=== PATIENT | female | born 1935 | race Caucasian/White ===

== ENCOUNTER 2016-11-27 18:43 | Inpatient (IN) | payer MEDICARE, BC ==
[2016-11-27] MEDS ORDERED: DILTIAZEM 125 MG in SODIUM CHLORIDE 0.9% 100 ML IV ONE (19:39)
[2016-11-27 19:52] LABS: Basophils % (A) 0 %; CH 30.3; CHCM 31.8; Eosinophils # (A) 0.1 k/uL (0-0.7); Eosinophils % (A) 1 %; HCT 46.2 % (34.0-46.0); HDW 2.65; HGB 14.5 gm/dL (11.4-16.0); Hypochromasia Slight; Luc # (Auto) 0.19; Luc % (Auto) 3; Lymphocytes % (A) 17 %; MCH 30.1 pg (25.0-35.0); MCHC 31.4 g/dL (31.0-37.0); MCV 95.8 fL (80.0-100.0); Mean Platelet Volume 7.6; Monocytes # (A) 0.6 k/uL (0-1.0); Monocytes % (A) 9 %; Neutrophils # (A) 4.4 k/uL (1.3-7.7); Neutrophils % (A) 70 %; RBC 4.82 m/uL (3.80-5.40); RDW 14.4 % (11.5-15.5); WBC 6.2 k/uL (3.8-10.6); WBC (Perox) 5.98
[2016-11-27 20:06] LABS: ALT 46 U/L (9-52); AST 29 U/L (14-36); Alkaline Phosphatase 56 U/L (38-126); Anion Gap 12 mmol/L; Blood Urea Nitrogen 19 mg/dL (7-17); Calcium 9.6 mg/dL (8.4-10.2); Carbon Dioxide 29 mmol/L (22-30); Chloride 103 mmol/L (98-107); Glucose 141 mg/dL (74-99); Magnesium 1.9 mg/dL (1.6-2.3); Non-African American GFR(MDRD) >60 (>60 ml/min/1.73 sqM); Potassium 3.5 mmol/L (3.5-5.1); Sodium 144 mmol/L (137-145); Total Bilirubin 1.4 mg/dL (0.2-1.3); Total Protein 6.9 g/dL (6.3-8.2)
[2016-11-27 20:09] LABS: INR 1.3 (<1.1); Partial Thromboplastin Time 24.3 sec (22.0-30.0); Prothrombin Time 12.5 sec (9.0-12.0)
--- NOTE | 2016-11-27 20:13 | ED ---
Arrhythmia/Palpitations HPI - General Chief Complaint: Arrhythmia/Palpitations Stated Complaint: HIGH HEART RATE, SENT BY MANAGER BOOKS Time Seen by Provider: 11/27/16 19:09 Source: patient, family Mode of arrival: wheelchair Limitations: no limitations - History of Present Illness Initial Comments: This patient is an 80-year-old woman who was referred here by an urgent care clinic doctor. The patient and her family relate a history that they had gone to the clinic because she had not been feeling well for about a week. She states that specifically she was feeling very fatigued, having a lack of energy , and having a lot of which she is describing as indigestion, with belching and some nausea. The patient was found to have rapid, irregular pulse and was referred directly here. The patient denies any history of previous arrhythmia. She does have a previous stent. The patient denies other anginal type symptoms, including no chest pain, dyspnea, diaphoresis, vomiting, syncope. MD Complaint: rapid heart beat -: week(s) Context: occurred during rest - Related Data Home Medications Medication Instructions Recorded Confirmed Aspirin [Adult Low Dose Aspirin EC] 81 mg PO DAILY 11/27/16 12/04/16 Cholecalciferol [Vitamin D3] 1,000 unit PO DAILY 11/27/16 12/04/16 amLODIPine [Norvasc] 5 mg PO BID 11/27/16 12/04/16 Previous Rx's Medication Instructions Recorded Apixaban [Eliquis] 5 mg PO BID #0 tab 12/01/16 Diltiazem HCl [Cardizem LA] 120 mg PO DAILY #30 tab.er.24h 12/01/16 Metoprolol Tartrate [Lopressor] 100 mg PO BID #60 tab 12/01/16 ALPRAZolam [Xanax] 0.125 mg PO TID PRN #20 tab 12/07/16 Furosemide [Lasix] 40 mg PO DAILY #30 tab 12/07/16 Allergies Allergy/AdvReac Type Severity Reaction Status Date / Time No Known Allergies Allergy Verified 12/04/16 22:10 Review of Systems ROS Statement: Those systems with pertinent positive or pertinent negative responses have been documented in the HPI. ROS Other: All systems not noted in ROS Statement are negative. Constitutional: Reports: weakness (Generalized). Denies: fever, chills Respiratory: Denies: cough, dyspnea Cardiovascular: Reports: edema (Bilateral ankle). Denies: chest pain, palpitations, orthopnea, syncope Gastrointestinal: Reports: nausea. Denies: abdominal pain, vomiting, melena, hematochezia Genitourinary: Denies: dysuria, hematuria Musculoskeletal: Denies: back pain Skin: Denies: rash Neurological: Denies: headache, numbness Past Medical History Past Medical History: Hyperlipidemia, Hypertension History of Any Multi-Drug Resistant Organisms: None Reported Past Surgical History: Heart Catheterization With Stent Past Psychological History: No Psychological Hx Reported Smoking Status: Former smoker Past Alcohol Use History: None Reported Past Drug Use History: None Reported - Past Family History Father Family Medical History: Coronary Artery Disease (CAD) Mother Family Medical History: Coronary Artery Disease (CAD) General Exam Limitations: no limitations General appearance: alert, in no apparent distress Head exam: Present: atraumatic, normocephalic Eye exam: Present: normal appearance. Absent: scleral icterus, conjunctival injection ENT exam: Present: normal oropharynx Neck exam: Present: normal inspection, full ROM Respiratory exam: Present: normal lung sounds bilaterally. Absent: respiratory distress, wheezes, rales, rhonchi, stridor Cardiovascular Exam: Present: tachycardia, irregular rhythm, normal heart sounds. Absent: systolic murmur, diastolic murmur, rubs, gallop GI/Abdominal exam: Present: soft. Absent: distended, tenderness, guarding, rebound, rigid, mass Extremities exam: Present: normal inspection, normal capillary refill. Absent: pedal edema, calf tenderness Back exam: Present: normal inspection. Absent: CVA tenderness (R), CVA tenderness (L) Neurological exam: Present: alert Skin exam: Present: warm, dry, intact, normal color. Absent: rash Course Vital Signs 11/27/16 11/27/16 11/27/16 18:49 20:02 20:24 Temperature 97.2 F L 98.3 F Pulse Rate 162 H 152 H 148 H Respiratory 20 20 18 Rate Blood Pressure 172/87 125/90 128/58 O2 Sat by Pulse 91 L 96 94 L Oximetry 11/27/16 11/27/16 11/27/16 20:54 21:24 22:24 Temperature Pulse Rate 112 H 104 H 99 Respiratory 18 18 18 Rate Blood Pressure 122/75 125/76 135/65 O2 Sat by Pulse 94 L 93 L 95 Oximetry 11/27/16 23:21 Temperature 97.8 F Pulse Rate 88 Respiratory 18 Rate Blood Pressure 131/70 O2 Sat by Pulse 94 L Oximetry EKG Findings - EKG Results: EKG: interpreted by ERMD, normal axis EKG shows: atrial fibrillation (Rate approximately 143 bpm) - Blocks, Owen, Hypertrophy, ST Abn: AV and intraventricular conduction: right bundle branch block (fixed/ intermittent, complete/incomplete) Repolarization changes or abnormalities: nonspecific abnormality, ST segment, and/or T wave, ST suggestive of injury (There is some minimal asked T depression in the anterior leads) Medical Decision Making - Lab Data Result diagrams: 12/01/16 05:49 12/01/16 05:49 Lab Results 11/27/16 11/27/16 11/27/16 Range/Units 18:55 18:55 18:55 WBC 6.2 (3.8-10.6) k/uL RBC 4.82 (3.80-5.40) m/uL Hgb 14.5 (11.4-16.0) gm/dL Hct 46.2 H (34.0-46.0) % MCV 95.8 (80.0-100.0) fL MCH 30.1 (25.0-35.0) pg MCHC 31.4 (31.0-37.0) g/dL RDW 14.4 (11.5-15.5) % Plt Count 191 (150-450) k/uL Neutrophils % 70 % Lymphocytes % 17 % Monocytes % 9 % Eosinophils % 1 % Basophils % 0 % Neutrophils # 4.4 (1.3-7.7) k/uL Lymphocytes # 1.0 (1.0-4.8) k/uL Monocytes # 0.6 (0-1.0) k/uL Eosinophils # 0.1 (0-0.7) k/uL Basophils # 0.0 (0-0.2) k/uL Hypochromasia Slight PT (9.0-12.0) sec INR (<1.1) APTT (22.0-30.0) sec D-Dimer (<0.60) mg/L FEU Sodium 144 (137-145) mmol/L Potassium 3.5 (3.5-5.1) mmol/L Chloride 103 (98-107) mmol/L Carbon Dioxide 29 (22-30) mmol/L Anion Gap 12 mmol/L BUN 19 H (7-17) mg/dL Creatinine 0.80 (0.52-1.04) mg/dL Est GFR (MDRD) Af Amer >60 (>60 ml/min/1.73 sqM) Est GFR (MDRD) Non-Af >60 (>60 ml/min/1.73 sqM) Glucose 141 H (74-99) mg/dL Calcium 9.6 (8.4-10.2) mg/dL Magnesium 1.9 (1.6-2.3) mg/dL Total Bilirubin 1.4 H (0.2-1.3) mg/dL AST 29 (14-36) U/L ALT 46 (9-52) U/L Alkaline Phosphatase 56 (38-126) U/L Total Creatine Kinase 25 L (30-135) U/L CK-MB (CK-2) 0.9 (0.0-2.4) ng/mL CK-MB (CK-2) Rel Index 3.6 Troponin I 0.092 H* (0.000-0.034) ng/mL Total Protein 6.9 (6.3-8.2) g/dL Albumin 4.2 (3.5-5.0) g/dL TSH 1.050 (0.465-4.680) mIU/L 11/27/16 Range/Units 18:55 WBC (3.8-10.6) k/uL RBC (3.80-5.40) m/uL Hgb (11.4-16.0) gm/dL Hct (34.0-46.0) % MCV (80.0-100.0) fL MCH (25.0-35.0) pg MCHC (31.0-37.0) g/dL RDW (11.5-15.5) % Plt Count (150-450) k/uL Neutrophils % % Lymphocytes % % Monocytes % % Eosinophils % % Basophils % % Neutrophils # (1.3-7.7) k/uL Lymphocytes # (1.0-4.8) k/uL Monocytes # (0-1.0) k/uL Eosinophils # (0-0.7) k/uL Basophils # (0-0.2) k/uL Hypochromasia PT 12.5 H (9.0-12.0) sec INR 1.3 (<1.1) APTT 24.3 (22.0-30.0) sec D-Dimer 0.67 H (<0.60) mg/L FEU Sodium (137-145) mmol/L Potassium (3.5-5.1) mmol/L Chloride (98-107) mmol/L Carbon Dioxide (22-30) mmol/L Anion Gap mmol/L BUN (7-17) mg/dL Creatinine (0.52-1.04) mg/dL Est GFR (MDRD) Af Amer (>60 ml/min/1.73 sqM) Est GFR (MDRD) Non-Af (>60 ml/min/1.73 sqM) Glucose (74-99) mg/dL Calcium (8.4-10.2) mg/dL Magnesium (1.6-2.3) mg/dL Total Bilirubin (0.2-1.3) mg/dL AST (14-36) U/L ALT (9-52) U/L Alkaline Phosphatase (38-126) U/L Total Creatine Kinase (30-135) U/L CK-MB (CK-2) (0.0-2.4) ng/mL CK-MB (CK-2) Rel Index Troponin I (0.000-0.034) ng/mL Total Protein (6.3-8.2) g/dL Albumin (3.5-5.0) g/dL TSH (0.465-4.680) mIU/L Critical Care Time Critical Care Time: Yes (35 minutes) Disposition Clinical Impression: New onset a-fib Disposition: ADMITTED IP TO THIS [facility] Condition: Fair
--- NOTE | 2016-11-27 20:19 | XR ---
EXAMINATION TYPE: XR chest 1V portable DATE OF EXAM: 11/27/2016 7:55 PM COMPARISON: NONE HISTORY: Dysrhythmia TECHNIQUE: Single frontal view of the chest is obtained. AP upright portable technique. FINDINGS: EKG leads noted. There is no focal air space opacity, pleural effusion, or pneumothorax se en. The cardiac silhouette size is within normal limits. The osseous structures are intact. IMPRESSION: No acute process.
[2016-11-27 20:26] LABS: Creatine Kinase MB 0.9 ng/mL (0.0-2.4)
[2016-11-27 20:37] LABS: Troponin I 0.092 ng/mL (0.000-0.034)
[2016-11-27] MEDS ORDERED: HEPARIN SODIUM,PORCINE 5,000 UNIT/ML 1 ML VIAL IV ONE (23:03)
[2016-11-27] MEDS ORDERED: NITROGLYCERIN SL TABS 0.4 MG TAB SUBLINGUAL PRN (23:03)
[2016-11-27] MEDS ORDERED: HEPARIN SODIUM,PORCINE/D5W PMX 25,000 UNIT in DEXTROSE/WATER 1 500ML.BAG IV SCH (23:15)
[2016-11-27] MEDS: SODIUM CHLORIDE 0.9% 1,000 ML IV SCH (23:29)
[2016-11-28 01:59] LABS: Creatine Kinase MB 1.2 ng/mL (0.0-2.4)
[2016-11-28 02:06] LABS: Troponin I 0.118 ng/mL (0.000-0.034)
[2016-11-28 06:39] LABS: Cholesterol 166 mg/dL (<200); HDL Cholesterol 52 mg/dL (40-60); Triglycerides 92 mg/dL (<150)
[2016-11-28 07:11] LABS: Creatine Kinase MB 1.3 ng/mL (0.0-2.4)
[2016-11-28 07:28] LABS: Troponin I 0.115 ng/mL (0.000-0.034)
[2016-11-28] MEDS: CHOLECALCIFEROL 1,000 UNIT TAB PO SCH (08:37)
[2016-11-28] MEDS: amLODIPine 5 MG TAB PO SCH ×2 (08:37→19:56)
[2016-11-28] MEDS ORDERED: ASPIRIN 325 MG TAB PO SCH (09:00)
[2016-11-28] MEDS ORDERED: NON-FORMULARY DRUG (Aspirin [Adult Low Dose Aspirin Ec] 81 MG) PO SCH (09:00)
[2016-11-28] MEDS ORDERED: METOPROLOL TARTRATE 25 MG TAB PO SCH (09:00)
--- NOTE | 2016-11-28 11:29 | ECHOF ---
Referral Reason:new onset af MEASUREMENTS -------- HEIGHT: 165.1 cm WEIGHT: 67.6 kg BP: 129/74 RVIDd: 2.9 cm (< 3.3) IVSd: 1.2 cm (0.6 - 1.1) LVIDd: 4.1 cm (3.9 - 5.3) LVPWd: 1.2 cm (0.6 - 1.1) IVSs: 1.6 cm LVIDs: 3.3 cm LVPWs: 1.6 cm LA Diam: 3.8 cm (2.7 - 3.8) LAESV Index (A-L): 32.19 ml/m Ao Diam: 3.2 cm (2.0 - 3.7) AV Cusp: 1.7 cm (1.5 - 2.6) MV EXCURSION: 16.269 mm (> 18.000) MV EF SLOPE: 107 mm/s (70 - 150) EPSS: 0.7 cm AV maxP.09 mmHg AV meanP.07 mmHg RAP: 15.00 mmHg RVSP: 45.66 mmHg FINDINGS -------- Atrial fibrillation. This was a technically good study. The left ventricular size is normal. There is borderline concentric left ventricular hypertrophy. Overall left ventricular systolic function is low-normal with, an EF between 50 - 55 %. The right ventricle is normal in size and function. LA is midly dilated 29-33ml/m2. The right atrium is normal in size. Aortic valve is trileaflet and is mildly thickened. Peak/mean gradient across the Aortic Valve is 13.09mmHg / 6.07mmHg. Mild mitral annular calcification present. Mild mitral regurgitation is present. Moderate tricuspid regurgitation present. There is mild to moderate pulmonary hypertension. The right ventricular systolic pressure, as measured by Doppler, is 45.66mmHg. Trace/mild (physiologic) pulmonic regurgitation. The aortic root size is normal. The inferior vena cava is dilated with no significant inspiratory collapse which is consistent estimated right atrial pressure of >15 mmHg. The pericardium is normal. CONCLUSIONS -------- 1. Atrial fibrillation. 2. Peak/mean gradient across the Aortic Valve is 13.09mmHg / 6.07mmHg. 3. Mild mitral annular calcification present. 4. Mild mitral regurgitation is present. 5. Moderate tricuspid regurgitation present. 6. There is mild to moderate pulmonary hypertension. 7. The right ventricular systolic pressure, as measured by Doppler, is 45.66mmHg. 8. Trace/mild (physiologic) pulmonic regurgitation. 9. The aortic root size is normal. 10. The inferior vena cava is dilated with no significant inspiratory collapse which is consistent estimated right atrial pressure of >15 mmHg. 11. The pericardium is normal. 12. This was a technically good study. 13. The left ventricular size is normal. 14. There is borderline concentric left ventricular hypertrophy. 15. Overall left ventricular systolic function is low-normal with, an EF between 50 - 55 %. 16. The right ventricle is normal in size and function. 17. LA is midly dilated 29-33ml/m2. 18. The right atrium is normal in size. 19. Aortic valve is trileaflet and is mildly thickened. SERVICE DESK SPECIALIST: Bertha Ulrich RDCS
[2016-11-28] MEDS ORDERED: methylPREDNISolone SOD SUCCI 125 MG/2 ML VIAL IV STA (12:11)
[2016-11-28] MEDS ORDERED: RX INFO: IV CONTRAST WAS GIVEN 1 EACH MISC MISCELLANE PRN (12:12)
[2016-11-28] MEDS ORDERED: METOPROLOL TARTRATE 50 MG TAB PO STA (12:50)
--- NOTE | 2016-11-28 13:04 | P.CRDCN ---
History of Present Illness Consult date: 11/28/16 Reason for Consult (text): New onset atrial fibrillation w/RVR Chief complaint: fatigue, shortness of breath History of present illness: This is a pleasant 80-year-old female who follows with Dr. RAMSEY per week in the office. Has a known history of coronary artery disease with prior stenting in 2001, hypertension, dyslipidemia, current smoker. She presented to the hospital with complaints of fatigue, weakness for the last couple of weeks and had developed soreness of breath and lower extremity edema over the last few days. EKG on admission showed patient to be in atrial fibrillation with rapid ventricular response, new onset. Chest x-ray showed no acute process. Laboratory values showed BUN of 19, creatinine 0.8, TSH is normal at 1.050 and mild troponin elevation of 0.092, 0.118, and 0.115. She was started on Cardizem drip as well as heparin drip. Heart rates are currently controlled however she remains in atrial fibrillation. On examination, patient says she is feeling quite a bit better, breathing easier. Continues to complain of fatigue as well as lower extremity edema which has improved. He denies complaints of dizziness, lightheadedness, palpitations or chest discomfort. Past Medical History Past Medical History: Hyperlipidemia, Hypertension History of Any Multi-Drug Resistant Organisms: None Reported Past Surgical History: Heart Catheterization With Stent Past Anesthesia/Blood Transfusion Reactions: No Reported Reaction Date of Last Stent Placement:: 2001 Past Psychological History: No Psychological Hx Reported Smoking Status: Former smoker Past Alcohol Use History: None Reported Past Drug Use History: None Reported - Past Family History Father Family Medical History: Coronary Artery Disease (CAD) Mother Family Medical History: Coronary Artery Disease (CAD) Medications and Allergies Home Medications Medication Instructions Recorded Confirmed Type Aspirin [Adult Low Dose Aspirin EC] 81 mg PO DAILY 11/27/16 11/27/16 History Cholecalciferol [Vitamin D3] 1,000 unit PO DAILY 11/27/16 11/27/16 History Metoprolol Tartrate [Lopressor] 25 mg PO BID 11/27/16 11/27/16 History amLODIPine [Norvasc] 5 mg PO BID 11/27/16 11/27/16 History Allergies Allergy/AdvReac Type Severity Reaction Status Date / Time No Known Allergies Allergy Verified 11/27/16 19:28 Physical Exam Vitals: Vital Signs Temp Pulse Pulse Resp BP BP Pulse Ox 11/28/16 08:37 97 F L 89 18 129/74 92 L 11/28/16 04:00 96.3 F L 84 18 116/60 93 L 11/28/16 01:35 96.9 F L 65 18 132/76 94 L 11/27/16 23:21 97.8 F 88 18 131/70 94 L 11/27/16 22:24 99 18 135/65 95 11/27/16 21:24 104 H 18 125/76 93 L 11/27/16 20:54 112 H 18 122/75 94 L 11/27/16 20:24 148 H 18 128/58 94 L 11/27/16 20:02 98.3 F 152 H 20 125/90 96 11/27/16 18:49 97.2 F L 162 H 20 172/87 91 L Intake and Output 11/27/16 11/28/16 11/28/16 22:59 06:59 14:59 Intake Total 408.32 Output Total 600 Balance -191.68 Intake: IV 290 Heparin Sodium,Porcine/ 130 D5w Pmx 25,000 unit In Dextrose/Water 1 500ml. bag @ 12 UNITS/KG/HR 16. 32 mls/hr IV .Q24H CANDE Rx #:[id number] Sodium Chloride 0.9% 1, 160 000 ml @ 20 mls/hr IV . Q24H CANDE Rx#:[id number] Intake, IV Titration 118.32 Amount Heparin Sodium,Porcine/ 118.32 D5w Pmx 25,000 unit In Dextrose/Water 1 500ml. bag @ 12 UNITS/KG/HR 16. 32 mls/hr IV .Q24H CANDE Rx #:[id number] Output: Urine 600 Other: Voiding Method Toilet Toilet Weight 68.039 kg 68 kg PHYSICAL EXAMINATION: HEENT: Head is atraumatic, normocephalic. Pupils equal, round. Neck is supple. There is no elevated jugular venous pressure. HEART EXAMINATION: Heart sounds irregular irregular, S1 and S2 normal. No murmur or gallop heard. CHEST EXAMINATION: Lungs reveal diminished air entry bilaterally with expiratory wheezing throughout. No chest wall tenderness is noted on palpation or with deep breathing. ABDOMEN: Soft, nontender. Bowel sounds are heard. No organomegaly noted. EXTREMITIES: 2+ peripheral pulses with evidence of trace peripheral edema and no calf tenderness noted. NEUROLOGIC patient is awake, alert and oriented x3. . Results 11/27/16 18:55 11/27/16 18:55 Cardiac Enzymes 11/27/16 11/27/16 11/28/16 Range/Units 18:55 18:55 01:02 AST 29 (14-36) U/L CK-MB (CK-2) 0.9 1.2 (0.0-2.4) ng/mL Troponin I 0.092 H* 0.118 H* (0.000-0.034) ng/mL 11/28/16 Range/Units 06:01 AST (14-36) U/L CK-MB (CK-2) 1.3 (0.0-2.4) ng/mL Troponin I 0.115 H* (0.000-0.034) ng/mL Coagulation 11/27/16 11/28/16 Range/Units 18:55 05:57 PT 12.5 H (9.0-12.0) sec APTT 24.3 63.3 H (22.0-30.0) sec Lipids 11/28/16 Range/Units 06:01 Triglycerides 92 (<150) mg/dL Cholesterol 166 (<200) mg/dL HDL Cholesterol 52 (40-60) mg/dL CBC 11/27/16 Range/Units 18:55 WBC 6.2 (3.8-10.6) k/uL RBC 4.82 (3.80-5.40) m/uL Hgb 14.5 (11.4-16.0) gm/dL Hct 46.2 H (34.0-46.0) % Plt Count 191 (150-450) k/uL Comprehensive Metabolic Panel 11/27/16 Range/Units 18:55 Sodium 144 (137-145) mmol/L Potassium 3.5 (3.5-5.1) mmol/L Chloride 103 (98-107) mmol/L Carbon Dioxide 29 (22-30) mmol/L BUN 19 H (7-17) mg/dL Creatinine 0.80 (0.52-1.04) mg/dL Glucose 141 H (74-99) mg/dL Calcium 9.6 (8.4-10.2) mg/dL AST 29 (14-36) U/L ALT 46 (9-52) U/L Alkaline Phosphatase 56 (38-126) U/L Total Protein 6.9 (6.3-8.2) g/dL Albumin 4.2 (3.5-5.0) g/dL Current Medications Generic Name Dose Route Start Last Admin Trade Name Freq PRN Reason Stop Dose Admin Amlodipine Besylate 5 mg 11/28/16 09:00 11/28/16 08:37 Norvasc PO 5 mg BID CANDE Administration Aspirin 325 mg 11/28/16 09:00 11/28/16 08:37 Aspirin PO 325 mg DAILY CANDE Administration Cholecalciferol 1,000 unit 11/28/16 09:00 11/28/16 08:37 Vitamin D3 PO 1,000 unit DAILY CANDE Administration Diltiazem HCl 125 mg/ Sodium 125 mls @ 5 mls/hr 11/27/16 19:39 11/27/16 20:08 Chloride IV 11/28/16 19:38 5 mg/hr .Q24H ONE 5 mls/hr Protocol Administration 5 MG/HR Heparin Sodium/Dextrose 25,000 500 mls @ 16.32 mls/hr 11/27/16 23:15 06:42 unit/ IV Solution IV 12 units/kg/hr .Q24H CANDE 16.32 mls/hr Protocol Titration 12 UNITS/KG/HR Sodium Chloride 1,000 mls @ 20 mls/hr 11/27/16 23:15 11/27/16 23:29 Saline 0.9% IV 20 mls/hr .Q24H CANDE Administration Metoprolol Tartrate 25 mg 11/28/16 09:00 Lopressor PO BID [facility] Nitroglycerin 0.4 mg 11/27/16 23:03 Nitrostat SUBLINGUAL Q5M PRN Chest Pain Intake and Output 11/27/16 11/28/16 11/28/16 22:59 06:59 14:59 Intake Total 408.32 Output Total 600 Balance -191.68 Intake: IV 290 Heparin Sodium,Porcine/ 130 D5w Pmx 25,000 unit In Dextrose/Water 1 500ml. bag @ 12 UNITS/KG/HR 16. 32 mls/hr IV .Q24H CANDE Rx #:[id number] Sodium Chloride 0.9% 1, 160 000 ml @ 20 mls/hr IV . Q24H CANDE Rx#:[id number] Intake, IV Titration 118.32 Amount Heparin Sodium,Porcine/ 118.32 D5w Pmx 25,000 unit In Dextrose/Water 1 500ml. bag @ 12 UNITS/KG/HR 16. 32 mls/hr IV .Q24H CANDE Rx #:[id number] Output: Urine 600 Other: Voiding Method Toilet Toilet Weight 68.039 kg 68 kg 11/27/16 18:55 11/27/16 18:55 EKG Interpretations (text) Atrial fibrillation with rapid ventricular response Assessment and Plan Plan: Assessment and plan #1 new onset atrial fibrillation with rapid ventricular response, likely persistent #2 history of coronary artery disease with prior stenting in 2001 #3 hypertension #4 hyperlipidemia #5 current every day smoker From cardiac standpoint, we will increase metoprolol to 50 mg by mouth twice a day in hopes to discontinue Cardizem drip. We'll start the patient on Eliquis and stop IV heparin drip. 2-D echo with Doppler was completed and shows ejection fraction of 50-55%. Further recommendations to follow. GROUP BILLING COORDINATOR note has been reviewed, I agree with a documented findings and plan of care. Patient was seen and examined.
[2016-11-28] MEDS: APIXABAN 5 MG TAB PO SCH ×2 (13:20→19:55)
--- NOTE | 2016-11-28 14:34 | P.HPIM ---
History of Present Illness H&P Date: 11/28/16 80-year-old female comes in the hospital with complaints of generalized fatigue and shortness of breath 2 days. Patient does have a significant history of CAD status post a stent placement [address] Patient sees Dr[address] August. Patient came in to the hospital for further evaluation patient was noted to be in atrial fibrillation with rapid ventricular rate which appears to be new onset. Patient also was noted to be in some degree of failure. Initial chest x-ray however did not reveal any pulmonary vessel congestion Cardiac enzymes were elevated and peaked at 0.115 At this time patient states to be feeling better denies having any headaches blurry vision nausea vomiting chest pain difficulty breathing states that she is improved at rest however does continue have some dyspnea exertion Review of Systems All systems: negative (Noted in HPI) Past Medical History Past Medical History: Hyperlipidemia, Hypertension History of Any Multi-Drug Resistant Organisms: None Reported Past Surgical History: Heart Catheterization With Stent Past Anesthesia/Blood Transfusion Reactions: No Reported Reaction Date of Last Stent Placement:: 2001 Past Psychological History: No Psychological Hx Reported Smoking Status: Former smoker Past Alcohol Use History: None Reported Past Drug Use History: None Reported - Past Family History Father Family Medical History: Coronary Artery Disease (CAD) Mother Family Medical History: Coronary Artery Disease (CAD) Medications and Allergies Home Medications Medication Instructions Recorded Confirmed Type Aspirin [Adult Low Dose Aspirin EC] 81 mg PO DAILY 11/27/16 11/27/16 History Cholecalciferol [Vitamin D3] 1,000 unit PO DAILY 11/27/16 11/27/16 History Metoprolol Tartrate [Lopressor] 25 mg PO BID 11/27/16 11/27/16 History amLODIPine [Norvasc] 5 mg PO BID 11/27/16 11/27/16 History Allergies Allergy/AdvReac Type Severity Reaction Status Date / Time No Known Allergies Allergy Verified 11/27/16 19:28 Physical Exam Vitals: Vital Signs Temp Pulse Pulse Resp BP BP Pulse Ox 11/28/16 08:37 97 F L 89 18 129/74 92 L 11/28/16 04:00 96.3 F L 84 18 116/60 93 L 11/28/16 01:35 96.9 F L 65 18 132/76 94 L 11/27/16 23:21 97.8 F 88 18 131/70 94 L 11/27/16 22:24 99 18 135/65 95 11/27/16 21:24 104 H 18 125/76 93 L 11/27/16 20:54 112 H 18 122/75 94 L 11/27/16 20:24 148 H 18 128/58 94 L 11/27/16 20:02 98.3 F 152 H 20 125/90 96 11/27/16 18:49 97.2 F L 162 H 20 172/87 91 L Intake and Output 11/27/16 11/28/16 11/28/16 22:59 06:59 14:59 Intake Total 408.32 Output Total 600 Balance -191.68 Intake: IV 290 Heparin Sodium,Porcine/ 130 D5w Pmx 25,000 unit In Dextrose/Water 1 500ml. bag @ 12 UNITS/KG/HR 16. 32 mls/hr IV .Q24H CANDE Rx #:[id number] Sodium Chloride 0.9% 1, 160 000 ml @ 20 mls/hr IV . Q24H CANDE Rx#:[id number] Intake, IV Titration 118.32 Amount Heparin Sodium,Porcine/ 118.32 D5w Pmx 25,000 unit In Dextrose/Water 1 500ml. bag @ 12 UNITS/KG/HR 16. 32 mls/hr IV .Q24H CANDE Rx #:[id number] Output: Urine 600 Other: Voiding Method Toilet Toilet Weight 68.039 kg 68 kg Physical exam Gen. appearance oriented 3 in no distress Neck is supple no JVD Lungs diminished breath sounds with crackles at the bases Heart S1-S2 heard regular rate and rhythm no murmurs appreciated Abdomen is soft nontender no organomegaly bowel sounds are intact Neurologically cranial nerves II-12 grossly intact no focal motor or sensory deficits noted Skin no abnormalities appreciated Results CBC & Chem 7: 11/27/16 18:55 11/27/16 18:55 Labs: Abnormal Lab Results - Last 24 Hours (Table) 11/27/16 11/27/16 11/27/16 Range/Units 18:55 18:55 18:55 Hct 46.2 H (34.0-46.0) % PT (9.0-12.0) sec APTT (22.0-30.0) sec D-Dimer (<0.60) mg/L FEU BUN 19 H (7-17) mg/dL Glucose 141 H (74-99) mg/dL Total Bilirubin 1.4 H (0.2-1.3) mg/dL Total Creatine Kinase 25 L (30-135) U/L Troponin I 0.092 H* (0.000-0.034) ng/mL 11/27/16 11/28/16 11/28/16 Range/Units 18:55 01:02 05:57 Hct (34.0-46.0) % PT 12.5 H (9.0-12.0) sec APTT 63.3 H (22.0-30.0) sec D-Dimer 0.67 H (<0.60) mg/L FEU BUN (7-17) mg/dL Glucose (74-99) mg/dL Total Bilirubin (0.2-1.3) mg/dL Total Creatine Kinase 26 L (30-135) U/L Troponin I 0.118 H* (0.000-0.034) ng/mL 11/28/16 Range/Units 06:01 Hct (34.0-46.0) % PT (9.0-12.0) sec APTT (22.0-30.0) sec D-Dimer (<0.60) mg/L FEU BUN (7-17) mg/dL Glucose (74-99) mg/dL Total Bilirubin (0.2-1.3) mg/dL Total Creatine Kinase (30-135) U/L Troponin I 0.115 H* (0.000-0.034) ng/mL Thrombosis Risk Factor Assmnt - Choose All That Apply Any of the Below Risk Factors Present?: Yes Each Risk Factor Represents 3 Points: Age 75 years or older Thrombosis Risk Factor Assessment Total Risk Factor Score: 3 Thrombosis Risk Factor Assessment Level: Moderate Risk Assessment and Plan Plan: #1 new onset atrial fibrillation with rapid ventricular rate #2 history of CAD #3 acute exacerbation of heart failure likely diastolic in nature with tachyarrhythmia exacerbating it #4 hypertension #5 dyslipidemia #6 ongoing tobacco use Plan Patient's beta blockers increased. ELIQUIS is initiated Discussed risks benefits prevention of strokes in this condition Continue ongoing care continue telemetry we'll monitor or night likely discharge the patient the next 24 hours if stable. Appreciate cardiology recommendations of ma
[2016-11-28] MEDS: IPRATROPIUM-ALBUTEROL 3 ML NEB INHALATION SCH ×2 (15:57→20:27)
[2016-11-28] MEDS: SODIUM CHLORIDE 0.9% 1,000 ML IV SCH (19:52)
[2016-11-28] MEDS: METOPROLOL TARTRATE 50 MG TAB PO SCH (19:56)
[2016-11-29] MEDS: IPRATROPIUM-ALBUTEROL 3 ML NEB INHALATION SCH ×4 (08:43→21:06)
[2016-11-29] MEDS: ASPIRIN 81 MG CHEW PO SCH (10:00)
[2016-11-29] MEDS: CHOLECALCIFEROL 1,000 UNIT TAB PO SCH (10:00)
[2016-11-29] MEDS: METOPROLOL TARTRATE 50 MG TAB PO SCH ×2 (10:00→20:28)
[2016-11-29] MEDS: APIXABAN 5 MG TAB PO SCH ×2 (10:00→20:25)
[2016-11-29] MEDS: amLODIPine 5 MG TAB PO SCH ×2 (10:00→20:25)
[2016-11-29] MEDS ORDERED: METOPROLOL TARTRATE 50 MG TAB PO STA (12:14)
[2016-11-29] MEDS ORDERED: FUROSEMIDE 10 MG/ML 2 ML VIAL IV ONE (12:15)
--- NOTE | 2016-11-29 13:08 | PN ---
Millicent Dalal is an 80-year-old female. She remains in atrial fibrillation with RVR. Despite 50 mg twice daily of metoprolol her rates are not controlled. Her heart rate jumps from 112 to 134 beats a minute, irregular. Blood pressure is 134/82 mmHg. Head and neck examination is normal. Other than being irregular, heart sounds are normal. S1, S2 are normal. No murmurs. Breath sounds are normal. No rhonchi. No crackles. Abdomen is soft. She is sitting up comfortably in bed. She feels tired. IMPRESSION: Persistent atrial fibrillation. SUGGEST: Rate control strategy and anticoagulation. I will increase the dose of metoprolol to 100 mg twice daily. Hopefully this improves her rate control by tomorrow. I spoke to Dr. Obregon regarding this.
--- NOTE | 2016-11-29 18:12 | P.PN ---
Subjective 80-year-old female comes in the hospital with complaints of generalized fatigue and shortness of breath 2 days. Patient does have a significant history of CAD status post a stent placement [address] August. Patient came in to the hospital for further evaluation patient was noted to be in atrial fibrillation with rapid ventricular rate which appears to be new onset. Patient also was noted to be in some degree of failure. Initial chest x-ray however did not reveal any pulmonary vessel congestion Cardiac enzymes were elevated and peaked at 0.115 At this time patient states to be feeling better denies having any headaches blurry vision nausea vomiting chest pain difficulty breathing states that she is improved at rest however does continue have some dyspnea exertion 11/29/16 Continues to have tachycardia in afib No cp , dizziness, n/v, abdominal pain or headaches or bleeding episodes reported. Objective - Vital Signs Vital signs: Vital Signs Temp 97.4 F L 11/29/16 16:53 Pulse 98 11/29/16 16:53 Resp 18 11/29/16 16:53 BP 110/76 11/29/16 16:53 Pulse Ox 92 L 11/29/16 16:53 Intake & Output 11/28/16 11/29/16 11/29/16 18:59 06:59 18:59 Intake Total 898 431 3265 Balance 185 371 9138 Weight 70.4 kg Intake: IV 288 160 160 Heparin Sodium,Porcine/ 128 D5w Pmx 25,000 unit In Dextrose/Water 1 500ml. bag @ 12 UNITS/KG/HR 16. 32 mls/hr IV .Q24H [facility] Rx #:[id number] Sodium Chloride 0.9% 1, 160 160 160 000 ml @ 20 mls/hr IV . Q24H [facility] Rx#:[id number] Intake, IV Titration 35 Amount Diltiazem 125 mg In 35 Sodium Chloride 0.9% 100 ml @ 5 MG/HR 5 mls/hr IV .Q24H [facility] Rx#:[id number] Oral 1280 Other: Voiding Method Toilet Toilet Toilet # Voids 2 - Constitutional General appearance: Present: no acute distress - EENT Eyes: Present: PERRLA - Neck Neck: Present: normal ROM - Respiratory Respiratory: bilateral: diminished, negative: wheezing - Cardiovascular Rhythm: irregularly irregular - Peripheral edema leg Peripheral Edema: bilateral: 2+, Pitting - Gastrointestinal General gastrointestinal: Present: normal bowel sounds, soft. Absent: organomegaly - Integumentary Integumentary: Present: normal - Neurologic Neurologic: Present: CNII-XII intact. Absent: focal deficits - Musculoskeletal Musculoskeletal: Present: gait normal - Psychiatric Psychiatric: Present: A&O x's 3, appropriate affect - Labs CBC & Chem 7: 11/27/16 18:55 11/27/16 18:55 Assessment and Plan Plan: #1 new onset atrial fibrillation with rapid ventricular rate #2 history of CAD #3 acute exacerbation of heart failure likely diastolic in nature with tachyarrhythmia exacerbating it. #4 hypertension #5 dyslipidemia #6 ongoing tobacco use #7 Mild exacerbation of COPD, improved Plan Patient's beta blockers increased. ELIQUIS is initiated Discussed risks benefits prevention of strokes in this condition one does of iv lasix lower extremity edema 2 + increase metoprolol 100mg bid encourage activity
[2016-11-29] MEDS: SODIUM CHLORIDE 0.9% 1,000 ML IV SCH (23:06)
[2016-11-30 06:49] LABS: Basophils % (A) 0 %; CH 29.8; CHCM 31.5; Eosinophils % (A) 1 %; HCT 41.9 % (34.0-46.0); HDW 2.64; HGB 13.2 gm/dL (11.4-16.0); Hypochromasia Slight; Luc # (Auto) 0.16; Luc % (Auto) 2; Lymphocytes # (A) 1.1 k/uL (1.0-4.8); Lymphocytes % (A) 14 %; MCH 30.1 pg (25.0-35.0); MCHC 31.6 g/dL (31.0-37.0); MCV 95.3 fL (80.0-100.0); Mean Platelet Volume 7.8; Monocytes # (A) 0.6 k/uL (0-1.0); Monocytes % (A) 7 %; Neutrophils # (A) 5.9 k/uL (1.3-7.7); Neutrophils % (A) 76 %; RBC 4.39 m/uL (3.80-5.40); RDW 14.3 % (11.5-15.5); WBC 7.8 k/uL (3.8-10.6); WBC (Perox) 7.94
--- NOTE | 2016-11-30 06:57 | P.PN ---
Subjective Patient is resting comfortably in bed. Breath sounds are equal bilaterally. Heart rates are well controlled Afebrile 97.4F, blood pressure 113/83 mmHg, pulse rate in the 70s Impression Atrial fibrillation with RVR Plan TSH level Continue anticoagulation Rate controlled with metoprolol heart rate 100 mg twice daily Stop IV fluids May be discharged from a cardiac standpoint and follow for memory burlapper Objective - Vital Signs Vital signs: Vital Signs Temp 97.4 F L 11/30/16 03:28 Pulse 63 11/30/16 03:28 Resp 16 11/30/16 03:28 BP 113/83 11/30/16 03:28 Pulse Ox 90 L 11/30/16 03:28 Intake & Output 11/29/16 11/29/16 11/30/16 06:59 18:59 06:59 Intake Total 160 1440 20 Balance 160 1440 20 Weight 70.4 kg 71.2 kg Intake: IV 160 160 20 0.9% NS FLUSH 10 mL 20 Sodium Chloride 0.9% 1, 160 160 000 ml @ 20 mls/hr IV . Q24H [facility] Rx#:[id number] Oral 1280 Other: Voiding Method Toilet Toilet # Voids 2 - Labs CBC & Chem 7: 11/30/16 06:00 11/27/16 18:55
[2016-11-30 06:59] LABS: ALT 39 U/L (9-52); AST 24 U/L (14-36); Alkaline Phosphatase 39 U/L (38-126); Anion Gap 9 mmol/L; Blood Urea Nitrogen 23 mg/dL (7-17); Carbon Dioxide 29 mmol/L (22-30); Chloride 99 mmol/L (98-107); Glucose 102 mg/dL (74-99); Non-African American GFR(MDRD) >60 (>60 ml/min/1.73 sqM); Sodium 137 mmol/L (137-145); Total Bilirubin 1.1 mg/dL (0.2-1.3); Total Protein 5.9 g/dL (6.3-8.2)
[2016-11-30] MEDS: IPRATROPIUM-ALBUTEROL 3 ML NEB INHALATION SCH ×4 (08:07→20:23)
[2016-11-30] MEDS: ASPIRIN 81 MG CHEW PO SCH (09:01)
[2016-11-30] MEDS: CHOLECALCIFEROL 1,000 UNIT TAB PO SCH (09:01)
[2016-11-30] MEDS: amLODIPine 5 MG TAB PO SCH ×2 (09:02→20:57)
[2016-11-30] MEDS: METOPROLOL TARTRATE 50 MG TAB PO SCH ×2 (09:02→20:57)
[2016-11-30] MEDS: APIXABAN 5 MG TAB PO SCH ×2 (09:02→20:57)
[2016-11-30] MEDS ORDERED: ONDANSETRON 4 MG/2 ML VIAL IVP PRN (11:23)
[2016-11-30] MEDS: DILTIAZEM ORAL 30 MG TAB PO SCH ×3 (13:59→22:42)
[2016-11-30] MEDS ORDERED: FUROSEMIDE 10 MG/ML 4 ML VIAL IV STA (17:53)
--- NOTE | 2016-11-30 17:55 | P.PN ---
Subjective 80-year-old female comes in the hospital with complaints of generalized fatigue and shortness of breath 2 days. Patient does have a significant history of CAD status post a stent placement [address] Patient [address] August. Patient came in to the hospital for further evaluation patient was noted to be in atrial fibrillation with rapid ventricular rate which appears to be new onset. Patient also was noted to be in some degree of failure. Initial chest x-ray however did not reveal any pulmonary vessel congestion Cardiac enzymes were elevated and peaked at 0.115 At this time patient states to be feeling better denies having any headaches blurry vision nausea vomiting chest pain difficulty breathing states that she is improved at rest however does continue have some dyspnea exertion 11/29/16 Continues to have tachycardia in afib No cp , dizziness, n/v, abdominal pain or headaches or bleeding episodes reported. 11/30 Continues to have tachycardia RAJ on exertion complaints of lower extremity swelling No chest pain, abdominal pain, headaches, nausea, vomiting, urinary burning. Objective - Vital Signs Vital signs: Vital Signs Temp 96.8 F L 11/30/16 16:00 Pulse 92 11/30/16 16:17 Resp 18 11/30/16 16:00 BP 132/75 11/30/16 16:00 Pulse Ox 89 L 11/30/16 16:00 Intake & Output 11/29/16 11/30/16 11/30/16 18:59 06:59 18:59 Intake Total 1440 20 272 Balance 1440 20 272 Weight 71.2 kg Intake: IV 160 20 32 0.9% NS FLUSH 10 mL 20 12 Invasive Line 1 20 Sodium Chloride 0.9% 1, 160 000 ml @ 20 mls/hr IV . Q24H [facility] Rx#:[id number] Oral 1280 240 Other: Voiding Method Toilet # Voids 2 2 - Constitutional General appearance: Present: no acute distress - Neck Neck: Present: normal ROM - Respiratory Respiratory: bilateral: rales, negative: diminished, dullness, rhonchi, wheezing - Cardiovascular Rhythm: irregularly irregular Heart sounds: normal: S1, S2 - Peripheral edema ankle Peripheral Edema: bilateral: 2+ - Gastrointestinal General gastrointestinal: Present: normal bowel sounds, soft. Absent: distended , organomegaly - Integumentary Integumentary: Present: normal - Neurologic Neurologic: Present: CNII-XII intact. Absent: focal deficits - Musculoskeletal Musculoskeletal: Present: gait normal - Psychiatric Psychiatric: Present: A&O x's 3 - Labs CBC & Chem 7: 11/30/16 06:00 11/30/16 06:00 Labs: Abnormal Lab Results - Last 24 Hours (Table) 11/30/16 Range/Units 06:00 BUN 23 H (7-17) mg/dL Glucose 102 H (74-99) mg/dL Total Protein 5.9 L (6.3-8.2) g/dL Albumin 3.4 L (3.5-5.0) g/dL Assessment and Plan Plan: #1 new onset atrial fibrillation with rapid ventricular rate #2 history of CAD #3 acute exacerbation of heart failure likely diastolic in nature with tachyarrhythmia exacerbating it. #4 hypertension #5 dyslipidemia #6 ongoing tobacco use #7 Mild exacerbation of COPD, improved Plan Patient's beta blockers increased. ELIQUIS is initiated Discussed risks benefits prevention of strokes in this condition lasix 40mg iv repeat labs will add cardizem 30mg qid, if rate is better controlled then change to cardizem 120mg cd encourage activity
[2016-12-01 06:52] LABS: Basophils % (A) 0 %; CH 30.2; CHCM 31.3; Eosinophils % (A) 1 %; HCT 44.2 % (34.0-46.0); HDW 2.63; HGB 13.6 gm/dL (11.4-16.0); Hypochromasia Slight; Luc # (Auto) 0.17; Luc % (Auto) 3; Lymphocytes # (A) 1.2 k/uL (1.0-4.8); Lymphocytes % (A) 18 %; MCH 29.8 pg (25.0-35.0); MCHC 30.8 g/dL (31.0-37.0); MCV 96.9 fL (80.0-100.0); Mean Platelet Volume 7.6; Monocytes # (A) 0.5 k/uL (0-1.0); Monocytes % (A) 8 %; Neutrophils # (A) 4.8 k/uL (1.3-7.7); Neutrophils % (A) 71 %; RBC 4.56 m/uL (3.80-5.40); RDW 14.3 % (11.5-15.5); WBC 6.8 k/uL (3.8-10.6); WBC (Perox) 7.12
[2016-12-01 07:13] LABS: ALT 43 U/L (9-52); AST 35 U/L (14-36); Alkaline Phosphatase 35 U/L (38-126); Anion Gap 10 mmol/L; Blood Urea Nitrogen 26 mg/dL (7-17); Carbon Dioxide 24 mmol/L (22-30); Chloride 101 mmol/L (98-107); Glucose 99 mg/dL (74-99); Non-African American GFR(MDRD) >60 (>60 ml/min/1.73 sqM); Potassium 4.5 mmol/L (3.5-5.1); Sodium 135 mmol/L (137-145); Total Bilirubin 1.5 mg/dL (0.2-1.3); Total Protein 6.1 g/dL (6.3-8.2)
[2016-12-01 07:42] VITALS: BP 102/63; PULSE 75; RESP 20; TEMP 97.2
[2016-12-01] MEDS: IPRATROPIUM-ALBUTEROL 3 ML NEB INHALATION SCH ×3 (10:02→15:28)
[2016-12-01] MEDS: amLODIPine 5 MG TAB PO SCH (10:43)
[2016-12-01] MEDS: METOPROLOL TARTRATE 50 MG TAB PO SCH (10:44)
[2016-12-01] MEDS: APIXABAN 5 MG TAB PO SCH (10:44)
[2016-12-01] MEDS: CHOLECALCIFEROL 1,000 UNIT TAB PO SCH (10:44)
[2016-12-01] MEDS: DILTIAZEM ORAL 30 MG TAB PO SCH ×2 (10:44→12:32)
[2016-12-01] MEDS: ASPIRIN 81 MG CHEW PO SCH (10:44)
--- NOTE | 2016-12-01 15:18 | CDI ---
In responding to this query, please exercise your independent professional judgment. The [facility] Coding Staff and Clinical Documentation Specialists appreciate your assistance in clarifying documentation, maintaining compliance with coding guidelines, accurately documenting patients condition and capturing severity of illness. The fact that a question is asked does not imply that any particular answer is desired or expected. Communication forms are a method of clarifying documentation and are not made part of the Legal Health Record. Thank you in advance for your clarification. Last Revision, May 2015 Pricila Valero [address] [facility] [facility] [place] [address] Documentation Clarification Form Date: 12/01/2016 3:09:00 PM From: Karen Mayers RN, CCDS Admit Date: 11/27/2016 11:03:00 PM Patient Name: Millicent Dalal Visit Number: [id number] Dr. Jaxon Alcaraz New onset atrial fibrillation is documented in the cardiology consult and progress notes History/Risk Factors: Acute on chronic diastolic CHF this admission, c/o generalized fatigue and weakness x2 days, CAD, HTN, dyslipidemia Clinical Indicators: EKG/telemetry: Atrial Fib RVR Treatment: Consults: Cardiology TX: IV Cardizem drip changed to 30 PO QID, Lopressor 100mg PO BID, IV heparin drip In your professional opinion, can you please clarify the type of atrial fibrillation, if known? Chronic/Permanent Paroxysmal Persistent Other, please specify Unable to determine Please document in your progress notes and discharge summary in order to capture severity of illness and risk of mortality. Include clinical findings that support your diagnosis. FYI: Press F11 to launch patient chart Place X here if this finding has no clinical significance, is not applicable or if you are not able to provide any additional documentation. MTDD
--- NOTE | 2016-12-01 18:14 | P.DS ---
Providers Date of admission: 11/27/16 23:03 Attending physician: Natasha Mcnulty Consults: 11/27/16 23:03 Consult Physician Routine Consulting Provider: Rebecca August Consult Reason/Comments: new atrial fibrillation Do you want consulting provider notified?: Yes Primary care physician: Stated None Hospital Course: 80-year-old female comes in the hospital with complaints of generalized fatigue and shortness of breath 2 days. Patient does have a significant history of CAD status post a stent placement [address] Patient [address] August. Patient came in to the hospital for further evaluation patient was noted to be in atrial fibrillation with rapid ventricular rate which appears to be new onset. Patient also was noted to be in some degree of failure. Initial chest x-ray however did not reveal any pulmonary vessel congestion Cardiac enzymes were elevated and peaked at 0.115 At this time patient states to be feeling better denies having any headaches blurry vision nausea vomiting chest pain difficulty breathing states that she is improved at rest however does continue have some dyspnea exertion 11/29/16 Continues to have tachycardia in afib No cp , dizziness, n/v, abdominal pain or headaches or bleeding episodes reported. 11/30 Continues to have tachycardia RAJ on exertion complaints of lower extremity swelling No chest pain, abdominal pain, headaches, nausea, vomiting, urinary burning. - Constitutional General appearance: Present: no acute distress - Neck Neck: Present: normal ROM - Respiratory Respiratory: bilateral: rales, negative: diminished, dullness, rhonchi, wheezing - Cardiovascular Rhythm: irregularly irregular Heart sounds: normal: S1, S2 - Peripheral edema ankle Peripheral Edema: bilateral: 2+ - Gastrointestinal General gastrointestinal: Present: normal bowel sounds, soft. Absent: distended , organomegaly - Integumentary Integumentary: Present: normal - Neurologic Neurologic: Present: CNII-XII intact. Absent: focal deficits - Musculoskeletal Musculoskeletal: Present: gait normal - Psychiatric Psychiatric: Present: A&O x's 3 Assessment and Plan Plan: #1 new onset atrial fibrillation with rapid ventricular rate on admission continue to have a fib, appears to be persistent a fib rate controlled #2 history of CAD #3 acute exacerbation of heart failure likely diastolic in nature with tachyarrhythmia exacerbating it. #4 hypertension #5 dyslipidemia #6 ongoing tobacco use #7 Mild exacerbation of COPD, improved Plan metoprolol 100mg bid ELIQUIS for anticoagulation chadsvasc of atleast 4 cardizem 120mg cd Patient Condition at Discharge: Fair Plan - Discharge Summary New Discharge Prescriptions: Diltiazem HCl [Cardizem LA] 120 mg PO DAILY #30 tab.er.24h Metoprolol Tartrate [Lopressor] 100 mg PO BID #60 tab Discharge Medication List Aspirin [Adult Low Dose Aspirin EC] 81 mg PO DAILY 11/27/16 [History] Cholecalciferol [Vitamin D3] 1,000 unit PO DAILY 11/27/16 [History] amLODIPine [Norvasc] 5 mg PO BID 11/27/16 [History] Apixaban [Eliquis] 5 mg PO BID #0 tab 12/01/16 [Rx] Diltiazem HCl [Cardizem LA] 120 mg PO DAILY #30 tab.er.24h 12/01/16 [Rx] Metoprolol Tartrate [Lopressor] 100 mg PO BID #60 tab 12/01/16 [Rx] Follow up Appointment(s)/Referral(s): None,Stated [Primary Care Provider] - 1-2 days Rebecca August MD [STAFF PHYSICIAN] - 12/09/16 2:30 pm ([facility]. ) Patient Instructions/Handouts: Atrial Fibrillation (DC) Activity/Diet/Wound Care/Special Instructions: Please product picker free month supply of Eliquis from [facility] on discharge. Cardiac diet Discharge Disposition: HOME SELF-CARE
== END 2016-12-01 15:56 | disposition home or self-care (01) | DRG 308 ==
LOC: EC 18:43 → 6SEL 23:03 → 4MS4W 12-01 06:52
PROVIDERS: ADMIT Hospitalist; ATTEND Hospitalist
DX: I48.1 Persistent atrial fibrillation (principal); I50.33 Acute on chronic diastolic (congestive) heart failure; J44.1 Chronic obstructive pulmonary disease with (acute) exacerbation; I11.0 Hypertensive heart disease with heart failure; E78.5 Hyperlipidemia, unspecified; F17.200 Nicotine dependence, unspecified, uncomplicated; I25.10 Atherosclerotic heart disease of native coronary artery without angina pectoris; Z79.82 Long term (current) use of aspirin; Z79.899 Other long term (current) drug therapy; Z95.5 Presence of coronary angioplasty implant and graft; Z82.49 Family history of ischemic heart disease and other diseases of the circulatory system
CPT/HCPCS: 36415; 71010; 80053; 80061; 82550; 82553; 83735; 84443; 84484; 85025; 85379; 85610; 85730; 93005; 93306; 94640; 94760

== ENCOUNTER 2016-12-04 21:41 | Inpatient (IN) | payer MEDICARE, BC ==
[2016-12-04] MEDS ORDERED: ASPIRIN 81 MG CHEW PO STA (21:59)
[2016-12-04] MEDS ORDERED: IPRATROPIUM-ALBUTEROL 3 ML NEB INHALATION STA (22:00)
[2016-12-04] MEDS ORDERED: FUROSEMIDE 10 MG/ML 4 ML VIAL IV STA (22:00)
--- NOTE | 2016-12-04 22:04 | ED ---
Weakness HPI - General Chief complaint: Weakness Stated complaint: Weakness/SOB Time Seen by Provider: 12/04/16 21:53 Source: patient, RN notes reviewed Mode of arrival: wheelchair Limitations: no limitations - History of Present Illness Initial comments: 80 yo female presents to the ER with cc of weakness. Patient states she was discharged from the hospital on Thursday. Patient has since been worsening. Patient has had orthopedic. Patient is just getting worse. Her weakness has prevented her from getting up and moving around. She states her legs are swollen and tender. She states that she has nausea with this. They state that they were concerned due to her continued symptoms so they thought they should be reevaluated. Patient denies any recent fever, chills, chest pain, back pain, abdominal pain, vomiting, numbness or tingling, dysuria or hematuria, constipation or diarrhea, headaches or visual changes, or any other current symptoms. - Related Data Home Medications Medication Instructions Recorded Confirmed Aspirin [Adult Low Dose Aspirin EC] 81 mg PO DAILY 11/27/16 12/04/16 Cholecalciferol [Vitamin D3] 1,000 unit PO DAILY 11/27/16 12/04/16 amLODIPine [Norvasc] 5 mg PO BID 11/27/16 12/04/16 Previous Rx's Medication Instructions Recorded Apixaban [Eliquis] 5 mg PO BID #0 tab 12/01/16 Diltiazem HCl [Cardizem LA] 120 mg PO DAILY #30 tab.er.24h 12/01/16 Metoprolol Tartrate [Lopressor] 100 mg PO BID #60 tab 12/01/16 Allergies Allergy/AdvReac Type Severity Reaction Status Date / Time No Known Allergies Allergy Verified 12/04/16 22:10 Review of Systems ROS Statement: Those systems with pertinent positive or pertinent negative responses have been documented in the HPI. ROS Other: All systems not noted in ROS Statement are negative. Past Medical History Past Medical History: Atrial Fibrillation, Hyperlipidemia, Hypertension History of Any Multi-Drug Resistant Organisms: None Reported Past Surgical History: Heart Catheterization With Stent Past Anesthesia/Blood Transfusion Reactions: No Reported Reaction Date of Last Stent Placement:: 2001 Past Psychological History: No Psychological Hx Reported Smoking Status: Former smoker Past Alcohol Use History: None Reported Past Drug Use History: None Reported - Past Family History Father Family Medical History: Coronary Artery Disease (CAD) Mother Family Medical History: Coronary Artery Disease (CAD) General Exam Limitations: no limitations General appearance: alert, in no apparent distress Head exam: Present: atraumatic, normocephalic, normal inspection ENT exam: Present: normal exam, mucous membranes moist Neck exam: Present: normal inspection. Absent: tenderness, meningismus, lymphadenopathy Respiratory exam: Present: wheezes (Diffuse). Absent: respiratory distress, rales, rhonchi, stridor Cardiovascular Exam: Present: normal rhythm, tachycardia, normal heart sounds. Absent: systolic murmur, diastolic murmur, rubs, gallop, clicks GI/Abdominal exam: Present: soft, normal bowel sounds. Absent: distended, tenderness, guarding, rebound, rigid Extremities exam: Present: normal inspection, full ROM, normal capillary refill , pedal edema (Bilaterally), calf tenderness (Bilaterally). Absent: tenderness , joint swelling Neurological exam: Present: alert, oriented X3 Psychiatric exam: Present: normal affect, normal mood Skin exam: Present: warm, dry, intact, normal color. Absent: rash Course Vital Signs 12/04/16 12/04/16 12/04/16 21:47 22:56 23:08 Temperature 98.0 F Pulse Rate 113 H 82 88 Respiratory 20 Rate Blood Pressure 125/80 O2 Sat by Pulse 91 L Oximetry EKG Findings - EKG Comments: EKG Findings:: Atrial fibrillation, incomplete right bundle gladsy block, ventricular rate 92, no S-T depressions or elevations, prolonged QT Medical Decision Making - Medical Decision Making 80-year-old female presents emergency Department chief complaint of shortness of breath and bilateral lower extremity swelling. At this time the patient does appear to be a CHF exacerbation. Patient was given Lasix here. We will admit the patient. Troponin does seem to be trending down. Patient is in agreement with this plan. - Lab Data Result diagrams: 12/04/16 22:00 12/04/16 22:00 Lab Results 12/04/16 12/04/16 12/04/16 Range/Units 22:00 22:00 22:00 WBC 11.4 H (3.8-10.6) k/uL RBC 4.64 (3.80-5.40) m/uL Hgb 14.3 (11.4-16.0) gm/dL Hct 41.4 (34.0-46.0) % MCV 89.2 D (80.0-100.0) fL MCH 30.8 (25.0-35.0) pg MCHC 34.5 (31.0-37.0) g/dL RDW 14.4 (11.5-15.5) % Plt Count 317 (150-450) k/uL Neutrophils % 78 % Lymphocytes % 10 % Monocytes % 7 % Eosinophils % 2 % Basophils % 0 % Neutrophils # 8.9 H (1.3-7.7) k/uL Lymphocytes # 1.2 (1.0-4.8) k/uL Monocytes # 0.9 (0-1.0) k/uL Eosinophils # 0.2 (0-0.7) k/uL Basophils # 0.0 (0-0.2) k/uL PT (9.0-12.0) sec INR (<1.1) APTT (22.0-30.0) sec Sodium 131 L (137-145) mmol/L Potassium 4.1 (3.5-5.1) mmol/L Chloride 96 L (98-107) mmol/L Carbon Dioxide 27 (22-30) mmol/L Anion Gap 8 mmol/L BUN 25 H (7-17) mg/dL Creatinine 0.70 (0.52-1.04) mg/dL Est GFR (MDRD) Af Amer >60 (>60 ml/min/1.73 sqM) Est GFR (MDRD) Non-Af >60 (>60 ml/min/1.73 sqM) Glucose 131 H (74-99) mg/dL Calcium 9.2 (8.4-10.2) mg/dL Magnesium 2.0 (1.6-2.3) mg/dL Total Bilirubin 1.6 H (0.2-1.3) mg/dL AST 28 (14-36) U/L ALT 46 (9-52) U/L Alkaline Phosphatase 75 (38-126) U/L Total Creatine Kinase 25 L (30-135) U/L CK-MB (CK-2) 1.2 (0.0-2.4) ng/mL CK-MB (CK-2) Rel Index 4.8 Troponin I 0.056 H* (0.000-0.034) ng/mL NT-Pro-B Natriuret Pep pg/mL Total Protein 6.7 (6.3-8.2) g/dL Albumin 3.9 (3.5-5.0) g/dL Urine Color Urine Appearance (Clear) Urine pH (5.0-8.0) Ur Specific [place] (1.001-1.035) Urine Protein (Negative) Urine Glucose (UA) (Negative) Urine Ketones (Negative) Urine Blood (Negative) Urine Nitrite (Negative) Urine Bilirubin (Negative) Urine Urobilinogen (<2.0) mg/dL Ur Leukocyte Esterase (Negative) Urine RBC (0-5) /hpf Urine WBC (0-5) /hpf Ur Squamous Epith Cells (0-4) /hpf Granular Casts (0) /lpf Urine Mucus (None) /hpf 12/04/16 12/04/16 12/04/16 Range/Units 22:00 22:00 22:00 WBC (3.8-10.6) k/uL RBC (3.80-5.40) m/uL Hgb (11.4-16.0) gm/dL Hct (34.0-46.0) % MCV (80.0-100.0) fL MCH (25.0-35.0) pg MCHC (31.0-37.0) g/dL RDW (11.5-15.5) % Plt Count (150-450) k/uL Neutrophils % % Lymphocytes % % Monocytes % % Eosinophils % % Basophils % % Neutrophils # (1.3-7.7) k/uL Lymphocytes # (1.0-4.8) k/uL Monocytes # (0-1.0) k/uL Eosinophils # (0-0.7) k/uL Basophils # (0-0.2) k/uL PT 14.4 H (9.0-12.0) sec INR 1.5 (<1.1) APTT 27.0 (22.0-30.0) sec Sodium (137-145) mmol/L Potassium (3.5-5.1) mmol/L Chloride (98-107) mmol/L Carbon Dioxide (22-30) mmol/L Anion Gap mmol/L BUN (7-17) mg/dL Creatinine (0.52-1.04) mg/dL Est GFR (MDRD) Af Amer (>60 ml/min/1.73 sqM) Est GFR (MDRD) Non-Af (>60 ml/min/1.73 sqM) Glucose (74-99) mg/dL Calcium (8.4-10.2) mg/dL Magnesium (1.6-2.3) mg/dL Total Bilirubin (0.2-1.3) mg/dL AST (14-36) U/L ALT (9-52) U/L Alkaline Phosphatase (38-126) U/L Total Creatine Kinase (30-135) U/L CK-MB (CK-2) (0.0-2.4) ng/mL CK-MB (CK-2) Rel Index Troponin I (0.000-0.034) ng/mL NT-Pro-B Natriuret Pep 2580 pg/mL Total Protein (6.3-8.2) g/dL Albumin (3.5-5.0) g/dL Urine Color Yellow Urine Appearance Cloudy H (Clear) Urine pH 6.0 (5.0-8.0) Ur Specific [place] 1.016 (1.001-1.035) Urine Protein 1+ H (Negative) Urine Glucose (UA) Negative (Negative) Urine Ketones Negative (Negative) Urine Blood Negative (Negative) Urine Nitrite Negative (Negative) Urine Bilirubin Negative (Negative) Urine Urobilinogen 4.0 (<2.0) mg/dL Ur Leukocyte Esterase Moderate H (Negative) Urine RBC 2 (0-5) /hpf Urine WBC 4 (0-5) /hpf Ur Squamous Epith Cells 3 (0-4) /hpf Granular Casts 1 (0) /lpf Urine Mucus Rare H (None) /hpf - Radiology Data Radiology results: report reviewed, image reviewed Disposition Clinical Impression: CHF exacerbation Disposition: ADMITTED IP TO THIS [facility] Condition: Stable Referrals: None,Stated [Primary Care Provider] - 1-2 days Time of Disposition: 23:37 Decision Date: 12/04/16 Decision Time: 23:37
[2016-12-04 22:36] LABS: Basophils % (A) 0 %; CH 30.5; CHCM 34.4; Eosinophils # (A) 0.2 k/uL (0-0.7); Eosinophils % (A) 2 %; HCT 41.4 % (34.0-46.0); HDW 2.93; HGB 14.3 gm/dL (11.4-16.0); Luc # (Auto) 0.25; Luc % (Auto) 2; Lymphocytes # (A) 1.2 k/uL (1.0-4.8); Lymphocytes % (A) 10 %; MCH 30.8 pg (25.0-35.0); MCHC 34.5 g/dL (31.0-37.0); Mean Platelet Volume 7.2; Monocytes # (A) 0.9 k/uL (0-1.0); Monocytes % (A) 7 %; Neutrophils # (A) 8.9 k/uL (1.3-7.7); Neutrophils % (A) 78 %; RBC 4.64 m/uL (3.80-5.40); RDW 14.4 % (11.5-15.5); WBC 11.4 k/uL (3.8-10.6); WBC (Perox) 11.22
[2016-12-04 22:37] LABS: Appearance,Urine Cloudy (Clear); Bilirubin,Urine Negative (Negative); Glucose,Urine (UA) Negative (Negative); Granular Casts,Urine 1 /lpf (0); Ketones,Urine Negative (Negative); Leukocyte Esterase,Urine Moderate (Negative); Mucus,Urine Rare /hpf; Nitrite,Urine Negative (Negative); Particle Count 6237; Protein,Urine 1+ (Negative); RBC,Urine 2 /hpf (0-5); Specific Gravity,Urine 1.016 (1.001-1.035); Squamous Epithelial Cell,Urine 3 /hpf (0-4); UA Billing (MACRO vs. MICRO) MICRO; WBC,Urine 4 /hpf (0-5)
[2016-12-04 22:40] LABS: MCV 89.2 fL (80.0-100.0)
[2016-12-04 22:44] LABS: ALT 46 U/L (9-52); AST 28 U/L (14-36); Alkaline Phosphatase 75 U/L (38-126); Anion Gap 8 mmol/L; Blood Urea Nitrogen 25 mg/dL (7-17); Calcium 9.2 mg/dL (8.4-10.2); Carbon Dioxide 27 mmol/L (22-30); Chloride 96 mmol/L (98-107); Glucose 131 mg/dL (74-99); INR 1.5 (<1.1); Non-African American GFR(MDRD) >60 (>60 ml/min/1.73 sqM); Potassium 4.1 mmol/L (3.5-5.1); Prothrombin Time 14.4 sec (9.0-12.0); Sodium 131 mmol/L (137-145); Total Bilirubin 1.6 mg/dL (0.2-1.3); Total Protein 6.7 g/dL (6.3-8.2)
[2016-12-04 23:18] LABS: Creatine Kinase MB 1.2 ng/mL (0.0-2.4)
[2016-12-04 23:21] LABS: Troponin I 0.056 ng/mL (0.000-0.034)
--- NOTE | 2016-12-04 23:47 | XR ---
EXAM: XR Chest, 2 Views CLINICAL HISTORY: Reason: Chest Pain TECHNIQUE: Frontal and lateral views of the chest. COMPARISON: Chest x-ray dated 11/27/2016 FINDINGS: Lungs: Interstitial opacities which may represent interstitial edema. Bibasilar atelectasis. Pleural space: Bilateral pleural effusions. Heart: Mild enlargement of the cardiomediastinal silhouette. Mediastinum: See above. Bones/joints: Degenerative changes of the osseous structures. IMPRESSION: 1. Bilateral pleural effusions with presumed adjacent atelectasis. 2. Interstitial opacities which may represent interstitial edema.
[2016-12-05] MEDS: FUROSEMIDE 10 MG/ML 4 ML VIAL IV SCH ×4 (00:43→21:48)
[2016-12-05] MEDS ORDERED: TEMAZEPAM 15 MG CAP PO PRN (00:54)
[2016-12-05 07:00] LABS: Creatine Kinase MB 0.9 ng/mL (0.0-2.4); Troponin I 0.057 ng/mL (0.000-0.034)
[2016-12-05] MEDS: APIXABAN 5 MG TAB PO SCH ×2 (08:27→21:48)
[2016-12-05] MEDS: METOPROLOL TARTRATE 50 MG TAB PO SCH ×2 (08:27→21:48)
[2016-12-05] MEDS: DILTIAZEM CD 120 MG CAP.ER.24H PO SCH (08:27)
[2016-12-05] MEDS: CHOLECALCIFEROL 1,000 UNIT TAB PO SCH (08:27)
[2016-12-05] MEDS ORDERED: amLODIPine 5 MG TAB PO SCH (09:00)
[2016-12-05 10:48] VITALS: BMI 25.7
[2016-12-05 11:40] LABS: Troponin I 0.056 ng/mL (0.000-0.034)
--- NOTE | 2016-12-05 12:11 | P.CRDCN ---
History of Present Illness Consult date: 12/05/16 Requesting physician: Yazmin Bundy Reason for Consult (text): Bilateral leg swelling Chief complaint: Bilateral leg swelling History of present illness: This is a pleasant 80-year-old female who follows regularly with Dr. VC August in the office. She has a known history of coronary artery disease with prior stent placement, hypertension, hyperlipidemia, nicotine dependence. She was recently in the hospital approximately one week ago with new diagnosis of atrial fibrillation. Patient was initiated on beta gus along with Cardizem and new anticoagulant. She had been on Norvasc prior to that admission , it was discontinued in the hospital but on discharge she went home with both Norvasc and Cardizem. She now presents to the hospital on this occasion with significant bilateral lower leg swelling. She denies any significant change in shortness of breath, no palpitations. Blood pressure on arrival here 125/80, heart rate 110 on arrival, in the 80s now. 91% on room air. EKG shows atrial fibrillation with a heart rate in the 90s, nonspecific ST-T wave changes. White blood cell count 11.4, hemoglobin 14.3, potassium 4.1, BUN 25, creatinine 0.7. Magnesium 2.1. troponins 0.056, 0.057, 0.056. Opponents values are down from when the patient was recently here. BNP 2580. Chest x-ray shows bilateral pleural effusions with atelectasis. Interstitial bases which may represent interstitial edema. Echocardiogram with Doppler study which was performed one week ago showed an ejection fraction of 50-55% with moderate tricuspid regurg and mild to moderate pulmonary hypertension. Past Medical History Past Medical History: Atrial Fibrillation, Hyperlipidemia, Hypertension History of Any Multi-Drug Resistant Organisms: None Reported Past Surgical History: Heart Catheterization With Stent Past Anesthesia/Blood Transfusion Reactions: No Reported Reaction Date of Last Stent Placement:: 2001 Past Psychological History: No Psychological Hx Reported Smoking Status: Former smoker Past Alcohol Use History: None Reported Past Drug Use History: None Reported - Past Family History Father Family Medical History: Coronary Artery Disease (CAD) Mother Family Medical History: Coronary Artery Disease (CAD) Medications and Allergies Home Medications Medication Instructions Recorded Confirmed Type Aspirin [Adult Low Dose Aspirin EC] 81 mg PO DAILY 11/27/16 12/04/16 History Cholecalciferol [Vitamin D3] 1,000 unit PO DAILY 11/27/16 12/04/16 History amLODIPine [Norvasc] 5 mg PO BID 11/27/16 12/04/16 History Allergies Allergy/AdvReac Type Severity Reaction Status Date / Time No Known Allergies Allergy Verified 12/04/16 22:10 Physical Exam Vitals: Vital Signs Temp Pulse Pulse Resp BP BP Pulse Ox 12/05/16 08:30 97.1 F L 67 18 111/69 94 L 12/05/16 04:00 97.2 F L 66 18 121/76 94 L 12/05/16 00:00 97.5 F L 75 18 123/72 94 L 12/04/16 23:55 92 18 114/74 94 L 12/04/16 23:08 88 12/04/16 23:00 98 22 119/57 92 L 12/04/16 22:56 82 12/04/16 21:47 98.0 F 113 H 20 125/80 91 L Intake and Output 12/04/16 12/05/16 12/05/16 22:59 06:59 14:59 Intake Total 240 Output Total 1100 Balance -1100 240 Intake: Oral 240 Output: Urine 1100 Other: Voiding Method Toilet Urinal # Voids 1 Weight 68.039 kg 70 kg 70 kg Patient Weight 12/06/16 06:59 Weight 70 kg PHYSICAL EXAMINATION: HEENT: Head is atraumatic, normocephalic. Pupils equal, round. Neck is supple. There is elevated jugular venous pressure. HEART EXAMINATION: Heart S1 and S2 irregularly irregular a systolic murmur is heard. CHEST EXAMINATION: Lungs are clear to auscultation and precussion. No chest wall tenderness is noted on palpation or with deep breathing. ABDOMEN: Soft, nontender. Bowel sounds are heard. No organomegaly noted. EXTREMITIES: 2+ peripheral pulses with 2+ evidence of peripheral edema and no calf tenderness noted. NEUROLOGIC patient is awake, alert and oriented -3. . Results 12/04/16 22:00 12/04/16 22:00 Cardiac Enzymes 12/04/16 12/04/16 12/05/16 Range/Units 22:00 22:00 05:19 AST 28 (14-36) U/L CK-MB (CK-2) 1.2 0.9 (0.0-2.4) ng/mL Troponin I 0.056 H* 0.057 H* (0.000-0.034) ng/mL 12/05/16 Range/Units 10:34 AST (14-36) U/L CK-MB (CK-2) 1.0 (0.0-2.4) ng/mL Troponin I 0.056 H* (0.000-0.034) ng/mL Coagulation 12/04/16 Range/Units 22:00 PT 14.4 H (9.0-12.0) sec APTT 27.0 (22.0-30.0) sec CBC 12/04/16 Range/Units 22:00 WBC 11.4 H (3.8-10.6) k/uL RBC 4.64 (3.80-5.40) m/uL Hgb 14.3 (11.4-16.0) gm/dL Hct 41.4 (34.0-46.0) % Plt Count 317 (150-450) k/uL Comprehensive Metabolic Panel 12/04/16 Range/Units 22:00 Sodium 131 L (137-145) mmol/L Potassium 4.1 (3.5-5.1) mmol/L Chloride 96 L (98-107) mmol/L Carbon Dioxide 27 (22-30) mmol/L BUN 25 H (7-17) mg/dL Creatinine 0.70 (0.52-1.04) mg/dL Glucose 131 H (74-99) mg/dL Calcium 9.2 (8.4-10.2) mg/dL AST 28 (14-36) U/L ALT 46 (9-52) U/L Alkaline Phosphatase 75 (38-126) U/L Total Protein 6.7 (6.3-8.2) g/dL Albumin 3.9 (3.5-5.0) g/dL Current Medications Generic Name Dose Route Start Last Admin Trade Name Freq PRN Reason Stop Dose Admin Amlodipine Besylate 5 mg 12/05/16 09:00 12/05/16 08:27 Norvasc PO 5 mg BID CANDE Administration Apixaban 5 mg 12/05/16 09:00 12/05/16 08:27 Eliquis PO 5 mg BID CANDE Administration Aspirin 325 mg 12/05/16 23:38 Aspirin PO DAILY [facility] Cholecalciferol 1,000 unit 12/05/16 09:00 12/05/16 08:27 Vitamin D3 PO 1,000 unit DAILY CANDE Administration Diltiazem HCl 120 mg 12/05/16 09:00 12/05/16 08:27 Cardizem Cd PO 120 mg DAILY CANDE Administration Furosemide 40 mg 12/04/16 23:45 12/05/16 07:08 Lasix IV 40 mg Q8H CANDE Administration Metoprolol Tartrate 100 mg 12/05/16 09:00 12/05/16 08:27 Lopressor PO 100 mg BID CANDE Administration Sodium Chloride 10 ml 12/05/16 09:00 12/05/16 08:32 Saline Flush IV 10 ml BID CANDE Administration Temazepam 15 mg 12/05/16 00:54 Restoril PO HS PRN Insomnia Intake and Output 12/04/16 12/05/16 12/05/16 22:59 06:59 14:59 Intake Total 240 Output Total 1100 Balance -1100 240 Intake: Oral 240 Output: Urine 1100 Other: Voiding Method Toilet Urinal # Voids 1 Weight 68.039 kg 70 kg 70 kg Patient Weight 12/06/16 06:59 Weight 70 kg 12/04/16 22:00 12/04/16 22:00 EKG Interpretations (text) EKG shows atrial fibrillation with a heart rate in the 90s. Assessment and Plan Plan: Assessment and plan #1 bilateral leg swelling, could be secondary to calcium channel gus. Patient was discharged home on Cardizem along with Norvasc. #2 mild congestive cardiac failure, LV function of 50-55%, echo was performed one week ago. Diastolic acute on chronic. #3 chronic persistent atrial fibrillation, on Eliquis #4 hypertension #5 history of coronary artery disease with prior stent #6 hyperlipidemia #7 nicotine dependence Plan We will discontinue the patient's Norvasc. Patient was initiated on IV Lasix in the emergency room which we will continue until tomorrow morning, then post exchange manager to oral diuretics. Decrease aspirin to 81 mg daily. Further recommendations to follow. DNP note has been reviewed, I agree with a documented findings and plan of care. Patient was seen and examined.
[2016-12-05] MEDS ORDERED: ALPRAZolam 0.25 MG TAB PO PRN (16:13)
--- NOTE | 2016-12-05 19:18 | HP ---
DATE OF ADMISSION: CHIEF COMPLAINT: Shortness of breath and as well as leg swelling. HISTORY OF PRESENT ILLNESS: This 80-year-old woman with a past history of atrial fibrillation, hypertension, hyperlipidemia, history of CAD, stent being followed Dr. Bernadine August in the outpatient setting was recently admitted with atrial fibrillation with fast ventricular rate and as well as congestive heart failure. The patient is currently complaining of shortness of breath and weakness. The patient had difficulty moving around. Both legs are swollen and tender according to her and the patient came to [facility] and admitted for further evaluation. There is no history of fever, rigors. No history of headache, loss of consciousness or seizures. PAST MEDICAL HISTORY: History of atrial fibrillation, history of hypertension, hyperlipidemia, history of coronary artery disease and stent. Medications prior to admission include home medications: 1. Norvasc 5 mg p.o. b.i.d. 2. Lopressor 100 mg p.o. b.i.d. 3. Cardizem LA 200 mg p.o. daily. 4. Vitamin D 3000 daily. 5. Aspirin 81 mg. 6. Eliquis 5 mg p.o. t.i.d. ALLERGIES: None. FAMILY HISTORY: History of coronary artery disease in the family. SOCIAL HISTORY: Previous history of smoking. No history of alcohol intake. REVIEW OF SYSTEMS: ENT: Diminishing hearing. Diminished vision. CARDIOVASCULAR: As mentioned earlier. RESPIRATORY: As mentioned earlier. GI: No nausea. : No dysuria. NERVOUS SYSTEM: No numbness or weakness. ALLERGY/IMMUNOLOGY: No asthma or hayfever. MUSCULOSKELETAL: As mentioned earlier. HEMATOLOGY/ONCOLOGY: No history of anemia. ENDOCRINE: No history of hypothyroidism and diabetes mellitus. CONSTITUTIONAL: As mentioned earlier. DERMATOLOGY: Negative. RHEUMATOLOGY: Negative. PSYCHIATRY: As mentioned earlier. PHYSICAL EXAMINATION: Patient is alert and oriented x3. Pulse is 67, blood pressure 111/69, respiration 18, temperature 97.1, pulse ox 95% on 2-L. HEENT: Conjunctivae normal. Oral mucosa moist. NECK: Jugular venous distention at the root of the neck. CARDIOVASCULAR: S1 and S2. Ejection systolic murmur. RESPIRATORY: Breath sounds diminished at the bases. Bilateral scattered rhonchi and crackles. ABDOMEN: Soft, nontender. No mass palpable. LEGS: Bilateral leg edema. NERVOUS SYSTEM: Higher function as mentioned. Moves all four limbs. No focal motor sensory deficits. LYMPHATIC: No lymphadenopathy in the neck, axillae or groin. SKIN: No ulcer, rash or bleeding. LABS: Chest x-ray showed possible CHF with bilateral pleural effusion. Labs at this time shows WBC 7.2, hemoglobin of 14.3, sodium 131, troponin 0.056. UA shows mild to moderate urinary tract infection. ASSESSMENT: 1. Shortness of breath possible congestive heart failure acute exacerbation with acute on chronic diastolic dysfunction, ejection 50 to 55%. 2. Moderate tricuspid regurgitation. 3. Mild to moderate pulmonary hypertension. 4. Bilateral leg swelling and pain for evaluation. 5. History of atrial fibrillation, chronic, persistent. 6. Incomplete right bundle branch block in electrocardiogram. 7. History of hyperlipidemia. 9. Hypertension. 10. History of coronary artery disease and stent. 11. Remote history of nicotine dependence. 12. History of chronic obstructive pulmonary disease possibly. 13. History of nicotine dependence. 14. Troponin 0.057 indeterminate, of undetermined etiology. RECOMMENDATIONS AND DISCUSSION: This 80-year-old woman who presented with multiple complex medical issues. Will monitor the patient closely, continue the current medications and symptomatic treatment. Otherwise at this time I recommend continuing the current medications. Continue with diuretics. Closely monitor. Otherwise, closely follow with Cardiology and bronchodilators. Guarded prognosis because of multiple complex medical issues. See orders for further details. Home medication may be continued. Further recommendations to follow. MTDD
[2016-12-05] MEDS: MELATONIN 3 MG TABLET PO SCH (21:48)
[2016-12-05] MEDS ORDERED: ASPIRIN 325 MG TAB PO SCH (23:38)
[2016-12-06 05:24] LABS: Appearance,Urine Clear (Clear); Bilirubin,Urine Negative (Negative); Glucose,Urine (UA) Negative (Negative); Ketones,Urine Negative (Negative); Leukocyte Esterase,Urine Negative (Negative); Nitrite,Urine Negative (Negative); Protein,Urine Negative (Negative); Specific Gravity,Urine 1.005 (1.001-1.035); UA Billing (MACRO vs. MICRO) CHEM; Urobilinogen,Urine <2.0 mg/dL (<2.0)
[2016-12-06 06:31] LABS: Basophils % (A) 0 %; CH 29.9; CHCM 32.6; Eosinophils # (A) 0.1 k/uL (0-0.7); Eosinophils % (A) 2 %; HCT 38.4 % (34.0-46.0); HDW 2.58; HGB 12.5 gm/dL (11.4-16.0); Luc # (Auto) 0.15; Luc % (Auto) 2; Lymphocytes % (A) 16 %; MCH 30.1 pg (25.0-35.0); MCHC 32.6 g/dL (31.0-37.0); MCV 92.3 fL (80.0-100.0); Mean Platelet Volume 7.1; Monocytes # (A) 0.6 k/uL (0-1.0); Monocytes % (A) 9 %; Neutrophils # (A) 4.4 k/uL (1.3-7.7); Neutrophils % (A) 70 %; RBC 4.16 m/uL (3.80-5.40); RDW 14.3 % (11.5-15.5); WBC 6.3 k/uL (3.8-10.6); WBC (Perox) 6.86
[2016-12-06 06:41] LABS: Anion Gap 8 mmol/L; Calcium 8.2 mg/dL (8.4-10.2); Carbon Dioxide 37 mmol/L (22-30); Chloride 89 mmol/L (98-107); Glucose 91 mg/dL (74-99); Non-African American GFR(MDRD) >60 (>60 ml/min/1.73 sqM); Sodium 134 mmol/L (137-145)
[2016-12-06 06:48] LABS: Blood Urea Nitrogen 14 mg/dL (7-17); Potassium 3.4 mmol/L (3.5-5.1)
[2016-12-06] MEDS: PANTOPRAZOLE 40 MG TABLET PO SCH (06:49)
[2016-12-06] MEDS: FUROSEMIDE 10 MG/ML 4 ML VIAL IV SCH (06:49)
[2016-12-06] MEDS: DILTIAZEM CD 120 MG CAP.ER.24H PO SCH (07:46)
[2016-12-06] MEDS: METOPROLOL TARTRATE 50 MG TAB PO SCH ×2 (07:46→20:36)
[2016-12-06] MEDS: ASPIRIN 81 MG CHEW PO SCH (07:46)
[2016-12-06] MEDS: APIXABAN 5 MG TAB PO SCH ×2 (07:46→20:36)
[2016-12-06] MEDS: CHOLECALCIFEROL 1,000 UNIT TAB PO SCH (07:46)
[2016-12-06] MEDS ORDERED: Potassium Replacement Protocol 1 EACH MISC MISCELLANE PRN ×2 (09:40→23:18)
[2016-12-06] MEDS: POTASSIUM CHLORIDE 10 MEQ, LIDOCAINE 2% INJ 10 MG in SODIUM CHLORIDE 0.9% 100 ML IV SCH ×2 (10:59→12:17)
--- NOTE | 2016-12-06 11:51 | P.PN ---
Subjective Principal diagnosis: Leg swelling This is a pleasant 80-year-old female who follows regularly with Dr. VC August in the office. She has a known history of coronary artery disease with prior stent placement, hypertension, hyperlipidemia, nicotine dependence. She was recently in the hospital approximately one week ago with new diagnosis of atrial fibrillation. Patient was initiated on beta gus along with Cardizem and new anticoagulant. She had been on Norvasc prior to that admission , it was discontinued in the hospital but on discharge she went home with both Norvasc and Cardizem. She now presents to the hospital on this occasion with significant bilateral lower leg swelling. She denies any significant change in shortness of breath, no palpitations. Blood pressure on arrival here 125/80, heart rate 110 on arrival, in the 80s now. 91% on room air. EKG shows atrial fibrillation with a heart rate in the 90s, nonspecific ST-T wave changes. White blood cell count 11.4, hemoglobin 14.3, potassium 4.1, BUN 25, creatinine 0.7. Magnesium 2.1. troponins 0.056, 0.057, 0.056. Opponents values are down from when the patient was recently here. BNP 2580. Chest x-ray shows bilateral pleural effusions with atelectasis. Interstitial bases which may represent interstitial edema. Echocardiogram with Doppler study which was performed one week ago showed an ejection fraction of 50-55% with moderate tricuspid regurg and mild to moderate pulmonary hypertension. 09/08/2016 Patient seen and examined this morning, weight is down 2 kg today. Edema significantly improved. Currently on by mouth Lasix. Objective - Vital Signs Vital signs: Vital Signs Temp 97.6 F 12/06/16 07:50 Pulse 77 12/06/16 07:50 Resp 16 12/06/16 07:50 BP 110/55 12/06/16 07:50 Pulse Ox 92 L 12/06/16 07:50 Intake & Output 12/05/16 12/06/16 12/06/16 18:59 06:59 18:59 Intake Total 960 980 120 Output Total 500 200 Balance 460 780 120 Weight 70 kg 68 kg Intake: IV 20 0.9 20 Oral 960 960 120 Output: Urine 500 200 Other: Voiding Method Toilet Toilet Urinal Urinal # Voids 5 1 # Bowel Movements 0 - Exam PHYSICAL EXAMINATION: HEENT: Head is atraumatic, normocephalic. Pupils equal, round. Neck is supple. There is elevated jugular venous pressure. HEART EXAMINATION: Heart S1 and S2 irregularly irregular a systolic murmur is heard. CHEST EXAMINATION: Lungs are clear to auscultation and precussion. No chest wall tenderness is noted on palpation or with deep breathing. ABDOMEN: Soft, nontender. Bowel sounds are heard. No organomegaly noted. EXTREMITIES: 2+ peripheral pulses with trace evidence of peripheral edema and no calf tenderness noted. NEUROLOGIC patient is awake, alert and oriented -3. - Labs CBC & Chem 7: 12/06/16 06:02 12/06/16 05:59 Labs: Abnormal Lab Results - Last 24 Hours (Table) 12/06/16 Range/Units 05:59 Sodium 134 L (137-145) mmol/L Potassium 3.4 L (3.5-5.1) mmol/L Chloride 89 L (98-107) mmol/L Carbon Dioxide 37 H (22-30) mmol/L Calcium 8.2 L (8.4-10.2) mg/dL Assessment and Plan Plan: Assessment and plan #1 bilateral leg swelling, could be secondary to calcium channel gus. Patient was discharged home on Cardizem along with Norvasc. #2 mild congestive cardiac failure, LV function of 50-55%, echo was performed one week ago. Diastolic acute on chronic. #3 chronic persistent atrial fibrillation, on Eliquis #4 hypertension #5 history of coronary artery disease with prior stent #6 hyperlipidemia #7 nicotine dependence Plan We'll discontinue the patient's IV Lasix. Start the patient on oral diuretics. Continue to hold Norvasc. She may be able to be discharged from cardiology's perspective, a follow-up appointment will be made with Dr. VC August in the office post discharge. DNP note has been reviewed, I agree with a documented findings and plan of care. Patient was seen and examined.
[2016-12-06] MEDS: FUROSEMIDE 40 MG TAB PO SCH (12:11)
[2016-12-06] MEDS: MULTIVITAMINS, THERA 1 EACH TAB PO SCH (12:17)
[2016-12-06] MEDS ORDERED: ACETAMINOPHEN TAB 325 MG TAB PO PRN (18:26)
[2016-12-06] MEDS: MELATONIN 3 MG TABLET PO SCH (20:36)
[2016-12-06] MEDS: POTASSIUM CHLORIDE 10 MEQ in WATER FOR INJECTION 1 100ML.BAG IVPB SCH (23:36)
[2016-12-07] MEDS ORDERED: Potassium Replacement Protocol 1 EACH MISC MISCELLANE PRN ×2 (01:12→06:52)
[2016-12-07] MEDS: POTASSIUM CHLORIDE 10 MEQ in WATER FOR INJECTION 1 100ML.BAG IVPB SCH (01:15)
[2016-12-07] MEDS ORDERED: POTASSIUM CHLORIDE ER 20 MEQ TAB.ER PO SCH (02:00)
[2016-12-07 06:35] LABS: Basophils % (A) 1 %; CHCM 32.5; Eosinophils # (A) 0.1 k/uL (0-0.7); Eosinophils % (A) 2 %; HCT 38.9 % (34.0-46.0); HDW 2.59; HGB 12.9 gm/dL (11.4-16.0); Luc # (Auto) 0.15; Luc % (Auto) 2; Lymphocytes # (A) 1.3 k/uL (1.0-4.8); Lymphocytes % (A) 21 %; MCH 30.8 pg (25.0-35.0); MCHC 33.2 g/dL (31.0-37.0); MCV 92.6 fL (80.0-100.0); Mean Platelet Volume 7.2; Monocytes # (A) 0.5 k/uL (0-1.0); Monocytes % (A) 8 %; Neutrophils # (A) 4.3 k/uL (1.3-7.7); Neutrophils % (A) 66 %; RDW 14.3 % (11.5-15.5); WBC 6.4 k/uL (3.8-10.6); WBC (Perox) 6.79
[2016-12-07 06:45] LABS: Anion Gap 5 mmol/L; Blood Urea Nitrogen 10 mg/dL (7-17); Calcium 8.4 mg/dL (8.4-10.2); Carbon Dioxide 36 mmol/L (22-30); Chloride 90 mmol/L (98-107); Glucose 123 mg/dL (74-99); Non-African American GFR(MDRD) >60 (>60 ml/min/1.73 sqM); Potassium 3.3 mmol/L (3.5-5.1); Sodium 131 mmol/L (137-145); Uric Acid 5.6 mg/dL (3.7-7.4)
[2016-12-07] MEDS: PANTOPRAZOLE 40 MG TABLET PO SCH (06:51)
[2016-12-07] MEDS: APIXABAN 5 MG TAB PO SCH (08:38)
[2016-12-07] MEDS: FUROSEMIDE 40 MG TAB PO SCH (08:38)
[2016-12-07] MEDS: DILTIAZEM CD 120 MG CAP.ER.24H PO SCH (08:38)
[2016-12-07] MEDS: CHOLECALCIFEROL 1,000 UNIT TAB PO SCH (08:38)
[2016-12-07] MEDS: ASPIRIN 81 MG CHEW PO SCH (08:39)
[2016-12-07] MEDS: POTASSIUM CHLORIDE ER 20 MEQ TAB.ER PO SCH (08:39)
[2016-12-07] MEDS: METOPROLOL TARTRATE 50 MG TAB PO SCH (08:39)
--- NOTE | 2016-12-07 10:27 | PN ---
DATE OF SERVICE: 12/06/2016 This 80-year-old woman was admitted with shortness of breath and leg edema, had a possible congestive heart failure acute exacerbation with acute on chronic diastolic dysfunction. The patient has been on diuretics. The patient has lost at least 2 kilos. Cardiology is following the patient closely at this time. Recommended to avoid Norvasc. Oral diuresis has been recommended. Troponins has been found to be slightly elevated at 0.056. PAST MEDICAL HISTORY: Reviewed. REVIEW OF SYSTEMS: CARDIOVASCULAR: No angina or palpitations. RESPIRATORY: As mentioned. GI: As mentioned. : No dysuria or hematuria. CURRENT MEDICATIONS: 1. Tylenol 650 every 6 p.r.n. 2. Xanax 0.2 t.i.d. 4. Aspirin. 5. Vitamin D. 6. Cardizem CD 120 mg. 7. Melatonin. 8. Lopressor. 9. Multivitamin. 10. Protonix. 11. Restoril. PHYSICAL EXAM: GENERAL: Alert, oriented x3. VITAL SIGNS: Blood pressure 123/60, respirations 16, temperature 98.1, pulse ox 90% on room air. HEENT: Conjunctivae normal. NECK: No JVD. CARDIOVASCULAR: S1 and S2 muffled. RESPIRATORY: Breath sounds diminished at the bases. Few scattered rhonchi and crackles. ABDOMEN: Soft, nontender. EXTREMITIES: No edema. No swelling. CABANA ATTENDANT: NO focal deficits. LABS: Sodium 130, potassium 3.4. ASSESSMENT: 1. Shortness of breath with possible congestive heart failure acute exacerbation, with acute on chronic diastolic dysfunction, ejection 50% to 55%. 2. Bilateral leg edema. 3. Moderate tricuspid regurgitation. 4. Mild to moderate pulmonary hypertension. 5. Hyperlipidemia. 6. Bilateral leg swelling and pain. 7. History of atrial fibrillation, chronic persistent. Incomplete right bundle branch block on EKG. 8. History of hyperlipidemia. 9. History of hypertension, essential. 10. History of coronary artery disease and stent. 11. Remote history of nicotine dependence. 12. History of COPD possible. 13. History of nicotine dependence. 14. Troponin 0.05, indeterminate, undetermined etiology. 15. Full code. RECOMMENDATION: In this 80-year-old woman who presented with multiple complex medical issues, we will monitor the patient closely. Continue current medications and symptomatic treatment. Otherwise, at this time I would recommend to continue current medications, continue oral diuretics. Avoid Norvasc. Otherwise continue to monitor. Further recommendations to follow. Repeat labs will be ordered in the morning. ESTUARDOD
[2016-12-07] MEDS: MULTIVITAMINS, THERA 1 EACH TAB PO SCH (12:11)
[2016-12-07 12:20] VITALS: BP 153/82; PULSE 82; RESP 16; TEMP 97.3
--- NOTE | 2016-12-08 14:36 | DS ---
DATE OF ADMISSION: 12/04/2016 DATE OF DISCHARGE: 12/07/2016 FINAL DIAGNOSES: 1. Congestive heart failure acute exacerbation with acute on chronic diastolic dysfunction, ejection fraction 50% to 55%. 2. Bilateral leg edema. 3. Moderate tricuspid regurgitation. 4. Mild to moderate pulmonary hypertension. 5. Hyperlipidemia. 6. Bilateral leg swelling and pain. 7. Atrial fibrillation chronic persistent. 8. Incomplete right bundle branch block on the EKG. 9. History of hyperlipidemia. 10. History of hypertension, essential. 11. History of coronary artery disease and stent. 12. Remote history of nicotine dependence. 13. Chronic obstructive pulmonary disease possibly. 14. History of nicotine dependence. 15. Troponin 0.05 indeterminate etiology. 16. FULL CODE. DISCHARGE DISPOSITION: The patient is being discharged in stable condition with guarded prognosis. Cardiology cleared the patient for discharge. HISTORY OF PRESENT ILLNESS: This 80-year-old woman with past medical history of multiple medical problems, was admitted with CHF acute exacerbation. The patient treated with diuretics. The patient improved significantly. Cardiology saw the patient and recommended the patient to be followed in the outpatient setting. On exam, vital signs stable. CARDIOVASCULAR: S1, S2 muffled. Abdomen soft. Central nervous system: No focal deficits. Legs: Minimal edema. DISCHARGE ADVICE AND MEDICATIONS: 1. Discharge diet is cardiac. 2. Activity limited until follow-up. 3. Fluid restriction for 24 hours. 4. Follow-up with Dr. Erasto August in 2 to 3 days. 5. CBC, BMP. 6. Medications are Xanax 0.125 mg p.o. t.i.d. p.r.n. 7. Norvasc 5 mg p.o. b.i.d. 8. Eliquis 5 mg p.o. b.i.d. 9. Aspirin 81 mg p.o. daily. 10. Vitamin D3 1000 daily. 11. Cardizem LA 120 mg p.o. daily. 12. Lasix 40 mg p.o. daily. 13. Lopressor 100 mg p.o. b.i.d. Once again, the patient will be discharged in a stable condition with guarded prognosis. MTDD
== END 2016-12-07 15:53 | disposition home or self-care (01) | DRG 292 ==
LOC: EC 21:41 → 6SEL 23:37
PROVIDERS: ADMIT Internal Medicine; ATTEND Internal Medicine
DX: I11.0 Hypertensive heart disease with heart failure (principal); I48.1 Persistent atrial fibrillation; J98.11 Atelectasis; I27.2 Other secondary pulmonary hypertension; I45.10 Unspecified right bundle-branch block; I07.1 Rheumatic tricuspid insufficiency; E78.5 Hyperlipidemia, unspecified; T46.1X5A Adverse effect of calcium-channel blockers, initial encounter; M79.89 Other specified soft tissue disorders; I50.33 Acute on chronic diastolic (congestive) heart failure; I25.10 Atherosclerotic heart disease of native coronary artery without angina pectoris; I48.2 Chronic atrial fibrillation; J44.9 Chronic obstructive pulmonary disease, unspecified; Z79.01 Long term (current) use of anticoagulants; Z79.82 Long term (current) use of aspirin; Z79.899 Other long term (current) drug therapy; Z95.5 Presence of coronary angioplasty implant and graft; Z87.891 Personal history of nicotine dependence; Z82.49 Family history of ischemic heart disease and other diseases of the circulatory system; Y92.009 Unspecified place in unspecified non-institutional (private) residence as the place of occurrence of the external cause
CPT/HCPCS: 36415; 71020; 80048; 80053; 81001; 81003; 82550; 82553; 83735; 83880; 84132; 84484; 84550; 85025; 85610; 85730; 87040; 87086; 93005; 94640; 96374; 99285

== ENCOUNTER 2019-09-04 13:22 | Inpatient (IN) | payer MEDICARE, BC ==
[2019-09-04] MEDS ORDERED: DILTIAZEM DRIP BOLUS FROM BAG 1 MG SOLN IV ONE (13:41)
[2019-09-04] MEDS ORDERED: DILTIAZEM 125 MG in SODIUM CHLORIDE 0.9% 100 ML IV SCH (13:45)
--- NOTE | 2019-09-04 13:46 | ED ---
General Adult HPI - General Chief complaint: Arrhythmia/Palpitations Stated complaint: Right shoulder pain Time Seen by Provider: 09/04/19 13:29 Source: patient, RN notes reviewed Mode of arrival: ambulatory Limitations: no limitations - History of Present Illness Initial comments: Patient is a pleasant 83-year-old female presenting to the emergency Department with rapid heart rate and right posterior shoulder discomfort. Patient checked her heart rate at home on her monitor and was high. Patient has been having some right posterior shoulder discomfort over the past couple of days, worse last night and worse this morning. Discomfort is not worse with movement. No difficulty breathing. No chest pain. Discomfort is in the right upper back be tween the shoulder and the neck and not actually the shoulder itself. No weakness. No dyspnea. Discomfort feels like an ache. - Related Data Home Medications Medication Instructions Recorded Confirmed Cholecalciferol [Vitamin D3 (25 1,000 unit PO DAILY 11/27/16 06/04/17 Mcg = 1000 Iu)] Furosemide [Lasix] 20 mg PO DAILY 06/04/17 06/04/17 Metoprolol Tartrate [Lopressor] 50 mg PO BID 06/04/17 06/04/17 Verapamil [Isoptin] 40 mg PO BID 06/04/17 06/04/17 Previous Rx's Medication Instructions Recorded Apixaban [Eliquis] 5 mg PO BID #0 tab 12/01/16 Ipratropium-Albuterol Nebulize 3 ml INHALATION RT-QID #120 06/11/17 [Duoneb 0.5 mg-3 mg/3 ml Soln] ampul.neb Ipratropium-Albuterol Nebulize 3 ml INHALATION RT-QID PRN #120 06/11/17 [Duoneb 0.5 mg-3 mg/3 ml Soln] ampul.neb Spironolactone [Aldactone] 50 mg PO DAILY #30 tab 06/11/17 Allergies Allergy/AdvReac Type Severity Reaction Status Date / Time No Known Allergies Allergy Verified 09/04/19 14:56 Review of Systems ROS Statement: Those systems with pertinent positive or pertinent negative responses have been documented in the HPI. ROS Other: All systems not noted in ROS Statement are negative. Constitutional: Denies: fever Eyes: Denies: eye pain ENT: Denies: ear pain Respiratory: Denies: cough, dyspnea Cardiovascular: Denies: chest pain, palpitations, dyspnea on exertion, orthopnea, edema Endocrine: Reports: fatigue Gastrointestinal: Denies: abdominal pain Genitourinary: Denies: dysuria Musculoskeletal: Reports: as per HPI Skin: Denies: rash Neurological: Denies: weakness Past Medical History Past Medical History: Atrial Fibrillation, Coronary Artery Disease (CAD), Hypertension Additional Past Medical History / Comment(s): CHF with diastolic dysfunction, coronary artery disease with previous insertion of coronary stent, chronic atrial fibrillation, COPD, hypertension, severe tricuspid regurgitation along with severe dilatation of the right ventricle and a PA pressure mildly elevated probably consistent with chronic lung disease/COPD. History of Any Multi-Drug Resistant Organisms: None Reported Past Surgical History: Heart Catheterization With Stent Past Anesthesia/Blood Transfusion Reactions: No Reported Reaction Date of Last Stent Placement:: 2001 Past Psychological History: No Psychological Hx Reported Smoking Status: Current every day smoker Past Alcohol Use History: None Reported Past Drug Use History: None Reported - Past Family History Father Family Medical History: Coronary Artery Disease (CAD) Mother Family Medical History: Coronary Artery Disease (CAD) General Exam Limitations: no limitations General appearance: alert, in no apparent distress Head exam: Present: normocephalic Eye exam: Present: normal appearance Neck exam: Present: normal inspection Respiratory exam: Present: normal lung sounds bilaterally. Absent: chest wall tenderness Cardiovascular Exam: Present: tachycardia, irregular rhythm Expanded Peripheral pulses: 2+: Radial (R), Radial (L), Posterior Tibialis (R), Posterior Tibialis (L), Dorsalis Pedis (R), Dorsalis Pedis (L) GI/Abdominal exam: Present: soft. Absent: tenderness Extremities exam: Present: normal inspection, full ROM, other (Right shoulder full range of motion without tenderness). Absent: pedal edema, calf tenderness Back exam: Present: other (Patient describes discomfort right trapezius between the neck and the shoulder however no tenderness on exam.) Neurological exam: Present: alert. Absent: motor sensory deficit Psychiatric exam: Present: normal affect, normal mood Skin exam: Present: normal color Course Vital Signs 09/04/19 09/04/19 09/04/19 13:23 13:53 13:56 Temperature 97.8 F Pulse Rate 143 H 135 H Respiratory 18 18 Rate Blood Pressure 162/128 Blood Pressure 114/93 [Left Arm] Blood Pressure 115/82 [Right Arm] O2 Sat by Pulse 99 98 Oximetry 09/04/19 09/04/19 09/04/19 14:06 14:07 14:33 Temperature Pulse Rate 121 H 100 95 Respiratory 18 Rate Blood Pressure 121/86 Blood Pressure [Left Arm] Blood Pressure [Right Arm] O2 Sat by Pulse 98 Oximetry EKG Findings - EKG Comments: EKG Findings:: A. fib with RVR, rate 152. QRS 128. QT 318. QTC 505. Normal axis. Right bundle branch block. Lateral ST depression. Inferior T wave inversion. Medical Decision Making - Medical Decision Making Patient is reevaluated and does feel better. Discomfort is mild now of her right posterior trapezius region. Heart rate is variable between 85 and 135. Patient is on Cardizem drip. Patient is already on oral anticoagulation. Case discussed with Dr. ortiz abel, who will admit covering for hospital call. - Lab Data Result diagrams: 09/04/19 13:47 09/04/19 13:47 Lab Results 09/04/19 09/04/19 09/04/19 Range/Units 13:47 13:47 13:47 WBC 9.8 (3.8-10.6) k/uL RBC 4.30 (3.80-5.40) m/uL Hgb 10.6 L (11.4-16.0) gm/dL Hct 35.1 (34.0-46.0) % MCV 81.6 (80.0-100.0) fL MCH 24.7 L (25.0-35.0) pg MCHC 30.3 L (31.0-37.0) g/dL RDW 16.9 H (11.5-15.5) % Plt Count 255 (150-450) k/uL Neutrophils % 85 % Lymphocytes % 9 % Monocytes % 4 % Eosinophils % 1 % Basophils % 0 % Neutrophils # 8.3 H (1.3-7.7) k/uL Lymphocytes # 0.9 L (1.0-4.8) k/uL Monocytes # 0.4 (0-1.0) k/uL Eosinophils # 0.1 (0-0.7) k/uL Basophils # 0.0 (0-0.2) k/uL Hypochromasia Marked Poikilocytosis Slight Anisocytosis Slight PT 11.6 (9.0-12.0) sec INR 1.1 (<1.2) APTT 23.8 (22.0-30.0) sec Sodium 138 (137-145) mmol/L Potassium 4.6 (3.5-5.1) mmol/L Chloride 107 (98-107) mmol/L Carbon Dioxide 21 L (22-30) mmol/L Anion Gap 10 mmol/L BUN 17 (7-17) mg/dL Creatinine 1.14 H (0.52-1.04) mg/dL Est GFR (CKD-EPI)AfAm 51 (>60 ml/min/1.73 sqM) Est GFR (CKD-EPI)NonAf 44 (>60 ml/min/1.73 sqM) Glucose 131 H (74-99) mg/dL Calcium 9.1 (8.4-10.2) mg/dL Magnesium 2.1 (1.6-2.3) mg/dL Total Bilirubin 1.5 H (0.2-1.3) mg/dL AST 46 H (14-36) U/L ALT 20 (4-34) U/L Alkaline Phosphatase 51 (38-126) U/L Troponin I (0.000-0.034) ng/mL Total Protein 6.9 (6.3-8.2) g/dL Albumin 4.0 (3.5-5.0) g/dL TSH 1.380 (0.465-4.680) mIU/L Free T4 1.60 (0.78-2.19) ng/dL Free T3 pg/mL 4.2 (2.8-5.3) pg/ml 09/04/19 Range/Units 13:47 WBC (3.8-10.6) k/uL RBC (3.80-5.40) m/uL Hgb (11.4-16.0) gm/dL Hct (34.0-46.0) % MCV (80.0-100.0) fL MCH (25.0-35.0) pg MCHC (31.0-37.0) g/dL RDW (11.5-15.5) % Plt Count (150-450) k/uL Neutrophils % % Lymphocytes % % Monocytes % % Eosinophils % % Basophils % % Neutrophils # (1.3-7.7) k/uL Lymphocytes # (1.0-4.8) k/uL Monocytes # (0-1.0) k/uL Eosinophils # (0-0.7) k/uL Basophils # (0-0.2) k/uL Hypochromasia Poikilocytosis Anisocytosis PT (9.0-12.0) sec INR (<1.2) APTT (22.0-30.0) sec Sodium (137-145) mmol/L Potassium (3.5-5.1) mmol/L Chloride (98-107) mmol/L Carbon Dioxide (22-30) mmol/L Anion Gap mmol/L BUN (7-17) mg/dL Creatinine (0.52-1.04) mg/dL Est GFR (CKD-EPI)AfAm (>60 ml/min/1.73 sqM) Est GFR (CKD-EPI)NonAf (>60 ml/min/1.73 sqM) Glucose (74-99) mg/dL Calcium (8.4-10.2) mg/dL Magnesium (1.6-2.3) mg/dL Total Bilirubin (0.2-1.3) mg/dL AST (14-36) U/L ALT (4-34) U/L Alkaline Phosphatase (38-126) U/L Troponin I 0.017 (0.000-0.034) ng/mL Total Protein (6.3-8.2) g/dL Albumin (3.5-5.0) g/dL TSH (0.465-4.680) mIU/L Free T4 (0.78-2.19) ng/dL Free T3 pg/mL (2.8-5.3) pg/ml - Radiology Data Radiology results: image reviewed (Chest x-ray shows mild cardiac megaly) Critical Care Time Critical Care Time: Yes Total Critical Care Time: 33 Disposition Clinical Impression: Atrial fibrillation with RVR Disposition: ADMITTED IP TO THIS HOSP Is patient prescribed a controlled substance at d/c from ED?: No Referrals: None,Stated [Primary Care Provider] - 1-2 days Decision Time: 14:58
--- NOTE | 2019-09-04 14:04 | XR ---
EXAMINATION TYPE: XR chest 2V DATE OF EXAM: 09/04/2019 HISTORY: dysrhythmia. REFERENCE: Previous study dated 06/10/2017. FINDINGS: The heart is enlarged. There are senescent changes in the lungs. Lungs otherwise clear. Ple ural space are clear. Right glenohumeral relationships appear normal. IMPRESSION: MILD CARDIOMEGALY.
[2019-09-04 14:13] LABS: Anisocytosis Slight; Basophils % (A) 0 %; Eosinophils # (A) 0.1 k/uL (0-0.7); Eosinophils % (A) 1 %; HCT 35.1 % (34.0-46.0); HGB 10.6 gm/dL (11.4-16.0); Hypochromasia Marked; Lymphocytes # (A) 0.9 k/uL (1.0-4.8); Lymphocytes % (A) 9 %; MCH 24.7 pg (25.0-35.0); MCHC 30.3 g/dL (31.0-37.0); MCV 81.6 fL (80.0-100.0); Mean Platelet Volume 7.7; Monocytes # (A) 0.4 k/uL (0-1.0); Monocytes % (A) 4 %; Neutrophils # (A) 8.3 k/uL (1.3-7.7); Neutrophils % (A) 85 %; Platelet Count 255 k/uL (150-450); Poikilocytosis Slight; RDW 16.9 % (11.5-15.5); WBC 9.8 k/uL (3.8-10.6)
[2019-09-04 14:15] LABS: Calcium 9.1 mg/dL (8.4-10.2); Magnesium 2.1 mg/dL (1.6-2.3); Total Bilirubin 1.5 mg/dL (0.2-1.3); Total Protein 6.9 g/dL (6.3-8.2)
[2019-09-04 14:17] LABS: Potassium 4.6 mmol/L (3.5-5.1)
[2019-09-04 14:20] LABS: INR 1.1 (<1.2); Partial Thromboplastin Time 23.8 sec (22.0-30.0); Prothrombin Time 11.6 sec (9.0-12.0)
[2019-09-04 14:32] LABS: T4, Free (Free Thyroxine) 1.6 ng/dL (0.78-2.19)
[2019-09-04] MEDS ORDERED: NALOXONE 0.4 MG/ML 1 ML VIAL IV PRN (14:59)
[2019-09-04] MEDS ORDERED: SODIUM CHLORIDE 0.9% 1,000 ML IV SCH (15:00)
[2019-09-04] MEDS ORDERED: IPRATROPIUM-ALBUTEROL 3 ML NEB INHALATION PRN (16:53)
--- NOTE | 2019-09-04 16:57 | P.HPIM ---
History of Present Illness H&P Date: 09/04/19 Chief Complaint: Right shoulder pain 83-year-old female with PMH of atrial fibrillation on Eliquis, CAD post stent 18 years ago, hypertension, diastolic CHF, COPD, hypertension presents the ED for right shoulder pain. Patient reports right shoulder pain that started yesterday sporadically. Patient reports the pain to be constant. She describes the pain as "pulled a muscle". Pain was 10 out of 10 in severity when she arrived but is currently 5 out of 10 in severity. She denies any heavy lifting or trauma to the right shoulder. Patient has also noted increased fatigue that she associates with her atrial fibrillation. She denies any headache, lower [place] edema, nausea or vomiting, fever or chills, cough, chest pain, shortness of breath, palpitations, changes in urination or bowel habits. No changes in appetite or weight. She denies any dizziness, numbness/weakness/tingling of the extremities. In the ED, her vital signs were stable except for pulse of 143. CBC showed hemoglobin of 10.6. Coagulation panel was negative. CMP showed bicarbonate of 21, creatinine 1.14, glucose 131, total bilirubin 1.5 and AST 46. Troponin was 0.017, EKG showing atrial fibrillation with RVR and right bundle branch block. TSH and free T4 was within normal limits. Chest x-ray show cardiomegaly. Patient is admitted for atrial fibrillation with rapid ventricular rate, started on Cardizem drip and admitted for cardiology evaluation. Review of Systems Pertinent positives and negatives as discussed in HPI, a complete review of systems was performed and all other systems are negative. Past Medical History Past Medical History: Atrial Fibrillation, Coronary Artery Disease (CAD), Hypertension Additional Past Medical History / Comment(s): CHF with diastolic dysfunction, coronary artery disease with previous insertion of coronary stent, chronic atrial fibrillation, COPD, hypertension, severe tricuspid regurgitation along with severe dilatation of the right ventricle and a PA pressure mildly elevated probably consistent with chronic lung disease/COPD. History of Any Multi-Drug Resistant Organisms: None Reported Past Surgical History: Heart Catheterization With Stent Past Anesthesia/Blood Transfusion Reactions: No Reported Reaction Date of Last Stent Placement:: 2001 Past Psychological History: No Psychological Hx Reported Smoking Status: Former smoker Past Alcohol Use History: None Reported Past Drug Use History: None Reported - Past Family History Father Family Medical History: Coronary Artery Disease (CAD) Mother Family Medical History: Coronary Artery Disease (CAD) Medications and Allergies Home Medications Medication Instructions Recorded Confirmed Type Cholecalciferol [Vitamin D3 (25 1,000 unit PO DAILY 11/27/16 09/04/19 History Mcg = 1000 Iu)] Apixaban [Eliquis] 5 mg PO BID #0 tab 12/01/16 09/04/19 Rx Metoprolol Tartrate [Lopressor] 25 mg PO BID 06/04/17 09/04/19 History Acetaminophen Tab [Tylenol] 325 mg PO Q6H 09/04/19 09/04/19 History Allergies Allergy/AdvReac Type Severity Reaction Status Date / Time No Known Allergies Allergy Verified 09/04/19 14:56 Physical Exam Vitals: Vital Signs Temp Pulse Pulse Resp BP BP BP 09/04/19 15:40 97.5 F L 128 H 20 114/92 09/04/19 15:22 98.3 F 90 18 118/73 09/04/19 14:33 95 09/04/19 14:07 100 09/04/19 14:06 121 H 18 121/86 09/04/19 13:56 135 H 18 09/04/19 13:53 114/93 115/82 09/04/19 13:23 97.8 F 143 H 18 162/128 Pulse Ox 09/04/19 15:40 100 09/04/19 15:22 100 09/04/19 14:33 09/04/19 14:07 09/04/19 14:06 98 09/04/19 13:56 98 09/04/19 13:53 09/04/19 13:23 99 Intake and Output 09/04/19 09/04/19 09/04/19 06:59 14:59 22:59 Other: Weight 74.843 kg 74.843 kg General: [non toxic], [no distress], [appears at stated age] Derm: [warm], [dry] Head: [atraumatic], [normocephalic], [symmetric] Eyes: [EOMI], [no lid lag], [anicteric sclera] Mouth: [no lip lesion], [mucus membranes moist] Cardiovascular: [S1S2 irreg], [irregularly irregular], [positive DP pulse bilateral], Lungs: [CTA bilateral], [no rhonchi, no rales] , [no accessory muscle use] Abdominal: [soft], [ nontender to palpation], [no guarding], [no appreciable organomegaly] Ext: [no gross muscle atrophy], [no edema], [no contractures] Neuro: [ CN II-XI grossly intact], [no focal neuro deficits] Psych: [Alert], [oriented], [appropriate affect] Results CBC & Chem 7: 09/04/19 13:47 09/04/19 13:47 Labs: Abnormal Lab Results - Last 24 Hours (Table) 09/04/19 09/04/19 Range/Units 13:47 13:47 Hgb 10.6 L (11.4-16.0) gm/dL MCH 24.7 L (25.0-35.0) pg MCHC 30.3 L (31.0-37.0) g/dL RDW 16.9 H (11.5-15.5) % Neutrophils # 8.3 H (1.3-7.7) k/uL Lymphocytes # 0.9 L (1.0-4.8) k/uL Carbon Dioxide 21 L (22-30) mmol/L Creatinine 1.14 H (0.52-1.04) mg/dL Glucose 131 H (74-99) mg/dL Total Bilirubin 1.5 H (0.2-1.3) mg/dL AST 46 H (14-36) U/L Thrombosis Risk Factor Assmnt - Choose All That Apply Each Factor Represents 1 point: Abnormal pulmonary function (COPD), Obesity (BMI >25) Other Risk Factors: Yes (atrial fibrillation) Each Risk Factor Represents 3 Points: Age 75 years or older Thrombosis Risk Factor Assessment Total Risk Factor Score: 5 Thrombosis Risk Factor Assessment Level: High Risk Assessment and Plan Assessment: Atrial fibrillation with RVR Right shoulder pain Elevated total bilirubin and AST Acute kidney injury CAD post stenting Hypertension Diastolic CHF COPD Patient's fatigue can be related to atrial fibrillation with RVR. Thyroid function is within normal limits. She has been started on a Cardizem drip from the ED which will be continued. We will resume home dose of metoprolol. She has been restarted on Eliquis for anticoagulation. Patient has been placed on telemetry monitoring. Echocardiogram has been ordered. Cardiology has been consulted for further recommendations. Her right shoulder pain is of unknown etiology. Patient denies any trauma or arthritis and her range of motion is fully intact. This could very well be musculoskeletal in nature. Given her elevated total bilirubin and AST I will order ultrasound of her gallbladder to rule out choledocholithiasis. Her pain will be treated with Tylenol or [place]. Patient is noted to have elevated creatinine of 1.14 on admission. Her creatinine was also elevated one other time in 2017. This is possibly related to dehydration. We will continue normal saline at 50 mL per hour. Plan to avoid nephrotoxins. Plans to repeat BMP tomorrow morning. It is unclear why patient is not on aspirin regarding her CAD. Will defer to ca rdiology for this decision. Metoprolol will be continued in the meantime. Her blood pressure is 114/92. This is acceptable. We'll continue Cardizem drip and metoprolol. Vitals will be monitored and medications adjusted as necessary. Patient is echocardiogram which shows EF 50-55% and borderline concentric LVH in 2017. Chest x-ray shows cardiomegaly. Patient is euvolemic. We will repeat ec hocardiogram. Patient COPD is chronic and not in acute exacerbation. DuoNeb 4 times a day as needed for shortness of breath or wheezing will be started. DVT prophylaxis: [Eliquis] Discussed with: [Patient and daughter] Anticipated discharge: [1-2 days] Anticipated discharge place: [Home] A total of [45] minutes was spent on the care of this complex patient more than 50% of the time was spent in counseling and care coordination. Patient names her daughter Nirmala decision maker if she can't make decisions for herself. Patient will like to be full code. Patient states that she lives by herself in [place].
--- NOTE | 2019-09-04 18:16 | US ---
EXAMINATION TYPE: US abdomen limited DATE OF EXAM: 09/04/2019 COMPARISON: NONE CLINICAL HISTORY: gall bladder. Right shoulder pain and AFIB per patient EXAM MEASUREMENTS: Liver Length: 10.1 cm Gallbladder Wall: 0.2 cm CBD: 0.8 cm Right Kidney: 10.5 x 5.3 x 5.0 cm Pancreas: hyperechoic with pancreatic duct noted = 2.8mm Liver: left lobe liver cyst seen = 1.1 x 0.9 x 0.8cm; right lobe liver complex cyst noted superiorl y = 2.4 x 2.2 x 1.4cm Gallbladder: wnl, fold noted mid lumen Evidence for sonographic Fernandez's sign: no CBD: wnl for 8th decade Right Kidney: couple of renal cysts noted with larger cyst seen superior cortex = 2.8 x 3.1 x 3.4cm. IMPRESSION: Renal and hepatic cysts. No gallstones or dilated ducts. Common bile duct top normal in size. No dila tion of the intrahepatic bile ducts.
[2019-09-04] MEDS: APIXABAN 5 MG TAB PO SCH (20:26)
[2019-09-04] MEDS: METOPROLOL TARTRATE 25 MG TAB PO SCH (20:26)
[2019-09-05 07:02] LABS: Calcium 8.4 mg/dL (8.4-10.2); Potassium 3.9 mmol/L (3.5-5.1)
[2019-09-05] MEDS: METOPROLOL TARTRATE 25 MG TAB PO SCH ×3 (07:47→20:47)
[2019-09-05] MEDS: APIXABAN 5 MG TAB PO SCH ×2 (07:47→20:47)
--- NOTE | 2019-09-05 09:55 | P.CRDCN ---
History of Present Illness Consult date: 09/05/19 Requesting physician: Carolina Beasley Consult reason: atrial fibrillation Chief complaint: Right shoulder discomfort History of present illness: This is a pleasant 83-year-old female who follows regularly with Dr. VC August in the office. She has known history of coronary artery disease with prior stenting, hypertension, hyperlipidemia, prior nicotine dependence. Patient also has a history of paroxysmal atrial fibrillation, she is on Eliquis for anticoagulation. The patient presents to the hospital on this occasion with a right shoulder discomfort, and a feeling that she may be back in atrial fibrillation. She denies any chest discomfort, no palpitations, no shortness of breath. Her chest x-ray on presentation here showed mild cardiomegaly. EKG on presentation here shows atrial fibrillation with a rapid ventricular response, right bundle branch block pattern, ST depression noted in the lateral leads. Blood pressure this morning 115/70 with a heart rate of 116, 94% on room air. White blood cell count 9.8, hemoglobin 10.6, platelet count 255. Sodium 138, potassium 3.9, BUN 16, creatinine 1.0. Magnesium 2.1, total bilirubin 1.5, AST 46, ALT 20. TSH 1.3. Free T4 1.6. Patient was initiated on IV Cardizem on arrival here. Heart rate this morning in the 80s. Her home medications included Lopressor 25 mg twice a day, Eliquis 5 mg twice a day. Past Medical History Past Medical History: Atrial Fibrillation, Coronary Artery Disease (CAD), Hypertension Additional Past Medical History / Comment(s): CHF with diastolic dysfunction, coronary artery disease with previous insertion of coronary stent, chronic atrial fibrillation, COPD, hypertension, severe tricuspid regurgitation along with severe dilatation of the right ventricle and a PA pressure mildly elevated probably consistent with chronic lung disease/COPD. History of Any Multi-Drug Resistant Organisms: None Reported Past Surgical History: Heart Catheterization With Stent Past Anesthesia/Blood Transfusion Reactions: No Reported Reaction Date of Last Stent Placement:: 2001 Past Psychological History: No Psychological Hx Reported Smoking Status: Former smoker Past Alcohol Use History: None Reported Past Drug Use History: None Reported - Past Family History Father Family Medical History: Coronary Artery Disease (CAD) Mother Family Medical History: Coronary Artery Disease (CAD) Medications and Allergies Home Medications Medication Instructions Recorded Confirmed Type Cholecalciferol [Vitamin D3 (25 1,000 unit PO DAILY 11/27/16 09/04/19 History Mcg = 1000 Iu)] Apixaban [Eliquis] 5 mg PO BID #0 tab 12/01/16 09/04/19 Rx Metoprolol Tartrate [Lopressor] 25 mg PO BID 06/04/17 09/04/19 History Acetaminophen Tab [Tylenol] 325 mg PO Q6H 09/04/19 09/04/19 History Allergies Allergy/AdvReac Type Severity Reaction Status Date / Time No Known Allergies Allergy Verified 09/04/19 14:56 Physical Exam Vitals: Vital Signs Temp Pulse Pulse Resp BP BP BP 09/05/19 07:49 97.5 F L 116 H 20 115/76 09/05/19 04:00 98.0 F 87 16 117/76 09/05/19 00:00 97.6 F 76 16 110/69 09/04/19 20:00 98.0 F 112 H 16 115/86 09/04/19 15:40 97.5 F L 128 H 20 114/92 09/04/19 15:22 98.3 F 90 18 118/73 09/04/19 14:33 95 09/04/19 14:07 100 09/04/19 14:06 121 H 18 121/86 09/04/19 13:56 135 H 18 09/04/19 13:53 114/93 115/82 09/04/19 13:23 97.8 F 143 H 18 162/128 Pulse Ox 09/05/19 07:49 94 L 09/05/19 04:00 96 09/05/19 00:00 94 L 09/04/19 20:00 97 09/04/19 15:40 100 09/04/19 15:22 100 09/04/19 14:33 09/04/19 14:07 09/04/19 14:06 98 09/04/19 13:56 98 09/04/19 13:53 09/04/19 13:23 99 Intake and Output 09/04/19 09/05/19 09/05/19 22:59 06:59 14:59 Intake Total 845 100 Balance 845 100 Intake: Intake, IV Titration 605 Amount Diltiazem 125 mg In 55 Sodium Chloride 0.9% 100 ml @ 5 MG/HR 5 mls/hr IV .Q24H [facility] Rx#:[id number] Sodium Chloride 0.9% 1, 550 000 ml @ 50 mls/hr IV . Q20H [facility] Rx#:[id number] Oral 240 100 Other: Voiding Method Toilet # Voids 1 2 Weight 74.843 kg 76.9 kg PHYSICAL EXAMINATION: HEENT: Head is atraumatic, normocephalic. Pupils equal, round. Neck is supple. There is no elevated jugular venous pressure. HEART EXAMINATION: Heart S1 S2 irregularly irregular systolic murmur is heard. CHEST EXAMINATION: Lungs are clear with diminished air entry to bilateral bases. ABDOMEN: Soft, nontender. Bowel sounds are heard. No organomegaly noted. EXTREMITIES: 2+ peripheral pulses with no evidence of peripheral edema and no calf tenderness noted. NEUROLOGIC patient is awake, alert and oriented -3. Results 09/04/19 13:47 09/05/19 06:26 Cardiac Enzymes 09/04/19 09/04/19 Range/Units 13:47 13:47 AST 46 H (14-36) U/L Troponin I 0.017 (0.000-0.034) ng/mL Coagulation 09/04/19 Range/Units 13:47 PT 11.6 (9.0-12.0) sec APTT 23.8 (22.0-30.0) sec CBC 09/04/19 Range/Units 13:47 WBC 9.8 (3.8-10.6) k/uL RBC 4.30 (3.80-5.40) m/uL Hgb 10.6 L (11.4-16.0) gm/dL Hct 35.1 (34.0-46.0) % Plt Count 255 (150-450) k/uL Comprehensive Metabolic Panel 09/04/19 09/05/19 Range/Units 13:47 06:26 Sodium 138 138 (137-145) mmol/L Potassium 4.6 3.9 (3.5-5.1) mmol/L Chloride 107 107 (98-107) mmol/L Carbon Dioxide 21 L 26 (22-30) mmol/L BUN 17 16 (7-17) mg/dL Creatinine 1.14 H 1.06 H (0.52-1.04) mg/dL Glucose 131 H 100 H (74-99) mg/dL Calcium 9.1 8.4 (8.4-10.2) mg/dL AST 46 H (14-36) U/L ALT 20 (4-34) U/L Alkaline Phosphatase 51 (38-126) U/L Total Protein 6.9 (6.3-8.2) g/dL Albumin 4.0 (3.5-5.0) g/dL Current Medications Generic Name Dose Route Start Last Admin Trade Name Freq PRN Reason Stop Dose Admin Albuterol/Ipratropium 3 ml 09/04/19 16:53 Duoneb 0.5 Mg-3 Mg/3 Ml Soln INHALATION RT-QID PRN Shortness Of Breath Or Wheezing Apixaban 5 mg 09/04/19 21:00 09/05/19 07:47 Eliquis PO 5 mg BID [facility] Administration Diltiazem HCl 125 mg/ Sodium 125 mls @ 5 mls/hr 09/04/19 13:45 09/04/19 13:56 Chloride IV 5 mg/hr .Q24H [facility] 5 mls/hr Administration 5 MG/HR Sodium Chloride 1,000 mls @ 50 mls/hr 09/04/19 15:00 09/04/19 17:34 Saline 0.9% IV 50 mls/hr .Q20H [facility] Administration Metoprolol Tartrate 25 mg 09/04/19 21:00 09/05/19 07:47 Lopressor PO 25 mg BID [facility] Administration Naloxone HCl 0.2 mg 09/04/19 14:59 Narcan IV Q2M PRN Opioid Reversal Intake and Output 09/04/19 09/05/19 09/05/19 22:59 06:59 14:59 Intake Total 845 100 Balance 845 100 Intake: Intake, IV Titration 605 Amount Diltiazem 125 mg In 55 Sodium Chloride 0.9% 100 ml @ 5 MG/HR 5 mls/hr IV .Q24H [facility] Rx#:[id number] Sodium Chloride 0.9% 1, 550 000 ml @ 50 mls/hr IV . Q20H [facility] Rx#:[id number] Oral 240 100 Other: Voiding Method Toilet # Voids 1 2 Weight 74.843 kg 76.9 kg 09/04/19 13:47 09/05/19 06:26 EKG Interpretations (text) EKG shows atrial fibrillation with a rapid ventricular response, right bundle branch block pattern and ST depression noted in the lateral leads. Assessment and plan #1 atrial fibrillation with rapid ventricular response #2 history of paroxysmal atrial fibrillation #3 coronary artery disease with prior stent placement #4 hypertension #5 hyperlipidemia #6 Nicotine dependence Plan We will obtain an echocardiogram with Doppler study. The patient's TSH level is normal. Discontinue IV Cardizem and increase the dose of beta gus. If the patient's heart rate remains stable, she may be able to be discharged home. She has a follow-up appointment in the office scheduled with Dr. VC August tomorrow. Further recommendations to follow. DNP note has been reviewed, I agree with a documented findings and plan of care. Patient was seen and examined.
--- NOTE | 2019-09-05 16:44 | P.PN ---
Subjective Patient continues to have fluctuations in her heart rate between 90 and 120s. She remains asymptomatic Objective - Vital Signs Vital signs: Vital Signs Temp 97.9 F 09/05/19 15:44 Pulse 111 H 09/05/19 15:44 Resp 20 09/05/19 15:44 BP 132/74 09/05/19 15:44 Pulse Ox 97 09/05/19 15:44 Intake & Output 09/04/19 09/05/19 09/05/19 18:59 06:59 18:59 Intake Total 845 100 Balance 845 100 Weight 74.843 kg 76.9 kg Intake: Intake, IV Titration 605 Amount Diltiazem 125 mg In 55 Sodium Chloride 0.9% 100 ml @ 5 MG/HR 5 mls/hr IV .Q24H [facility] Rx#:[id number] Sodium Chloride 0.9% 1, 550 000 ml @ 50 mls/hr IV . Q20H [facility] Rx#:[id number] Oral 240 100 Other: Voiding Method Toilet # Voids 2 2 - Exam Vital Signs: I have reviewed the vital signs. GENERAL: no apparent distress, cooperative Eyes: PERRL, extraoculry movements intact, clear conjunctiva Head: : Atraumatic external nose and ears, oropharyngeal mucosa is moist without lesions or exudates Neck: Symmetric, trachea midline, No thyromegaly, no masses or neck vain pulsation, no neck rigidity CVS: +S1/S2, No murmurs or gallops. Peripheral pulses 2+ and equal in all extremities. RESP: Unlabored respiratory effort. Clear to auscultation bilaterally. Abdomen: Bowel sounds present in all 4 quadrants, Soft to palpation, Nontender/Nondistended, No hepatosplenomegaly, no hernias or masses, no CVA tnderness Musculoskeletal: Extremities w/o deformity, No cyanosis or clubbing, no joint swelling Skin: Warm, Dry. 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 fib with RVR Cardiology will the patient increase Lopressor However patient's heart is still fluctuating in 90s to 120s We will continue to monitor the patient in hospital awaiting full effects of Lopressor and further adjustment of medications is overnight.
[2019-09-06] MEDS: APIXABAN 5 MG TAB PO SCH ×2 (07:47→20:55)
[2019-09-06] MEDS: METOPROLOL TARTRATE 25 MG TAB PO SCH (07:47)
--- NOTE | 2019-09-06 09:14 | ECHOF ---
Referral Reason:afib MEASUREMENTS -------- HEIGHT: 165.1 cm WEIGHT: 76.7 kg BP: 115/76 RVIDd: 3.4 cm (< 3.3) IVSd: 1.6 cm (0.6 - 1.1) LVIDd: 4.5 cm (3.9 - 5.3) LVPWd: 1.1 cm (0.6 - 1.1) IVSs: 1.8 cm LVIDs: 4.0 cm LVPWs: 1.5 cm LA Diam: 4.7 cm (2.7 - 3.8) LAESV Index (A-L): 46.00 ml/m Ao Diam: 2.9 cm (2.0 - 3.7) AV Cusp: 1.2 cm (1.5 - 2.6) LA Diam: 4.8 cm (2.7 - 3.8) MV EXCURSION: 19.176 mm (> 18.000) MV EF SLOPE: 82 mm/s (70 - 150) EPSS: 0.8 cm MV E Barrera: 0.79 m/s MV DecT: 168 ms MV A Barrera: 0.03 m/s MV E/A Ratio: 25.56 RAP: 5.00 mmHg RVSP: 32.56 mmHg FINDINGS -------- Sinus rhythm. This was a technically good study. The left ventricular size is normal. There is mild concentric left ventricular hypertrophy. Overa ll left ventricular systolic function is mildly impaired with, an EF between 45 - 50 %. The right ventricle is normal in size. The left atrium is moderately dilated. LA is severely dilated >40 ml/m2 The right atrial size is normal. There is mild aortic valve sclerosis. There is mild aortic regurgitation. Mild mitral annular calcification present. Oyqr-li-vgkwavtd mitral regurgitation is present. Moderate tricuspid regurgitation present. Right ventricular systolic pressure is normal at < 35 mmH g. There is no evidence of pulmonary hypertension. There is no pulmonic regurgitation present. The aortic root size is normal. Echo free space represents a pericardial fat pad. CONCLUSIONS -------- 1. Sinus rhythm. 2. This was a technically good study. 3. The left ventricular size is normal. 4. There is mild concentric left ventricular hypertrophy. 5. Overall left ventricular systolic function is mildly impaired with, an EF between 45 - 50 %. 6. The right ventricle is normal in size. 7. The left atrium is moderately dilated. 8. LA is severely dilated >40 ml/m2 9. The right atrial size is normal. 10. There is mild aortic valve sclerosis. 11. There is mild aortic regurgitation. 12. Mild mitral annular calcification present. 13. Jexj-ce-zpenooid mitral regurgitation is present. 14. Moderate tricuspid regurgitation present. 15. Right ventricular systolic pressure is normal at < 35 mmHg. 16. There is no evidence of pulmonary hypertension. 17. There is no pulmonic regurgitation present. 18. The aortic root size is normal. 19. Echo free space represents a pericardial fat pad. TIRE MANAGER: Nighat Carlton RDCS
[2019-09-06] MEDS: ACETAMINOPHEN TAB 325 MG TAB PO PRN ×2 (09:56→20:55)
[2019-09-06] MEDS ORDERED: METOPROLOL TARTRATE 25 MG TAB PO STA (11:29)
--- NOTE | 2019-09-06 13:08 | P.PN ---
Subjective Pno new events over night. Pt remained in a fib with RVR , largely asymptomatic. Objective - Vital Signs Vital signs: Vital Signs Temp 98.2 F 09/06/19 08:00 Pulse 131 H 09/06/19 08:00 Resp 20 09/06/19 08:00 BP 119/57 09/06/19 08:00 Pulse Ox 95 09/06/19 08:00 Intake & Output 09/05/19 09/06/19 09/06/19 18:59 06:59 18:59 Intake Total 552 120 Balance 552 120 Weight 77.3 kg Intake: Oral 552 120 Other: Voiding Method Toilet # Voids 3 1 0 - Exam Vital Signs: I have reviewed the vital signs. GENERAL: no apparent distress, cooperative Eyes: PERRL, extraoculry movements intact, clear conjunctiva Head: : Atraumatic external nose and ears, oropharyngeal mucosa is moist without lesions or exudates Neck: Symmetric, trachea midline, No thyromegaly, no masses or neck vain pulsation, no neck rigidity CVS: +S1/S2, No murmurs or gallops. Peripheral pulses 2+ and equal in all extremities. RESP: Unlabored respiratory effort. Clear to auscultation bilaterally. Abdomen: Bowel sounds present in all 4 quadrants, Soft to palpation, Nontender/Nondistended, No hepatosplenomegaly, no hernias or masses, no CVA tnderness Musculoskeletal: Extremities w/o deformity, No cyanosis or clubbing, no joint swelling Skin: Warm, Dry. 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 fib with RVR Lopressor adjusted by cardiology cont eliquis monitor BP and orthostatics #anemia microcytic no clinical signs of bleeding check CBC and iron level in am #CKD stahge 2 creatinine stable electrolytes stable
--- NOTE | 2019-09-06 14:12 | P.PN ---
Subjective Progress Note Date: 09/06/19 This is a pleasant 83-year-old female who follows regularly with Dr. VC August in the office. She has known history of coronary artery disease with prior stenting, hypertension, hyperlipidemia, prior nicotine dependence. Patient also has a history of paroxysmal atrial fibrillation, she is on Eliquis for anticoagulation. The patient presents to the hospital on this occasion with a right shoulder discomfort, and a feeling that she may be back in atrial fibrillation. She denies any chest discomfort, no palpitations, no shortness of breath. Her chest x-ray on presentation here showed mild cardiomegaly. EKG on presentation here shows atrial fibrillation with a rapid ventricular response, right bundle branch block pattern, ST depression noted in the lateral leads. Blood pressure this morning 115/70 with a heart rate of 116, 94% on room air. White blood cell count 9.8, hemoglobin 10.6, platelet count 255. Sodium 138, potassium 3.9, BUN 16, creatinine 1.0. Magnesium 2.1, total bilirubin 1.5, AST 46, ALT 20. TSH 1.3. Free T4 1.6. Patient was initiated on IV Cardizem on arrival here. Heart rate this morning in the 80s. Her home medications included Lopressor 25 mg twice a day, Eliquis 5 mg twice a day. 09/06/2019 Patient seen and examined this morning, heart rate up in the 1:30 range. We will increase her dose of beta gus and give an additional 25 now. Objective - Vital Signs Vital signs: Vital Signs Temp 98.2 F 09/06/19 08:00 Pulse 131 H 09/06/19 08:00 Resp 20 09/06/19 08:00 BP 119/57 09/06/19 08:00 Pulse Ox 95 09/06/19 08:00 Intake & Output 09/05/19 09/06/19 09/06/19 18:59 06:59 18:59 Intake Total 552 120 Balance 552 120 Weight 77.3 kg Intake: Oral 552 120 Other: Voiding Method Toilet # Voids 3 1 0 - Exam PHYSICAL EXAMINATION: HEENT: Head is atraumatic, normocephalic. Pupils equal, round. Neck is supple. There is no elevated jugular venous pressure. HEART EXAMINATION: Heart S1 S2 irregularly irregular systolic murmur is heard. CHEST EXAMINATION: Lungs are clear with diminished air entry to bilateral bases. ABDOMEN: Soft, nontender. Bowel sounds are heard. No organomegaly noted. EXTREMITIES: 2+ peripheral pulses with no evidence of peripheral edema and no calf tenderness noted. NEUROLOGIC patient is awake, alert and oriented -3. - Labs CBC & Chem 7: 09/04/19 13:47 09/05/19 06:26 Assessment and Plan Plan: Assessment and plan #1 atrial fibrillation with rapid ventricular response #2 history of paroxysmal atrial fibrillation #3 coronary artery disease with prior stent placement #4 hypertension #5 hyperlipidemia #6 Nicotine dependence Plan Echocardiogram with Doppler study revealed an ejection fraction of 45-50%, mild to moderate mitral regurgitation with moderate tricuspid regurgitation. We will increase the dose of beta gus and continue to monitor the patient for another 24 hours. DNP note has been reviewed, I agree with a documented findings and plan of care. Patient was seen and examined.
[2019-09-06] MEDS: METOPROLOL TARTRATE 50 MG TAB PO SCH ×2 (15:04→20:55)
[2019-09-07 07:07] LABS: Anisocytosis Slight; HCT 29.8 % (34.0-46.0); Hypochromasia Marked; MCH 24.4 pg (25.0-35.0); MCHC 30.1 g/dL (31.0-37.0); Mean Platelet Volume 8.9; Platelet Count 216 k/uL (150-450); Poikilocytosis Slight; RBC 3.69 m/uL (3.80-5.40); RDW 16.5 % (11.5-15.5); WBC 5.9 k/uL (3.8-10.6)
[2019-09-07 07:24] LABS: Calcium 8.8 mg/dL (8.4-10.2); Potassium 4.3 mmol/L (3.5-5.1)
[2019-09-07] MEDS ORDERED: DEXTROSE 5% IN WATER 100 ML with AMIODARONE 150 MG IV ONE (08:10)
[2019-09-07] MEDS ORDERED: AMIODARONE 360 MG in DEXTROSE 5% IN WATER 200 ML IV ONE ×2 (08:10)
[2019-09-07] MEDS: METOPROLOL TARTRATE 50 MG TAB PO SCH ×3 (09:42→20:09)
[2019-09-07] MEDS: APIXABAN 5 MG TAB PO SCH ×2 (09:42→20:09)
--- NOTE | 2019-09-07 09:49 | P.PN ---
Subjective No new events overnight. Patient remained in atrial fibrillation with paroxysmal tachycardia up to 120s. She is being started on amiodarone by car diology Objective - Vital Signs Vital signs: Vital Signs Temp 98.1 F 09/06/19 20:00 Pulse 100 09/07/19 04:00 Resp 18 09/07/19 04:00 BP 137/63 09/07/19 04:00 Pulse Ox 94 L 09/07/19 04:00 Intake & Output 09/06/19 09/07/19 09/07/19 18:59 06:59 18:59 Intake Total 360 Output Total 300 Balance 360 -300 Weight 78.2 kg Intake: Oral 360 Output: Urine 300 Other: Voiding Method Toilet # Voids 1 - Exam Vital Signs: I have reviewed the vital signs. GENERAL: no apparent distress, cooperative Eyes: PERRL, extraoculry movements intact, clear conjunctiva Head: : Atraumatic external nose and ears, oropharyngeal mucosa is moist without lesions or exudates Neck: Symmetric, trachea midline, No thyromegaly, no masses or neck vain pulsation, no neck rigidity CVS: +S1/S2, No murmurs or gallops. Peripheral pulses 2+ and equal in all extremities. RESP: Unlabored respiratory effort. Clear to auscultation bilaterally. Abdomen: Bowel sounds present in all 4 quadrants, Soft to palpation, Nontender/Nondistended, No hepatosplenomegaly, no hernias or masses, no CVA tnderness Musculoskeletal: Extremities w/o deformity, No cyanosis or clubbing, no joint swelling Skin: Warm, Dry. 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, motor strenght 5/5 i upper and lower extremities, no clonus, patellar DTRs 2+ and sympetrical Psych: Awake, Alert, & Oriented (AAO) x3 Appropriate mood and affect - Labs CBC & Chem 7: 09/07/19 06:46 09/07/19 06:46 Labs: Abnormal Lab Results - Last 24 Hours (Table) 09/07/19 09/07/19 Range/Units 06:46 06:46 RBC 3.69 L (3.80-5.40) m/uL Hgb 9.0 L D (11.4-16.0) gm/dL Hct 29.8 L (34.0-46.0) % MCH 24.4 L (25.0-35.0) pg MCHC 30.1 L (31.0-37.0) g/dL RDW 16.5 H (11.5-15.5) % Chloride 108 H (98-107) mmol/L BUN 18 H (7-17) mg/dL Creatinine 1.15 H (0.52-1.04) mg/dL Glucose 102 H (74-99) mg/dL Assessment and Plan Assessment: #A. fib with RVR Lopressor adjusted by cardiology cont eliquis monitor BP and orthostatics Cardiology start amiodarone Patient had a recent TSH and liver enzymes down #anemia microcytic no clinical signs of bleeding Hemoglobin reasonably stable Awaiting iron studies Repeat hemoglobin in the morning #CKD stahge 2 creatinine stable electrolytes stable
[2019-09-07] MEDS: ACETAMINOPHEN TAB 325 MG TAB PO PRN ×2 (10:42→20:02)
[2019-09-07 12:19] LABS: % Iron Saturation 3.41 (12.00-45.00)
[2019-09-07] MEDS: AMIODARONE 300 MG in DEXTROSE 5% IN WATER 250 ML IV SCH ×4 (15:32→23:56)
--- NOTE | 2019-09-07 16:01 | P.PN ---
Subjective Progress Note Date: 09/07/19 This is a pleasant 83-year-old female who follows regularly with Dr. VC August in the office. She has known history of coronary artery disease with prior stenting, hypertension, hyperlipidemia, prior nicotine dependence. Patient also has a history of paroxysmal atrial fibrillation, she is on Eliquis for anticoagulation. The patient presents to the hospital on this occasion with a right shoulder discomfort, and a feeling that she may be back in atrial fibrillation. She denies any chest discomfort, no palpitations, no shortness of breath. Her chest x-ray on presentation here showed mild cardiomegaly. EKG on presentation here shows atrial fibrillation with a rapid ventricular response, right bundle branch block pattern, ST depression noted in the lateral leads. Blood pressure this morning 115/70 with a heart rate of 116, 94% on room air. White blood cell count 9.8, hemoglobin 10.6, platelet count 255. Sodium 138, potassium 3.9, BUN 16, creatinine 1.0. Magnesium 2.1, total bilirubin 1.5, AST 46, ALT 20. TSH 1.3. Free T4 1.6. Patient was initiated on IV Cardizem on arrival here. Heart rate this morning in the 80s. Her home medications included Lopressor 25 mg twice a day, Eliquis 5 mg twice a day. 09/06/2019 Patient seen and examined this morning, heart rate up in the 1:30 range. We will increase her dose of beta gus and give an additional 25 now. 09/07/2019 Patient was seen and examined this morning, in spite of the increase in beta gus dose she continues to have a heart rate in the 1:30 range. We will start her on IV amiodarone today, if patient's heart rate remains elevated tomorrow we'll make consider a cardioversion electively. Objective - Vital Signs Vital signs: Vital Signs Temp 98.5 F 09/07/19 15:40 Pulse 117 H 09/07/19 15:40 Resp 18 09/07/19 15:40 BP 110/70 09/07/19 15:40 Pulse Ox 96 09/07/19 15:40 Intake & Output 09/06/19 09/07/19 09/07/19 18:59 06:59 18:59 Intake Total 360 120 Output Total 300 Balance 360 -300 120 Weight 78.2 kg Intake: Oral 360 120 Output: Urine 300 Other: Voiding Method Toilet Toilet # Voids 1 1 - Exam PHYSICAL EXAMINATION: HEENT: Head is atraumatic, normocephalic. Pupils equal, round. Neck is supple. There is no elevated jugular venous pressure. HEART EXAMINATION: Heart S1 S2 irregularly irregular systolic murmur is heard. CHEST EXAMINATION: Lungs are clear with diminished air entry to bilateral bases. ABDOMEN: Soft, nontender. Bowel sounds are heard. No organomegaly noted. EXTREMITIES: 2+ peripheral pulses with no evidence of peripheral edema and no calf tenderness noted. NEUROLOGIC patient is awake, alert and oriented -3. - Labs CBC & Chem 7: 09/07/19 06:46 09/07/19 06:46 Labs: Abnormal Lab Results - Last 24 Hours (Table) 09/07/19 09/07/19 Range/Units 06:46 06:46 RBC 3.69 L (3.80-5.40) m/uL Hgb 9.0 L D (11.4-16.0) gm/dL Hct 29.8 L (34.0-46.0) % MCH 24.4 L (25.0-35.0) pg MCHC 30.1 L (31.0-37.0) g/dL RDW 16.5 H (11.5-15.5) % Chloride 108 H (98-107) mmol/L BUN 18 H (7-17) mg/dL Creatinine 1.15 H (0.52-1.04) mg/dL Glucose 102 H (74-99) mg/dL Iron 14 L (50-170) ug/dL % Saturation 3.41 L (12.00-45.00) Assessment and Plan Plan: Assessment and plan #1 atrial fibrillation with rapid ventricular response #2 history of paroxysmal atrial fibrillation #3 coronary artery disease with prior stent placement #4 hypertension #5 hyperlipidemia #6 Nicotine dependence Plan Echocardiogram with Doppler study revealed an ejection fraction of 45-50%, mild to moderate mitral regurgitation with moderate tricuspid regurgitation. We'll start the patient on IV amiodarone today. DNP note has been reviewed, I agree with a documented findings and plan of care. Patient was seen and examined.
[2019-09-08 06:36] LABS: Anisocytosis Slight; HCT 30.3 % (34.0-46.0); HGB 9.1 gm/dL (11.4-16.0); Hypochromasia Marked; MCH 24.4 pg (25.0-35.0); MCHC 29.9 g/dL (31.0-37.0); MCV 81.5 fL (80.0-100.0); Mean Platelet Volume 7.7; Platelet Count 198 k/uL (150-450); RBC 3.72 m/uL (3.80-5.40); RDW 16.7 % (11.5-15.5); WBC 6.2 k/uL (3.8-10.6)
[2019-09-08 06:43] LABS: Albumin 3.5 g/dL (3.5-5.0); Calcium 8.9 mg/dL (8.4-10.2); Magnesium 1.9 mg/dL (1.6-2.3); Potassium 4.3 mmol/L (3.5-5.1); Total Bilirubin 1.1 mg/dL (0.2-1.3); Total Protein 6.3 g/dL (6.3-8.2)
[2019-09-08] MEDS ORDERED: ONDANSETRON 4 MG/2 ML VIAL IVP STA (07:48)
[2019-09-08] MEDS: APIXABAN 5 MG TAB PO SCH ×2 (08:16→20:31)
[2019-09-08] MEDS: METOPROLOL TARTRATE 50 MG TAB PO SCH ×3 (08:16→19:31)
[2019-09-08] MEDS: ACETAMINOPHEN TAB 325 MG TAB PO PRN ×2 (08:16→16:03)
[2019-09-08] MEDS ORDERED: ONDANSETRON 4 MG/2 ML VIAL IVP PRN (09:48)
[2019-09-08] MEDS ORDERED: SODIUM CHLORIDE 0.9% 1,000 ML IV SCH (11:00)
[2019-09-08] MEDS ORDERED: SODIUM CHLORIDE 0.9% 1,000 ML IV ONE (12:28)
[2019-09-08] MEDS ORDERED: PROPOFOL 10 MG/ML 20 ML VIAL IV ONE (12:40)
[2019-09-08] MEDS ORDERED: ATROPINE SULFATE 0.1 MG/ML 10ML SYRINGE ONE (12:40)
[2019-09-08] MEDS ORDERED: GLYCOPYRROLATE 0.2 MG/ML 2 ML VIAL ONE (12:40)
--- NOTE | 2019-09-08 13:24 | CE ---
CARDIAC ELECTROPHYSIOLOGY REPORT DATE OF SERVICE: September 08, 2019 PERFORMING PHYSICIAN: Cali Davis MD. PROCEDURE PERFORMED: Cardioversion. COMPLICATION: None. LEVEL OF SEDATION: The procedure was performed under general anesthesia. PROCEDURE DESCRIPTION: After obtaining an informed consent, the patient was brought to the recovery room. After general anesthesia was induced, the patient cardioverted from atrial fibrillation to normal sinus mechanism using 200 joules on first attempt. CONCLUSION: Successful cardioversion of atrial fibrillation to normal sinus mechanism using 200 joules on first attempt. MMODL / IJN: [id number] /
--- NOTE | 2019-09-08 14:13 | P.PN ---
Progress Note - Text Progress Note Date: 09/08/19 The patient was seen and examined this morning, continues to be in atrial fibrillation with a moderately rapid ventricular response, continues to be symptomatic with this as well. She did have some mild nausea earlier this morning. Because of the persistence of the atrial fibrillation, patient has been recommended to undergo cardioversion electively today. She has been on anticoagulation for resented to the hospital. This will be performed today by Dr. Whyte. DNP note has been reviewed, I agree with a documented findings and plan of care. Patient was seen and examined.
--- NOTE | 2019-09-08 14:40 | P.PN ---
Subjective Progress Note Date: 09/08/19 The patient seen and examined at bedside, had episodes of nausea earlier this morning denies abdominal pain, denies chest pain or shortness of breath. Still in A. fib with heart rate 106-130s. Does have some right shoulder discomfort which she is icing and taking Tylenol. Objective - Vital Signs Vital signs: Vital Signs Temp 97.4 F L 09/08/19 11:30 Pulse 43 L 09/08/19 14:05 Resp 18 09/08/19 14:05 BP 126/61 09/08/19 14:05 Pulse Ox 100 09/08/19 14:05 Intake & Output 09/07/19 09/08/19 09/08/19 18:59 06:59 18:59 Intake Total 480 310 540 Balance 480 310 540 Weight 78.3 kg Intake: IV 540 Amiodarone 300 mg In 150 Dextrose 5% in Water 250 ml @ 0.5 MG/MIN 25 mls/hr IV .Q10H CANDE Rx#: [id number] Sodium Chloride 0.9% 1, 40 000 ml @ 20 mls/hr IV . Q24H CANDE Rx#:[id number] Intake, IV Titration 310 Amount Amiodarone 300 mg In 310 Dextrose 5% in Water 250 ml @ 0.5 MG/MIN 25 mls/hr IV .Q10H CANDE Rx#: [id number] Oral 480 Other: Voiding Method Toilet Toilet # Voids 1 2 - Exam Constitutional: No acute distress, conversant, pleasant Eyes: Anicteric sclerae, moist conjunctiva, no lid-lag, PERRLA ENMT: NC/AT,Oropharynx clear, no erythema, exudates Neck:Supple, FROM, no masses, or JVD, No carotid bruits; No thyromegaly Lungs: Clear to auscultation, Clear to percussion, Normal respiratory effort, no accessory muscle use Cardiovascular: Irregularly irregular, No murmurs, gallops, or rubs no peripheral edema Abdominal: Soft Nontender, nom distended, no guarding, no rebound or rigidity, Normoactive bowel sounds No hepatomegaly, No splenomegaly, No palpable mass No abdominal wall hernia noted Skin: Normal temperature, tone, texture, turgor, No induration No subcutaneous nodules, No rash, lesions, No ulcers Extremities:No digital cyanosis No clubbing, Pedal pulses intact and symmetrical Radial pulses intact and symmetrical Normal gait and station, No calf tenderness Psychiatric: Alert and oriented to person, place and time, Appropriate affect Intact judgement Neuro: Muscles Strength 5/5 in all 4 extremities, Sensation to light touch grossly present throughout, Cranial nerves II-XII grossly intact. No focal sensory deficits - Labs CBC & Chem 7: 09/08/19 05:37 09/08/19 05:37 Labs: Abnormal Lab Results - Last 24 Hours (Table) 09/08/19 09/08/19 Range/Units 05:37 05:37 RBC 3.72 L (3.80-5.40) m/uL Hgb 9.1 L (11.4-16.0) gm/dL Hct 30.3 L (34.0-46.0) % MCH 24.4 L (25.0-35.0) pg MCHC 29.9 L (31.0-37.0) g/dL RDW 16.7 H (11.5-15.5) % Sodium 136 L (137-145) mmol/L BUN 19 H (7-17) mg/dL Creatinine 1.11 H (0.52-1.04) mg/dL Glucose 116 H (74-99) mg/dL Assessment and Plan Assessment: #A. fib with RVR Lopressor adjusted by cardiology cont eliquis monitor BP and orthostatics Continued on amiodarone Patient had a recent TSH and liver enzymes down Cardiology considering cardioversion #anemia microcytic no clinical signs of bleeding Hemoglobin reasonably stable Awaiting iron studies Repeat hemoglobin in the morning #CKD stahge 2 creatinine stable electrolytes stable Disposition * Anticipated discharge tomorrow after possible cardioversion if medically stable
[2019-09-08] MEDS: AMIODARONE 200 MG TAB PO SCH ×2 (14:49→19:30)
--- NOTE | 2019-09-09 06:42 | P.PN ---
Subjective Progress Note Date: 09/09/19 Principal diagnosis: This is a very pleasant 83-year-old female patient with paroxysmal atrial fibrillation who was admitted to the hospital was atrial fibrillation with RVR which was uncontrolled on maximize medical treatment. Because of that cardioversion was performed. The patient cardioverted from atrial fibrillation to normal sinus mechanism using 200 J a first attempt. After cardioversion she went into bradycardia. Because of that she was kept in the ICU for observation. She was seen today, 2019. She continues to be in sinus bradycardia but her heart rate has improved. Her average heart rate today is in the 40s. Getting the patient up and around increase in heart rate the 50s. She is on amiodarone and metoprolol which I'm going to hold at this point and later on today if her heart rate picked up she possibly can be discharged home. She is on oral anticoagulation. Objective - Vital Signs Vital signs: Vital Signs Temp 98.0 F 09/09/19 04:00 Pulse 45 L 09/09/19 06:00 Resp 8 L 09/09/19 06:00 BP 131/55 09/09/19 06:00 Pulse Ox 94 L 09/09/19 04:00 Intake & Output 09/08/19 09/08/19 09/09/19 06:59 18:59 06:59 Intake Total 310 190 300 Balance 310 190 300 Weight 78.3 kg Intake: IV 190 Amiodarone 300 mg In 150 Dextrose 5% in Water 250 ml @ 0.5 MG/MIN 25 mls/hr IV .Q10H CANDE Rx#: [id number] Sodium Chloride 0.9% 1, 40 000 ml @ 20 mls/hr IV . Q24H CANDE Rx#:[id number] Intake, IV Titration 310 Amount Amiodarone 300 mg In 310 Dextrose 5% in Water 250 ml @ 0.5 MG/MIN 25 mls/hr IV .Q10H CANDE Rx#: [id number] Oral 300 Other: Voiding Method Toilet # Voids 2 0 1 - Constitutional General appearance: Present: no acute distress - Respiratory Respiratory: bilateral: CTA - Cardiovascular Rhythm: regular Heart sounds: normal: S1, S2 - Labs CBC & Chem 7: 09/08/19 05:37 09/08/19 05:37 Labs: Abnormal Lab Results - Last 24 Hours (Table) 09/08/19 Range/Units 05:37 Sodium 136 L (137-145) mmol/L BUN 19 H (7-17) mg/dL Creatinine 1.11 H (0.52-1.04) mg/dL Glucose 116 H (74-99) mg/dL Assessment and Plan Assessment: Assessment #1 paroxysmal atrial fibrillation #2 sinus bradycardia Plan #1 DC amiodarone by mouth and DC metoprolol #2 continue oral anticoagulation #3 continue monitoring the heart rate
[2019-09-09] MEDS: APIXABAN 5 MG TAB PO SCH (08:30)
--- NOTE | 2019-09-09 12:01 | P.DS ---
Providers Date of admission: 09/05/19 16:44 Expected date of discharge: 09/09/19 Attending physician: Carolina Beasley DO Consults: 09/04/19 15:00 Consult Physician Urgent Consulting Provider: Rebecca August Consult Reason/Comments: a fib w rvr Do you want consulting provider notified?: Yes Primary care physician: Stated None Hospital Course: Discharge diagnoses Atrial fibrillation with RVR Essential hypertension CAD with stenting Hyperlipidemia Combined Chronic systolic and diastolic CHF COPD Hospital course The patient is a 83-year-old female with a past medical history of paroxysmal atrial fibrillation currently on DOAC with Eliquis that was admitted with A. fib with RVR with a rate of 152, the patient started on Cardizem drip in the ER and her home dose of metoprolol was continued, thyroid studies were normal. Echocardiogram showed ejection fraction of 45-50%, severely dilated left atrium, moderate TR, mild to moderate MR. Chest x-ray showed cardiomegaly. The patient was transitioned off IV Cardizem and her beta gus was increased however with this she continued to be in A. fib with uncontrolled ventricular rate, she was then started on IV amiodarone however she continued to be in A. fib with RVR, and cardiology performed cardioversion which was successful on the first attempt using 200 J, after cardioversion the patient went into bradycardia and was kept in ICU for observation. She was then discharged home in stable condition with plans for follow-up with cardiology in 5-7 days. This discharge process took approximately 35 minutes Exam Cardiovascular: Regular rate and rhythm, no murmurs rubs or gallops Patient Condition at Discharge: Good Plan - Discharge Summary New Discharge Prescriptions: Continue Cholecalciferol [Vitamin D3 (25 Mcg = 1000 Iu)] 1,000 unit PO DAILY Apixaban [Eliquis] 5 mg PO BID #0 tab Acetaminophen Tab [Tylenol] 325 mg PO Q6H Discontinued Metoprolol Tartrate [Lopressor] 25 mg PO BID Discharge Medication List Cholecalciferol [Vitamin D3 (25 Mcg = 1000 Iu)] 1,000 unit PO DAILY 11/27/16 [History] Apixaban [Eliquis] 5 mg PO BID #0 tab 12/01/16 [Rx] Acetaminophen Tab [Tylenol] 325 mg PO Q6H 09/04/19 [History] Follow up Appointment(s)/Referral(s): None,Stated [Primary Care Provider] - 1-2 days Rebecca August MD [STAFF PHYSICIAN] - 09/13/19 3:45 pm (Thursday - location) Patient Instructions/Handouts: A-fib (Atrial Fibrillation) (DC) Discharge Disposition: HOME SELF-CARE
[2019-09-09 14:14] VITALS: BP 140/49; PULSE 58; RESP 18; TEMP 97.9
== END 2019-09-09 15:34 | disposition home or self-care (01) | DRG 309 ==
LOC: EC 13:22 → 3SCARD 14:59 → OBSVTOIN 09-05 16:44 → 2SICU 09-08 13:55
PROVIDERS: ADMIT Internal Medicine; ATTEND Internal Medicine
PROC: 5A2204Z Restoration of Cardiac Rhythm, Single (ICD-10-PCS; principal; 2019-09-08 10:40)
DX: I48.0 Paroxysmal atrial fibrillation (principal); I50.42 Chronic combined systolic (congestive) and diastolic (congestive) heart failure; I13.0 Hypertensive heart and chronic kidney disease with heart failure and stage 1 through stage 4 chronic kidney disease, or unspecified chronic kidney disease; N17.9 Acute kidney failure, unspecified; I45.10 Unspecified right bundle-branch block; I25.10 Atherosclerotic heart disease of native coronary artery without angina pectoris; R00.1 Bradycardia, unspecified; F17.200 Nicotine dependence, unspecified, uncomplicated; J44.9 Chronic obstructive pulmonary disease, unspecified; M25.511 Pain in right shoulder; I08.3 Combined rheumatic disorders of mitral, aortic and tricuspid valves; E78.5 Hyperlipidemia, unspecified; D64.9 Anemia, unspecified; N18.2 Chronic kidney disease, stage 2 (mild); Z79.899 Other long term (current) drug therapy; Z95.5 Presence of coronary angioplasty implant and graft; Z82.49 Family history of ischemic heart disease and other diseases of the circulatory system; Z79.01 Long term (current) use of anticoagulants
CPT/HCPCS: 36415; 71046; 76705; 80048; 80053; 83540; 83550; 83735; 84439; 84443; 84481; 84484; 85025; 85027; 85610; 85730; 92960; 93005; 93306; 96365; 96376; 99291

== ENCOUNTER 2019-09-10 11:49 | Inpatient (IN) | payer MEDICARE, BC ==
[2019-09-10] MEDS ORDERED: PROPOFOL 100 ML IV ONE (11:58)
[2019-09-10] MEDS ORDERED: PROPOFOL 1,000 MG in EMPTY BAG 1 BAG IV ONE (12:03)
[2019-09-10 12:05] LABS: Glucose,Whole Blood 206 mg/dL (75-99)
[2019-09-10] MEDS: DEXTROSE 5% IN WATER 250 ML with AMIODARONE 300 MG IV ONE ×3 (12:13→13:34)
[2019-09-10] MEDS ORDERED: ATORVASTATIN 80 MG TAB PO STA (12:15)
[2019-09-10] MEDS ORDERED: METOPROLOL TARTRATE 25 MG TAB PO STA (12:15)
[2019-09-10] MEDS ORDERED: ASPIRIN 325 MG TAB PO STA (12:19)
[2019-09-10 12:20] LABS: Anisocytosis Slight; Basophils % (A) 0 %; Eosinophils # (A) 0.1 k/uL (0-0.7); Eosinophils % (A) 1 %; HCT 30.5 % (34.0-46.0); HGB 9.1 gm/dL (11.4-16.0); Hypochromasia Marked; INR 1.2 (<1.2); Lymphocytes # (A) 1.9 k/uL (1.0-4.8); Lymphocytes % (A) 20 %; MCH 24.5 pg (25.0-35.0); MCHC 29.7 g/dL (31.0-37.0); MCV 82.4 fL (80.0-100.0); Mean Platelet Volume 8.7; Monocytes # (A) 0.5 k/uL (0-1.0); Monocytes % (A) 6 %; Neutrophils # (A) 6.3 k/uL (1.3-7.7); Neutrophils % (A) 69 %; Partial Thromboplastin Time 23.2 sec (22.0-30.0); Platelet Count 272 k/uL (150-450); Poikilocytosis Slight; Prothrombin Time 12.1 sec (9.0-12.0); RDW 16.7 % (11.5-15.5); WBC 9.1 k/uL (3.8-10.6)
[2019-09-10 12:21] LABS: Albumin 3.6 g/dL (3.5-5.0); Calcium 8.6 mg/dL (8.4-10.2); Potassium 3.8 mmol/L (3.5-5.1); Total Bilirubin 1.2 mg/dL (0.2-1.3); Total Protein 6.3 g/dL (6.3-8.2)
--- NOTE | 2019-09-10 12:21 | ED ---
General Adult HPI - General Chief complaint: Cardiac Arrest/CPR Stated complaint: Cardiac Arrest Source: EMS Mode of arrival: EMS Limitations: altered mental status, physical limitation - History of Present Illness Initial comments: Dictation was produced using [employer] dictation software. please excuse any grammatical, word or spelling errors. Chief Complaint: 83-year-old female brought in for cardiac arrest. History of Present Illness: 83-year-old female she has past medical history of atrial fibrillation, coronary artery disease and hypertension. Patient was recently admitted to the hospital for tachydysrhythmia. She underwent successful cardioversion. She was just discharged from the hospital yesterday. Patient was at home with family when all of a sudden she looked over to the side and became unresponsive. Family was concerned she was having a seizure. EMS was called right away. EMS arrived on scene and CPR was started right away. Right ear was use and provided one shock. EMS arrived on scene noted that there was return of spontaneous circulation. Expect to the emergency department. The ROS documented in this emergency department record has been reviewed and confirmed by me. Those systems with pertinent positive or negative responses have been documented in the HPI. All other systems are other negative and/or noncontributory. PHYSICAL EXAM: General Impression: Obtunded, agonal breathing HEENT: Normocephalic atraumatic, pupils 2-3 mm bilaterally, mild JVD Cardiovascular: Tachycardic, no significant murmurs Chest: Bilateral breath sounds Abdomen: Bowel sounds present, abdomen soft, non-tender, non-distended, no organomegaly Musculoskeletal: Weak and thready pulses peripherally Neurological: Unresponsive, 3 mm pupils reactive to light Skin: Intact with no visualized rashes ED course: 83-year-old female brought in for cardiac arrest. Heart rate upon arrival showed measurement 156, blood pressure 141. She is scheduled percent bag mask ventilation. Patient was immediately evaluated in resuscitation bay. 2 large bore IVs were placed. Patient was intubated at bedside without any RSI medications. EKG was performed showing diffuse ST depressions with AVR elevation. EKG is concerning for rate dependent ischemia versus STEMI. Given clinical history there is concern of possible V. fib arrest which would indicate potential cardiac catheterization. Cardiology was consulted right away. Dr. Pena at bedside within minutes assisting with resuscitation. Patient was cardioverted with improvement of heart rate into the 60s however patient reverted back to atrial fibrillation. Dr. Pena requested patient be given NG tube and be given statins, oral metoprolol and aspirin through NGT. He also requested that patient be given 300 mg of IV amiodarone bolus. Dr. Pena requested that eliquis be discontinued and patient be started on heparin. Family arrived at bedside. Discussion was held with family and Dr. Pena. It was decided between family and insulation packer that no aggressive measures will be performed at this time. Dr. Pena will not take patient to catheterization lab per request by family/decision makers. Discussed further potential interventions with daughter Nirmala and son shawn at bedside. They report that it's the patient's wishes that no aggressive measures be performed. They requested no CPR however are agreeable to medical management. Discussed patient case with Dr. Castro who is willing to accept patient's care in the intensive care unit. Laboratory evaluation obtained. CBC unremarkable. Hemoglobin 9.1. Coag panel is unremarkable. Metabolic panel shows mild acidosis with bicarb of 20. Slight elevation of renal markers. Lactic acidosis 2.9. Computed tomography scan of the brain was obtained showing no acute processes. There is physiologic calcification of the basal ganglia EKG interpretation: Ventricular rate 151, atrial fibrillation with rapid ventricular rate. QRS 124, QTC 456. There appears to be diffuse ST depressions in all precordial leads and lead 2. There appears to be mild ST elevation in aVR. - Related Data Home Medications Medication Instructions Recorded Confirmed Cholecalciferol [Vitamin D3 (25 1,000 unit PO DAILY 11/27/16 09/10/19 Mcg = 1000 Iu)] Acetaminophen Tab [Tylenol] 325 mg PO Q6H PRN 09/04/19 09/10/19 Bismuth Subsalicylate 30 mg PO Q4H PRN 09/10/19 09/10/19 [Pepto-Bismol] Previous Rx's Medication Instructions Recorded Apixaban [Eliquis] 5 mg PO BID #0 tab 12/01/16 Allergies Allergy/AdvReac Type Severity Reaction Status Date / Time No Known Allergies Allergy Verified 09/10/19 12:43 Review of Systems ROS Statement: Those systems with pertinent positive or pertinent negative responses have been documented in the HPI. ROS Other: All systems not noted in ROS Statement are negative. Past Medical History Past Medical History: Atrial Fibrillation, Coronary Artery Disease (CAD), Hypertension Additional Past Medical History / Comment(s): CHF with diastolic dysfunction, coronary artery disease with previous insertion of coronary stent, chronic atrial fibrillation, COPD, hypertension, severe tricuspid regurgitation along with severe dilatation of the right ventricle and a PA pressure mildly elevated probably consistent with chronic lung disease/COPD. History of Any Multi-Drug Resistant Organisms: None Reported Past Surgical History: Heart Catheterization With Stent Past Anesthesia/Blood Transfusion Reactions: No Reported Reaction Date of Last Stent Placement:: 2001 Past Psychological History: No Psychological Hx Reported Smoking Status: Former smoker Past Alcohol Use History: None Reported Past Drug Use History: None Reported - Past Family History Father Family Medical History: Coronary Artery Disease (CAD) Mother Family Medical History: Coronary Artery Disease (CAD) General Exam Limitations: altered mental status, physical limitation Course Vital Signs 09/10/19 09/10/19 09/10/19 11:53 12:07 12:10 Temperature Pulse Rate 156 H 137 H 118 H Respiratory 12 Rate Blood Pressure 140/102 103/66 114/65 O2 Sat by Pulse 100 98 Oximetry 09/10/19 09/10/19 09/10/19 12:20 12:25 12:31 Temperature 97.6 F Pulse Rate 130 H 128 H 105 H Respiratory 20 20 20 Rate Blood Pressure 116/75 140/93 131/77 O2 Sat by Pulse 99 Oximetry 09/10/19 09/10/19 09/10/19 12:45 12:55 13:00 Temperature Pulse Rate 105 H 138 H 117 H Respiratory 20 20 20 Rate Blood Pressure 114/58 102/64 O2 Sat by Pulse 100 98 96 Oximetry 09/10/19 09/10/19 13:05 13:10 Temperature Pulse Rate 135 H 121 H Respiratory 20 20 Rate Blood Pressure 107/77 110/65 O2 Sat by Pulse 95 96 Oximetry Procedures - Intubation Laryngoscope: other (glidescope) Size: 3 ET Tube Size: 8 ET Tube Uncuffed: No Tube Secured Depth (cm): 20 Tube Secured Location: lips Patient Tolerated Procedure: well Intubation Complications: none Medical Decision Making - Lab Data Result diagrams: 09/10/19 11:53 09/10/19 11:53 Lab Results 09/10/19 09/10/19 09/10/19 Range/Units 11:53 11:53 11:53 WBC 9.1 (3.8-10.6) k/uL RBC 3.70 L (3.80-5.40) m/uL Hgb 9.1 L (11.4-16.0) gm/dL Hct 30.5 L (34.0-46.0) % MCV 82.4 (80.0-100.0) fL MCH 24.5 L (25.0-35.0) pg MCHC 29.7 L (31.0-37.0) g/dL RDW 16.7 H (11.5-15.5) % Plt Count 272 (150-450) k/uL Neutrophils % 69 % Lymphocytes % 20 % Monocytes % 6 % Eosinophils % 1 % Basophils % 0 % Neutrophils # 6.3 (1.3-7.7) k/uL Lymphocytes # 1.9 (1.0-4.8) k/uL Monocytes # 0.5 (0-1.0) k/uL Eosinophils # 0.1 (0-0.7) k/uL Basophils # 0.0 (0-0.2) k/uL Hypochromasia Marked Poikilocytosis Slight Anisocytosis Slight PT 12.1 H (9.0-12.0) sec INR 1.2 H (<1.2) APTT 23.2 (22.0-30.0) sec Sodium 139 (137-145) mmol/L Potassium 3.8 (3.5-5.1) mmol/L Chloride 108 H (98-107) mmol/L Carbon Dioxide 20 L (22-30) mmol/L Anion Gap 11 mmol/L BUN 18 H (7-17) mg/dL Creatinine 1.17 H (0.52-1.04) mg/dL Est GFR (CKD-EPI)AfAm 49 (>60 ml/min/1.73 sqM) Est GFR (CKD-EPI)NonAf 43 (>60 ml/min/1.73 sqM) Glucose 188 H (74-99) mg/dL POC Glucose (mg/dL) (75-99) mg/dL POC Glu Fruit Sprayer ID Plasma Lactic Acid Ward (0.7-2.0) mmol/L Calcium 8.6 (8.4-10.2) mg/dL Magnesium 2.0 (1.6-2.3) mg/dL Total Bilirubin 1.2 (0.2-1.3) mg/dL AST 40 H (14-36) U/L ALT 23 (4-34) U/L Alkaline Phosphatase 50 (38-126) U/L Ammonia (<30) umol/L Creatine Kinase 38 (30-135) U/L Total Protein 6.3 (6.3-8.2) g/dL Albumin 3.6 (3.5-5.0) g/dL 09/10/19 09/10/19 Range/Units 11:53 12:03 WBC (3.8-10.6) k/uL RBC (3.80-5.40) m/uL Hgb (11.4-16.0) gm/dL Hct (34.0-46.0) % MCV (80.0-100.0) fL MCH (25.0-35.0) pg MCHC (31.0-37.0) g/dL RDW (11.5-15.5) % Plt Count (150-450) k/uL Neutrophils % % Lymphocytes % % Monocytes % % Eosinophils % % Basophils % % Neutrophils # (1.3-7.7) k/uL Lymphocytes # (1.0-4.8) k/uL Monocytes # (0-1.0) k/uL Eosinophils # (0-0.7) k/uL Basophils # (0-0.2) k/uL Hypochromasia Poikilocytosis Anisocytosis PT (9.0-12.0) sec INR (<1.2) APTT (22.0-30.0) sec Sodium (137-145) mmol/L Potassium (3.5-5.1) mmol/L Chloride (98-107) mmol/L Carbon Dioxide (22-30) mmol/L Anion Gap mmol/L BUN (7-17) mg/dL Creatinine (0.52-1.04) mg/dL Est GFR (CKD-EPI)AfAm (>60 ml/min/1.73 sqM) Est GFR (CKD-EPI)NonAf (>60 ml/min/1.73 sqM) Glucose (74-99) mg/dL POC Glucose (mg/dL) 206 H (75-99) mg/dL POC Glu Fruit Sprayer ID Gladis Michel Plasma Lactic Acid Ward 2.9 H* (0.7-2.0) mmol/L Calcium (8.4-10.2) mg/dL Magnesium (1.6-2.3) mg/dL Total Bilirubin (0.2-1.3) mg/dL AST (14-36) U/L ALT (4-34) U/L Alkaline Phosphatase (38-126) U/L Ammonia 33 H (<30) umol/L Creatine Kinase (30-135) U/L Total Protein (6.3-8.2) g/dL Albumin (3.5-5.0) g/dL Critical Care Time Critical Care Time: Yes Total Critical Care Time: 33 Disposition Clinical Impression: Cardiac arrest Disposition: ADMITTED IP TO THIS [facility] Condition: Critical Decision Time: 14:01
[2019-09-10] MEDS: ASPIRIN 81 MG PO STA ×2 (12:23→12:24)
[2019-09-10] MEDS ORDERED: NALOXONE 0.4 MG/ML 1 ML VIAL IV PRN (12:33)
[2019-09-10 12:35] LABS: Lactic Acid, Venous 2.9 mmol/L (0.7-2.0)
[2019-09-10] MEDS ORDERED: HEPARIN SODIUM,PORCINE 5,000 UNIT/ML 1 ML VIAL IV PRN (12:36)
[2019-09-10] MEDS ORDERED: HEPARIN SODIUM,PORCINE 5,000 UNIT/ML 1 ML VIAL IV ONE (12:36)
[2019-09-10 12:59] LABS: ABG Base Excess -4.7 mmol/L; ABG HCO3 22 mmol/L (21-25); ABG PCO2 42 mmHg (35-45); ABG PH 7.32 (7.35-7.45); ABG PO2 329 mmHg (83-108); ABG TCO2 23 mmol/L (19-24); Allen Test Performed? Yes
[2019-09-10] MEDS: HEPARIN SOD,PORK IN 0.45% NACL 25,000 UNIT in 0.45% NACL 1 250ML.BAG IV SCH (13:16)
--- NOTE | 2019-09-10 13:26 | XR ---
EXAMINATION TYPE: XR chest 1V portable DATE OF EXAM: 09/10/2019 HISTORY: NG placement. REFERENCE: Previous study dated earlier today. FINDINGS: The entire lungs are not included on this study. The NG tube has been passed. Its tip is co iled within the stomach and the tip is actually in the lower esophagus and should be repositioned. There continues to be bibasilar airspace disease. The heart is enlarged. I could not exclude a small left effusion. IMPRESSION: NG TUBE ENTERS IS STOMACH AND COILS BACK IN THE LOWER ESOPHAGUS AND SHOULD BE REPOSITIONED.
[2019-09-10] MEDS ORDERED: AMIODARONE 360 MG in DEXTROSE 5% IN WATER 200 ML IV ONE ×2 (13:31)
--- NOTE | 2019-09-10 13:34 | XR ---
EXAMINATION TYPE: XR chest 1V portable DATE OF EXAM: 09/10/2019 HISTORY: ET tube placement. REFERENCE: Previous study of earlier today. FINDINGS: The patient has been intubated. ET tube tip is approximately 2.8 cm from the mana. NG tub e is not clearly visualized. The heart is enlarged. The interstitial and alveolar airspace disease on the right. There is a massli ke confluent density adjacent to the left heart border. I could not exclude a small left effusion. IMPRESSION: 1. SATISFACTORY ET TUBE PLACEMENT. 2. CONTINUING BILATERAL AIRSPACE DISEASE. 3. CARDIOMEGALY.
--- NOTE | 2019-09-10 13:50 | CT ---
EXAMINATION TYPE: CT brain wo con DATE OF EXAM: 09/10/2019 COMPARISON: NONE HISTORY: cardiac arrest today. CT DLP: 1201.4 mGycm Automated exposure control for dose reduction was used. FINDINGS: There are mild, generalized changes of sulcal prominence and ventriculomegaly, compatible with atroph ic change. There is diffuse periventricular white matter lucency, compatible with chronic small vesse l ischemic change. There is physiologic calcification of basal ganglia. No acute focal lesion, mass effect or midline shift is seen. I do not see evidence of intracranial bl ood. Visualized portions of the paranasal sinuses and mastoids are clear. The bony calvarium is intact. IMPRESSION: 1. NO ACUTE INTRACRANIAL ABNORMALITY. 2. MILD DEGENERATIVE CHANGE. 3. PHYSIOLOGIC CALCIFICATION OF THE BASAL GANGLIA.
--- NOTE | 2019-09-10 13:51 | P.HPIM ---
History of Present Illness H&P Date: 09/10/19 Chief Complaint: Cardiac arrest The patient is a 83-year-old female with a past medical history of paroxysmal atrial fibrillation on DOAC, coronary artery disease with stenting, hyperlipidemia that presents to the ER via EMS after the patient reportedly had cardiac arrest at home. The patient was recently discharged yesterday after undergoing cardioversion secondary to A. fib with RVR. The patient's daughter reports that the patient had mild complaints of nausea, the leg cramps and then subsequently became unresponsive with reported drooling, tongue deviation with concerns for possible seizure activity. There are no reports of chest pain. EMS began CPR on arrival and performed 1 round of defibrillation with reported ROSC, on arrival to the ER the patient was intubated and was noted to be in A. fib with RVR with a rate in the 140s, cardiology was consulted and the patient was cardioverted in the ER with a rate returning to the 60s, she then converted back to A. fib with RVR with uncontrolled ventricular rate. Patient was started on amiodarone drip with bolus initiated in the ER. The chest x-ray satisfactory ET tube placement continuing bilateral airspace disease and cardiomegaly. CBC hemoglobin was 9.1, PT INR was 12.1 and 1.2. Serum bicarb was 20, BUN 18 creatinine 1.17. lactic acid 2.9. The patient was started on IV heparin, amiodarone is continued, aspirin statin and metoprolol given via NG tube, patient is continued on propofol for sedation. Review of Systems Pertinent positives per HPI all other review is otherwise negative Past Medical History Past Medical History: Atrial Fibrillation, Coronary Artery Disease (CAD), Hypertension Additional Past Medical History / Comment(s): CHF with diastolic dysfunction, coronary artery disease with previous insertion of coronary stent, chronic atrial fibrillation, COPD, hypertension, severe tricuspid regurgitation along with severe dilatation of the right ventricle and a PA pressure mildly elevated probably consistent with chronic lung disease/COPD. History of Any Multi-Drug Resistant Organisms: None Reported Past Surgical History: Heart Catheterization With Stent Past Anesthesia/Blood Transfusion Reactions: No Reported Reaction Date of Last Stent Placement:: 2001 Past Psychological History: No Psychological Hx Reported Smoking Status: Former smoker Past Alcohol Use History: None Reported Past Drug Use History: None Reported - Past Family History Father Family Medical History: Coronary Artery Disease (CAD) Mother Family Medical History: Coronary Artery Disease (CAD) Medications and Allergies Home Medications Medication Instructions Recorded Confirmed Type Cholecalciferol [Vitamin D3 (25 1,000 unit PO DAILY 11/27/16 09/10/19 History Mcg = 1000 Iu)] Apixaban [Eliquis] 5 mg PO BID #0 tab 12/01/16 09/10/19 Rx Acetaminophen Tab [Tylenol] 325 mg PO Q6H PRN 09/04/19 09/10/19 History Bismuth Subsalicylate 30 mg PO Q4H PRN 09/10/19 09/10/19 History [Pepto-Bismol] Allergies Allergy/AdvReac Type Severity Reaction Status Date / Time No Known Allergies Allergy Verified 09/10/19 12:43 Physical Exam Vitals: Vital Signs Temp Pulse Resp BP Pulse Ox 09/10/19 13:10 121 H 20 110/65 96 09/10/19 13:05 135 H 20 107/77 95 09/10/19 13:00 117 H 20 96 09/10/19 12:55 138 H 20 102/64 98 09/10/19 12:45 105 H 20 114/58 100 09/10/19 12:31 97.6 F 105 H 20 131/77 99 09/10/19 12:25 128 H 20 140/93 09/10/19 12:20 130 H 20 116/75 09/10/19 12:10 118 H 114/65 09/10/19 12:07 137 H 103/66 98 09/10/19 11:53 156 H 12 140/102 100 Intake and Output 09/09/19 09/10/19 09/10/19 22:59 06:59 14:59 Intake Total 3.980 Balance 3.980 Intake: Intake, IV Titration 3.980 Amount Propofol 1,000 mg In 3.980 Empty Bag 1 bag @ 5 MCG/ KG/MIN 2.654 mls/hr IV . Q24H ONE Rx#:[id number] Other: Weight 88.451 kg Constitutional: Sedated and intubated Eyes: Anicteric sclerae, moist conjunctiva, no lid-lag, PERRLA ENMT: NC/AT,Oropharynx clear, no erythema, exudates Neck:Supple, FROM, no masses, or JVD, No carotid bruits; No thyromegaly Lungs: Diminished in the bases, clear to auscultation b/l, NG/ET tube in place Cardiovascular: irregularly irregular tachycardic , No murmurs, gallops, or rubs no peripheral edema Abdominal: Soft Nontender, nom distended, no guarding, no rebound or rigidity, Normoactive bowel sounds No hepatomegaly, No splenomegaly, No palpable mass No abdominal wall hernia noted Skin: Normal temperature, tone, texture, turgor, No induration No subcutaneous nodules, No rash, lesions, No ulcers Extremities:No digital cyanosis No clubbing, Pedal pulses intact and symmetrical Radial pulses intact and symmetrical Normal gait and station, No calf tenderness neuro: unable to assess, sedated on propofol Results CBC & Chem 7: 09/10/19 11:53 09/10/19 11:53 Labs: Abnormal Lab Results - Last 24 Hours (Table) 09/10/19 09/10/19 09/10/19 Range/Units 11:53 11:53 11:53 RBC 3.70 L (3.80-5.40) m/uL Hgb 9.1 L (11.4-16.0) gm/dL Hct 30.5 L (34.0-46.0) % MCH 24.5 L (25.0-35.0) pg MCHC 29.7 L (31.0-37.0) g/dL RDW 16.7 H (11.5-15.5) % PT 12.1 H (9.0-12.0) sec INR 1.2 H (<1.2) ABG pH (7.35-7.45) ABG pO2 (83-108) mmHg ABG O2 Saturation (94-97) % Chloride 108 H (98-107) mmol/L Carbon Dioxide 20 L (22-30) mmol/L BUN 18 H (7-17) mg/dL Creatinine 1.17 H (0.52-1.04) mg/dL Glucose 188 H (74-99) mg/dL POC Glucose (mg/dL) (75-99) mg/dL Plasma Lactic Acid Ward (0.7-2.0) mmol/L AST 40 H (14-36) U/L Ammonia (<30) umol/L 02/29/20 02/29/20 02/29/20 Range/Units 11:53 12:03 12:55 RBC (3.80-5.40) m/uL Hgb (11.4-16.0) gm/dL Hct (34.0-46.0) % MCH (25.0-35.0) pg MCHC (31.0-37.0) g/dL RDW (11.5-15.5) % PT (9.0-12.0) sec INR (<1.2) ABG pH 7.32 L (7.35-7.45) ABG pO2 329 H (83-108) mmHg ABG O2 Saturation 100.0 H (94-97) % Chloride (98-107) mmol/L Carbon Dioxide (22-30) mmol/L BUN (7-17) mg/dL Creatinine (0.52-1.04) mg/dL Glucose (74-99) mg/dL POC Glucose (mg/dL) 206 H (75-99) mg/dL Plasma Lactic Acid Ward 2.9 H* (0.7-2.0) mmol/L AST (14-36) U/L Ammonia 33 H (<30) umol/L Assessment and Plan Assessment: Acute encephalopathy Probable cardiac arrest A. fib with RVR Possible pneumonia lactic acidosis CAD with stenting Plan: The patient is admitted anticipated greater than 2 midnight stay with acute metabolic encephalopathy in the setting of cardiac arrest with reported V. fib on strip status post 1 round of defibrillation and cardioversion for A. fib with RVR. Patient currently intubated and sedated on propofol, pulmonary critical care consulted for vent management. Cardiology also consulted. The patient is continued on IV heparin, IV amiodarone The patient is known to have a lateral airspace disease on x-ray, antibiotic coverage with Zosyn ordered. Discussion with family they have elected to proceed with the no CODE STATUS. Given patient's altered cognition and history of A. fib with RVR CT scan of the head was ordered to rule out CvA. We'll continue current for full medical management at this time, they have declined any further interventions such as heart cath at this time. Continue to follow patient's clinical course CODE STATUS: No code Anticipated discharge place: To be determined by course Discussed plan of care with: Son and daughter DPOA Greater than 60 minutes was spent in the care of this medically complex patient
[2019-09-10 14:00] LABS: Glucose,Whole Blood 173 mg/dL (75-99)
--- NOTE | 2019-09-10 14:18 | P.CNPUL ---
History of Present Illness Consult date: 09/10/19 Requesting physician: Hunter Ni Reason for consult: other (Critical care management) Chief complaint: Cardiac arrest History of present illness: This is an 83-year-old female patient with a history of hypertension, coronary artery disease with previous stent placement, chronic obstructive pulmonary disease, severe tricuspid regurgitation, previous tobacco dependence. She was just discharged from the hospital yesterday following admission for atrial fibrillation with RVR and subsequent cardioversion on 09/08/2019. Earlier today the patient was home visiting with family when she suddenly became unresponsive. EMS was called immediately and started CPR on arrival. 1 shock for V. fib was performed and subsequent return of spontaneous circulation. Here in the emergency room she is intubated and placed on mechanical ventilator. She was found to be in A. fib RVR and cardioverted with him improvement in heart rate in the 60s. She was given amiodarone bolus and to be started on amiodarone at 1 mg/m. She is seen upon arrival to the intensive care unit. She remains intubated on the mechanical ventilator. She is on propofol at 25 mcg/kg/m. She is on a heparin drip at 11.3 units per kilogram per hour. 0.9 normal saline at 120 ML's per hour. His current ventilator settings are assist control of 16, tidal volume 450, FiO2 50% and a PEEP of 5. Earlier blood gases on 100% revealed a pO2 of 329, pCO2 42 and a pH is 7.32. White count 9.1. Hemoglobin 9.1. Sodium 139. Potassium 3.8. Bicarb 20. Creatinine 1.17. Lactic acid 2.9. Chest x-ray revealed cardiomegaly. There is interstitial and alveolar airspace disease in the right. Masslike confluence density adjacent to the left heart border. Small left effusion. Computed tomography scan of the brain revealed no acute intracranial abnormalities. Patient was considered for cardiac catheterization however the family did not want any further interventions. They have made her a NO CODE STATUS. Review of Systems ROS unobtainable: due to endotracheal tube Past Medical History Past Medical History: Atrial Fibrillation, Coronary Artery Disease (CAD), Hypertension Additional Past Medical History / Comment(s): CHF with diastolic dysfunction, coronary artery disease with previous insertion of coronary stent, chronic atrial fibrillation, COPD, hypertension, severe tricuspid regurgitation along with severe dilatation of the right ventricle and a PA pressure mildly elevated probably consistent with chronic lung disease/COPD. History of Any Multi-Drug Resistant Organisms: None Reported Past Surgical History: Heart Catheterization With Stent Past Anesthesia/Blood Transfusion Reactions: No Reported Reaction Date of Last Stent Placement:: 2001 Past Psychological History: No Psychological Hx Reported Smoking Status: Former smoker Past Alcohol Use History: None Reported Past Drug Use History: None Reported - Past Family History Father Family Medical History: Coronary Artery Disease (CAD) Mother Family Medical History: Coronary Artery Disease (CAD) Medications and Allergies Home Medications Medication Instructions Recorded Confirmed Type Cholecalciferol [Vitamin D3 (25 1,000 unit PO DAILY 11/27/16 09/10/19 History Mcg = 1000 Iu)] Apixaban [Eliquis] 5 mg PO BID #0 tab 12/01/16 09/10/19 Rx Acetaminophen Tab [Tylenol] 325 mg PO Q6H PRN 09/04/19 09/10/19 History Bismuth Subsalicylate 30 mg PO Q4H PRN 09/10/19 09/10/19 History [Pepto-Bismol] Allergies Allergy/AdvReac Type Severity Reaction Status Date / Time No Known Allergies Allergy Verified 09/10/19 12:43 Physical Exam Vitals: Vital Signs Temp Pulse Resp BP Pulse Ox 09/10/19 13:10 121 H 20 110/65 96 09/10/19 13:05 135 H 20 107/77 95 09/10/19 13:00 117 H 20 96 09/10/19 12:55 138 H 20 102/64 98 09/10/19 12:45 105 H 20 114/58 100 09/10/19 12:31 97.6 F 105 H 20 131/77 99 09/10/19 12:25 128 H 20 140/93 09/10/19 12:20 130 H 20 116/75 09/10/19 12:10 118 H 114/65 09/10/19 12:07 137 H 103/66 98 09/10/19 11:53 156 H 12 140/102 100 Intake and Output 09/09/19 09/10/19 09/10/19 22:59 06:59 14:59 Intake Total 3.980 Balance 3.980 Intake: Intake, IV Titration 3.980 Amount Propofol 1,000 mg In 3.980 Empty Bag 1 bag @ 5 MCG/ KG/MIN 2.654 mls/hr IV . Q24H ONE Rx#:[id number] Other: Weight 88.451 kg GENERAL EXAM: 83-year-old female patient, intubated, sedated on the mechanical ventilator. HEAD: Normocephalic. EYES: Sluggish reaction of pupils, equal size. NOSE: Clear with pink turbinates. THROAT: Oral endotracheal and gastric tube secured in place. No erythema or exudates. NECK: No masses, no JVD. CHEST: No chest wall deformity. LUNGS: Equal air entry with crackles in the bilateral posterior bases. CVS: S1 and S2 normal with no audible murmur, regular rhythm. ABDOMEN: No hepatosplenomegaly, normal bowel sounds, no guarding or rigidity. SPINE: No scoliosis or deformity SKIN: No rashes CENTRAL NERVOUS SYSTEM: Sedated, tone is normal in all 4 extremities. EXTREMITIES: There is no peripheral edema. No clubbing, no cyanosis. Peripheral pulses are intact. Results - Laboratory Findings CBC and BMP: 09/10/19 11:53 09/10/19 11:53 ABG ABG pH 7.32 (7.35-7.45) L 09/10/19 12:55 ABG pCO2 42 mmHg (35-45) 09/10/19 12:55 ABG pO2 329 mmHg (83-108) H 09/10/19 12:55 ABG O2 Saturation 100.0 % (94-97) H 09/10/19 12:55 PT/INR, D-dimer PT 12.1 sec (9.0-12.0) H 09/10/19 11:53 INR 1.2 (<1.2) H 09/10/19 11:53 Abnormal lab findings: Abnormal Labs 09/10/19 09/10/19 09/10/19 11:53 11:53 11:53 RBC 3.70 L Hgb 9.1 L Hct 30.5 L MCH 24.5 L MCHC 29.7 L RDW 16.7 H PT 12.1 H INR 1.2 H ABG pH ABG pO2 ABG O2 Saturation Chloride 108 H Carbon Dioxide 20 L BUN 18 H Creatinine 1.17 H Glucose 188 H POC Glucose (mg/dL) Plasma Lactic Acid Ward AST 40 H Ammonia 09/10/19 09/10/19 09/10/19 11:53 12:03 12:55 RBC Hgb Hct MCH MCHC RDW PT INR ABG pH 7.32 L ABG pO2 329 H ABG O2 Saturation 100.0 H Chloride Carbon Dioxide BUN Creatinine Glucose POC Glucose (mg/dL) 206 H Plasma Lactic Acid Ward 2.9 H* AST Ammonia 33 H 09/10/19 13:59 RBC Hgb Hct MCH MCHC RDW PT INR ABG pH ABG pO2 ABG O2 Saturation Chloride Carbon Dioxide BUN Creatinine Glucose POC Glucose (mg/dL) 173 H Plasma Lactic Acid Ward AST Ammonia - Diagnostic Findings Comments: Bilateral airspace disease. Cardiomegaly. Chest x-ray: image reviewed Assessment and Plan Assessment: 1 Cardiac arrest requiring CPR and defibrillation 1 at the scene 2 Acute hypoxic respiratory failure secondary to above requiring intubation mechanical ventilatory support 3 Atrial fibrillation with a rapid ventricular response requiring cardioversion today 4 Recent admission for atrial fibrillation with rapid ventricular response requiring cardioversion on 09/08/2019 and discharged 09/09/2019 5 Coronary artery disease with previous stent placement 6 History of hypertension 7 History of diastolic congestive heart failure 8 Severe tricuspid regurgitation with severe dilatation the right ventricle 9 Chronic obstructive pulmonary disease 10 Remote history of chronic tobacco dependence Plan: The patient was seen and evaluated by Dr. Castro. Chest x-ray, ABGs and labs all reviewed. We'll continue with the current vent settings for now. Add bronchodilators. Continue amiodarone and heparin drips. Plan for daily interruption as sedation once the patient has stabilized to evaluate her underlying neurological status. The family has made her a NO CODE. In the interim, we'll continue full supportive care. We'll continue to follow and make further recommendations based on her clinical status. I, the cosigning physician, performed a history & physical examination of the patient. Lungs sounds with crackles in the bilateral posterior bases. Maintaining good O2 saturations in the 90s on 50% FiO2. I discussed the assessment and plan of care with my nurse practitioner, Taryn Miguel. I attest to the above note as dictated by her. Time with Patient: Greater than 30
[2019-09-10] MEDS: SODIUM CHLORIDE 0.9% 1,000 ML IV SCH ×2 (14:24→21:42)
[2019-09-10] MEDS ORDERED: IPRATROPIUM-ALBUTEROL 3 ML NEB INHALATION PRN (15:05)
[2019-09-10 16:23] LABS: Glucose,Whole Blood 154 mg/dL (75-99)
[2019-09-10] MEDS: IPRATROPIUM-ALBUTEROL 3 ML NEB INHALATION SCH ×3 (16:33→23:53)
[2019-09-10 17:43] LABS: Amorphous Sediment,Urine Rare /hpf; Appearance,Urine Cloudy (Clear); Bacteria,Urine Occasional /hpf; Bilirubin,Urine Negative (Negative); Blood,Urine Small (Negative); Color,Urine Yellow; Glucose,Urine (UA) Trace (Negative); Hyaline Casts,Urine 4 /lpf (0-2); Ketones,Urine 1+ (Negative); Leukocyte Esterase,Urine Negative (Negative); Mucus,Urine Occasional /hpf; Nitrite,Urine Negative (Negative); PH, Urine 5.5 (5.0-8.0); Protein,Urine 2+ (Negative); RBC,Urine 6 /hpf (0-5); Specific Gravity,Urine 1.024 (1.001-1.035); Squamous Epithelial Cell,Urine 1 /hpf (0-4); Urobilinogen,Urine <2.0 mg/dL (<2.0); WBC,Urine 6 /hpf (0-5)
[2019-09-10] MEDS: PIPERACILLIN-TAZOBACTAM 3.375 GM in SODIUM CHLORIDE 0.9% 100 ML IVPB SCH (18:54)
[2019-09-10] MEDS: AMIODARONE 300 MG in DEXTROSE 5% IN WATER 250 ML IV SCH ×2 (20:07)
[2019-09-10] MEDS: CHLORHEXIDINE GLUCONATE 15 ML CUP MUCOUS MEM SCH (21:42)
[2019-09-11] MEDS: PIPERACILLIN-TAZOBACTAM 3.375 GM in SODIUM CHLORIDE 0.9% 100 ML IVPB SCH ×3 (00:28→15:18)
[2019-09-11] MEDS: IPRATROPIUM-ALBUTEROL 3 ML NEB INHALATION SCH ×5 (03:46→20:07)
[2019-09-11 05:41] LABS: Anisocytosis Slight; Basophils % (A) 0 %; Eosinophils % (A) 0 %; HCT 26.9 % (34.0-46.0); Hypochromasia Marked; Lymphocytes # (A) 0.7 k/uL (1.0-4.8); Lymphocytes % (A) 8 %; MCH 24.2 pg (25.0-35.0); MCHC 29.7 g/dL (31.0-37.0); MCV 81.5 fL (80.0-100.0); Mean Platelet Volume 8.5; Monocytes # (A) 0.6 k/uL (0-1.0); Monocytes % (A) 7 %; Neutrophils # (A) 7.2 k/uL (1.3-7.7); Neutrophils % (A) 83 %; Platelet Count 212 k/uL (150-450); Poikilocytosis Slight; RDW 16.7 % (11.5-15.5); WBC 8.7 k/uL (3.8-10.6)
[2019-09-11 05:51] LABS: Calcium 8.1 mg/dL (8.4-10.2); Magnesium 1.8 mg/dL (1.6-2.3); Phosphorus 3.4 mg/dL (2.5-4.5); Potassium 3.5 mmol/L (3.5-5.1)
[2019-09-11] MEDS: PROPOFOL 1,000 MG in EMPTY BAG 1 BAG IV SCH ×2 (06:00→12:24)
--- NOTE | 2019-09-11 06:16 | XR ---
EXAMINATION TYPE: XR chest 1V portable DATE OF EXAM: 09/11/2019 HISTORY: Tube placement. REFERENCE: Previous study dated 09/10/2019. FINDINGS: The patient's ET tube and NG tube remain in place, unchanged in appearance. The heart is enlarged. There is bibasilar airspace disease. There are small, bilateral effusions. Ove rall aeration may have improved slightly bilaterally. IMPRESSION: SLIGHT IMPROVEMENT IN THE DEGREE OF AERATION BILATERALLY.
[2019-09-11] MEDS: SODIUM CHLORIDE 0.9% 1,000 ML IV SCH ×2 (07:11→14:37)
[2019-09-11] MEDS ORDERED: Potassium Replacement Protocol 1 EACH MISC MISCELLANE PRN (07:46)
[2019-09-11] MEDS ORDERED: Magnesium Replacement Protocol 1 EACH MISC MISCELLANE PRN (07:47)
[2019-09-11 08:25] LABS: ABG Base Excess -3.5 mmol/L; ABG HCO3 21 mmol/L (21-25); ABG PCO2 33 mmHg (35-45); ABG PH 7.41 (7.35-7.45); ABG TCO2 22 mmol/L (19-24); Allen Test Performed? Yes
[2019-09-11 08:30] LABS: ABG PO2 56 mmHg (83-108)
[2019-09-11] MEDS ORDERED: METOPROLOL TARTRATE 25 MG TAB PO SCH (09:15)
[2019-09-11] MEDS: POTASSIUM BICARBONATE/CIT AC 20 MEQ TABLET.EFF NG-TUBE SCH ×2 (09:16→10:36)
[2019-09-11] MEDS: ASPIRIN 81 MG PO SCH (09:16)
[2019-09-11] MEDS: CHLORHEXIDINE GLUCONATE 15 ML CUP MUCOUS MEM SCH ×2 (09:16→21:30)
[2019-09-11] MEDS: MAGNESIUM SULFATE-D5W PMX 1 GM in DEXTROSE/WATER 1 100ML.BAG IVPB SCH ×2 (09:17→10:36)
[2019-09-11] MEDS: PANTOPRAZOLE 40 MG/10 ML VIAL IV SCH (09:17)
--- NOTE | 2019-09-11 09:50 | P.PN ---
Subjective Progress Note Date: 09/11/19 Patient seen and examined at bedside, family is present. Patient sedated on propofol, continues on heparin drip. Apparently converted to sinus mechanism meet overnight, she continues on amiodarone. She's hemodynamically stable. Hemoglobin is down to 8. ABG this a.m. 7. on 40% FiO2. Chest x-ray shows slight improvement in degree of aeration bilaterally. Nursing reports that patient following simple commands when off of propofol. Objective - Vital Signs Vital signs: Vital Signs Temp 99.3 F 09/11/19 08:00 Pulse 70 09/11/19 09:30 Resp 20 09/11/19 09:30 BP 108/56 09/11/19 09:30 Pulse Ox 99 09/11/19 09:30 Intake & Output 09/10/19 09/11/19 09/11/19 18:59 06:59 18:59 Intake Total 090.774 6565.300 485 Output Total 75 200 205 Balance 925.656 3310.300 280 Weight 88.451 kg 87.4 kg Intake: IV 720 1340 485 Magnesium Sulfate-D5w Pmx 100 1 gm In Dextrose/Water 1 100ml.bag @ 100 mls/hr IVPB Q1H [facility] Rx#: [id number] Piperacillin-Tazobactam 3 100 25 .375 gm In Sodium Chloride 0.9% 100 ml @ 25 mls/hr IVPB Q8HR [facility] Rx# :[id number] Sodium Chloride 0.9% 1, 720 1240 360 000 ml @ 120 mls/hr IV . Q8H20M [facility] Rx#:[id number] Intake, IV Titration 3.980 182.300 Amount Heparin Sod,Pork in 0.45% 175.745 NaCl 25,000 unit In 0.45 % NaCl 1 250ml.bag @ 11.3 UNITS/KG/HR 9.995 mls/hr IV .Q24H [facility] Rx#: [id number] Propofol 1,000 mg In 3.980 Empty Bag 1 bag @ 5 MCG/ KG/MIN 2.654 mls/hr IV . Q24H ONE Rx#:[id number] Propofol 1,000 mg In 6.555 Empty Bag 1 bag @ Titrate IV .Q0M [facility] Rx#: [id number] Output: Urine 75 200 205 Other: Voiding Method Indwelling Catheter Indwelling Catheter - Exam Constitutional: Sedated and intubated Eyes: Anicteric sclerae, moist conjunctiva, no lid-lag, PERRLA ENMT: NC/AT,Oropharynx clear, no erythema, exudates, ET and NG tube in place Neck:Supple, FROM, no masses, or JVD, No carotid bruits; No thyromegaly Lungs: Diminished in the bases, clear to auscultation b/l, Cardiovascular: irregularly irregular tachycardic , No murmurs, gallops, or rubs no peripheral edema Abdominal: Soft Nontender, nom distended, no guarding, no rebound or rigidity, Normoactive bowel sounds No hepatomegaly, No splenomegaly, No palpable mass No abdominal wall hernia noted Skin: Normal temperature, tone, texture, turgor, No induration No subcutaneous nodules, No rash, lesions, No ulcers Extremities:No digital cyanosis No clubbing, Pedal pulses intact and symmetrical Radial pulses intact neuro: unable to assess, sedated on propofol - Labs CBC & Chem 7: 09/11/19 05:24 09/11/19 05:24 Labs: Abnormal Lab Results - Last 24 Hours (Table) 09/10/19 09/10/19 09/10/19 Range/Units 11:53 11:53 11:53 RBC 3.70 L (3.80-5.40) m/uL Hgb 9.1 L (11.4-16.0) gm/dL Hct 30.5 L (34.0-46.0) % MCH 24.5 L (25.0-35.0) pg MCHC 29.7 L (31.0-37.0) g/dL RDW 16.7 H (11.5-15.5) % Lymphocytes # (1.0-4.8) k/uL PT 12.1 H (9.0-12.0) sec INR 1.2 H (<1.2) APTT (22.0-30.0) sec ABG pH (7.35-7.45) ABG pCO2 (35-45) mmHg ABG pO2 (83-108) mmHg ABG O2 Saturation (94-97) % Chloride 108 H (98-107) mmol/L Carbon Dioxide 20 L (22-30) mmol/L BUN 18 H (7-17) mg/dL Creatinine 1.17 H (0.52-1.04) mg/dL Glucose 188 H (74-99) mg/dL POC Glucose (mg/dL) (75-99) mg/dL Plasma Lactic Acid Ward (0.7-2.0) mmol/L Calcium (8.4-10.2) mg/dL AST 40 H (14-36) U/L Ammonia (<30) umol/L Troponin I (0.000-0.034) ng/mL Urine Appearance (Clear) Urine Protein (Negative) Urine Glucose (UA) (Negative) Urine Ketones (Negative) Urine Blood (Negative) Urine RBC (0-5) /hpf Urine WBC (0-5) /hpf Amorphous Sediment (None) /hpf Urine Bacteria (None) /hpf Hyaline Casts (0-2) /lpf Urine Mucus (None) /hpf 09/10/19 09/10/19 09/10/19 Range/Units 11:53 11:53 12:03 RBC (3.80-5.40) m/uL Hgb (11.4-16.0) gm/dL Hct (34.0-46.0) % MCH (25.0-35.0) pg MCHC (31.0-37.0) g/dL RDW (11.5-15.5) % Lymphocytes # (1.0-4.8) k/uL PT (9.0-12.0) sec INR (<1.2) APTT (22.0-30.0) sec ABG pH (7.35-7.45) ABG pCO2 (35-45) mmHg ABG pO2 (83-108) mmHg ABG O2 Saturation (94-97) % Chloride (98-107) mmol/L Carbon Dioxide (22-30) mmol/L BUN (7-17) mg/dL Creatinine (0.52-1.04) mg/dL Glucose (74-99) mg/dL POC Glucose (mg/dL) 206 H (75-99) mg/dL Plasma Lactic Acid Ward 2.9 H* (0.7-2.0) mmol/L Calcium (8.4-10.2) mg/dL AST (14-36) U/L Ammonia 33 H (<30) umol/L Troponin I 0.082 H* (0.000-0.034) ng/mL Urine Appearance (Clear) Urine Protein (Negative) Urine Glucose (UA) (Negative) Urine Ketones (Negative) Urine Blood (Negative) Urine RBC (0-5) /hpf Urine WBC (0-5) /hpf Amorphous Sediment (None) /hpf Urine Bacteria (None) /hpf Hyaline Casts (0-2) /lpf Urine Mucus (None) /hpf 09/10/19 09/10/19 09/10/19 Range/Units 12:55 13:59 16:12 RBC (3.80-5.40) m/uL Hgb (11.4-16.0) gm/dL Hct (34.0-46.0) % MCH (25.0-35.0) pg MCHC (31.0-37.0) g/dL RDW (11.5-15.5) % Lymphocytes # (1.0-4.8) k/uL PT (9.0-12.0) sec INR (<1.2) APTT (22.0-30.0) sec ABG pH 7.32 L (7.35-7.45) ABG pCO2 (35-45) mmHg ABG pO2 329 H (83-108) mmHg ABG O2 Saturation 100.0 H (94-97) % Chloride (98-107) mmol/L Carbon Dioxide (22-30) mmol/L BUN (7-17) mg/dL Creatinine (0.52-1.04) mg/dL Glucose (74-99) mg/dL POC Glucose (mg/dL) 173 H (75-99) mg/dL Plasma Lactic Acid Ward (0.7-2.0) mmol/L Calcium (8.4-10.2) mg/dL AST (14-36) U/L Ammonia (<30) umol/L Troponin I 1.540 H* (0.000-0.034) ng/mL Urine Appearance (Clear) Urine Protein (Negative) Urine Glucose (UA) (Negative) Urine Ketones (Negative) Urine Blood (Negative) Urine RBC (0-5) /hpf Urine WBC (0-5) /hpf Amorphous Sediment (None) /hpf Urine Bacteria (None) /hpf Hyaline Casts (0-2) /lpf Urine Mucus (None) /hpf 09/10/19 09/10/19 09/10/19 Range/Units 16:21 17:30 18:38 RBC (3.80-5.40) m/uL Hgb (11.4-16.0) gm/dL Hct (34.0-46.0) % MCH (25.0-35.0) pg MCHC (31.0-37.0) g/dL RDW (11.5-15.5) % Lymphocytes # (1.0-4.8) k/uL PT (9.0-12.0) sec INR (<1.2) APTT 65.5 H (22.0-30.0) sec ABG pH (7.35-7.45) ABG pCO2 (35-45) mmHg ABG pO2 (83-108) mmHg ABG O2 Saturation (94-97) % Chloride (98-107) mmol/L Carbon Dioxide (22-30) mmol/L BUN (7-17) mg/dL Creatinine (0.52-1.04) mg/dL Glucose (74-99) mg/dL POC Glucose (mg/dL) 154 H (75-99) mg/dL Plasma Lactic Acid Ward (0.7-2.0) mmol/L Calcium (8.4-10.2) mg/dL AST (14-36) U/L Ammonia (<30) umol/L Troponin I (0.000-0.034) ng/mL Urine Appearance Cloudy H (Clear) Urine Protein 2+ H (Negative) Urine Glucose (UA) Trace H (Negative) Urine Ketones 1+ H (Negative) Urine Blood Small H (Negative) Urine RBC 6 H (0-5) /hpf Urine WBC 6 H (0-5) /hpf Amorphous Sediment Rare H (None) /hpf Urine Bacteria Occasional H (None) /hpf Hyaline Casts 4 H (0-2) /lpf Urine Mucus Occasional H (None) /hpf 09/11/19 09/11/19 09/11/19 Range/Units 05:24 05:24 05:24 RBC 3.30 L (3.80-5.40) m/uL Hgb 8.0 L (11.4-16.0) gm/dL Hct 26.9 L (34.0-46.0) % MCH 24.2 L (25.0-35.0) pg MCHC 29.7 L (31.0-37.0) g/dL RDW 16.7 H (11.5-15.5) % Lymphocytes # 0.7 L (1.0-4.8) k/uL PT (9.0-12.0) sec INR (<1.2) APTT 76.3 H (22.0-30.0) sec ABG pH (7.35-7.45) ABG pCO2 (35-45) mmHg ABG pO2 (83-108) mmHg ABG O2 Saturation (94-97) % Chloride 109 H (98-107) mmol/L Carbon Dioxide 19 L (22-30) mmol/L BUN (7-17) mg/dL Creatinine (0.52-1.04) mg/dL Glucose 129 H (74-99) mg/dL POC Glucose (mg/dL) (75-99) mg/dL Plasma Lactic Acid Ward (0.7-2.0) mmol/L Calcium 8.1 L (8.4-10.2) mg/dL AST (14-36) U/L Ammonia (<30) umol/L Troponin I (0.000-0.034) ng/mL Urine Appearance (Clear) Urine Protein (Negative) Urine Glucose (UA) (Negative) Urine Ketones (Negative) Urine Blood (Negative) Urine RBC (0-5) /hpf Urine WBC (0-5) /hpf Amorphous Sediment (None) /hpf Urine Bacteria (None) /hpf Hyaline Casts (0-2) /lpf Urine Mucus (None) /hpf 09/11/19 Range/Units 08:23 RBC (3.80-5.40) m/uL Hgb (11.4-16.0) gm/dL Hct (34.0-46.0) % MCH (25.0-35.0) pg MCHC (31.0-37.0) g/dL RDW (11.5-15.5) % Lymphocytes # (1.0-4.8) k/uL PT (9.0-12.0) sec INR (<1.2) APTT (22.0-30.0) sec ABG pH (7.35-7.45) ABG pCO2 33 L (35-45) mmHg ABG pO2 56 L* (83-108) mmHg ABG O2 Saturation 90.0 L (94-97) % Chloride (98-107) mmol/L Carbon Dioxide (22-30) mmol/L BUN (7-17) mg/dL Creatinine (0.52-1.04) mg/dL Glucose (74-99) mg/dL POC Glucose (mg/dL) (75-99) mg/dL Plasma Lactic Acid Ward (0.7-2.0) mmol/L Calcium (8.4-10.2) mg/dL AST (14-36) U/L Ammonia (<30) umol/L Troponin I (0.000-0.034) ng/mL Urine Appearance (Clear) Urine Protein (Negative) Urine Glucose (UA) (Negative) Urine Ketones (Negative) Urine Blood (Negative) Urine RBC (0-5) /hpf Urine WBC (0-5) /hpf Amorphous Sediment (None) /hpf Urine Bacteria (None) /hpf Hyaline Casts (0-2) /lpf Urine Mucus (None) /hpf Assessment and Plan Assessment: Acute encephalopathy * Likely secondary to cardiac * CT of the head was negative for any acute intracranial pathology, noted physiological calcification of the basal ganglia Probable cardiac arrest * Patient intubated pulmonary managing vent likely need titration up of her FiO2 to 50% * Status post CPR with ROSC * History of CAD with stenting troponin elevated at 1.54 * Cardiology following A. fib with RVR * Converted to normal sinus rhythm rate is now controlled * Continue amiodarone drip and IV heparin per protocol * Cardiology following Possible pneumonia * Continue Zosyn lactic acidosis * Resolved with fluids CAD with stenting * Continue aspirin and metoprolol and Lipitor Disposition * Continue current management, patient critical * Discussed ongoing care plans with family
--- NOTE | 2019-09-11 10:14 | P.PN ---
Subjective This is Elizabeth Cardoso PA-C dictating a progress note on this patient The patient was interviewed and examined by me as well as by Dr. Alcaraz Case discussed with Dr. Alcaraz and he agrees with the plan of care HPI/interval history Patient is a 83-year-old female with a history significant for paroxysmal atrial fibrillation, CAD status post stenting, dyslipidemia who had a witnessed cardiac arrest. EMS performed 1 round of defibrillation and she went into atrial fibrillation. She was cardioverted in the emergency department and then went back into atrial fibrillation with RVR. She was started on IV amiodarone. Dr. Alcaraz had a detailed discussion with the patients family who stated that the patient's wish was not to have any invasive procedures performed therefore the decision was made not to take the patient to the quality assurance qa lab technician. She converted to sinus rhythm overnight. Patient seen and examined in the ICU, remains intubate d. They are planning to try to wean sedation and possibly extubate her today or tomorrow. EXAMINATION Patient is afebrile, pulse in the 70s, respirations 20, blood pressure 115/63, oxygen saturation 100 percent on mechanical ventilation Patient seen and examined in the ICU, sedated and intubated Breath sounds equal bilaterally Heart is regular, no audible murmurs Extremities warm no edema REVIEW OF LABS, ECG WBC 8.7, hemoglobin 8.0, platelets 205, potassium 3.5, BUN 17, creatinine 0.90 Troponin 1.54 IMPRESSION / ASSESSMENT: V. fib cardiac arrest s/p successful defibrillation, remains sedated and intubated Atrial fibrillation with RVR, currently in sinus rhythm on amiodarone and heparin Elevated troponins secondary to the above History of CAD status post stenting Dyslipidemia PLAN: Continue IV amiodarone for now Continue metoprolol 25 mg twice a day Aspirin and statins to continue continue heparin Detailed discussion with the patient family again about their decision not to pursue any invasive procedures as that was their mother's wishes, family verbalizes her understanding and agreement of the decision not to go to the Ergonomist Objective - Vital Signs Vital signs: Vital Signs Temp 99.3 F 09/11/19 08:00 Pulse 62 09/11/19 10:00 Resp 20 09/11/19 10:00 BP 115/63 09/11/19 10:00 Pulse Ox 100 03/01/20 10:00 Intake & Output 09/10/19 09/11/19 09/11/19 18:59 06:59 18:59 Intake Total 402.487 0789.300 630 Output Total 75 200 230 Balance 710.254 9621.300 400 Weight 88.451 kg 87.4 kg Intake: IV 720 1340 630 Magnesium Sulfate-D5w Pmx 100 1 gm In Dextrose/Water 1 100ml.bag @ 100 mls/hr IVPB Q1H [facility] Rx#: [id number] Piperacillin-Tazobactam 3 100 50 .375 gm In Sodium Chloride 0.9% 100 ml @ 25 mls/hr IVPB Q8HR [facility] Rx# :[id number] Sodium Chloride 0.9% 1, 720 1240 480 000 ml @ 120 mls/hr IV . Q8H20M [facility] Rx#:[id number] Intake, IV Titration 3.980 182.300 Amount Heparin Sod,Pork in 0.45% 175.745 NaCl 25,000 unit In 0.45 % NaCl 1 250ml.bag @ 11.3 UNITS/KG/HR 9.995 mls/hr IV .Q24H [facility] Rx#: [id number] Propofol 1,000 mg In 3.980 Empty Bag 1 bag @ 5 MCG/ KG/MIN 2.654 mls/hr IV . Q24H [facility] Rx#:[id number] Propofol 1,000 mg In 6.555 Empty Bag 1 bag @ Titrate IV .Q0M [facility] Rx#: [id number] Output: Urine 75 200 230 Other: Voiding Method Indwelling Catheter Indwelling Catheter - Labs CBC & Chem 7: 09/11/19 05:24 09/11/19 05:24 Labs: Abnormal Lab Results - Last 24 Hours (Table) 09/10/19 09/10/19 09/10/19 Range/Units 11:53 11:53 11:53 RBC 3.70 L (3.80-5.40) m/uL Hgb 9.1 L (11.4-16.0) gm/dL Hct 30.5 L (34.0-46.0) % MCH 24.5 L (25.0-35.0) pg MCHC 29.7 L (31.0-37.0) g/dL RDW 16.7 H (11.5-15.5) % Lymphocytes # (1.0-4.8) k/uL PT 12.1 H (9.0-12.0) sec INR 1.2 H (<1.2) APTT (22.0-30.0) sec ABG pH (7.35-7.45) ABG pCO2 (35-45) mmHg ABG pO2 (83-108) mmHg ABG O2 Saturation (94-97) % Chloride 108 H (98-107) mmol/L Carbon Dioxide 20 L (22-30) mmol/L BUN 18 H (7-17) mg/dL Creatinine 1.17 H (0.52-1.04) mg/dL Glucose 188 H (74-99) mg/dL POC Glucose (mg/dL) (75-99) mg/dL Plasma Lactic Acid Ward (0.7-2.0) mmol/L Calcium (8.4-10.2) mg/dL AST 40 H (14-36) U/L Ammonia (<30) umol/L Troponin I (0.000-0.034) ng/mL Urine Appearance (Clear) Urine Protein (Negative) Urine Glucose (UA) (Negative) Urine Ketones (Negative) Urine Blood (Negative) Urine RBC (0-5) /hpf Urine WBC (0-5) /hpf Amorphous Sediment (None) /hpf Urine Bacteria (None) /hpf Hyaline Casts (0-2) /lpf Urine Mucus (None) /hpf 09/10/19 09/10/19 09/10/19 Range/Units 11:53 11:53 12:03 RBC (3.80-5.40) m/uL Hgb (11.4-16.0) gm/dL Hct (34.0-46.0) % MCH (25.0-35.0) pg MCHC (31.0-37.0) g/dL RDW (11.5-15.5) % Lymphocytes # (1.0-4.8) k/uL PT (9.0-12.0) sec INR (<1.2) APTT (22.0-30.0) sec ABG pH (7.35-7.45) ABG pCO2 (35-45) mmHg ABG pO2 (83-108) mmHg ABG O2 Saturation (94-97) % Chloride (98-107) mmol/L Carbon Dioxide (22-30) mmol/L BUN (7-17) mg/dL Creatinine (0.52-1.04) mg/dL Glucose (74-99) mg/dL POC Glucose (mg/dL) 206 H (75-99) mg/dL Plasma Lactic Acid Ward 2.9 H* (0.7-2.0) mmol/L Calcium (8.4-10.2) mg/dL AST (14-36) U/L Ammonia 33 H (<30) umol/L Troponin I 0.082 H* (0.000-0.034) ng/mL Urine Appearance (Clear) Urine Protein (Negative) Urine Glucose (UA) (Negative) Urine Ketones (Negative) Urine Blood (Negative) Urine RBC (0-5) /hpf Urine WBC (0-5) /hpf Amorphous Sediment (None) /hpf Urine Bacteria (None) /hpf Hyaline Casts (0-2) /lpf Urine Mucus (None) /hpf 09/10/19 09/10/19 09/10/19 Range/Units 12:55 13:59 16:12 RBC (3.80-5.40) m/uL Hgb (11.4-16.0) gm/dL Hct (34.0-46.0) % MCH (25.0-35.0) pg MCHC (31.0-37.0) g/dL RDW (11.5-15.5) % Lymphocytes # (1.0-4.8) k/uL PT (9.0-12.0) sec INR (<1.2) APTT (22.0-30.0) sec ABG pH 7.32 L (7.35-7.45) ABG pCO2 (35-45) mmHg ABG pO2 329 H (83-108) mmHg ABG O2 Saturation 100.0 H (94-97) % Chloride (98-107) mmol/L Carbon Dioxide (22-30) mmol/L BUN (7-17) mg/dL Creatinine (0.52-1.04) mg/dL Glucose (74-99) mg/dL POC Glucose (mg/dL) 173 H (75-99) mg/dL Plasma Lactic Acid Ward (0.7-2.0) mmol/L Calcium (8.4-10.2) mg/dL AST (14-36) U/L Ammonia (<30) umol/L Troponin I 1.540 H* (0.000-0.034) ng/mL Urine Appearance (Clear) Urine Protein (Negative) Urine Glucose (UA) (Negative) Urine Ketones (Negative) Urine Blood (Negative) Urine RBC (0-5) /hpf Urine WBC (0-5) /hpf Amorphous Sediment (None) /hpf Urine Bacteria (None) /hpf Hyaline Casts (0-2) /lpf Urine Mucus (None) /hpf 09/10/19 09/10/19 09/10/19 Range/Units 16:21 17:30 18:38 RBC (3.80-5.40) m/uL Hgb (11.4-16.0) gm/dL Hct (34.0-46.0) % MCH (25.0-35.0) pg MCHC (31.0-37.0) g/dL RDW (11.5-15.5) % Lymphocytes # (1.0-4.8) k/uL PT (9.0-12.0) sec INR (<1.2) APTT 65.5 H (22.0-30.0) sec ABG pH (7.35-7.45) ABG pCO2 (35-45) mmHg ABG pO2 (83-108) mmHg ABG O2 Saturation (94-97) % Chloride (98-107) mmol/L Carbon Dioxide (22-30) mmol/L BUN (7-17) mg/dL Creatinine (0.52-1.04) mg/dL Glucose (74-99) mg/dL POC Glucose (mg/dL) 154 H (75-99) mg/dL Plasma Lactic Acid Ward (0.7-2.0) mmol/L Calcium (8.4-10.2) mg/dL AST (14-36) U/L Ammonia (<30) umol/L Troponin I (0.000-0.034) ng/mL Urine Appearance Cloudy H (Clear) Urine Protein 2+ H (Negative) Urine Glucose (UA) Trace H (Negative) Urine Ketones 1+ H (Negative) Urine Blood Small H (Negative) Urine RBC 6 H (0-5) /hpf Urine WBC 6 H (0-5) /hpf Amorphous Sediment Rare H (None) /hpf Urine Bacteria Occasional H (None) /hpf Hyaline Casts 4 H (0-2) /lpf Urine Mucus Occasional H (None) /hpf 09/11/19 09/11/19 09/11/19 Range/Units 05:24 05:24 05:24 RBC 3.30 L (3.80-5.40) m/uL Hgb 8.0 L (11.4-16.0) gm/dL Hct 26.9 L (34.0-46.0) % MCH 24.2 L (25.0-35.0) pg MCHC 29.7 L (31.0-37.0) g/dL RDW 16.7 H (11.5-15.5) % Lymphocytes # 0.7 L (1.0-4.8) k/uL PT (9.0-12.0) sec INR (<1.2) APTT 76.3 H (22.0-30.0) sec ABG pH (7.35-7.45) ABG pCO2 (35-45) mmHg ABG pO2 (83-108) mmHg ABG O2 Saturation (94-97) % Chloride 109 H (98-107) mmol/L Carbon Dioxide 19 L (22-30) mmol/L BUN (7-17) mg/dL Creatinine (0.52-1.04) mg/dL Glucose 129 H (74-99) mg/dL POC Glucose (mg/dL) (75-99) mg/dL Plasma Lactic Acid Ward (0.7-2.0) mmol/L Calcium 8.1 L (8.4-10.2) mg/dL AST (14-36) U/L Ammonia (<30) umol/L Troponin I (0.000-0.034) ng/mL Urine Appearance (Clear) Urine Protein (Negative) Urine Glucose (UA) (Negative) Urine Ketones (Negative) Urine Blood (Negative) Urine RBC (0-5) /hpf Urine WBC (0-5) /hpf Amorphous Sediment (None) /hpf Urine Bacteria (None) /hpf Hyaline Casts (0-2) /lpf Urine Mucus (None) /hpf 09/11/19 Range/Units 08:23 RBC (3.80-5.40) m/uL Hgb (11.4-16.0) gm/dL Hct (34.0-46.0) % MCH (25.0-35.0) pg MCHC (31.0-37.0) g/dL RDW (11.5-15.5) % Lymphocytes # (1.0-4.8) k/uL PT (9.0-12.0) sec INR (<1.2) APTT (22.0-30.0) sec ABG pH (7.35-7.45) ABG pCO2 33 L (35-45) mmHg ABG pO2 56 L* (83-108) mmHg ABG O2 Saturation 90.0 L (94-97) % Chloride (98-107) mmol/L Carbon Dioxide (22-30) mmol/L BUN (7-17) mg/dL Creatinine (0.52-1.04) mg/dL Glucose (74-99) mg/dL POC Glucose (mg/dL) (75-99) mg/dL Plasma Lactic Acid Ward (0.7-2.0) mmol/L Calcium (8.4-10.2) mg/dL AST (14-36) U/L Ammonia (<30) umol/L Troponin I (0.000-0.034) ng/mL Urine Appearance (Clear) Urine Protein (Negative) Urine Glucose (UA) (Negative) Urine Ketones (Negative) Urine Blood (Negative) Urine RBC (0-5) /hpf Urine WBC (0-5) /hpf Amorphous Sediment (None) /hpf Urine Bacteria (None) /hpf Hyaline Casts (0-2) /lpf Urine Mucus (None) /hpf
[2019-09-11] MEDS: AMIODARONE 300 MG in DEXTROSE 5% IN WATER 250 ML IV SCH ×4 (10:48→22:32)
--- NOTE | 2019-09-11 12:27 | P.PN ---
Subjective Progress Note Date: 09/11/19 Principal diagnosis: Cardiac arrest requiring CPR and defibrillation 1 at the scene. This is an 83-year-old female patient with a history of hypertension, coronary artery disease with previous stent placement, chronic obstructive pulmonary disease, severe tricuspid regurgitation, previous tobacco dependence. She was just discharged from the hospital yesterday following admission for atrial fibrillation with RVR and subsequent cardioversion on 09/08/2019. Earlier today the patient was home visiting with family when she suddenly became unresponsive. EMS was called immediately and started CPR on arrival. 1 shock for V. fib was performed and subsequent return of spontaneous circulation. Here in the emergency room she is intubated and placed on mechanical ventilator. She was found to be in A. fib RVR and cardioverted with him improvement in heart rate in the 60s. She was given amiodarone bolus and to be started on amiodarone at 1 mg/m. She is seen upon arrival to the intensive care unit. She remains intubated on the mechanical ventilator. She is on propofol at 25 mcg/kg/m. She is on a heparin drip at 11.3 units per kilogram per hour. 0.9 normal saline at 120 ML's per hour. His current ventilator settings are assist control of 16, tidal volume 450, FiO2 50% and a PEEP of 5. Earlier blood gases on 100% revealed a pO2 of 329, pCO2 42 and a pH is 7.32. White count 9.1. Hemoglobin 9.1. Sodium 139. Potassium 3.8. Bicarb 20. Creatinine 1.17. Lactic acid 2.9. Chest x-ray revealed cardiomegaly. There is interstitial and alveolar airspace disease in the right. Masslike confluence density adjacent to the left heart border. Small left effusion. Computed tomography scan of the brain revealed no acute intracranial abnormalities. Patient was considered for cardiac catheterization however the family did not want any further interventions. They have made her a NO CODE STATUS. Patient was reevaluated today on 09/11/19, remains in the ICU, intubated and mechanically ventilated. Patient is on FiO2 of 50%, assist control rate of 16, tidal volume is 450, and PEEP is 5. ABG earlier on 40% showed a pO2 of 56 pCO2 of 33 and pH of 7.41. Patient remains on heparin. Remains on amiodarone, and she converted to normal sinus rhythm last night. Her WBC count is 8.7 hemoglobin is 8. Electrolytes are normal except for slightly low potassium be ing corrected as per protocol. Chest x-ray showed slight improvement in her bibasilar airspace disease. Patient most likely aspirated and she is still on Zosyn for presumptive aspiration pneumonia. Chest x-ray is definitely better today compared to yesterday. Surprisingly, the patient is now off propofol, and she is arousable, she is able to follow simple instructions, she is squeezing hands, closing eyes, wiggling toes, and seems to be appropriate, there was a major concern of possible anoxic brain injury yesterday. However dramatic improvement is noted urologically since yesterday. Family is at bedside, and we discussed the issue of cardiac catheterization, they seem to be agreeable to cardiac catheterization if offered by cardiology. The family declined cardiac cath yesterday mostly because there was a major concern about her anoxic brain injury possibility. There don't today seems to be a bit different. And agreeable to that if suggested by cardiology again today. I notified Dr. Pena about the approval to cardiac catheterization. Nutrition-tompkins, the patient will be started on enteral feeding. She remains on GI and DVT prophylaxis. Her CT of the brain done yesterday showed no intracranial abnormality. Objective - Vital Signs Vital signs: Vital Signs Temp 99.3 F 09/11/19 08:00 Pulse 53 L 09/11/19 11:00 Resp 20 09/11/19 11:00 BP 106/61 09/11/19 11:00 Pulse Ox 100 09/11/19 11:00 Intake & Output 09/10/19 09/11/19 09/11/19 18:59 06:59 18:59 Intake Total 017.989 2991.300 897.298 Output Total 75 200 260 Balance 133.292 3616.300 637.298 Weight 88.451 kg 87.4 kg Intake: IV 720 1340 830 Magnesium Sulfate-D5w Pmx 200 1 gm In Dextrose/Water 1 100ml.bag @ 100 mls/hr IVPB Q1H [facility] Rx#: [id number] Piperacillin-Tazobactam 3 100 75 .375 gm In Sodium Chloride 0.9% 100 ml @ 25 mls/hr IVPB Q8HR [facility] Rx# :[id number] Sodium Chloride 0.9% 1, 720 1240 555 000 ml @ 75 mls/hr IV . [id number] [facility] Rx#:[id number] Intake, IV Titration 3.980 432.300 67.298 Amount Amiodarone 300 mg In 250 Dextrose 5% in Water 250 ml @ 0.5 MG/MIN 25 mls/hr IV .Q10H [facility] Rx#: [id number] Heparin Sod,Pork in 0.45% 175.745 NaCl 25,000 unit In 0.45 % NaCl 1 250ml.bag @ 11.3 UNITS/KG/HR 9.995 mls/hr IV .Q24H [facility] Rx#: [id number] Propofol 1,000 mg In 3.980 Empty Bag 1 bag @ 5 MCG/ KG/MIN 2.654 mls/hr IV . Q24H ONE Rx#:[id number] Propofol 1,000 mg In 6.555 67.298 Empty Bag 1 bag @ Titrate IV .Q0M [facility] Rx#: [id number] Output: Urine 75 200 260 Other: Voiding Method Indwelling Catheter Indwelling Catheter Indwelling Catheter - Exam GENERAL EXAM: Revealed a 83-year-old female, on mechanical ventilation, off propofol, arousable, follows simple instructions. HEAD: Normocephalic. Atraumatic, nasogastric tube and endotracheal tube are intact. Dried blood noted around the nasogastric tube from trauma while tube was placed on the scene. EYES: PERRLA, EOMI, no icterus. NOSE: Minimal blood noted in both nares. Dried and related to trauma from nasogastric tube. THROAT: Oral endotracheal and gastric tube secured in place. No erythema or exudates. NECK: No masses, no JVD. CHEST: No chest wall deformity. LUNGS: Equal air entry, slightly diminished breath sounds at the bases no rhonchi and no wheezes. CVS: S1 and S2 normal with no audible murmur, regular rhythm. ABDOMEN: No hepatosplenomegaly, normal bowel sounds, no guarding or rigidity. SKIN: No rashes CENTRAL NERVOUS SYSTEM: Arousable, follows simple instructions like wiggling toes squeezing hands and closing eyes. However seems to be quite slow. EXTREMITIES: No clubbing, edema or cyanosis. - Labs CBC & Chem 7: 09/11/19 05:24 09/11/19 05:24 Labs: Abnormal Lab Results - Last 24 Hours (Table) 09/10/19 09/10/19 09/10/19 Range/Units 11:53 11:53 11:53 RBC 3.70 L (3.80-5.40) m/uL Hgb 9.1 L (11.4-16.0) gm/dL Hct 30.5 L (34.0-46.0) % MCH 24.5 L (25.0-35.0) pg MCHC 29.7 L (31.0-37.0) g/dL RDW 16.7 H (11.5-15.5) % Lymphocytes # (1.0-4.8) k/uL PT 12.1 H (9.0-12.0) sec INR 1.2 H (<1.2) APTT (22.0-30.0) sec ABG pH (7.35-7.45) ABG pCO2 (35-45) mmHg ABG pO2 (83-108) mmHg ABG O2 Saturation (94-97) % Chloride 108 H (98-107) mmol/L Carbon Dioxide 20 L (22-30) mmol/L BUN 18 H (7-17) mg/dL Creatinine 1.17 H (0.52-1.04) mg/dL Glucose 188 H (74-99) mg/dL POC Glucose (mg/dL) (75-99) mg/dL Plasma Lactic Acid Ward (0.7-2.0) mmol/L Calcium (8.4-10.2) mg/dL AST 40 H (14-36) U/L Ammonia (<30) umol/L Troponin I (0.000-0.034) ng/mL Urine Appearance (Clear) Urine Protein (Negative) Urine Glucose (UA) (Negative) Urine Ketones (Negative) Urine Blood (Negative) Urine RBC (0-5) /hpf Urine WBC (0-5) /hpf Amorphous Sediment (None) /hpf Urine Bacteria (None) /hpf Hyaline Casts (0-2) /lpf Urine Mucus (None) /hpf 09/10/19 09/10/19 09/10/19 Range/Units 11:53 11:53 12:55 RBC (3.80-5.40) m/uL Hgb (11.4-16.0) gm/dL Hct (34.0-46.0) % MCH (25.0-35.0) pg MCHC (31.0-37.0) g/dL RDW (11.5-15.5) % Lymphocytes # (1.0-4.8) k/uL PT (9.0-12.0) sec INR (<1.2) APTT (22.0-30.0) sec ABG pH 7.32 L (7.35-7.45) ABG pCO2 (35-45) mmHg ABG pO2 329 H (83-108) mmHg ABG O2 Saturation 100.0 H (94-97) % Chloride (98-107) mmol/L Carbon Dioxide (22-30) mmol/L BUN (7-17) mg/dL Creatinine (0.52-1.04) mg/dL Glucose (74-99) mg/dL POC Glucose (mg/dL) (75-99) mg/dL Plasma Lactic Acid Ward 2.9 H* (0.7-2.0) mmol/L Calcium (8.4-10.2) mg/dL AST (14-36) U/L Ammonia 33 H (<30) umol/L Troponin I 0.082 H* (0.000-0.034) ng/mL Urine Appearance (Clear) Urine Protein (Negative) Urine Glucose (UA) (Negative) Urine Ketones (Negative) Urine Blood (Negative) Urine RBC (0-5) /hpf Urine WBC (0-5) /hpf Amorphous Sediment (None) /hpf Urine Bacteria (None) /hpf Hyaline Casts (0-2) /lpf Urine Mucus (None) /hpf 09/10/19 09/10/19 09/10/19 Range/Units 13:59 16:12 16:21 RBC (3.80-5.40) m/uL Hgb (11.4-16.0) gm/dL Hct (34.0-46.0) % MCH (25.0-35.0) pg MCHC (31.0-37.0) g/dL RDW (11.5-15.5) % Lymphocytes # (1.0-4.8) k/uL PT (9.0-12.0) sec INR (<1.2) APTT (22.0-30.0) sec ABG pH (7.35-7.45) ABG pCO2 (35-45) mmHg ABG pO2 (83-108) mmHg ABG O2 Saturation (94-97) % Chloride (98-107) mmol/L Carbon Dioxide (22-30) mmol/L BUN (7-17) mg/dL Creatinine (0.52-1.04) mg/dL Glucose (74-99) mg/dL POC Glucose (mg/dL) 173 H 154 H (75-99) mg/dL Plasma Lactic Acid Ward (0.7-2.0) mmol/L Calcium (8.4-10.2) mg/dL AST (14-36) U/L Ammonia (<30) umol/L Troponin I 1.540 H* (0.000-0.034) ng/mL Urine Appearance (Clear) Urine Protein (Negative) Urine Glucose (UA) (Negative) Urine Ketones (Negative) Urine Blood (Negative) Urine RBC (0-5) /hpf Urine WBC (0-5) /hpf Amorphous Sediment (None) /hpf Urine Bacteria (None) /hpf Hyaline Casts (0-2) /lpf Urine Mucus (None) /hpf 09/10/19 09/10/19 09/11/19 Range/Units 17:30 18:38 05:24 RBC 3.30 L (3.80-5.40) m/uL Hgb 8.0 L (11.4-16.0) gm/dL Hct 26.9 L (34.0-46.0) % MCH 24.2 L (25.0-35.0) pg MCHC 29.7 L (31.0-37.0) g/dL RDW 16.7 H (11.5-15.5) % Lymphocytes # 0.7 L (1.0-4.8) k/uL PT (9.0-12.0) sec INR (<1.2) APTT 65.5 H (22.0-30.0) sec ABG pH (7.35-7.45) ABG pCO2 (35-45) mmHg ABG pO2 (83-108) mmHg ABG O2 Saturation (94-97) % Chloride (98-107) mmol/L Carbon Dioxide (22-30) mmol/L BUN (7-17) mg/dL Creatinine (0.52-1.04) mg/dL Glucose (74-99) mg/dL POC Glucose (mg/dL) (75-99) mg/dL Plasma Lactic Acid Ward (0.7-2.0) mmol/L Calcium (8.4-10.2) mg/dL AST (14-36) U/L Ammonia (<30) umol/L Troponin I (0.000-0.034) ng/mL Urine Appearance Cloudy H (Clear) Urine Protein 2+ H (Negative) Urine Glucose (UA) Trace H (Negative) Urine Ketones 1+ H (Negative) Urine Blood Small H (Negative) Urine RBC 6 H (0-5) /hpf Urine WBC 6 H (0-5) /hpf Amorphous Sediment Rare H (None) /hpf Urine Bacteria Occasional H (None) /hpf Hyaline Casts 4 H (0-2) /lpf Urine Mucus Occasional H (None) /hpf 09/11/19 09/11/19 09/11/19 Range/Units 05:24 05:24 08:23 RBC (3.80-5.40) m/uL Hgb (11.4-16.0) gm/dL Hct (34.0-46.0) % MCH (25.0-35.0) pg MCHC (31.0-37.0) g/dL RDW (11.5-15.5) % Lymphocytes # (1.0-4.8) k/uL PT (9.0-12.0) sec INR (<1.2) APTT 76.3 H (22.0-30.0) sec ABG pH (7.35-7.45) ABG pCO2 33 L (35-45) mmHg ABG pO2 56 L* (83-108) mmHg ABG O2 Saturation 90.0 L (94-97) % Chloride 109 H (98-107) mmol/L Carbon Dioxide 19 L (22-30) mmol/L BUN (7-17) mg/dL Creatinine (0.52-1.04) mg/dL Glucose 129 H (74-99) mg/dL POC Glucose (mg/dL) (75-99) mg/dL Plasma Lactic Acid Ward (0.7-2.0) mmol/L Calcium 8.1 L (8.4-10.2) mg/dL AST (14-36) U/L Ammonia (<30) umol/L Troponin I (0.000-0.034) ng/mL Urine Appearance (Clear) Urine Protein (Negative) Urine Glucose (UA) (Negative) Urine Ketones (Negative) Urine Blood (Negative) Urine RBC (0-5) /hpf Urine WBC (0-5) /hpf Amorphous Sediment (None) /hpf Urine Bacteria (None) /hpf Hyaline Casts (0-2) /lpf Urine Mucus (None) /hpf Assessment and Plan Assessment: 1 Cardiac arrest requiring CPR and defibrillation 1 at the scene 2 Acute hypoxic respiratory failure secondary to above requiring intubation mechanical ventilatory support 3 Atrial fibrillation with a rapid ventricular response requiring cardioversion today 4 Recent admission for atrial fibrillation with rapid ventricular response requiring cardioversion on 09/08/2019 and discharged 09/09/2019 5 Coronary artery disease with previous stent placement 6 History of hypertension 7 History of diastolic congestive heart failure 8 Severe tricuspid regurgitation with severe dilatation the right ventricle 9 Chronic obstructive pulmonary disease, presently inactive. 10 Remote history of chronic tobacco dependence 11 suspect aspiration pneumonia, patient is on Zosyn. 12 doubt significant anoxic brain injury considering the mental status assessment today. Recommendation: Continue ventilatory support. Continue nutritional support. Patient is hemodynamically stable, not requiring any pressors. Continue amiodarone. Continue heparin. Continue antibiotics/Zosyn. Continue GI and DVT prophylaxis. Continue to hold a propofol for now, until the patient is even more and more awake, and if she gets agitated she goes back on propofol for the next 24 hours. Had a long discussion with family members at bedside, agreeable to have cardiac catheterization if suggested by cardiology again. And cardiology was updated on that decision. Consider weaning trials in the morning. In the meantime continue FiO2 at 50% and same ventilator settings as noted earlier. We'll continue to follow. Critical care time is 40 minutes. Time with Patient: Greater than 30
--- NOTE | 2019-09-11 12:42 | P.CRDCN ---
History of Present Illness History of present illness: This is Dr. Alcaraz dictating a consult on this patient The patient was interviewed and examined by me IMPRESSION / ASSESSMENT: Witnessed cardiac arrest Documented ventricular fibrillation, received external defibrillation Patient and atrial fibrillation with RVR [address] depression inferolaterally Electrical cardioversion in the emergency room with immediate recurrence of atrial fibrillation Started on IV amiodarone and metoprolol along with statins and aspirin and heparin PLAN: Statins aspirin heparin beta blockers IV amiodarone Electrical cardioversion performed in the emergency room for A. fib with RVR with ST depressions but with immediate recurrence of atrial fibrillation Very detailed discussion with the family members. They stated that the patient's wishes were not to have any invasive measures performed and did not even want to come to the hospital any more They're in agreement for watching her neurologically and avoiding any invasive measures Currently intubated and hopefully she makes full neurologic recovery Family wants medical management, not coronary angiography HPI Patient is sitting in a chair when she slumped, collapsed and suffered cardiac arrest When EMS arrived she was in ventricular fibrillation and she was externally defibrillated and went into atrial fibrillation with RVR In the emergency room I examined her when she was already intubated and she had A. fib with RVR with ST depressions of 4 mm inferolaterally I proceeded with an electrical cardioversion but she had immediate recurrence Thereafter started on IV amiodarone IV heparin was started She was already on anticoagulation previously Statins and aspirin were initiated Add a detailed discussion with the family and medical management was pursued at this point ROS: No fever chills or rigors, no cough, phlegm or expectoration, no nausea, vomiting or diarrhea, no hematuria, dysuria, no musculoskeletal complaints, no strokes or seizures, no skin lesions. EXAMINATION: 124/67 mmHg respirations 20, A. fib with RVR Breath sounds are reduced bilaterally Heart sounds are tachycardic Abdomen soft Extremity is warm REVIEW OF LABS, ECG & MEDICAL DATA Twelve-lead ECG shows A. fib with RVR Past Medical History Past Medical History: Atrial Fibrillation, Coronary Artery Disease (CAD), Hypertension Additional Past Medical History / Comment(s): CHF with diastolic dysfunction, coronary artery disease with previous insertion of coronary stent, chronic atrial fibrillation, COPD, hypertension, severe tricuspid regurgitation along with severe dilatation of the right ventricle and a PA pressure mildly elevated probably consistent with chronic lung disease/COPD. History of Any Multi-Drug Resistant Organisms: None Reported Past Surgical History: Heart Catheterization With Stent Past Anesthesia/Blood Transfusion Reactions: No Reported Reaction Date of Last Stent Placement:: 2001 Past Psychological History: No Psychological Hx Reported Smoking Status: Former smoker Past Alcohol Use History: None Reported Past Drug Use History: None Reported - Past Family History Father Family Medical History: Coronary Artery Disease (CAD) Mother Family Medical History: Coronary Artery Disease (CAD) Medications and Allergies Home Medications Medication Instructions Recorded Confirmed Type Cholecalciferol [Vitamin D3 (25 1,000 unit PO DAILY 11/27/16 09/10/19 History Mcg = 1000 Iu)] Apixaban [Eliquis] 5 mg PO BID #0 tab 12/01/16 09/10/19 Rx Acetaminophen Tab [Tylenol] 325 mg PO Q6H PRN 09/04/19 09/10/19 History Bismuth Subsalicylate 30 mg PO Q4H PRN 09/10/19 09/10/19 History [Pepto-Bismol] Allergies Allergy/AdvReac Type Severity Reaction Status Date / Time No Known Allergies Allergy Verified 09/10/19 12:43 Physical Exam Vitals: Vital Signs Temp Pulse Resp BP Pulse Ox 09/11/19 12:00 99.6 F 56 L 24 108/80 100 09/11/19 11:30 57 L 22 107/65 100 09/11/19 11:00 53 L 20 106/61 100 09/11/19 10:30 56 L 20 104/57 99 09/11/19 10:00 62 20 115/63 100 09/11/19 09:30 70 20 108/56 99 09/11/19 09:00 71 20 106/58 99 09/11/19 08:46 71 09/11/19 08:32 68 09/11/19 08:30 68 20 105/59 99 09/11/19 08:00 99.3 F 71 20 100/58 98 09/11/19 07:30 72 20 106/57 98 09/11/19 07:00 74 20 125/67 98 09/11/19 06:30 75 20 121/64 99 09/11/19 06:00 77 23 124/63 99 09/11/19 05:30 75 20 114/59 99 09/11/19 05:00 73 20 125/67 99 09/11/19 04:30 73 20 129/67 99 09/11/19 04:03 76 09/11/19 04:00 98.9 F 74 20 131/73 100 09/11/19 03:56 78 09/11/19 03:30 73 20 123/66 100 09/11/19 03:00 68 20 128/66 99 09/11/19 02:30 71 20 122/63 99 09/11/19 02:00 70 20 118/61 99 09/11/19 01:30 74 20 114/63 99 09/11/19 01:00 75 20 117/61 100 09/11/19 00:30 73 20 123/102 99 09/11/19 00:24 114 H 20 123/102 99 09/11/19 00:15 124 H 20 121/83 100 09/11/19 00:04 125 H 09/11/19 00:00 98.8 F 115 H 18 95/77 98 09/10/19 23:45 138 H 20 89/60 99 09/10/19 23:30 122 H 20 97/70 98 09/10/19 23:15 123 H 20 109/81 98 09/10/19 23:00 129 H 20 104/72 99 09/10/19 22:45 116 H 20 94/84 99 09/10/19 22:30 121 H 20 112/77 98 09/10/19 22:15 121 H 19 121/84 99 09/10/19 22:00 131 H 20 128/90 97 09/10/19 21:45 116 H 20 131/84 100 09/10/19 21:30 131 H 20 120/82 99 09/10/19 21:15 107 H 20 126/79 99 09/10/19 21:00 123 H 20 140/89 99 09/10/19 20:45 112 H 21 126/78 99 09/10/19 20:30 131 H 20 145/88 100 09/10/19 20:15 110 H 22 127/94 100 09/10/19 20:02 100 09/10/19 20:00 99.0 F 113 H 20 133/81 100 09/10/19 19:45 68 20 125/69 100 09/10/19 19:41 98 09/10/19 19:30 61 20 121/68 100 09/10/19 19:15 63 20 120/65 100 09/10/19 19:00 65 20 114/60 99 09/10/19 18:45 60 20 110/57 100 09/10/19 18:30 59 L 20 115/60 100 09/10/19 18:15 61 20 129/68 100 09/10/19 18:00 68 20 100/55 100 09/10/19 17:45 56 L 20 97/52 98 09/10/19 17:30 58 L 20 104/51 98 09/10/19 17:15 58 L 20 117/60 98 09/10/19 17:00 63 20 124/61 98 09/10/19 16:53 68 09/10/19 16:45 66 20 118/67 100 09/10/19 16:33 70 09/10/19 16:30 64 16 95/54 100 09/10/19 16:15 55 L 20 100/48 99 09/10/19 16:00 98 F 59 L 20 113/68 100 09/10/19 15:45 58 L 21 117/70 99 09/10/19 15:30 64 16 122/69 98 09/10/19 15:15 105 H 20 121/72 99 09/10/19 15:00 102 H 20 115/71 100 09/10/19 14:45 115 H 20 122/81 99 09/10/19 14:30 105 H 20 110/86 99 09/10/19 14:15 116 H 20 132/86 99 09/10/19 14:00 97.8 F 109 H 20 121/84 99 09/10/19 13:10 121 H 20 110/65 96 09/10/19 13:05 135 H 20 107/77 95 09/10/19 13:00 117 H 20 96 09/10/19 12:55 138 H 20 102/64 98 09/10/19 12:45 105 H 20 114/58 100 Intake and Output 09/10/19 09/11/19 09/11/19 22:59 06:59 14:59 Intake Total 960 8045.788 8758.023 Output Total 120 155 285 Balance 840 1257.300 718.023 Intake: IV 960 980 930 Magnesium Sulfate-D5w Pmx 200 1 gm In Dextrose/Water 1 100ml.bag @ 100 mls/hr IVPB Q1H [facility] Rx#: [id number] Piperacillin-Tazobactam 3 100 100 .375 gm In Sodium Chloride 0.9% 100 ml @ 25 mls/hr IVPB Q8HR [facility] Rx# :[id number] Sodium Chloride 0.9% 1, 960 880 630 000 ml @ 75 mls/hr IV . [id number] [facility] Rx#:[id number] Intake, IV Titration 432.300 73.023 Amount Amiodarone 300 mg In 250 Dextrose 5% in Water 250 ml @ 0.5 MG/MIN 25 mls/hr IV .Q10H [facility] Rx#: [id number] Heparin Sod,Pork in 0.45% 175.745 NaCl 25,000 unit In 0.45 % NaCl 1 250ml.bag @ 11.3 UNITS/KG/HR 9.995 mls/hr IV .Q24H [facility] Rx#: [id number] Propofol 1,000 mg In 6.555 73.023 Empty Bag 1 bag @ Titrate IV .Q0M [facility] Rx#: [id number] Output: Urine 120 155 285 Other: Voiding Method Indwelling Catheter Indwelling Catheter Indwelling Catheter Weight 87.4 kg 87.4 kg Results 09/11/19 05:24 09/11/19 05:24 Cardiac Enzymes 09/10/19 09/10/19 Range/Units 11:53 16:12 Troponin I 0.082 H* 1.540 H* (0.000-0.034) ng/mL Coagulation 09/10/19 09/11/19 Range/Units 18:38 05:24 APTT 65.5 H 76.3 H (22.0-30.0) sec CBC 09/11/19 Range/Units 05:24 WBC 8.7 (3.8-10.6) k/uL RBC 3.30 L (3.80-5.40) m/uL Hgb 8.0 L (11.4-16.0) gm/dL Hct 26.9 L (34.0-46.0) % Plt Count 212 (150-450) k/uL Comprehensive Metabolic Panel 09/11/19 Range/Units 05:24 Sodium 137 (137-145) mmol/L Potassium 3.5 (3.5-5.1) mmol/L Chloride 109 H (98-107) mmol/L Carbon Dioxide 19 L (22-30) mmol/L BUN 17 (7-17) mg/dL Creatinine 0.98 (0.52-1.04) mg/dL Glucose 129 H (74-99) mg/dL Calcium 8.1 L (8.4-10.2) mg/dL Current Medications Generic Name Dose Route Start Last Admin Trade Name Freq PRN Reason Stop Dose Admin Albuterol/Ipratropium 3 ml 09/10/19 15:05 Duoneb 0.5 Mg-3 Mg/3 Ml Soln INHALATION RT-Q2H PRN Shortness Of Breath Or Wheezing Albuterol/Ipratropium 3 ml 09/10/19 16:00 09/11/19 11:50 Duoneb 0.5 Mg-3 Mg/3 Ml Soln INHALATION Not Given RT-Q4H [facility] Aspirin 81 mg 09/11/19 09:15 09/11/19 09:16 Aspirin PO 81 mg DAILY CANDE Administration Atorvastatin Calcium 80 mg 09/11/19 21:00 Lipitor PO HS [facility] Chlorhexidine Gluconate 15 ml 09/10/19 21:00 09/11/19 09:16 Peridex MUCOUS MEM 15 ml BID [facility]DE Administration Heparin Sodium (Porcine) 0 unit 09/10/19 12:36 Heparin IV PER PROTOCOL PRN Low PTT Protocol Sodium Chloride 1,000 mls @ 50 mls/hr 09/10/19 12:45 09/11/19 07:11 Saline 0.9% IV 120 mls/hr .Q20H [facility] Administration Heparin Sodium/Sodium Chloride 250 mls @ 9.995 mls/hr 09/10/19 12:45 09/11/19 06:51 25,000 unit/ Sodium Chloride IV 9.3 units/kg/hr .Q24H [facility] 8.226 mls/hr Titration Protocol 11.3 UNITS/KG/HR Amiodarone HCl 300 mg/ 250 mls @ 25 mls/hr 09/10/19 19:32 09/11/19 10:48 Dextrose/Water IV 09/11/19 13:31 0.5 mg/min .Q10H [facility] 25 mls/hr Administration Protocol 0.5 MG/MIN Piperacillin Sod/Tazobactam 100 mls @ 25 mls/hr 09/10/19 16:00 09/11/19 09:15 Sod 3.375 gm/ Sodium Chloride IVPB 25 mls/hr Q8HR [facility] Administration Propofol 1,000 mg/ IV Solution 100 mls @ 0 mls/hr 09/10/19 20:15 09/11/19 12:24 IV 20 mcg/kg/min .Q0M [facility] 10.488 mls/hr Administration Protocol Titrate Metoprolol Tartrate 25 mg 09/11/19 09:15 09/11/19 09:16 Lopressor PO 25 mg BID CANDE Administration Miscellaneous Information 1 each 09/11/19 07:46 Potassium Per Protocol MISCELLANE DAILY PRN Per Protocol Protocol Miscellaneous Information 1 each 09/11/19 07:47 Magnesium Per Protocol MISCELLANE DAILY PRN Per Protocol Protocol Naloxone HCl 0.2 mg 09/10/19 12:33 Narcan IV Q2M PRN Opioid Reversal Pantoprazole Sodium 40 mg 09/11/19 09:00 09/11/19 09:17 Protonix IV 40 mg DAILY CANDE Administration Intake and Output 09/10/19 09/11/19 09/11/19 22:59 06:59 14:59 Intake Total 960 4041.482 8448.023 Output Total 120 155 285 Balance 840 1257.300 718.023 Intake: IV 960 980 930 Magnesium Sulfate-D5w Pmx 200 1 gm In Dextrose/Water 1 100ml.bag @ 100 mls/hr IVPB Q1H [facility] Rx#: [id number] Piperacillin-Tazobactam 3 100 100 .375 gm In Sodium Chloride 0.9% 100 ml @ 25 mls/hr IVPB Q8HR [facility] Rx# :[id number] Sodium Chloride 0.9% 1, 960 880 630 000 ml @ 75 mls/hr IV . [id number] [facility] Rx#:[id number] Intake, IV Titration 432.300 73.023 Amount Amiodarone 300 mg In 250 Dextrose 5% in Water 250 ml @ 0.5 MG/MIN 25 mls/hr IV .Q10H [facility] Rx#: [id number] Heparin Sod,Pork in 0.45% 175.745 NaCl 25,000 unit In 0.45 % NaCl 1 250ml.bag @ 11.3 UNITS/KG/HR 9.995 mls/hr IV .Q24H [facility] Rx#: [id number] Propofol 1,000 mg In 6.555 73.023 Empty Bag 1 bag @ Titrate IV .Q0M [facility] Rx#: [id number] Output: Urine 120 155 285 Other: Voiding Method Indwelling Catheter Indwelling Catheter Indwelling Catheter Weight 87.4 kg 87.4 kg Patient Weight 09/12/19 06:59 Weight 87.4 kg 09/11/19 05:24 09/11/19 05:24
--- NOTE | 2019-09-11 12:44 | P.PCN ---
Date of Procedure: 09/10/19 Preoperative Diagnosis: Procedure: Electrical cardioversion Indication for procedure: Patient suffered VF arrest now with A. fib with RVR with [address] depressions inferolaterally Details 360 J biphasic shock used in the AP configuration to sinus rhythm However the patient had immediate recurrence of atrial fibrillation Plan By mouth metoprolol IV heparin IV amiodarone Aspirin and statins ICU transfer
[2019-09-11] MEDS: HEPARIN SOD,PORK IN 0.45% NACL 25,000 UNIT in 0.45% NACL 1 250ML.BAG IV SCH (15:21)
[2019-09-11] MEDS: METOPROLOL TARTRATE 12.5 MG TAB PO SCH (21:30)
[2019-09-11] MEDS: ATORVASTATIN 80 MG TAB PO SCH (21:30)
[2019-09-12] MEDS: IPRATROPIUM-ALBUTEROL 3 ML NEB INHALATION SCH ×7 (00:06→23:29)
[2019-09-12] MEDS: PIPERACILLIN-TAZOBACTAM 3.375 GM in SODIUM CHLORIDE 0.9% 100 ML IVPB SCH ×3 (00:08→16:13)
[2019-09-12 04:31] LABS: Anisocytosis Slight; Basophils % (A) 0 %; Eosinophils # (A) 0.1 k/uL (0-0.7); Eosinophils % (A) 1 %; HCT 26.2 % (34.0-46.0); HGB 7.7 gm/dL (11.4-16.0); Hypochromasia Marked; Lymphocytes # (A) 1.2 k/uL (1.0-4.8); Lymphocytes % (A) 18 %; MCH 24.4 pg (25.0-35.0); MCHC 29.6 g/dL (31.0-37.0); MCV 82.5 fL (80.0-100.0); Mean Platelet Volume 8.5; Monocytes # (A) 0.5 k/uL (0-1.0); Monocytes % (A) 9 %; Neutrophils # (A) 4.4 k/uL (1.3-7.7); Neutrophils % (A) 69 %; Platelet Count 175 k/uL (150-450); Poikilocytosis Slight; RBC 3.17 m/uL (3.80-5.40); RDW 16.7 % (11.5-15.5); WBC 6.4 k/uL (3.8-10.6)
[2019-09-12 04:40] LABS: Calcium 7.8 mg/dL (8.4-10.2); Magnesium 2.3 mg/dL (1.6-2.3); Potassium 4.1 mmol/L (3.5-5.1)
[2019-09-12 05:50] LABS: ABG Base Excess -3.4 mmol/L; ABG HCO3 21 mmol/L (21-25); ABG Oxygen Saturation 99.7 % (94-97); ABG PCO2 31 mmHg (35-45); ABG PH 7.44 (7.35-7.45); ABG PO2 174 mmHg (83-108); ABG TCO2 22 mmol/L (19-24); Allen Test Performed? Yes
--- NOTE | 2019-09-12 08:01 | XR ---
EXAMINATION TYPE: XR chest 1V portable DATE OF EXAM: 09/12/2019 COMPARISON: 09/11/2019 HISTORY: Shortness of breath TECHNIQUE: Single frontal view of the chest is obtained. FINDINGS: ET tube and NG tube stable. Bilateral infiltrate and pleural effusion stable. Cardiomegaly noted. No sizable pneumothorax. Atherosclerotic change aorta. IMPRESSION: 1 stable bilateral lower lobe infiltrate and small effusion greater on the left.
[2019-09-12] MEDS: METOPROLOL TARTRATE 12.5 MG TAB PO SCH ×2 (08:15→21:01)
[2019-09-12] MEDS: ASPIRIN 81 MG PO SCH (08:15)
[2019-09-12] MEDS: PANTOPRAZOLE 40 MG/10 ML VIAL IV SCH (08:15)
[2019-09-12] MEDS: CHLORHEXIDINE GLUCONATE 15 ML CUP MUCOUS MEM SCH (08:15)
[2019-09-12] MEDS: PROPOFOL 1,000 MG in EMPTY BAG 1 BAG IV SCH (08:16)
--- NOTE | 2019-09-12 08:31 | PN ---
PROGRESS NOTE Mrs. Dalal is an 83-year-old female who presented with cardiac arrest and had recurrent atrial fibrillation. She remains intubated and sedated. Hemodynamically, she is stable. She is a NO CODE at this time and the family is awaiting to make further recommendations. The family did not want to proceed with any aggressive workup. Attempt to cardiovert her yesterday was done, but she went back to atrial fibrillation right away. She continues to be at this time on aspirin, Lipitor 80 mg daily, metoprolol tartrate 12.5 mg twice a day, IV amiodarone and IV heparin. PHYSICAL EXAMINATION: Blood pressure 109/58 with the heart rate in the 60s. LUNGS: Clear anteriorly. HEART: Irregular, irregular. S1, S2. No S3 with a systolic ejection murmur. No diastolic murmur. No rub. ABDOMEN: Soft, nontender. EXTREMITIES: No edema noted. Chest x-ray shows no acute infiltrate. LAB DATA: Lab data revealed BUN and creatinine 13 and 0.93 potassium 4.1, hemoglobin of 7.7. IMPRESSION: 1. Cardiac arrest. 2. Recurrent atrial fibrillation, rate under better control. 3. History of coronary artery disease. 4. Chronic obstructive lung disease. 5. Tricuspid regurgitation. RECOMMENDATION: From the cardiac standpoint, will continue supportive care. We will await the input of the pulmonary service regarding her lung status. She will be extubated hopefully soon and then be evaluated regarding the need to undergo any further aggressive workup. Initially the family declined any aggressive workup. MMODL / IJN: [id number] /
[2019-09-12] MEDS: AMIODARONE 300 MG in DEXTROSE 5% IN WATER 250 ML IV SCH ×2 (09:45)
--- NOTE | 2019-09-12 09:54 | PN ---
PROGRESS NOTE PULMONARY/CRITICAL CARE PROGRESS NOTE: DATE OF SERVICE: September 12, 2019 CRITICAL CARE TIME: 33 minutes. This is a patient who was admitted on August. She came in with an out-of- hospital cardiac arrest. CPR lasted somewhere between 15 and 20 minutes. She was intubated not at the scene, but in the emergency room. She apparently has a history of atrial fibrillation, CAD with previous stent, hypertension, diastolic heart failure, valvular heart disease in the form of tricuspid regurgitation with dilatation of the right ventricle, COPD, remote history of chronic tobacco dependence, possible aspiration pneumonia, and possible anoxic brain injury. Currently, she is doing reasonably well. She is on the volume assist-control mode rate of 20, tidal volume 450, FiO2 50% to be dropped to 40%, and PEEP of 5. Blood gases show pO2 of 174, pCO2 of 31, and a pH of 7.44. She is getting saline at 75 mL an hour, amiodarone at 0.5 mg/minute, propofol at 20 mcg/kg per minute and Vital high-protein at 20 with a goal of 35. She will have a daily interruption of sedation and a spontaneous breathing trial today. We will place her on PSV 5, CPAP of 5. She appears to be relatively alert according to the nurses. PHYSICAL EXAMINATION: VITAL SIGNS: Current vital signs include temperature 98.5, heart rate 68, respiratory rate 20, blood pressure 127/62, mean 83 and saturations are 100%. GENERAL: Appears in no acute distress. Eyes open. She is still on a bit of propofol. HEENT: Examination is grossly unremarkable. She has got an orally placed endotracheal tube and nasally placed NG tube with lots of dried blood around the nostril. NECK: Supple. Full range of motion. No adenopathy. CARDIOVASCULAR: Examination reveals regular rhythm and rate. Heart rate mid 60s. S1, S2 normal. LUNGS: Reveal coarse rhonchi. Breath sounds equal bilaterally. No wheezes or crackles. ABDOMEN: Soft. Bowel sounds are heard. EXTREMITIES: Are intact. No edema. SKIN: Without rash. NEUROLOGIC: Examination is difficult to assess because she is currently on propofol but her eyes are open and she appears to be doing okay. We will do a full daily interruption of sedation. Microbiology is currently pending or negative. Chest x-ray shows clear right lung. There may be a small left-sided basilar effusion, atelectasis or infiltrate. LABS: Labs are reviewed. White count 6.4, hemoglobin 7.7, hematocrit 26.2, platelet count 175,000. PTT is 28.5. Sodium 136, potassium 4.1, chloride 113, CO2 of 17. Anion gap is 6. BUN and creatinine were 13 and 0.93. Magnesium 2.3. MEDICATIONS: Medications are reviewed and she is currently on the amiodarone, baby aspirin, Lipitor, Peridex, DuoNeb, magnesium replacement, metoprolol, Narcan, Protonix, Zosyn, potassium replacement protocol, and propofol. ASSESSMENT: 1. Juo-no-fhvhakao cardiac arrest, with cardiopulmonary resuscitation and return of spontaneous circulation in about 15 or 20 minutes. 2. Rule out anoxic brain injury secondary to cardiopulmonary arrest. 3. Atrial fibrillation with rapid ventricular response, requiring cardioversion x1. 4. Recent admission to the hospital for atrial fibrillation with rapid ventricular response, requiring cardioversion, on September 08 with discharge on September 09. 5. Coronary artery disease with previous stent placement. 6. Benign essential hypertension. 7. History of diastolic heart failure. 8. Valvular heart disease in the form of tricuspid regurgitation. 9. Dilatation of the right ventricle. 10.Chronic obstructive pulmonary disease, stable. 11.Remote history of tobacco use. 12.Possible aspiration pneumonia. PLAN: The patient will have a daily interruption of sedation and spontaneous breathing trial, will go with PSV 5, CPAP of 5. The FiO2 is dropped from 50% to 40%. We will continue ventilatory support at this time. We will also continue nutrition as well as amiodarone for her atrial fibrillation. Her overall hemodynamic status is stable. We will continue to follow closely. Prognosis is guarded. The patient is a NO CODE. CRITICAL CARE TIME: 33 minutes. MMODL / IJN: [id number] /
[2019-09-12] MEDS: SODIUM CHLORIDE 0.9% 1,000 ML IV SCH (10:00)
--- NOTE | 2019-09-12 13:11 | P.PN ---
Subjective Progress Note Date: 09/12/19 Principal diagnosis: Cardiac arrest Patient was seen and examined. Extubated. Currently on nasal cannula on 3 L. Patient is alert and oriented 1. She has no specific complaints. She reports some vague lower back pain. She denies any chest pain, shortness breath or palpitations. No nausea or vomiting. No fever or chills. Objective - Vital Signs Vital signs: Vital Signs Temp 98.5 F 09/12/19 08:00 Pulse 70 09/12/19 11:59 Resp 22 09/12/19 11:00 BP 114/59 09/12/19 11:00 Pulse Ox 97 09/12/19 11:00 Intake & Output 09/11/19 09/12/19 09/12/19 18:59 06:59 18:59 Intake Total 9553.890 3244.487 540 Output Total 565 745 325 Balance 1151.939 395.487 215 Weight 87.4 kg 86.1 kg Intake: IV 1455 925 450 Magnesium Sulfate-D5w Pmx 200 1 gm In Dextrose/Water 1 100ml.bag @ 100 mls/hr IVPB Q1H [facility] Rx#: [id number] Piperacillin-Tazobactam 3 175 25 .375 gm In Sodium Chloride 0.9% 100 ml @ 25 mls/hr IVPB Q8HR [facility] Rx# :[id number] Sodium Chloride 0.9% 1, 1080 900 450 000 ml @ 75 mls/hr IV . [id number] [facility] Rx#:[id number] Intake, IV Titration 181.939 145.487 Amount Heparin Sod,Pork in 0.45% 66.265 88.138 NaCl 25,000 unit In 0.45 % NaCl 1 250ml.bag @ 11.3 UNITS/KG/HR 9.995 mls/hr IV .Q24H [facility] Rx#: [id number] Propofol 1,000 mg In 115.674 57.349 Empty Bag 1 bag @ Titrate IV .Q0M [facility] Rx#: [id number] Tube Feeding 50 70 60 Other 30 30 Output: Urine 565 745 325 Other: Voiding Method Indwelling Catheter Indwelling Catheter Indwelling Catheter - Exam General: [non toxic], [no distress], [appears at stated age] Derm: [warm], [dry] Head: [atraumatic], [normocephalic], [symmetric] Eyes: [EOMI], [no lid lag], [anicteric sclera] Mouth: [no lip lesion], [mucus membranes moist] Cardiovascular: [S1S2 irregular], [HR in the 60s and 70s], [positive DP pulse bilateral], Lungs: [Decreased breath sounds bilateral], [no rhonchi, no rales] , [no accessory muscle use] Abdominal: [soft], [ nontender to palpation], [no guarding], [no appreciable organomegaly] Ext: [no gross muscle atrophy], [no edema], [no contractures] Neuro: [no focal neuro deficits] Psych: [Alert and oriented 1] - Labs CBC & Chem 7: 09/12/19 04:07 09/12/19 04:07 Labs: Abnormal Lab Results - Last 24 Hours (Table) 09/11/19 09/11/19 09/12/19 Range/Units 12:34 19:34 04:07 RBC 3.17 L (3.80-5.40) m/uL Hgb 7.7 L (11.4-16.0) gm/dL Hct 26.2 L (34.0-46.0) % MCH 24.4 L (25.0-35.0) pg MCHC 29.6 L (31.0-37.0) g/dL RDW 16.7 H (11.5-15.5) % APTT 70.2 H 42.5 H (22.0-30.0) sec ABG pCO2 (35-45) mmHg ABG pO2 (83-108) mmHg ABG O2 Saturation (94-97) % Sodium (137-145) mmol/L Chloride (98-107) mmol/L Carbon Dioxide (22-30) mmol/L Glucose (74-99) mg/dL Calcium (8.4-10.2) mg/dL 09/12/19 09/12/19 Range/Units 04:07 05:48 RBC (3.80-5.40) m/uL Hgb (11.4-16.0) gm/dL Hct (34.0-46.0) % MCH (25.0-35.0) pg MCHC (31.0-37.0) g/dL RDW (11.5-15.5) % APTT (22.0-30.0) sec ABG pCO2 31 L (35-45) mmHg ABG pO2 174 H (83-108) mmHg ABG O2 Saturation 99.7 H (94-97) % Sodium 136 L (137-145) mmol/L Chloride 113 H (98-107) mmol/L Carbon Dioxide 17 L (22-30) mmol/L Glucose 111 H (74-99) mg/dL Calcium 7.8 L (8.4-10.2) mg/dL Microbiology - Last 24 Hours (Table) 09/10/19 23:02 Gram Stain - Preliminary Sputum Sputum Culture - Preliminary Assessment and Plan Assessment: Cardiac arrest Metabolic encephalopathy rule out anoxic brain injury Atrial fibrillation currently rate controlled Anemia, normocytic CAD post stent Hypertension History of diastolic CHF Patient suffered a cardiac arrest while at home she underwent cardioversion and and ROSC was achieved. She was in A. fib with RVR while in ED. She was subsequently intubated and extubation was achieved today, she is currently on 3 L nasal cannula. Patient is alert and oriented 1 and we will need to discuss with family regarding her mentation prior to cardiac arrest. She is currently on amiodarone drip and metoprolol by mouth which is achieving a heart rate between 60s and 70s. Cardiology continues to follow the patient. She has been started on aspirin and Lipitor for concerns of ACS and history of CAD. Zosyn has been continued for possible pneumonia. Her hemoglobin is 7.7 this morning which has been trending down from 9.1 on admission likely dilutional as she has been on IVF since. Her blood pressure is currently within normal limits at 114/59. She is euvolemic given her history of diastolic CHF. We'll need to discuss with family regarding how invasive they would like to be with the patient from a cardiology standpoint. Her prognosis is guarded. Likely DC in 2-3 days.
[2019-09-12] MEDS ORDERED: ACETAMINOPHEN TAB 325 MG TAB PO PRN (16:16)
[2019-09-12] MEDS: AMIODARONE 200 MG TAB PO SCH (21:00)
[2019-09-12] MEDS: ATORVASTATIN 80 MG TAB PO SCH ×2 (21:01→21:16)
[2019-09-13] MEDS: PIPERACILLIN-TAZOBACTAM 3.375 GM in SODIUM CHLORIDE 0.9% 100 ML IVPB SCH ×4 (01:18→23:10)
[2019-09-13] MEDS: SODIUM CHLORIDE 0.9% 1,000 ML IV SCH ×2 (01:19→16:47)
[2019-09-13] MEDS: IPRATROPIUM-ALBUTEROL 3 ML NEB INHALATION SCH ×6 (03:20→23:18)
[2019-09-13 05:44] LABS: Anisocytosis Slight; Basophils % (A) 0 %; Eosinophils # (A) 0.1 k/uL (0-0.7); Eosinophils % (A) 2 %; HCT 27.2 % (34.0-46.0); HGB 7.9 gm/dL (11.4-16.0); Hypochromasia Marked; Lymphocytes # (A) 0.7 k/uL (1.0-4.8); Lymphocytes % (A) 10 %; MCH 23.9 pg (25.0-35.0); MCHC 28.9 g/dL (31.0-37.0); MCV 82.7 fL (80.0-100.0); Mean Platelet Volume 9.1; Monocytes # (A) 0.4 k/uL (0-1.0); Monocytes % (A) 6 %; Neutrophils # (A) 5.1 k/uL (1.3-7.7); Neutrophils % (A) 79 %; Platelet Count 199 k/uL (150-450); Poikilocytosis Slight; RDW 17.1 % (11.5-15.5); WBC 6.5 k/uL (3.8-10.6)
[2019-09-13 05:49] LABS: Calcium 8.2 mg/dL (8.4-10.2)
--- NOTE | 2019-09-13 07:55 | XR ---
EXAMINATION TYPE: XR chest 1V portable DATE OF EXAM: 09/13/2019 COMPARISON: 09/12/2019 HISTORY: Shortness of breath TECHNIQUE: Single frontal view of the chest is obtained. FINDINGS: ET and NG tube have been removed. Bilateral consolidation small effusion stable. Heart is enlarged and there is interstitial pattern. No pneumothorax. Atherosclerotic change aorta and biapica l pleural thickening. Hyperinflation suggests COPD. IMPRESSION: 1. Stable lower lobe infiltrate and small effusion. Correlate for COPD. Superimposed mild venous shabnam estion in the differential diagnosis. No significant interval change.
--- NOTE | 2019-09-13 08:45 | PN ---
PROGRESS NOTE PULMONARY/CRITICAL CARE PROGRESS NOTE: DATE OF SERVICE: September 13, 2019 This is an 83-year-old female who was admitted to the hospital on August. She came in with an [id number] cardiac arrest. She had prolonged resuscitation of about 15 to 20 minutes. She was intubated in the emergency room, not at the scene. She has a history of atrial fibrillation, CAD, previous stent placement, hypertension, diastolic heart failure, valvular heart disease in the form of tricuspid regurgitation with dilatation of the right ventricle, COPD, remote tobacco use, possible aspiration pneumonia and suspected anoxic brain injury, although she did wake up and appears to be relatively normal from the mental status picture. Yesterday she was on the ventilator. She was on the volume assist-control mode. She was awake and alert on 20 mcg/kg per minute of propofol. We stopped the propofol altogether. We did a daily interruption of sedation and spontaneous breathing trial. We placed her on pressure support of 5 and CPAP of 5. Weaning parameters were great. Her blood gases were awesome. She did past her cuff leak and she was extubated successfully. Currently, she is on 3 L nasal cannula and saline IV at 75 mL an hour. She is doing well. PHYSICAL EXAMINATION: VITAL SIGNS: Current vital signs are reviewed. Temperature is 97.6, heart rate 96, respiratory rate 25, blood pressure 104/69, mean 80, saturations are 99% on 3 L. GENERAL: Appears in no acute distress. HEENT: Examination is grossly unremarkable. Mucous membranes are moist. No oral lesions. NECK: Supple. Full range of motion. No adenopathy or thyromegaly. Neck veins are flat. CARDIOVASCULAR: Examination reveals regular rhythm and rate. Heart rate about 90 beats per minute. S1, S2 normal. No murmur. No S3, S4. LUNGS: Reveal mostly clear breath sounds. No wheezes, rhonchi, or crackles. ABDOMEN: Soft. Bowel sounds are heard. EXTREMITIES: Are intact. No cyanosis, clubbing, or edema. SKIN: Without rash. NEUROLOGIC: Examination is brief but nonfocal. LABS: Labs are reviewed. Microbiology is negative. White count 6.5, hemoglobin 7.9, hematocrit 27.2, platelet count 199,000. Sodium 139, potassium 4, chloride 113, CO2 of 20. Anion gap is 6. BUN and creatinine were 12 and 0.92. Blood gases prior to extubation showed a pO2 of 174, pCO2 of 31, and a pH is 7.44. Chest x-ray that was done this morning shows some atelectasis, infiltrate or small effusion at the left base. MEDICATIONS: Medications are reviewed. Currently, she is on Tylenol, Cordarone, aspirin, Lipitor, DuoNeb, magnesium replacement, metoprolol, Narcan, Protonix, Zosyn, potassium replacement, and saline IV at 75 mL an hour. ASSESSMENT: 1. Ibs-pt-izptdgfy cardiac arrest with cardiopulmonary resuscitation and return of spontaneous circulation, lasting about 15 to 20 minutes. 2. Concern for anoxic brain injury, with a seemingly stable mental status at this time, status post extubation. 3. Status post extubation from mechanical ventilation on September 12, 2019. 4. History of atrial fibrillation with rapid ventricular response, requiring cardioversion x1. 5. Recent admission to the hospital for atrial fibrillation with rapid ventricular response, requiring cardioversion on September 08 with discharge on September 09. 6. Coronary artery disease with previous stent placement. 7. Benign essential hypertension. 8. History of diastolic heart failure. 9. Valvular heart disease in the form of tricuspid regurgitation. 10.History of dilatation of the right ventricle. 11.Chronic obstructive pulmonary disease, stable. 12.Remote history of tobacco use. 13.Possible aspiration pneumonia left lower lobe. PLAN: Currently, cultures are negative. She is afebrile. The patient is a NO CODE. She remains on Zosyn. The antibiotic could probably be deescalated tomorrow. We should descalate her antibiotics if the culture data remains negative. Overall prognosis remains guarded. We would advance her diet. No additional recommendations are made. We will continue to follow. MMODL / IJN: [id number] / SOFIE
[2019-09-13] MEDS: AMIODARONE 200 MG TAB PO SCH ×2 (09:01→20:54)
[2019-09-13] MEDS: PANTOPRAZOLE 40 MG/10 ML VIAL IV SCH (09:01)
[2019-09-13] MEDS: ASPIRIN 81 MG PO SCH (09:01)
[2019-09-13] MEDS: METOPROLOL TARTRATE 25 MG TAB PO SCH ×2 (09:01→20:54)
--- NOTE | 2019-09-13 09:36 | PN ---
PROGRESS NOTE Mrs. Dalal is an 83-year-old female with history of paroxysmal atrial fibrillation who presented with cardiac arrest and ventricular fibrillation requiring cardioversion. She has been extubated yesterday, denying any chest pain. She is feeling well. Hemodynamically stable. I had a long discussion with her and her son yesterday regarding the options including coronary angiography or clinical observation on maximal medical therapy. After talking to her and her son, the patient clearly expressed wishes not to undergo any aggressive workup and would like to continue medical therapy alone. She has not had any further episode of tachyarrhythmia. She continues to be on amiodarone 400 mg twice a day, aspirin 81 mg daily, Lipitor 80 mg daily, metoprolol tartrate 12.5 mg twice a day. PHYSICAL EXAMINATION: Blood pressure 104/60 with a heart in 90s. LUNGS: Clear. HEART: Regular rate and rhythm, S1, S2. No S3. No rub. ABDOMEN: Soft, nontender. EXTREMITIES: No edema. LAB DATA: Revealed BUN and creatinine 12 and 0.92, potassium 4.0, hemoglobin of 7.9. IMPRESSION: 1. Status post cardiac arrest. 2. Paroxysmal atrial fibrillation. 3. Prior episode of atrial fibrillation. 4. Respiratory failure, resolved. RECOMMENDATION: I discussed again the issue with the patient and she does not want to proceed with any aggressive cardiac workup. I will continue on the amiodarone and the beta gus, increase the dose of beta gus. I will restart her on anticoagulation. Will follow her hemoglobin closely, increase her level of activity and depending on her progress, further recommendation will be made. MMODL / IJN: [id number] /
[2019-09-13] MEDS ORDERED: FUROSEMIDE 10 MG/ML 4 ML VIAL IV STA (11:16)
--- NOTE | 2019-09-13 13:15 | P.PN ---
Subjective Progress Note Date: 09/13/19 Principal diagnosis: Cardiac arrest Patient was seen and examined. Currently on nasal cannula on 3 L. Patient is alert and oriented 1. Patient complains of decreased appetite and does not want to finish her meal this afternoon. Heart rate currently in the 50s and 60s. She denies any chest pain, shortness breath or palpitations. No nausea or vomiting. No fever or chills. Objective - Vital Signs Vital signs: Vital Signs Temp 98.3 F 09/13/19 12:00 Pulse 63 09/13/19 12:00 Resp 24 09/13/19 12:00 BP 101/67 09/13/19 12:00 Pulse Ox 96 09/13/19 12:00 Intake & Output 09/12/19 09/13/19 09/13/19 18:59 06:59 18:59 Intake Total 1340 1000.0 550 Output Total 560 1210 365 Balance 780 -210.0 185 Weight 86.7 kg Intake: IV 900 1000.0 550 Piperacillin-Tazobactam 3 175.0 100 .375 gm In Sodium Chloride 0.9% 100 ml @ 25 mls/hr IVPB Q8HR [facility] Rx# :[id number] Sodium Chloride 0.9% 1, 900 825 450 000 ml @ 75 mls/hr IV . [id number] [facility] Rx#:[id number] Intake, IV Titration 250 Amount Amiodarone 300 mg In 250 Dextrose 5% in Water 250 ml @ 0.5 MG/MIN 25 mls/hr IV .Q10H [facility] Rx#: [id number] Oral 100 Tube Feeding 60 Other 30 Output: Urine 560 1210 365 Other: Voiding Method Indwelling Catheter Indwelling Catheter Indwelling Catheter # Bowel Movements 1 - Exam General: [non toxic], [no distress], [appears at stated age] Derm: [warm], [dry] Head: [atraumatic], [normocephalic], [symmetric] Eyes: [EOMI], [no lid lag], [anicteric sclera] Mouth: [no lip lesion], [mucus membranes moist] Cardiovascular: [S1S2 irregular], [HR in the 60s], [positive DP pulse bilateral], Lungs: [Decreased breath sounds bilateral], [no rhonchi, no rales] , [no accessory muscle use] Abdominal: [soft], [ nontender to palpation], [no guarding], [no appreciable organomegaly] Ext: [no gross muscle atrophy], [no edema], [no contractures] Neuro: [no focal neuro deficits] Psych: [Alert and oriented 1] - Labs CBC & Chem 7: 09/13/19 05:23 09/13/19 05:23 Labs: Abnormal Lab Results - Last 24 Hours (Table) 09/13/19 09/13/19 Range/Units 05:23 05:23 RBC 3.30 L (3.80-5.40) m/uL Hgb 7.9 L (11.4-16.0) gm/dL Hct 27.2 L (34.0-46.0) % MCH 23.9 L (25.0-35.0) pg MCHC 28.9 L (31.0-37.0) g/dL RDW 17.1 H (11.5-15.5) % Lymphocytes # 0.7 L (1.0-4.8) k/uL Chloride 113 H (98-107) mmol/L Carbon Dioxide 20 L (22-30) mmol/L Calcium 8.2 L (8.4-10.2) mg/dL Microbiology - Last 24 Hours (Table) 09/10/19 23:02 Gram Stain - Final Sputum Sputum Culture - Final Assessment and Plan Assessment: Cardiac arrest Metabolic encephalopathy rule out anoxic brain injury Atrial fibrillation currently rate controlled Anemia, normocytic CAD post stent Hypertension History of diastolic CHF Patient suffered a cardiac arrest while at home she underwent cardioversion and and ROSC was achieved. She was in A. fib with RVR while in ED. She was subsequently intubated and extubation was achieved on 09/12/2019, she is currently on 3 L nasal cannula progressing well. Patient is alert and oriented 1 and we will need to discuss with family regarding her mentation prior to cardiac arrest. PT and OT has been consulted and patient will likely need placement as she lives alone currently. She is currently on amiodarone by mouth and metoprolol by mouth which is achieving a heart rate between 50s and 60s. Cardiology plans to start anticoagulation today. Cardiology continues to follow the patient. Her hemoglobin is 7.9 this morning which has been trending down from 9.1 on admission likely dilutional as she has been on IVF since. Her hemoglobin has been stable. She has been started on aspirin and Lipitor for concerns of ACS and history of CAD. Zosyn has been continued for possible pneumonia with plans to transition to oral antibiotics tomorrow. Her sputum culture has been negative. Her blood pressure is currently within normal limits at 101/67. She is euvolemic given her history of diastolic CHF. [Patient has been progressing well. Plans to de-escalate antibiotics. We'll need to discuss with family regarding placement as it may be unsafe for her to go home and live by herself. She is pending clinical improvement. Likely DC in 1-2 days.]
[2019-09-13] MEDS ORDERED: FUROSEMIDE 10 MG/ML 4 ML VIAL IV ONE (19:00)
[2019-09-13] MEDS: ATORVASTATIN 80 MG TAB PO SCH (20:54)
[2019-09-14] MEDS ORDERED: LORazepam 2 MG/ML INJ IV STA ×2 (00:53→00:56)
[2019-09-14] MEDS: IPRATROPIUM-ALBUTEROL 3 ML NEB INHALATION SCH ×5 (03:30→19:19)
[2019-09-14 04:48] LABS: Anisocytosis Slight; HGB 7.3 gm/dL (11.4-16.0); Hypochromasia Marked; MCH 23.7 pg (25.0-35.0); MCHC 29.4 g/dL (31.0-37.0); MCV 80.6 fL (80.0-100.0); Mean Platelet Volume 8.1; Microcytosis Slight; Platelet Count 202 k/uL (150-450); Poikilocytosis Slight; RDW 17.3 % (11.5-15.5); WBC 7.7 k/uL (3.8-10.6)
[2019-09-14 05:00] LABS: Calcium 8.2 mg/dL (8.4-10.2); Potassium 3.7 mmol/L (3.5-5.1)
[2019-09-14] MEDS ORDERED: Potassium Replacement Protocol 1 EACH MISC MISCELLANE PRN (05:16)
[2019-09-14] MEDS: SODIUM CHLORIDE 0.9% 1,000 ML IV SCH ×2 (05:29→17:17)
[2019-09-14] MEDS ORDERED: POTASSIUM CHLORIDE ER 20 MEQ TAB.ER PO SCH (06:00)
[2019-09-14] MEDS ORDERED: HALOPERIDOL LACTATE 5 MG/ML 1 ML VIAL IM ONE (06:25)
--- NOTE | 2019-09-14 07:30 | PN ---
PROGRESS NOTE PULMONARY/CRITICAL CARE PROGRESS NOTE: DATE OF SERVICE: September 14, 2019 An 83-year-old female who was admitted to the hospital on August. She came in with an [id number] cardiac arrest. She had a pretty prolonged resuscitation period of about 15 minutes, but there was eventual return of spontaneous circulation. She apparently could not be intubated in the field and was intubated in the emergency room. She does have a history of chronic atrial fibrillation, CAD, previous stent placement, hypertension, diastolic heart failure, valvular heart disease, and remote history of tobacco use. There was some concern about anoxic brain injury as well as acute aspiration pneumonia. Her mental status seems reasonable, although in the last 24 hours or so she has become much more agitated and confused. The patient was on the ventilator 2 days ago, we extubated her. She is currently just on O2 at 3 L. Her saline IV is running at 75 mL an hour. This morning, she is very confused and disoriented. She is writhing in bed, pushing people away, refusing things. I gave her Haldol 4 mg and it seemed to settle her down. They gave her Ativan last night, that is the wrong medication for her. We discontinued the chest x-ray. I also discontinued the Ativan. PHYSICAL EXAMINATION: VITAL SIGNS: Current temperature is 97.9, heart rate 71, respiratory rate 23, blood pressure 91/45, mean 60, saturations are 97%. GENERAL: Appears in no acute distress. HEENT: Examination is grossly unremarkable. Mucous membranes are moist. No oral lesions. Nasal O2 is noted. NECK: Supple. Full range of motion. No adenopathy. Neck veins are flat. CARDIOVASCULAR: Examination reveals regular rhythm and rate. Heart rate 71. S1, S2 normal. No distinct murmur. LUNGS: Are mostly clear. Breath sounds equal. ABDOMEN: Soft. Bowel sounds are heard. EXTREMITIES: Are intact. No cyanosis, clubbing, or edema. SKIN: Without rash. NEUROLOGIC: Examination is difficult to assess. She is very confused and disoriented. Probably demonstrating signs and symptoms of delirium. LABS: Current labs are reviewed. White count 7.7, hemoglobin 7.3, hematocrit 25, platelet count 202,000. Sodium, potassium, chloride, CO2 all normal. BUN and creatinine were 13 and 1.10. Anion gap is 8. The rest of her labs look okay. Microbiology is all negative. She refused a chest x-ray today. MEDICATIONS: Medications are reviewed. She is currently on Tylenol, Cordarone, aspirin, Lipitor, DuoNeb, magnesium replacement, metoprolol, Narcan, Protonix, Zosyn, potassium replacement, and saline IV. The patient is also on IV heparin. ASSESSMENT: 1. [id number] cardiac arrest, cardiopulmonary resuscitation and return of spontaneous circulation, with resuscitation phase lasting about 15 to 20 minutes. 2. Status post extubation from mechanical ventilation successfully on September 12, 2019. 3. Possible anoxic brain injury. 4. Post extubation delirium. 5. History of atrial fibrillation with rapid ventricular response, requiring cardioversion x1. 6. Recent admission to the hospital for atrial fibrillation with rapid ventricular response, requiring cardioversion on September 08 with discharged on September 09. 7. Coronary artery disease with previous stent placement. 8. Benign essential hypertension. 9. History of diastolic heart failure. 10.Valvular heart disease in the form of tricuspid regurgitation. 11.History of dilatation of the right ventricle. 12.Chronic obstructive pulmonary disease. 13.Remote history of tobacco use. 14.Possible aspiration pneumonia, left lower lobe. PLAN: The patient remains on Zosyn. She is a NO CODE. She does not want any interventions at this time according to Cardiology. The patient's Ativan was discontinued, that is the wrong drug for her. That will worsen her delirium. We did give her Haldol. It seemed to settle her down. She may need it on a more regular basis. MMODL / IJN: [id number] /
--- NOTE | 2019-09-14 08:21 | PN ---
PROGRESS NOTE Mrs. Dalal is an 83-year-old female with history of paroxysmal atrial fibrillation. Presented with ventricular tachycardia and cardiac arrest. She is extubated. She has been confused quite a bit during the night, requiring Haldol and Ativan. She is quite sleepy at this time. Hemodynamically, she is stable. She has no evidence of malignant arrhythmia. She continues on amiodarone 40 mg twice a day, aspirin once a day, Lipitor 80 mg daily, metoprolol tartrate 25 mg twice a day. PHYSICAL EXAMINATION: Blood pressure 117/60 with a heart rate in the 60s. LUNGS: Clear. HEART: S1, S2. No S3 with a systolic murmur, no diastolic murmur, no rub. ABDOMEN: Soft, nontender. Positive bowel sounds. EXTREMITIES: No significant edema. LAB DATA: Revealed potassium 3.7, BUN and creatinine 13 and 1.1. IMPRESSION: 1. Status post ventricular tachycardia and cardiac arrest. 2. Paroxysmal atrial fibrillation. 3. Respiratory failure, resolved. 4. Confusion. RECOMMENDATION: From the cardiac standpoint, will continue present therapy. I have discussed with the patient and her son 2 days ago regarding any aggressive workup and the patient clearly does not want to have any further aggressive workup. Will maximize her medical therapy and depending on her progress, further recommendation will be made. MMODL / IJN: [id number] /
[2019-09-14] MEDS: PIPERACILLIN-TAZOBACTAM 3.375 GM in SODIUM CHLORIDE 0.9% 100 ML IVPB SCH (09:21)
[2019-09-14] MEDS: AMIODARONE 200 MG TAB PO SCH ×2 (09:21→22:02)
[2019-09-14] MEDS: PANTOPRAZOLE 40 MG/10 ML VIAL IV SCH (09:21)
[2019-09-14] MEDS: ASPIRIN 81 MG PO SCH (09:22)
[2019-09-14] MEDS: METOPROLOL TARTRATE 25 MG TAB PO SCH ×3 (09:22→22:01)
[2019-09-14 10:18] VITALS: BMI 30.8
--- NOTE | 2019-09-14 13:13 | P.PN ---
Subjective Progress Note Date: 09/14/19 Principal diagnosis: Cardiac arrest Patient was seen and examined. Currently on nasal cannula on 3 L. Patient is alert and oriented 1. Apparently, more confused overnight and combative. Patient received Haldol injection which sedated the patient. Heart rate currently in the 50s and 60s. She denies any chest pain, shortness breath or palpitations. No nausea or vomiting. No fever or chills. Discussed with Daughter, patient unable to go back home since she lives alone and family unable to accomodate, agreeable for [place]. Objective - Vital Signs Vital signs: Vital Signs Temp 97.9 F 09/14/19 04:00 Pulse 55 L 09/14/19 07:49 Resp 21 09/14/19 07:00 BP 117/56 09/14/19 07:00 Pulse Ox 91 L 09/14/19 07:00 Intake & Output 09/13/19 09/14/19 09/14/19 18:59 06:59 18:59 Intake Total 1175 925 75 Output Total 2435 2075 100 Balance -1260 -1150 -25 Weight 86.7 kg 86.7 kg Intake: IV 1175 925 75 Piperacillin-Tazobactam 3 200 100 .375 gm In Sodium Chloride 0.9% 100 ml @ 25 mls/hr IVPB Q8HR [facility] Rx# :[id number] Sodium Chloride 0.9% 1, 975 825 75 000 ml @ 75 mls/hr IV . [id number] [facility] Rx#:[id number] Output: Urine 2435 2075 100 Other: Voiding Method Indwelling Catheter Indwelling Catheter - Exam General: [non toxic], [no distress], [appears at stated age] Derm: [warm], [dry] Head: [atraumatic], [normocephalic], [symmetric] Eyes: [EOMI], [no lid lag], [anicteric sclera] Mouth: [no lip lesion], [mucus membranes moist] Cardiovascular: [S1S2 irregular], [HR in the 50s], [positive DP pulse bilateral], Lungs: [Decreased breath sounds bilateral], [no rhonchi, no rales] , [no accessory muscle use] Abdominal: [soft], [ nontender to palpation], [no guarding], [no appreciable organomegaly] Ext: [no gross muscle atrophy], [no edema], [no contractures] Neuro: [no focal neuro deficits] Psych: [Alert and oriented 1] - Labs CBC & Chem 7: 09/14/19 04:05 09/14/19 04:05 Labs: Abnormal Lab Results - Last 24 Hours (Table) 09/14/19 09/14/19 Range/Units 04:05 04:05 RBC 3.10 L (3.80-5.40) m/uL Hgb 7.3 L (11.4-16.0) gm/dL Hct 25.0 L (34.0-46.0) % MCH 23.7 L (25.0-35.0) pg MCHC 29.4 L (31.0-37.0) g/dL RDW 17.3 H (11.5-15.5) % Creatinine 1.10 H (0.52-1.04) mg/dL Calcium 8.2 L (8.4-10.2) mg/dL Microbiology - Last 24 Hours (Table) 09/10/19 23:02 Gram Stain - Final Sputum Sputum Culture - Final Assessment and Plan Assessment: Cardiac arrest Metabolic encephalopathy rule out anoxic brain injury Atrial fibrillation currently rate controlled Anemia, normocytic CAD post stent Hypertension History of diastolic CHF Patient suffered a cardiac arrest while at home she underwent cardioversion and and ROSC was achieved. She was in A. fib with RVR while in ED. She was subsequently intubated and extubation was achieved on 09/12/2019, she is currently on 3 L nasal cannula progressing well. Patient is alert and oriented 1. As discussed with the daughter, family unable to accomodate the patient and she is unsafe to go home due to her living alone, agreeable for [facility]. PT and OT are on board. She is currently on amiodarone by mouth and metoprolol by mouth which is achieving a heart rate between 50s and 60s. Cardiology plans to start anticoagulation. Cardiology continues to follow the patient. Her hemoglobin is 7.3 this morning which has been trending down from 9.1 on admission likely dilutional as she has been on IVF since. Her hemoglobin has been stable. She has been started on aspirin and Lipitor for concerns of ACS and history of CAD. Zosyn has been continued for possible aspiration pneumonia. I will transition the antibiotics to Augmentin to complete a total of 7 days. Her sputum culture has been negative. Her blood pressure is currently within normal limits at 117/56. She is euvolemic given her history of diastolic CHF. [Patient has been progressing well. Plans to de-escalate antibiotics. She is pending clinical improvement. Likely DC to [facility] tomorrow.]
[2019-09-14] MEDS: AMOXIC-POT CLAV 875-125MG 1 EACH TAB PO SCH ×2 (13:27→22:06)
[2019-09-14] MEDS: ATORVASTATIN 80 MG TAB PO SCH (22:01)
[2019-09-15] MEDS: IPRATROPIUM-ALBUTEROL 3 ML NEB INHALATION SCH ×4 (00:10→11:28)
[2019-09-15] MEDS: SODIUM CHLORIDE 0.9% 1,000 ML IV SCH (02:30)
[2019-09-15 05:09] LABS: Calcium 8.4 mg/dL (8.4-10.2); Potassium 3.8 mmol/L (3.5-5.1)
[2019-09-15] MEDS ORDERED: PANTOPRAZOLE 40 MG TABLET PO SCH (07:30)
--- NOTE | 2019-09-15 08:17 | PN ---
PROGRESS NOTE Mrs. Dalal is an 83-year-old female who presented with a cardiac arrest requiring cardioversion. She had atrial fibrillation. Since yesterday, she was quite confused, requiring Haldol. She is more awake and alert today. Hemodynamically, she remains stable. She remains sinus mechanism. There is no evidence of recurrent arrhythmia. She has no chest discomfort. No dizziness. Hemodynamically, she is stable. She continued to be on amiodarone 400 mg twice a day, aspirin 81 mg daily, Lipitor 80 mg daily, metoprolol tartrate 25 mg twice a day. PHYSICAL EXAMINATION: Blood pressure 120/40 with the heart rate in the 60s. LUNGS: Clear. HEART: Regular rate and rhythm. S1, S2 no S3 with systolic ejection murmur. No diastolic murmur. No rub. ABDOMEN: Soft, nontender. EXTREMITIES: No edema. LAB DATA: Lab data revealed BUN and creatinine 13 and 1.09. Potassium 3.8. IMPRESSION: 1. Status post cardiac arrest. 2. Paroxysmal atrial fibrillation, remains in sinus mechanism. 3. Respiratory failure, resolved. 4. Confusion, improved. RECOMMENDATION: From the cardiac standpoint, I will re-initiate treatment with the Eliquis. I will cut down the dose of her amiodarone. Continue to increase her level of activity. The plan according to the nursing staff is to transfer her to the intermediate. The patient has declined in the past any aggressive cardiac workup. MMBRUCEL / DARIO: [id number] /
[2019-09-15] MEDS ORDERED: APIXABAN 2.5 MG TABLET PO SCH (09:00)
[2019-09-15] MEDS ORDERED: AMIODARONE 200 MG TAB PO SCH (09:00)
--- NOTE | 2019-09-15 09:03 | XR ---
EXAMINATION TYPE: XR chest 1V portable DATE OF EXAM: 09/15/2019 COMPARISON: 09/13/2019 HISTORY: Tube placement TECHNIQUE: Single frontal view of the chest is obtained. FINDINGS: Bilateral consolidation small effusion. Cardiomegaly with Central interstitial pattern. At herosclerotic change aorta. Biapical pleural thickening. Arthropathy of the shoulders. IMPRESSION: Cardiomegaly with bilateral infiltrate and small effusion. Correlate for pneumonia. Mild venous congestion not excluded.
[2019-09-15] MEDS: AMOXIC-POT CLAV 875-125MG 1 EACH TAB PO SCH (09:16)
[2019-09-15] MEDS: ASPIRIN 81 MG PO SCH (09:16)
[2019-09-15] MEDS: METOPROLOL TARTRATE 25 MG TAB PO SCH (09:16)
--- NOTE | 2019-09-15 09:32 | P.PN ---
Subjective Progress Note Date: 09/15/19 Principal diagnosis: Cardiac arrest, requiring CPR and defibrillation 1 at the scene with return of spontaneous circulation This is an 83-year-old female patient with a history of hypertension, coronary artery disease with previous stent placement, chronic obstructive pulmonary disease, severe tricuspid regurgitation, previous tobacco dependence. She was just discharged from the hospital yesterday following admission for atrial fibrillation with RVR and subsequent cardioversion on 09/08/2019. Earlier today the patient was home visiting with family when she suddenly became unresponsive. EMS was called immediately and started CPR on arrival. 1 shock for V. fib was performed and subsequent return of spontaneous circulation. Here in the emergency room she is intubated and placed on mechanical ventilator. She was found to be in A. fib RVR and cardioverted with him improvement in heart rate in the 60s. She was given amiodarone bolus and to be started on amiodarone at 1 mg/m. She is seen upon arrival to the intensive care unit. She remains intubated on the mechanical ventilator. She is on propofol at 25 mcg/kg/m. She is on a heparin drip at 11.3 units per kilogram per hour. 0.9 normal saline at 120 ML's per hour. His current ventilator settings are assist control of 16, tidal volume 450, FiO2 50% and a PEEP of 5. Earlier blood gases on 100% revealed a pO2 of 329, pCO2 42 and a pH is 7.32. White count 9.1. Hemoglobin 9.1. Sodium 139. Potassium 3.8. Bicarb 20. Creatinine 1.17. Lactic acid 2.9. Chest x-ray revealed cardiomegaly. There is interstitial and alveolar airspace disease in the right. Masslike confluence density adjacent to the left heart border. Small left effusion. Computed tomography scan of the brain revealed no acute intracranial abnormalities. Patient was considered for cardiac catheterization however the family did not want any further interventions. They have made her a NO CODE STATUS. Patient was reevaluated today on 09/11/19, remains in the ICU, intubated and mechanically ventilated. Patient is on FiO2 of 50%, assist control rate of 16, tidal volume is 450, and PEEP is 5. ABG earlier on 40% showed a pO2 of 56 pCO2 of 33 and pH of 7.41. Patient remains on heparin. Remains on amiodarone, and she converted to normal sinus rhythm last night. Her WBC count is 8.7 hemoglobin is 8. Electrolytes are normal except for slightly low potassium being corrected as per protocol. Chest x-ray showed slight improvement in her bibasilar airspace disease. Patient most likely aspirated and she is still on Zosyn for presumptive aspiration pneumonia. Chest x-ray is definitely better today compared to yesterday. Surprisingly, the patient is now off propofol, and she is arousable, she is able to follow simple instructions, she is squeezing hands, closing eyes, wiggling toes, and seems to be appropriate, there was a major concern of possible anoxic brain injury yesterday. However dramatic improvement is noted urologically since yesterday. Family is at bedside, and we discussed the issue of cardiac catheterization, they seem to be agreeable to cardiac catheterization if offered by cardiology. The family declined cardiac cath yesterday mostly because there was a major concern about her anoxic brain i njury possibility. There don't today seems to be a bit different. And agreeable to that if suggested by cardiology again today. I notified Dr. Pena about the approval to cardiac catheterization. Nutrition-tompkins, the patient will be started on enteral feeding. She remains on GI and DVT prophyl axis. Her CT of the brain done yesterday showed no intracranial abnormality. On 09/15/2019 patient seen in follow-up in the intensive care units, she is awake and alert, she is confused, she is only oriented to person, disoriented to place and time. She is also liters of oxygen with a pulse ox of 95%, she is calm and comfortable, denies any shortness of breath, no evidence of respiratory difficulty, she is afebrile, hemodynamically stable, she was successfully weaned and extubated from mechanical ventilator on 09/12/2019. She is in sinus with occasional PACs, with a controlled rate, she is on oral amiodarone at 200 mg twice a day, and she was started on Eliquis today. She has no specific complaints other than she would like to "get out of here today" she is sitting up in the chair, fall precautions are in place, because patient has poor safety judgment and last night she was attempting to get up in the bed unassisted and sat on the floor because she could not get in bed. No injuries. Today's chest x-ray has been reviewed showing cardiac megaly with bilateral infiltrates and sm all effusions, lung sounds reveal diminished breath sounds bilaterally with minimal crackles at bilateral bases. She is on Augmentin for possibility of aspiration pneumonia, she has completed day course of IV Zosyn, sputum culture has shown no growth, today's labs have been reviewed showing white blood cell count is 7.7, hemoglobin of 7.3, 140, potassium 3.8, chloride is 109, BUN of 13 and creatinine is 1.09. Patient is tolerating oral intake although her appetite is still poor. Nausea no vomiting or diarrhea, no abdominal pain, abdomen is nondistended and nontender. Discharge planning is in progress for patient to be discharged to [facility] today Objective - Vital Signs Vital signs: Vital Signs Temp 98.4 F 09/15/19 00:00 Pulse 65 09/15/19 08:25 Resp 18 09/15/19 00:00 BP 123/43 09/14/19 16:00 Pulse Ox 95 09/14/19 20:00 Intake & Output 09/14/19 09/15/19 09/15/19 18:59 06:59 18:59 Intake Total 850 75 Output Total 301 250 Balance 549 -175 Weight 86.7 kg 87 kg Intake: IV 850 75 Piperacillin-Tazobactam 3 100 .375 gm In Sodium Chloride 0.9% 100 ml @ 25 mls/hr IVPB Q8HR [facility] Rx# :[id number] Sodium Chloride 0.9% 1, 750 75 000 ml @ 75 mls/hr IV . [id number] CANDE Rx#:[id number] Output: Urine 301 250 Other: Voiding Method Indwelling Catheter # Voids 3 # Bowel Movements 1 1 - Exam GENERAL EXAM: Alert, very pleasant, confused, 83-year-old white female sitting up in the recliner, oriented to person only, disoriented to time and place, on 3 L of oxygen pulse ox of 95% comfortable in no apparent distress. HEAD: Normocephalic/atraumatic. EYES: Normal reaction of pupils, equal size. Conjunctiva pink, sclera white. NOSE: Clear with pink turbinates. THROAT: No erythema or exudates. NECK: No masses, no JVD, no thyroid enlargement, no adenopathy. CHEST: No chest wall deformity. Symmetrical expansion. LUNGS: Equal air entry with crackles at bilateral bases posteriorly CVS: Regular rate and rhythm, normal S1 and S2, no gallops, no murmurs, no rubs ABDOMEN: Soft, nontender. No hepatosplenomegaly, normal bowel sounds, no guarding or rigidity. EXTREMITIES: No clubbing, mild pretibial edema, no cyanosis, 2+ pulses and upper and lower extremities. MUSCULOSKELETAL: Muscle strength and tone normal. SPINE: No scoliosis or deformity SKIN: No rashes CENTRAL NERVOUS SYSTEM: Alert and oriented -1. No focal deficits, tone is normal in all 4 extremities. PSYCHIATRIC: Alert and oriented -1. Appropriate affect. Intact judgment and insight. - Labs CBC & Chem 7: 09/14/19 04:05 09/15/19 04:38 Labs: Abnormal Lab Results - Last 24 Hours (Table) 09/15/19 Range/Units 04:38 Chloride 109 H (98-107) mmol/L Creatinine 1.09 H (0.52-1.04) mg/dL Glucose 134 H (74-99) mg/dL Assessment and Plan Plan: Assessment: #1. Out of hospital witnessed cardiac arrest, total down time estimated to be between 15 and 20 minutes, requiring defibrillation for A. fib with RVR, and return of spontaneous circulation #2. Acute hypoxic respiratory failure related to the above, requiring intubation and mechanical ventilation, patient was successfully weaned and extubated on 09/12/2019 #3. Possible on anoxic brain injury, and metabolic encephalopathy #4. History of paroxysmal atrial fibrillation, currently in sinus rhythm with occasional PACs, on oral amiodarone and Eliquis #5. Recent admission to the hospital for atrial fibrillation with rapid ventricular response requiring cardioversion IV every and discharged home on favored a 28 #6. Coronary artery disease with previous stent placement #7. Benign essential hypertension #9. History of diastolic heart failure #10. Valvular heart disease in the form of tricuspid regurgitation #11. Chronic obstructive pulmonary disease #12. Remote history of tobacco use #13. Possible aspiration pneumonia in the left lower lobe patient has been t reated with 5 day course of oral Zosyn, sputum culture is negative, has been transitioned to oral Augmentin Plan: Patient is doing well, remains confused, but no acute distress, no shortness of breath, in sinus mechanism, she is on oral amiodarone and anticoagulation per cardiology, hemodynamically stable, today's chest x-ray has been reviewed showing bilateral infiltrate and small pleural effusion, patient has been transitioned to oral Augmentin, no leukocytosis, no fever or chills, no diffic ulty breathing. Increase activity as tolerated, physical therapy consultation, maintain safety precautions. Start planning is in progress for discharge to subacute F today, [facility] I performed a history & physical examination of the patient and discussed their management with my nurse practitioner, Nuria Deleon. I reviewed the nurse practitioner's note and agree with the documented findings and plan of care. Lung sounds are positive for bibasilar crackles. The findings and the impression was discussed with the patient. I attest to the documentation by the nurse practitioner. Time with Patient: Less than 30
[2019-09-15] MEDS ORDERED: FUROSEMIDE 10 MG/ML 4 ML VIAL IV STA (11:11)
[2019-09-15 11:20] VITALS: BP 124/69; RESP 16; TEMP 98.1
[2019-09-15 11:44] VITALS: PULSE 52
--- NOTE | 2019-09-15 12:18 | P.DS ---
Providers Date of admission: 09/10/19 12:43 Expected date of discharge: 09/15/19 Attending physician: Hunter Ni MD Consults: 09/10/19 12:33 Consult Physician Stat Consulting Provider: Peter Castro Consult Reason/Comments: icu patient Do you want consulting provider notified?: Already Contacted 09/10/19 12:34 Consult Physician Stat Consulting Provider: Jaxon Alcaraz Consult Reason/Comments: cardiac arrest Do you want consulting provider notified?: Already Contacted Primary care physician: Stated None Hospital Course: This is a 83-year-old female with PMH of hypertension, CAD post stent placement, COPD, severe tricuspid regurgitation there was initially discharged from the hospital on 09/09/2019 after being hospitalized for atrial fibrillation with RVR for which she was cardioverted. Patient was initially found unresponsive at home. EMS was called immediately and CPR was started on arrival. One shock was given for ventricular fibrillation on the field and patient subsequently had return of spontaneous circulation. She was taken to the ED and was intubated and placed on mechanical ventilation. Patient was found to be A. fib with RVR and cardioverted in the ED. She was immediately started on amiodarone IV and transferred to ICU. Patient maintained heart rate in the 50s and 60s post amiodarone IV and cardioversion. She was subsequently placed on amiodarone and metoprolol by mouth. She was anticoagulated with Eliquis. She was extubated on 09/12/2019. CT of the head was done for possible anoxic brain injury which showed no acute intracranial abnormalities. There was also some concerns for aspiration pneumonia for which she was started on Zosyn. There were no clear signs of infection and she was transitioned to Augmentin by mouth for discharge. Case management was consulted along with PT and OT and recommendations were made for rehab given patient's weakness and the fact that she lives alone. Patient continued to show considerable improvement during her hospitalization. Her home medication of aspirin and Lipitor were resumed for history of CAD. She did have elevated troponins of 0.082 and 1.54 on admission. Cardiac cat heterization was discussed with the family and family declined any invasive procedures. Her elevated troponins was thought to be related to the chest compressions she received outside of the hospital. Patient appeared to be more confused during her hospitalization and at the time of discharge and received one Haldol injection. Her confusion could be attribute it towards anoxic brain injury or hospital ICU delirium. Patient was seen and examined. No acute events overnight. Patient denies any chest pain, shortness of breath or palpitations. No nausea or vomiting. No fever or chills. General: [non toxic], [no distress], [appears at stated age] Derm: [warm], [dry] Head: [atraumatic], [normocephalic], [symmetric] Eyes: [EOMI], [no lid lag], [anicteric sclera] Mouth: [no lip lesion], [mucus membranes moist] Cardiovascular: [S1S2 irregular], [HR in the 50s], [positive DP pulse bilateral], Lungs: [Decreased breath sounds bilateral], [no rhonchi, no rales] , [no ac cessory muscle use] Abdominal: [soft], [ nontender to palpation], [no guarding], [no appreciable organomegaly] Ext: [no gross muscle atrophy], [no edema], [no contractures] Neuro: [no focal neuro deficits] Psych: [Alert and oriented 1] Cardiac arrest Metabolic encephalopathy rule out anoxic brain injury Atrial fibrillation currently rate controlled Anemia, normocytic CAD post stent Hypertension History of diastolic CHF Patient suffered a cardiac arrest while at home she underwent cardioversion and and ROSC was achieved. She was in A. fib with RVR while in ED. She was subse quently intubated and extubation was achieved on 09/12/2019, she is currently on room air progressing well. Patient is alert and oriented 1. As discussed with the daughter, family unable to accomodate the patient and she is unsafe to go home due to her living alone, agreeable for [facility]. PT and OT are on board. She is currently on amiodarone by mouth and metoprolol by mouth which is achieving a heart rate between 50s and 60s. Cardiology plans to start Eliquis today. Cardiology continues to follow the patient. Her hemoglobin is 7.3 this morning which has been trending down from 9.1 on admission likely dilutional as she has been on IVF since. Her hemoglobin has been stable. She has been started on aspirin and Lipitor for concerns of ACS and history of CAD. Zosyn has been continued for possible aspiration pneumonia. I will transition the antibiotics to Augmentin to complete a total of 7 days. Her sputum culture has been negative. Her blood pressure is currently within normal limits at 124/69. She is euvolemic given her history of diastolic CHF. [Patient has been progressing well. Plans to de-escalate antibiotics. Plan is to DC to [facility] today.] Pertinent Studies: Brain CT, chest x-ray Procedures: Cardioversion Patient Condition at Discharge: Stable Plan - Discharge Summary Discharge Rx Participant: Yes New Discharge Prescriptions: No Action Cholecalciferol [Vitamin D3 (25 Mcg = 1000 Iu)] 1,000 unit PO DAILY Apixaban [Eliquis] 5 mg PO BID #0 tab Acetaminophen Tab [Tylenol] 325 mg PO Q6H PRN PRN Reason: Pain Or Fever > 100.5 Bismuth Subsalicylate [Pepto-Bismol] 30 mg PO Q4H PRN PRN Reason: Indigestion Discharge Medication List Cholecalciferol [Vitamin D3 (25 Mcg = 1000 Iu)] 1,000 unit PO DAILY 11/27/16 [History] Apixaban [Eliquis] 5 mg PO BID #0 tab 12/01/16 [Rx] Acetaminophen Tab [Tylenol] 325 mg PO Q6H PRN 09/04/19 [History] Bismuth Subsalicylate [Pepto-Bismol] 30 mg PO Q4H PRN 09/10/19 [History] Follow up Appointment(s)/Referral(s): None,Stated [Primary Care Provider] - 1-2 days
--- NOTE | 2019-09-19 07:20 | CDI ---
Documentation Clarification Form Date: 09/19/19 From: Sue Witt Phone: If you have a question about this query, please contact Anahi Le, Data Steward at [phone] between 8am and 5pm. Admit Date: 09/10/19 Discharge Date: 09/15/19 Patient Name: REGINA FELDMAN Visit Number: [id number] ATTENTION: The Clinical Documentation Specialists (CDI) and [facility] Coding Staff appreciate your assistance in clarifying documentation. Please respond to the clarification below the line at the bottom and electronically sign. The CDI & [facility] Coding staff will review the response and follow-up if needed. Please note: Queries are made part of the Legal Health Record. If you have any questions, please contact the author of this message via ITS. Dear Dr. Hunter Ni, Patient presented with troponin of: 0.082, 1.540 Patient history/risk factors: atrial fibrillation, hypertensive heart disease with chronic diastolic CHF, COPD, CAD, tricuspid insufficiency, hyperlipidemia Clinical indicators: EKG- ventricular rate 151, atrial fibrillation w RVR. QRS 124, QTC 456. There appears to be diffuse ST depressions in all precordial leads and lead 2. There appears to be mild ST elevation in aVR. (per ED note) Treatment: Heparin IV, IV fluids, IV Amiodarone, IV Zosyn, IV Magnesium, Aspirin In your professional opinion, can you please specify the diagnosis, if any, indicated by the above clinical indicators and treatment? Type II VT, please specify etiology NSTEMI STEMI -Specific Site Non Q Wave VT Other, please specify Unable to determine patient had a cardiac arrest likely vfib, likely NSTEMI with medical management MTDD
== END 2019-09-15 15:40 | DRG 280 ==
LOC: EC 11:49 → 2SICU 12:43
PROVIDERS: ADMIT Family Medicine; ATTEND Family Medicine
PROC: 0BH17EZ Insertion of Endotracheal Airway into Trachea, Via Natural or Artificial Opening (ICD-10-PCS; principal; 2019-09-10)
PROC: 0D9670Z Drainage of Stomach with Drainage Device, Via Natural or Artificial Opening (ICD-10-PCS; principal; 2019-09-10)
PROC: 5A1945Z Respiratory Ventilation, 24-96 Consecutive Hours (ICD-10-PCS; principal; 2019-09-10)
PROC: 5A2204Z Restoration of Cardiac Rhythm, Single (ICD-10-PCS; 2019-09-11)
DX: I49.01 Ventricular fibrillation (principal); I21.4 Non-ST elevation (NSTEMI) myocardial infarction; G93.41 Metabolic encephalopathy; J96.01 Acute respiratory failure with hypoxia; J69.0 Pneumonitis due to inhalation of food and vomit; E87.2 Acidosis; I50.32 Chronic diastolic (congestive) heart failure; I46.2 Cardiac arrest due to underlying cardiac condition; I11.0 Hypertensive heart disease with heart failure; J44.9 Chronic obstructive pulmonary disease, unspecified; Z66 Do not resuscitate; I48.0 Paroxysmal atrial fibrillation; I47.2 Ventricular tachycardia; D64.9 Anemia, unspecified; K14.8 Other diseases of tongue; M54.5 Low back pain; I07.1 Rheumatic tricuspid insufficiency; E78.5 Hyperlipidemia, unspecified; I25.10 Atherosclerotic heart disease of native coronary artery without angina pectoris; Z79.01 Long term (current) use of anticoagulants; Z79.899 Other long term (current) drug therapy; Z95.5 Presence of coronary angioplasty implant and graft; Z87.891 Personal history of nicotine dependence; Z82.49 Family history of ischemic heart disease and other diseases of the circulatory system
CPT/HCPCS: 31500; 36415; 36600; 51702; 70450; 71045; 80048; 80053; 81001; 82140; 82550; 82805; 83605; 83735; 84100; 84484; 85025; 85027; 85610; 85730; 87070; 87205; 93005; 94002; 94003; 94640; 96365; 96376; 99291

== ENCOUNTER 2019-09-21 17:30 | Emergency (ER) | payer MEDICARE, BC ==
[2019-09-21 17:54] VITALS: TEMP 98.2
--- NOTE | 2019-09-21 18:07 | ED ---
Fall HPI - General Chief Complaint: Fall Stated Complaint: FALL Time Seen by Provider: 09/21/19 17:45 Source: patient, EMS Mode of arrival: EMS - History of Present Illness Initial Comments: Patient is an 83-year-old female presenting to the emergency department via EMS from [facility] after suffering a fall. EMS reports that patient is at [facility] after having an PR. Patient states she was attempting to leave AMA today and was running down the alfaro when she tripped and fell. There is no loss of consciousness. Patient does have a small laceration on the left side of her forehead. She is denying any pain right now however patient is only A&O 1 at baseline. She is not on blood thinners. There are no other complaints at this time. Upon arrival to the ER, her vital signs are stable. - Related Data Home Medications Medication Instructions Recorded Confirmed Cholecalciferol [Vitamin D3 (25 1,000 unit PO DAILY 11/27/16 09/10/19 Mcg = 1000 Iu)] Acetaminophen Tab [Tylenol] 325 mg PO Q6H PRN 09/04/19 09/10/19 Bismuth Subsalicylate 30 mg PO Q4H PRN 09/10/19 09/10/19 [Pepto-Bismol] Previous Rx's Medication Instructions Recorded Amiodarone [Cordarone] 200 mg PO BID tab 09/15/19 Amoxic-Pot Clav 875-125Mg 1 each PO Q12HR #3 tab 09/15/19 [Augmentin 875-125] Aspirin 81 mg PO DAILY chew 09/15/19 Atorvastatin [Lipitor] 80 mg PO HS tab 09/15/19 Ipratropium-Albuterol Nebulize 3 ml INHALATION RT-Q2H PRN ml 09/15/19 [Duoneb 0.5 mg-3 mg/3 ml Soln] Metoprolol Tartrate [Lopressor] 25 mg PO BID tab 09/15/19 Pantoprazole [Protonix] 40 mg PO AC-BRKFST tablet. 09/15/19 Allergies Allergy/AdvReac Type Severity Reaction Status Date / Time No Known Allergies Allergy Verified 09/10/19 12:43 Review of Systems ROS Statement: Those systems with pertinent positive or pertinent negative responses have been documented in the HPI. ROS Other: All systems not noted in ROS Statement are negative. Past Medical History Past Medical History: Atrial Fibrillation, Coronary Artery Disease (CAD), Hypertension, Myocardial Infarction (PR) Additional Past Medical History / Comment(s): CHF with diastolic dysfunction, coronary artery disease with previous insertion of coronary stent, chronic atrial fibrillation, COPD, hypertension, severe tricuspid regurgitation along with severe dilatation of the right ventricle and a PA pressure mildly elevated probably consistent with chronic lung disease/COPD. History of Any Multi-Drug Resistant Organisms: None Reported Past Surgical History: Heart Catheterization With Stent Past Anesthesia/Blood Transfusion Reactions: No Reported Reaction Date of Last Stent Placement:: 2001 Past Psychological History: No Psychological Hx Reported Smoking Status: Former smoker Past Alcohol Use History: None Reported Past Drug Use History: None Reported - Past Family History Father Family Medical History: Coronary Artery Disease (CAD) Mother Family Medical History: Coronary Artery Disease (CAD) General Exam - General Exam Comments Initial Comments: GENERAL: Well-appearing, well-nourished and in no acute distress. HEAD: Normocephalic. Small hematoma noted on the left side of the forehead. No signs of basilar skull fracture. EYES: Pupils equal round and reactive to light, extraocular movements intact, sclera anicteric, conjunctiva are normal. ENT: TMs normal, nares patent, oropharynx clear without exudates. Moist mucous membranes. NECK: Patient in c-collar upon arrival. Normal range of motion, after c-collar removal. supple without lymphadenopathy or JVD. No midline tenderness. LUNGS: Breath sounds clear to auscultation bilaterally and equal. No wheezes rales or rhonchi. HEART: Regular rate and rhythm without murmurs, rubs or gallops. ABDOMEN: Soft, nontender, normoactive bowel sounds. No guarding, no rebound. No masses appreciated. : Deferred EXTREMITIES: Normal range of motion, no pitting or edema. No clubbing or cyanosis. NEUROLOGICAL: Patient is A&O x 1, this is her baseline. PSYCH: Normal mood, normal affect. SKIN: Warm, Dry, normal turgor, no rashes. Patient has 1 cm laceration on the left side of her forehead. Minimal bleeding at this time. Limitations: altered mental status Course Vital Signs 09/21/19 09/21/19 09/21/19 17:49 17:54 18:54 Temperature 98.2 F Pulse Rate 47 L 80 Respiratory 16 20 20 Rate Blood Pressure 146/64 142/60 O2 Sat by Pulse 100 99 Oximetry Procedures - Laceration Laceration #1 Consent Obtained: verbal consent Indication: laceration Site: face (Left forehead) Size (cm): 1 Description: linear Depth: simple, single layer Anesthetic Used: lidocaine 1% Anesthesia Technique: local infiltration Amount (mls): 2 Pre-repair: irrigated extensively Type of Sutures: nylon Size of Sutures: 4-0 Number of Sutures: 2 Technique: simple, interrupted Patient Tolerated Procedure: well Medical Decision Making - Medical Decision Making Patient is an 83-year-old female presenting after a fall. There is no loss of consciousness, no blood thinners. No neuro deficits. Patient is at baseline. CT of the head, neck, and facial bones revealed no acute abnormalities. Patient has a 1 cm laceration left side of the head, forehead. Minimal bleeding at this time. Wound was cleaned and closed with 2, 4-0 sutures. Patient tolerated procedure well. Patient is at baseline according to family. She is stable for discharge back to [facility] at this time. Family is in agreement with this plan of care. Return parameters were discussed with the family and they verbalized understanding. Sutures need to removed in 7-10 days. Case discussed with Dr. Arguello. Disposition Clinical Impression: Fall, Laceration of forehead Disposition: HOME SELF-CARE Condition: Stable Instructions (If sedation given, give patient instructions): Fall Prevention for Older Adults (ED) Additional Instructions: Please return to the Emergency Department if symptoms worsen or any other concerns. Stitches need to removed in 7-10 days. Is patient prescribed a controlled substance at d/c from ED?: No Referrals: None,Stated [REFERRING] - 1-2 days
[2019-09-21 19:15] VITALS: RESP 20
[2019-09-21 19:16] VITALS: BP 142/60; PULSE 80
--- NOTE | 2019-09-21 19:26 | CT ---
EXAMINATION TYPE: CT brain cspine wo con, CT facial bones wo con DATE OF EXAM: 09/21/2019 COMPARISON: Prior CT brain 09/10/2019 HISTORY: Trauma and pain CT DLP: 977.9 mGycm Automated exposure control for dose reduction was used. TECHNIQUE: CT scan of the head, facial bones and cervical spine are performed without contrast. FINDINGS: There is no acute intracranial hemorrhage, mass effect, or midline shift identified. The ventricles and sulci are within normal limits in size. White matter demyelination, basal ganglia abbi cifications again noted, there are cerebral vascular calcifications as on prior The globes are intact and the visualized sinuses are remarkable for probable inflammatory change in the left maxillary sin us. Cervical spine is visualized in its entirety from C1 through upper thoracic levels and demonstrates s atisfactory alignment without evidence of acute fracture or dislocation. There is multilevel spondylo sis, loss of disc height at intervertebral levels at C5-6, C6-7, C7-T1. Prevertebral soft tissue appe ars within normal limits. The C1-C2 articulation is unremarkable. Atheromatous changes are present within the carotid artery distribution. Facial bones show no acute fracture. Inflammatory change noted in the left maxillary sinus. Orbits ar e intact. Mastoid air cells are well aerated. Degenerative changes are present within the temporal ma ndibular joints. Ostiomeatal units are patent. IMPRESSION: 1. There is no acute fracture or dislocation evident in the cervical spine. 2. No acute intracranial hemorrhage, mass effect, or midline shift is seen. 3. No facial bone fracture
[2019-09-21] MEDS ORDERED: LIDOCAINE 1% INJ 10MG/ML (20 ML MDV) SQ ONE (19:40)
== END 2019-09-21 21:15 | disposition home or self-care (01) ==
LOC: EC 17:30
DX: S01.81XA Laceration without foreign body of other part of head, initial encounter (principal); I11.0 Hypertensive heart disease with heart failure; I50.30 Unspecified diastolic (congestive) heart failure; I25.10 Atherosclerotic heart disease of native coronary artery without angina pectoris; I25.2 Old myocardial infarction; Z87.891 Personal history of nicotine dependence; Z95.5 Presence of coronary angioplasty implant and graft; W01.0XXA Fall on same level from slipping, tripping and stumbling without subsequent striking against object, initial encounter; Y93.02 Activity, running; Y92.129 Unspecified place in nursing home as the place of occurrence of the external cause
CPT/HCPCS: 72125; 70486; 70450; 99284; 12011; J2001

== ENCOUNTER 2019-09-24 | Emergency (ER) | payer MEDICARE, BC | END 2019-09-24 05:59 | disposition home or self-care (01) | CPT/HCPCS: 36415; 80053; 85025; 85610; 85730; 81001; 87086; 87077; 87186; 70450; 99285; 96374; 96375; J2060; J0696; J3480 ==

== ENCOUNTER 2022-05-19 02:26 | Inpatient (IN) | payer MEDICARE, BC ==
[2022-05-19] MEDS ORDERED: SODIUM CHLORIDE 0.9% 1,000 ML IV STA (02:44)
[2022-05-19] MEDS ORDERED: METOPROLOL TARTRATE 5 MG/5 ML VIAL IVP STA (02:45)
--- NOTE | 2022-05-19 02:49 | ED ---
Weakness HPI - General Chief complaint: Weakness Stated complaint: Weakness, Afib Time Seen by Provider: 05/19/22 02:39 Source: patient, EMS, RN notes reviewed, old records reviewed Mode of arrival: EMS Limitations: no limitations - History of Present Illness Initial comments: This is an 86-year-old female to the emergency department for evaluation. Stanislaw tee presents safe for evaluation of weakness 2-3 days of weakness decreased appetite decreased activity level. Patient feels fatigued. No pain or chest pain no abdominal pain no nausea vomiting diarrhea fever. Does have left shoulder pain. MD Complaint: generalized weakness -: days(s) Location: generalized Severity: moderate Severity scale (1-10): 5 Consistency: constant Improves with: none Worsens with: none Context: recent illness, history of similar Associated Symptoms: nausea/vomiting, shortness of breath - Related Data Home Medications Medication Instructions Recorded Confirmed Cholecalciferol [Vitamin D3 (25 1,000 unit PO DAILY 11/27/16 09/10/19 Mcg = 1000 Iu)] Acetaminophen Tab [Tylenol] 325 mg PO Q6H PRN 09/04/19 09/10/19 Bismuth Subsalicylate 30 mg PO Q4H PRN 09/10/19 09/10/19 [Pepto-Bismol] Previous Rx's Medication Instructions Recorded Amiodarone [Cordarone] 200 mg PO BID tab 09/15/19 Amoxic-Pot Clav 875-125Mg 1 each PO Q12HR #3 tab 09/15/19 [Augmentin 875-125] Aspirin 81 mg PO DAILY chew 09/15/19 Atorvastatin [Lipitor] 80 mg PO HS tab 09/15/19 Ipratropium-Albuterol Nebulize 3 ml INHALATION RT-Q2H PRN ml 09/15/19 [Duoneb 0.5 mg-3 mg/3 ml Soln] Metoprolol Tartrate [Lopressor] 25 mg PO BID tab 09/15/19 Pantoprazole [Protonix] 40 mg PO AC-BRKFST tablet. 09/15/19 Nitrofurantoin Monohyd/M-Cryst 100 mg PO Q12HR #10 cap 09/24/19 [Macrobid] Potassium Chloride Oral Liquid 20 meq PO DAILY #300 ml 09/24/19 Allergies Allergy/AdvReac Type Severity Reaction Status Date / Time No Known Allergies Allergy Verified 09/10/19 12:43 Review of Systems ROS Statement: Those systems with pertinent positive or pertinent negative responses have been documented in the HPI. ROS Other: All systems not noted in ROS Statement are negative. Past Medical History Past Medical History: Atrial Fibrillation, Coronary Artery Disease (CAD), Hypertension, Myocardial Infarction ([place]) Additional Past Medical History / Comment(s): CHF with diastolic dysfunction, coronary artery disease with previous insertion of coronary stent, chronic atrial fibrillation, COPD, hypertension, severe tricuspid regurgitation along with severe dilatation of the right ventricle and a PA pressure mildly elevated probably consistent with chronic lung disease/COPD. History of Any Multi-Drug Resistant Organisms: None Reported Past Surgical History: Heart Catheterization With Stent Past Anesthesia/Blood Transfusion Reactions: No Reported Reaction Date of Last Stent Placement:: 2001 Past Psychological History: No Psychological Hx Reported Smoking Status: Former smoker Past Alcohol Use History: None Reported Past Drug Use History: None Reported - Past Family History Father Family Medical History: Coronary Artery Disease (CAD) Mother Family Medical History: Coronary Artery Disease (CAD) General Exam Limitations: no limitations General appearance: alert, in no apparent distress Head exam: Present: atraumatic, normocephalic, normal inspection Eye exam: Present: normal appearance, PERRL, EOMI. Absent: scleral icterus, conjunctival injection, periorbital swelling ENT exam: Present: normal exam, mucous membranes moist Neck exam: Present: normal inspection. Absent: tenderness, meningismus, lymphadenopathy Respiratory exam: Present: normal lung sounds bilaterally. Absent: respiratory distress, wheezes, rales, rhonchi, stridor Cardiovascular Exam: Present: tachycardia, irregular rhythm, normal heart sounds. Absent: systolic murmur, diastolic murmur, rubs, gallop, clicks GI/Abdominal exam: Present: soft, normal bowel sounds. Absent: distended, tenderness, guarding, rebound, rigid Extremities exam: Present: normal inspection, full ROM, normal capillary refill. Absent: tenderness, pedal edema, joint swelling, calf tenderness Back exam: Present: normal inspection Neurological exam: Present: alert, oriented X3, CN II-XII intact Psychiatric exam: Present: normal affect, normal mood Skin exam: Present: warm, dry, intact, normal color. Absent: rash Course Vital Signs 05/19/22 05/19/22 05/19/22 02:31 02:41 03:19 Temperature 97.8 F Pulse Rate 122 H 113 H 108 H Pulse Rate [ [address] ] Respiratory 17 17 Rate Blood Pressure 124/78 104/72 102/74 O2 Sat by Pulse 94 L 95 94 L Oximetry 05/19/22 05/19/22 05/19/22 04:33 04:43 04:44 Temperature Pulse Rate 87 93 Pulse Rate [ [address] ] Respiratory 16 17 Rate Blood Pressure 100/72 104/74 O2 Sat by Pulse 95 88 L 93 L Oximetry - Reevaluation(s) Reevaluation #1: 05/19/22 04:57 Medical record is reviewed Reevaluation #2: 05/19/22 04:57 Patient feeling was initiated upon arrival Reevaluation #3: 05/19/22 04:57 Patient informed results and questions answered - Consultations Consultation #1: Spoke with [facility] regarding admission there agreeable EKG Findings - EKG Comments: EKG Findings:: EKG is A. fib with RVR 122 QRS 132 QTC 400 Medical Decision Making - Medical Decision Making 78 female to the emergency with weakness shoulder pain. Does have acute non-ST elevated ME. HR fibrillation with RVR. Elevated heart rate. Patient be admitted for further evaluation management - Lab Data Result diagrams: 05/19/22 02:46 05/19/22 02:46 Lab Results 05/19/22 05/19/22 05/19/22 Range/Units 02:46 02:46 02:46 WBC 11.6 H (3.8-10.6) k/uL RBC 3.47 L (3.80-5.40) m/uL Hgb 8.3 L (11.4-16.0) gm/dL Hct 28.1 L (34.0-46.0) % MCV 81.0 (80.0-100.0) fL MCH 23.7 L (25.0-35.0) pg MCHC 29.3 L (31.0-37.0) g/dL RDW 17.8 H (11.5-15.5) % Plt Count 200 (150-450) k/uL MPV 8.9 Neutrophils % 89 % Lymphocytes % 4 % Monocytes % 5 % Eosinophils % 0 % Basophils % 0 % Neutrophils # 10.3 H (1.3-7.7) k/uL Lymphocytes # 0.5 L (1.0-4.8) k/uL Monocytes # 0.6 (0-1.0) k/uL Eosinophils # 0.0 (0-0.7) k/uL Basophils # 0.1 (0-0.2) k/uL Hypochromasia Marked Poikilocytosis Slight Anisocytosis Slight PT 13.3 H (9.0-12.0) sec INR 1.3 H (<1.2) APTT 25.3 (22.0-30.0) sec Sodium 138 (137-145) mmol/L Potassium 4.5 (3.5-5.1) mmol/L Chloride 105 (98-107) mmol/L Carbon Dioxide 22 (22-30) mmol/L Anion Gap 11 mmol/L BUN 24 H (7-17) mg/dL Creatinine 1.56 H (0.52-1.04) mg/dL Est GFR (CKD-EPI)AfAm 34 (>60 ml/min/1.73 sqM) Est GFR (CKD-EPI)NonAf 30 (>60 ml/min/1.73 sqM) Glucose 169 H (74-99) mg/dL Calcium 8.6 (8.4-10.2) mg/dL Phosphorus 4.2 (2.5-4.5) mg/dL Magnesium 2.0 (1.6-2.3) mg/dL Total Bilirubin 2.3 H (0.2-1.3) mg/dL AST 23 (14-36) U/L ALT 13 (4-34) U/L Alkaline Phosphatase 39 (38-126) U/L Troponin I (0.000-0.034) ng/mL NT-Pro-B Natriuret Pep pg/mL Total Protein 6.2 L (6.3-8.2) g/dL Albumin 3.7 (3.5-5.0) g/dL TSH 2.920 (0.465-4.680) mIU/L 05/19/22 05/19/22 Range/Units 02:46 02:46 WBC (3.8-10.6) k/uL RBC (3.80-5.40) m/uL Hgb (11.4-16.0) gm/dL Hct (34.0-46.0) % MCV (80.0-100.0) fL MCH (25.0-35.0) pg MCHC (31.0-37.0) g/dL RDW (11.5-15.5) % Plt Count (150-450) k/uL MPV Neutrophils % % Lymphocytes % % Monocytes % % Eosinophils % % Basophils % % Neutrophils # (1.3-7.7) k/uL Lymphocytes # (1.0-4.8) k/uL Monocytes # (0-1.0) k/uL Eosinophils # (0-0.7) k/uL Basophils # (0-0.2) k/uL Hypochromasia Poikilocytosis Anisocytosis PT (9.0-12.0) sec INR (<1.2) APTT (22.0-30.0) sec Sodium (137-145) mmol/L Potassium (3.5-5.1) mmol/L Chloride (98-107) mmol/L Carbon Dioxide (22-30) mmol/L Anion Gap mmol/L BUN (7-17) mg/dL Creatinine (0.52-1.04) mg/dL Est GFR (CKD-EPI)AfAm (>60 ml/min/1.73 sqM) Est GFR (CKD-EPI)NonAf (>60 ml/min/1.73 sqM) Glucose (74-99) mg/dL Calcium (8.4-10.2) mg/dL Phosphorus (2.5-4.5) mg/dL Magnesium (1.6-2.3) mg/dL Total Bilirubin (0.2-1.3) mg/dL AST (14-36) U/L ALT (4-34) U/L Alkaline Phosphatase (38-126) U/L Troponin I 0.512 H* (0.000-0.034) ng/mL NT-Pro-B Natriuret Pep 9970 pg/mL Total Protein (6.3-8.2) g/dL Albumin (3.5-5.0) g/dL TSH (0.465-4.680) mIU/L Critical Care Time Critical Care Time: Yes Total Critical Care Time: 31 Disposition Clinical Impression: CHF exacerbation, Atrial fibrillation with RVR, Dehydration, NSTEMI (non-ST elevated myocardial infarction) Disposition: ADMITTED IP TO THIS HOSP Condition: Serious Referrals: Theron Rocha MD [Primary Care Provider] - 1-2 days Time of Disposition: 04:55
[2022-05-19] MEDS ORDERED: ACETAMINOPHEN TAB 500 MG TAB PO STA (03:07)
[2022-05-19 03:08] LABS: Anisocytosis Slight; Basophils # (A) 0.1 k/uL (0-0.2); Basophils % (A) 0 %; Eosinophils % (A) 0 %; HCT 28.1 % (34.0-46.0); HGB 8.3 gm/dL (11.4-16.0); Hypochromasia Marked; Lymphocytes # (A) 0.5 k/uL (1.0-4.8); Lymphocytes % (A) 4 %; MCH 23.7 pg (25.0-35.0); MCHC 29.3 g/dL (31.0-37.0); Mean Platelet Volume 8.9; Monocytes # (A) 0.6 k/uL (0-1.0); Monocytes % (A) 5 %; Neutrophils # (A) 10.3 k/uL (1.3-7.7); Neutrophils % (A) 89 %; Platelet Count 200 k/uL (150-450); Poikilocytosis Slight; RBC 3.47 m/uL (3.80-5.40); RDW 17.8 % (11.5-15.5); WBC 11.6 k/uL (3.8-10.6)
[2022-05-19 03:20] LABS: INR 1.3 (<1.2); Partial Thromboplastin Time 25.3 sec (22.0-30.0); Prothrombin Time 13.3 sec (9.0-12.0)
--- NOTE | 2022-05-19 03:42 | XR ---
EXAMINATION TYPE: XR chest 1V portable DATE OF EXAM: 05/19/2022 COMPARISON: 09/15/2019 HISTORY: Weakness. Atrial fibrillation. TECHNIQUE: Single view FINDINGS: There is no heart failure nor confluent pneumonic infiltrate. Heart appears enlarged. There are chest leads. IMPRESSION: Mild cardiomegaly. There is clearing of the left pleural effusion and left lower lobe inf iltrate to large extent compared to the old exam. No heart failure seen.
[2022-05-19 03:49] LABS: Albumin 3.7 g/dL (3.5-5.0); Calcium 8.6 mg/dL (8.4-10.2); Phosphorus 4.2 mg/dL (2.5-4.5); Potassium 4.5 mmol/L (3.5-5.1); Total Bilirubin 2.3 mg/dL (0.2-1.3); Total Protein 6.2 g/dL (6.3-8.2)
[2022-05-19] MEDS ORDERED: MORPHINE SULFATE 4 MG/ML SYRINGE IVP STA (03:58)
[2022-05-19] MEDS ORDERED: NALOXONE 0.4 MG/ML 1 ML VIAL IV PRN (04:54)
[2022-05-19] MEDS ORDERED: MORPHINE SULFATE 4 MG/ML SYRINGE IV PRN (04:54)
[2022-05-19] MEDS ORDERED: ONDANSETRON 4 MG/2 ML VIAL IVP PRN (04:54)
[2022-05-19] MEDS ORDERED: HEPARIN SODIUM 1,000 UN/ML (10ML VL) IV ONE (04:58)
[2022-05-19] MEDS ORDERED: HEPARIN SODIUM 1,000 UN/ML (10ML VL) IV PRN (04:58)
[2022-05-19] MEDS ORDERED: SODIUM CHLORIDE 0.9% 1,000 ML IV SCH (05:00)
[2022-05-19] MEDS: HEPARIN SOD,PORK IN 0.45% NACL 25,000 UNIT in 0.45% NACL 1 250ML.BAG IV SCH (05:55)
[2022-05-19 06:11] LABS: Glucose,Whole Blood 142 mg/dL (70-110)
[2022-05-19] MEDS: METOPROLOL SUCCINATE (ER) 25 MG TAB.ER.24H PO SCH (10:16)
--- NOTE | 2022-05-19 11:27 | P.CRDCN ---
History of Present Illness History of present illness: HISTORY OF PRESENTING ILLNESS This is a pleasant 86-year-old female past medical history significant for paroxysmal atrial fibrillation on Eliquis, coronary artery disease with PCI to the mid RCA in 2001, hypertension, dyslipidemia, prior smoker, cardiac arrest in 09/2019. She used to follow with Dr. August. We have been asked to see in consultation for atrial fibrillation with RVR, NSTEMI. Patient presents to the ER with complaints of palpitations, generalized fatigue and weakness, decreased appetite and PO intake. Over the past 2-3 days patient endorsed worsening fatigue, palpitations, states it was a "weird feeling". She states it was similar to when she has been in A fib in the past. She also has not been eating or drinking as much as usual. She also has been having symptoms of dyspnea on exertion. No chest pain, lightheadedness, dizziness, syncope or near syncope, nausea, vomiting, abdominal pain, fever cough or chills. Denies any symptoms of orthopnea or PND. She is a former smoker. Denies any changes to her medications. DIAGNOSTICS * EKG reveals atrial fibrillation with rapid response, heart rate 122, right bundle-branch block, ST depressions in lateral leads, V5 and V6. * Echocardiogram 08/2019 revealed EF 4550 percent, LA severely dilated, mild aortic regurgitation, mild to moderate mitral regurgitation, moderate tricuspid regurgitation * Telemetry tracings indicate atrial fibrillation HR 80s- [id number] * Chest xray mild cardiomegaly, clearing of left pleural effusion left lower lobe infiltrate compared to old exam. No heart failure. * Laboratory reviewed, WBV 11.6, hemoglobin 8.3, platelets 200, sodium 138, potassium 4.5, BUN 24, serum creatinine 1.5, magnesium 2.0, troponin 0.5, 0.9, proBNP 9970, TSH normal limits * Current home cardiac medications include Eliquis 2.5 mg twice a day, metoprolol succinate 25 mg nightly, Lasix 20 mg daily REVIEW OF SYSTEMS At the time of my exam: CONSTITUTIONAL: Denies fever or chills. +generalized fatigue and weakness CARDIOVASCULAR: Denies chest pain, +shortness of breath, Denies orthopnea, PND +palpitations. RESPIRATORY: Denies cough. GASTROINTESTINAL: Denies abdominal pain, diarrhea, constipation, nausea or vomiting. MUSCULOSKELETAL: Denies myalgias. NEUROLOGIC: Denies numbness, tingling, headacbe or weakness. ENDOCRINE: + fatigue, Denies weight change, polydipsia or polyurina. GENITOURINARY: Denies burning, hematuria or urgency with micturation. HEMATOLOGIC: +history of anemia Denies bleeding. PHYSICAL EXAMINATION Blood pressure 109 of 57, heart rate 105, afebrile, saturations 99% 3 L nasal ca nnula CONSTITUTIONAL: No apparent distress. HEENT: Head is normocephalic. Pupils are equal, round. Sclerae anicteric. Mucous membranes of the mouth are moist. No JVD. No carotid bruit. CHEST EXAMINATION: Lungs are diminished in the bases to auscultation. No chest wall tenderness is noted on palpation or with deep breathing. HEART EXAMINATION: Irregular rate and rhythm. S1, S2 heard. No murmurs, gallops or rub. ABDOMEN: Soft, nontender. Positive bowel sounds. EXTREMITIES: 2+ peripheral pulses, 1+ bilateral lower extremity edema and no calf tenderness. NEUROLOGIC EXAMINATION: Patient is awake, alert and oriented x3. ASSESSMENT Paroxysmal atrial fibrillation with RVR, on eliquis outpatient Dyspnea on exertion and elevated troponin, possible NSTEMI Acute kidney injury Decreased PO intake Hypotension Coronary artery disease with PCI to the mid RCA in 2001 History of Hypertension Dyslipidemia History of tobacco use History of cardiac arrest in 09/2019 PLAN Continue IV heparin drip Continue aspirin Increased metoprolol succinate 37.5mg daily Obtain 2D echocardiogram and doppler study to assess cardiac structure and function. Monitor renal function and electrolytes Continue cardiac telemetry Patient's wishes at this time are to not have any invasive measures performed Will continue to monitor and make recommendations accordingly Nurse practitioner note has been reviewed by physician. Signing provider agrees with the documented findings, assessment, and plan of care. Past Medical History Past Medical History: Atrial Fibrillation, Coronary Artery Disease (CAD), Hypertension, Myocardial Infarction ([place]) Additional Past Medical History / Comment(s): CHF with diastolic dysfunction, coronary artery disease with previous insertion of coronary stent, chronic atrial fibrillation, hypertension, severe tricuspid regurgitation along with severe dilatation of the right ventricle and a PA pressure mildly elevated probably consistent with chronic lung disease/COPD. Last Myocardial Infarction Date:: 2001 History of Any Multi-Drug Resistant Organisms: None Reported Past Surgical History: Heart Catheterization With Stent Past Anesthesia/Blood Transfusion Reactions: No Reported Reaction Date of Last Stent Placement:: 2001 Smoking Status: Former smoker - Past Family History Father Family Medical History: Coronary Artery Disease (CAD) Mother Family Medical History: Coronary Artery Disease (CAD) Medications and Allergies Home Medications Medication Instructions Recorded Confirmed Type Apixaban [Eliquis] 2.5 mg PO BID 05/19/22 05/19/22 History Furosemide [Lasix] 20 mg PO DAILY 05/19/22 05/19/22 History Metoprolol Succinate (ER) [Toprol 25 mg PO HS 05/19/22 05/19/22 History Xl] Allergies Allergy/AdvReac Type Severity Reaction Status Date / Time amiodarone AdvReac Rapid Verified 05/19/22 06:55 Heart Rate Physical Exam Vitals: Vital Signs Temp Pulse Pulse Resp BP BP Pulse Ox 05/19/22 06:26 112 H 05/19/22 06:06 98.5 F 112 H 18 115/63 97 05/19/22 04:44 93 L 05/19/22 04:43 93 17 104/74 88 L 05/19/22 04:33 87 16 100/72 95 05/19/22 03:19 108 H 102/74 94 L 05/19/22 02:41 97.8 F 113 H 17 104/72 95 05/19/22 02:31 122 H 129 H 17 124/78 94 L Intake and Output 05/18/22 05/19/22 05/19/22 22:59 06:59 14:59 Intake Total 540 118 Balance 540 118 Intake: Oral 540 118 Other: Voiding Method Toilet Weight 70.307 kg Results 05/19/22 02:46 05/19/22 02:46 Cardiac Enzymes 05/19/22 05/19/22 Range/Units 02:46 02:46 AST 23 (14-36) U/L Troponin I 0.512 H* (0.000-0.034) ng/mL Coagulation 05/19/22 Range/Units 02:46 PT 13.3 H (9.0-12.0) sec APTT 25.3 (22.0-30.0) sec CBC 05/19/22 Range/Units 02:46 WBC 11.6 H (3.8-10.6) k/uL RBC 3.47 L (3.80-5.40) m/uL Hgb 8.3 L (11.4-16.0) gm/dL Hct 28.1 L (34.0-46.0) % Plt Count 200 (150-450) k/uL Comprehensive Metabolic Panel 05/19/22 Range/Units 02:46 Sodium 138 (137-145) mmol/L Potassium 4.5 (3.5-5.1) mmol/L Chloride 105 (98-107) mmol/L Carbon Dioxide 22 (22-30) mmol/L BUN 24 H (7-17) mg/dL Creatinine 1.56 H (0.52-1.04) mg/dL Glucose 169 H (74-99) mg/dL Calcium 8.6 (8.4-10.2) mg/dL AST 23 (14-36) U/L ALT 13 (4-34) U/L Alkaline Phosphatase 39 (38-126) U/L Total Protein 6.2 L (6.3-8.2) g/dL Albumin 3.7 (3.5-5.0) g/dL Current Medications Generic Name Dose Route Start Last Admin Trade Name Freq PRN Reason Stop Dose Admin Heparin Sodium (Porcine) 0 unit 05/19/22 04:58 Heparin Sodium 1,000 Un/Ml (10ml Vl) IV PER PROTOCOL PRN Low PTT Protocol Sodium Chloride 1,000 mls @ 130 mls/hr 05/19/22 05:00 05/19/22 05:58 Saline 0.9% IV 130 mls/hr .[id number] CANDE Administration Heparin Sodium/Sodium Chloride 250 mls @ 8.437 mls/hr 05/19/22 05:00 05/19/22 05:55 25,000 unit/ Sodium Chloride IV 12 units/kg/hr .Q24H CANDE 8.437 mls/hr Administration Protocol 12 UNITS/KG/HR Morphine Sulfate 4 mg 05/19/22 04:54 Morphine Sulfate 4 Mg/Ml Syringe IV Q4HR PRN Severe Pain (Scale 7 to 10) Naloxone HCl 0.2 mg 05/19/22 04:54 Naloxone 0.4 Mg/Ml 1 Ml Vial IV Q2M PRN Opioid Reversal Ondansetron HCl 4 mg 05/19/22 04:54 Ondansetron 4 Mg/2 Ml Vial IVP Q8HR PRN Nausea And Vomiting Intake and Output 05/18/22 05/19/22 05/19/22 22:59 06:59 14:59 Intake Total 540 118 Balance 540 118 Intake: Oral 540 118 Other: Voiding Method Toilet Weight 70.307 kg 05/19/22 02:46 05/19/22 02:46
[2022-05-19] MEDS: ASPIRIN 81 MG PO SCH (14:21)
[2022-05-19] MEDS: ACETAMINOPHEN TAB 325 MG TAB PO PRN (17:28)
[2022-05-19 21:00] LABS: Appearance,Urine Cloudy (Clear); Bacteria,Urine Rare /hpf; Bilirubin,Urine Negative (Negative); Blood,Urine Negative (Negative); Color,Urine Yellow; Glucose,Urine (UA) Negative (Negative); Hyaline Casts,Urine 55 /lpf (0-2); Ketones,Urine Negative (Negative); Leukocyte Esterase,Urine Negative (Negative); Mucus,Urine Occasional /hpf; Nitrite,Urine Negative (Negative); PH, Urine 5.5 (5.0-8.0); Protein,Urine 1+ (Negative); RBC,Urine 1 /hpf (0-5); Specific Gravity,Urine 1.024 (1.001-1.035); Squamous Epithelial Cell,Urine 4 /hpf (0-4); WBC,Urine 1 /hpf (0-5)
--- NOTE | 2022-05-19 23:11 | P.HPIM ---
History of Present Illness H&P Date: 05/19/22 Chief Complaint: Generalized weakness Patient is a 86-year-old female with a known history of coronary artery disease or stent placement, atrial fibrillation on anticoagulation with Eliquis, hypertension, history of NH and chronic diastolic CHF and prior history of smoking presents to ER with complaints of palpitations, generalized weakness and fatigue and decreased appetite. She has been having symptoms for the past 2 to 3 days. Patient felt symptoms similar to her previous atrial fibrillation. No complaints of chest pain. [place] slightly lightheaded. No dizziness. No syncope. Denied any fever or chills. No nausea vomiting abdominal pain or diarrhea. EKG showed atrial fibrillation with rapid rate with heart rate 122 and right bundle gladys block Chest x-ray showed mild cardiomegaly and clearing of left pleural effusion and left lower lobe infiltrate compared to old exam. No CHF. Laboratory pressure WBC 11.6 hemoglobin 8.3 and platelets 200 RDW 17.8 INR 1.3 BUN 24 and creatinine 1.56 Blood sugar 169 proBNP is 9970. Troponin 0.512 and 0.909 and 0.910, TSH 2.92 Urinalysis showed cloudy with 1+ protein. No RBCs or WBCs. Review of Systems Constitutional: Patient denies any fever or chills . Patient does have generalized weakness and fatigue. Abdomen: Patient denied any nausea or vomiting or abd. pain Cardiovascular: Patient denies any chest pain or short of breath. Patient complaining of palpitations. No leg swelling. Respiratory: patient denied any cough . no sputum production. No shortness of breath Neurologic: Patient denied any numbness or tingling headache. Musculoskeletal: Patient denies any complaints of joint swelling or deformity. Skin: Negative Psychiatric: Negative Endocrine: No heat or cold intolerance. No recent weight gain. Genitourinary: No dysuria or hematuria. All other 14 point ROS negative except the above Past Medical History Past Medical History: Atrial Fibrillation, Coronary Artery Disease (CAD), Hypertension, Myocardial Infarction ([place]) Additional Past Medical History / Comment(s): CHF with diastolic dysfunction, coronary artery disease with previous insertion of coronary stent, chronic atrial fibrillation, hypertension, severe tricuspid regurgitation along with severe dilatation of the right ventricle and a PA pressure mildly elevated probably consistent with chronic lung disease/COPD. Last Myocardial Infarction Date:: 2001 History of Any Multi-Drug Resistant Organisms: None Reported Past Surgical History: Heart Catheterization With Stent Past Anesthesia/Blood Transfusion Reactions: No Reported Reaction Date of Last Stent Placement:: 2001 Smoking Status: Former smoker - Past Family History Father Family Medical History: Coronary Artery Disease (CAD) Mother Family Medical History: Coronary Artery Disease (CAD) Medications and Allergies Home Medications Medication Instructions Recorded Confirmed Type Apixaban [Eliquis] 2.5 mg PO BID 05/19/22 05/19/22 History Furosemide [Lasix] 20 mg PO DAILY 05/19/22 05/19/22 History Metoprolol Succinate (ER) [Toprol 25 mg PO HS 05/19/22 05/19/22 History Xl] Allergies Allergy/AdvReac Type Severity Reaction Status Date / Time amiodarone AdvReac Rapid Verified 05/19/22 06:55 Heart Rate Physical Exam Vitals: Vital Signs Temp Pulse Pulse Resp BP BP Pulse Ox 05/19/22 08:00 97.7 F 105 H 19 109/57 99 05/19/22 06:26 112 H 05/19/22 06:06 98.5 F 112 H 18 115/63 97 05/19/22 04:44 93 L 05/19/22 04:43 93 17 104/74 88 L 05/19/22 04:33 87 16 100/72 95 05/19/22 03:19 108 H 102/74 94 L 05/19/22 02:41 97.8 F 113 H 17 104/72 95 05/19/22 02:31 122 H 129 H 17 124/78 94 L Intake and Output 05/18/22 05/19/22 05/19/22 22:59 06:59 14:59 Intake Total 540 118 Balance 540 118 Intake: Oral 540 118 Other: Voiding Method Toilet Weight 70.307 kg PHYSICAL EXAMINATION: Patient is lying in the bed comfortably, no acute distress, awake alert and oriented.. HEENT: Normocephalic. Neck is supple. Pupils reactive. Nostrils clear. Oral cavity is moist. Neck reveals no JVD, carotid bruits, or thyromegaly. CHEST EXAMINATION: Trachea is central. Symmetrical expansion. Lung pearl clear to auscultation and percussion. CARDIAC: Normal S1, S2 with no gallops. Irregularly irregular rhythm. ABDOMEN: Soft. Bowel sounds present. Nontender. No organomegaly. No abdominal bruits. Extremities: Bilateral lower extremity 1+ edema. No clubbing or cyanosis Neurologically awake, alert, oriented x3 with well-coordinated movements. No fo abbi deficits noted Skin: No rash or skin lesions. Psychiatric: Coperative. Nonsuicidal, Musculoskeletal: No joint swelling or deformity. Normal range of motion. Results CBC & Chem 7: 05/19/22 02:46 05/19/22 02:46 Labs: Abnormal Lab Results - Last 24 Hours (Table) 05/19/22 05/19/22 05/19/22 Range/Units 02:46 02:46 02:46 WBC 11.6 H (3.8-10.6) k/uL RBC 3.47 L (3.80-5.40) m/uL Hgb 8.3 L (11.4-16.0) gm/dL Hct 28.1 L (34.0-46.0) % MCH 23.7 L (25.0-35.0) pg MCHC 29.3 L (31.0-37.0) g/dL RDW 17.8 H (11.5-15.5) % Neutrophils # 10.3 H (1.3-7.7) k/uL Lymphocytes # 0.5 L (1.0-4.8) k/uL PT 13.3 H (9.0-12.0) sec INR 1.3 H (<1.2) BUN 24 H (7-17) mg/dL Creatinine 1.56 H (0.52-1.04) mg/dL Glucose 169 H (74-99) mg/dL POC Glucose (mg/dL) (70-110) mg/dL Total Bilirubin 2.3 H (0.2-1.3) mg/dL Troponin I (0.000-0.034) ng/mL Total Protein 6.2 L (6.3-8.2) g/dL 05/19/22 05/19/22 Range/Units 02:46 06:09 WBC (3.8-10.6) k/uL RBC (3.80-5.40) m/uL Hgb (11.4-16.0) gm/dL Hct (34.0-46.0) % MCH (25.0-35.0) pg MCHC (31.0-37.0) g/dL RDW (11.5-15.5) % Neutrophils # (1.3-7.7) k/uL Lymphocytes # (1.0-4.8) k/uL PT (9.0-12.0) sec INR (<1.2) BUN (7-17) mg/dL Creatinine (0.52-1.04) mg/dL Glucose (74-99) mg/dL POC Glucose (mg/dL) 142 H (70-110) mg/dL Total Bilirubin (0.2-1.3) mg/dL Troponin I 0.512 H* (0.000-0.034) ng/mL Total Protein (6.3-8.2) g/dL Thrombosis Risk Factor Assmnt - DVT/VTE Prophylaxis DVT/VTE Prophylaxis: Pharmacologic Prophylaxis ordered - Choose All That Apply Any of the Below Risk Factors Present?: Yes Each Factor Represents 1 point: Obesity (BMI >25) Each Risk Factor Represents 3 Points: Age 75 years or older Other congenital or acquired thrombophilia - If yes, enter type in comment: No Thrombosis Risk Factor Assessment Total Risk Factor Score: 4 Thrombosis Risk Factor Assessment Level: Moderate Risk Assessment and Plan Assessment: Atrial fibrillation with rapid regular rate. Chronic atrial fibrillation on anticoagulation with Eliquis. Acute kidney injury likely prerenal. Coronary physical history of stent placement Hypertension History of NH and cardiac arrest in September 2019 History of TR and right ventricular dilation. Normocytic anemia. Hemoglobin 8.3 rule out iron deficiency. Prior history of smoking DVT prophylaxis plan: Patient will be continued on telemetry monitoring. Started on heparin drip and continue with metoprolol. Dose increased to 37.5 mg daily. Increase oral intake. Symptomatic management. Follow-up CBC and BMP tomorrow. Cardiology is on board. 2D echocardiogram was ordered. Continue to follow closely. Prognosis is guarded at this time. Time with Patient: Greater than 30
[2022-05-20] MEDS: HEPARIN SOD,PORK IN 0.45% NACL 25,000 UNIT in 0.45% NACL 1 250ML.BAG IV SCH (05:10)
[2022-05-20] MEDS: METOPROLOL SUCCINATE (ER) 25 MG TAB.ER.24H PO SCH (09:04)
[2022-05-20] MEDS: ASPIRIN 81 MG PO SCH (09:04)
--- NOTE | 2022-05-20 09:58 | CA ---
Transthoracic Echo Report Name: Millicent Dalal Age: 86 Gender: F : 1935 Exam Date: 05/19/2022 10:36 Exam Location: [facility] Ht (in): 65 Wt (lb): 153 Ordering Physician: Lavonne Maxwell Attending/Referring Phys: Pharmaceutical Sales Representative Nighat Carlton RDCS Procedure CPT: Indications: a fib RVR Cardiac Hx: Technical Quality: Contrast 1: Total Dose (mL): Contrast 2: Total Dose (mL): MEASUREMENTS (Male / Female) Normal Values 2D ECHO LV Diastolic Diameter PLAX 5.7 cm 4.2 - 5.9 / 3.9 - 5.3 cm LV Systolic Diameter PLAX 4.3 cm IVS Diastolic Thickness 1.5 cm 0.6 - 1.0 / 0.6 - 0.9 cm LVPW Diastolic Thickness 1.5 cm 0.6 - 1.0 / 0.6 - 0.9 cm LV Relative Wall Thickness 0.5 RV Internal Dim ED PLAX 4.7 cm LA Systolic Diameter LX 5.2 cm 3.0 - 4.0 / 2.7 - 3.8 cm LA Volume 85.8 cm??? 18 - 58 / 22 - 52 cm??? M-MODE Aortic Root Diameter MM 2.9 cm LA Systolic Diameter MM 4.7 cm LA Ao Ratio MM 1.6 MV E Point Septal Separation 0.7 cm AV Cusp Separation MM 1.4 cm DOPPLER AV Peak Velocity 150.0 cm/s AV Peak Gradient 9.0 mmHg LVOT Peak Velocity 75.1 cm/s LVOT Peak Gradient 2.3 mmHg MV E' Velocity 4.7 cm/s TR Peak Velocity 217.8 cm/s TR Peak Gradient 19.0 mmHg Right Ventricular Systolic Press 33.3 mmHg FINDINGS Left Ventricle Moderately increased septal wall thickness. Moderately increased posterior wall thickness. Mildly increased left ventricular diastolic diameter. Left ventricular ejection fraction is estimated at 30-35%. Inferior hypokinesis. Right Ventricle Severe right ventricular dilatation. Mild pulmonary hypertension. Right Atrium Normal right atrial size. Left Atrium Severely increased left atrial diameter. Severely increased left atrial volume. Mildly increased left atrial area. Mitral Valve Structurally normal mitral valve. Nice-se-zirvuvhq mitral regurgitation. Aortic Valve Trileaflet aortic valve. Tricuspid Valve Structurally normal tricuspid valve. Severe tricuspid regurgitation. Pulmonic Valve Structurally normal pulmonic valve. Pericardium Small Pericardial effusion. Aorta Normal size aortic root and proximal ascending aorta. CONCLUSIONS Impaired LV function was EF between 30-35% [id number] mitral regurgitation Severe tricuspid regurgitation Previewed by: Dr. Cali Davis MD (Electronically Signed) Final Date: 20 May 2022 09:57
[2022-05-20 10:50] LABS: Anisocytosis Slight; Basophils % (A) 0 %; Eosinophils % (A) 0 %; HCT 26.8 % (34.0-46.0); HGB 7.6 gm/dL (11.4-16.0); Hypochromasia Marked; Lymphocytes # (A) 0.9 k/uL (1.0-4.8); Lymphocytes % (A) 13 %; MCH 23.6 pg (25.0-35.0); MCHC 28.2 g/dL (31.0-37.0); MCV 83.9 fL (80.0-100.0); Monocytes # (A) 0.4 k/uL (0-1.0); Monocytes % (A) 5 %; Neutrophils # (A) 5.4 k/uL (1.3-7.7); Neutrophils % (A) 79 %; Platelet Count 172 k/uL (150-450); Poikilocytosis Slight; RDW 17.8 % (11.5-15.5); WBC 6.8 k/uL (3.8-10.6)
[2022-05-20 11:15] LABS: Albumin 3.3 g/dL (3.5-5.0); Calcium 8.2 mg/dL (8.4-10.2); Magnesium 2.1 mg/dL (1.6-2.3); Phosphorus 4.5 mg/dL (2.5-4.5); Potassium 4.5 mmol/L (3.5-5.1); Total Bilirubin 1.6 mg/dL (0.2-1.3); Total Protein 5.6 g/dL (6.3-8.2)
--- NOTE | 2022-05-20 14:51 | P.PN ---
Subjective This is a pleasant 86-year-old female past medical history significant for paroxysmal atrial fibrillation on Eliquis, coronary artery disease with PCI to the mid RCA in 2001, hypertension, dyslipidemia, prior smoker, cardiac arrest in 09/2019. She used to follow with Dr. August. We have been asked to see in consultation for atrial fibrillation with RVR, NSTEMI. Patient presents to the ER with complaints of palpitations, generalized fatigue and weakness, decreased appetite and PO intake. Over the past 2-3 days patient endorsed worsening fatigue, palpitations, states it was a "weird feeling". She states it was similar to when she has been in A fib in the past. She also has not been eating or drinking as much as usual. She also has been having symptoms of dyspnea on exertion. Troponins were abnormal concerning for NSTEMI. 05/20/2022 patient seen and examined at bedside, no acute distress. She denies any worsening shortness of breath. She denies any chest pain.echocardiogram revealed EF of 3035 percent, inferior hypokinesis, mild pulmonary hypertension, severely increased left atrial diameter, severely increased left atrial volume, mild to moderate mitral regurgitation, severe tricuspid regurgitation. Telemetry revealed patient continues be in A. fib with better controlled rates, heart rate in the 70s80s Meds:Eliquis 2.5 mg twice a day, aspirin 80 mg daily, Lasix 20 mg daily, metoprolol succinate 37.5mg daily Labs:sodium 138, potassium 4.5, BUN 29, serum creatinine 1.76 PHYSICAL EXAMINATION Vitals reviewed CONSTITUTIONAL: No apparent distress. HEENT: Head is normocephalic. Neck Supple. No JVD. CHEST EXAMINATION: Lungs are diminished in the bases to auscultation. No chest wall tenderness is noted on palpation or with deep breathing. HEART EXAMINATION: Irregular rate and rhythm. S1, S2 heard. systolic murmur at apex, no gallops or rub. ABDOMEN: Soft, nontender. Positive bowel sounds. EXTREMITIES: 2+ peripheral pulses, 1+ bilateral lower extremity edema and no calf tenderness. NEUROLOGIC EXAMINATION: Patient is awake, alert and oriented x3. ASSESSMENT Paroxysmal atrial fibrillation with RVR, on eliquis outpatient Dyspnea on exertion and elevated troponin, possible NSTEMI Cardiomyopathy with EF 30-35%, ischemic vs non-ischemic patient's wishes medical therapy at this time. Acute kidney injury Decreased PO intake Hypotension Coronary artery disease with PCI to the mid RCA in 2001 History of Hypertension Dyslipidemia History of tobacco use History of cardiac arrest in 09/2019 PLAN Stop IV heparin, transition to Eliquis Continue aspirin and metoprolol succinate 37.5mg daily Patient not on ACEI/ARB secondary to renal function Monitor renal function and electrolytes Continue cardiac telemetry Patient's wishes at this time are to not have any invasive measures performed Will continue to monitor and make recommendations accordingly Nurse practitioner note has been reviewed by physician. Signing provider agrees with the documented findings, assessment, and plan of care. Objective - Vital Signs Vital signs: Vital Signs Temp 97.4 F L 05/20/22 11:49 Pulse 94 05/20/22 11:49 Resp 19 05/20/22 11:49 BP 102/70 05/20/22 11:49 Pulse Ox 92 L 05/20/22 11:49 FiO2 Intake & Output 05/19/22 05/20/22 05/20/22 18:59 06:59 18:59 Intake Total 296.465 329.647 158 Output Total 200 Balance 296.465 129.647 158 Intake: IV 10 Invasive Line 1 10 Intake, IV Titration 60.465 89.647 Amount Heparin Sod,Pork in 0.45% 60.465 89.647 NaCl 25,000 unit In 0.45 % NaCl 1 250ml.bag @ 12 UNITS/KG/HR 8.437 mls/hr IV .Q24H CANDE Rx#: [id number] Oral 236 240 148 Output: Urine 200 Other: Voiding Method Toilet Toilet Toilet # Voids 2 1 - Labs CBC & Chem 7: 05/20/22 10:11 05/20/22 10:11 Labs: Abnormal Lab Results - Last 24 Hours (Table) 05/19/22 05/19/22 05/20/22 Range/Units 20:44 20:48 10:11 RBC 3.20 L (3.80-5.40) m/uL Hgb 7.6 L (11.4-16.0) gm/dL Hct 26.8 L (34.0-46.0) % MCH 23.6 L (25.0-35.0) pg MCHC 28.2 L (31.0-37.0) g/dL RDW 17.8 H (11.5-15.5) % Lymphocytes # 0.9 L (1.0-4.8) k/uL APTT 58.5 H (22.0-30.0) sec Chloride (98-107) mmol/L BUN (7-17) mg/dL Creatinine (0.52-1.04) mg/dL Calcium (8.4-10.2) mg/dL Total Bilirubin (0.2-1.3) mg/dL Total Protein (6.3-8.2) g/dL Albumin (3.5-5.0) g/dL Urine Appearance Cloudy H (Clear) Urine Protein 1+ H (Negative) Urine Bacteria Rare H (None) /hpf Hyaline Casts 55 H (0-2) /lpf Urine Mucus Occasional H (None) /hpf 05/20/22 05/20/22 Range/Units 10:11 10:11 RBC (3.80-5.40) m/uL Hgb (11.4-16.0) gm/dL Hct (34.0-46.0) % MCH (25.0-35.0) pg MCHC (31.0-37.0) g/dL RDW (11.5-15.5) % Lymphocytes # (1.0-4.8) k/uL APTT 47.4 H (22.0-30.0) sec Chloride 108 H (98-107) mmol/L BUN 29 H (7-17) mg/dL Creatinine 1.76 H (0.52-1.04) mg/dL Calcium 8.2 L (8.4-10.2) mg/dL Total Bilirubin 1.6 H (0.2-1.3) mg/dL Total Protein 5.6 L (6.3-8.2) g/dL Albumin 3.3 L (3.5-5.0) g/dL Urine Appearance (Clear) Urine Protein (Negative) Urine Bacteria (None) /hpf Hyaline Casts (0-2) /lpf Urine Mucus (None) /hpf
[2022-05-20 15:02] LABS: % Iron Saturation 2.55 (12.00-45.00)
[2022-05-20] MEDS: ACETAMINOPHEN TAB 325 MG TAB PO PRN (16:05)
[2022-05-20] MEDS: APIXABAN 2.5 MG TABLET PO SCH (20:06)
--- NOTE | 2022-05-20 23:18 | P.PN ---
Subjective Progress Note Date: 05/20/22 Patient is a 86-year-old female with a known history of coronary artery disease or stent placement, atrial fibrillation on anticoagulation with Eliquis, hypertension, history of [place] and chronic diastolic CHF and prior history of smoking presents to ER with complaints of palpitations, generalized weakness and fatigue and decreased appetite. She has been having symptoms for the past 2 to 3 days. Patient felt symptoms similar to her previous atrial fibrillation. No complaints of chest pain. [place] slightly lightheaded. No dizziness. No syncope. Denied any fever or chills. No nausea vomiting abdominal pain or diarrhea. EKG showed atrial fibrillation with rapid rate with heart rate 122 and right bu ndle gladys block Chest x-ray showed mild cardiomegaly and clearing of left pleural effusion and left lower lobe infiltrate compared to old exam. No CHF. Laboratory pressure WBC 11.6 hemoglobin 8.3 and platelets 200 RDW 17.8 INR 1.3 BUN 24 and creatinine 1.56 Blood sugar 169 proBNP is 9970. Troponin 0.512 and 0.909 and 0.910, TSH 2.92 Urinalysis showed cloudy with 1+ protein. No RBCs or WBCs. 05/20/2021 Patient is currently resting in bed. Awake alert and oriented x3. Heart rate is controlled. No complaints of chest pain or worsening shortness of breath. Patient is being continued t on IV heparin and will be changed to Eliquis. Patient continues to be in atrial fibrillation. Rate is controlled. No complaints of nausea vomiting abdominal pain or diarrhea. Feels better. Able to tolerate oral diet today. Today echocardiogram showed ejection fraction 30 to 35% with inferior hypoki nesis mild pulmonary hypertension and severely increased left atrial diameter, severely increased left atrial volume, mild to moderate MR, severe TR.. Laboratory data showed WBCs 6.8 hemoglobin 7.6 and platelets 172 Sodium 138 potassium 4.5 chloride 108 bicarb 23 BUN 29 creatinine slightly increased to 1.76 Calcium 8.2 iron profile showed deficiency. And B12 level is 268. Current medications reviewed. Objective - Vital Signs Vital signs: Vital Signs Temp 97.4 F L 05/20/22 16:00 Pulse 94 05/20/22 16:00 Resp 19 05/20/22 16:00 BP 102/68 05/20/22 16:00 Pulse Ox 99 05/20/22 16:00 FiO2 Intake & Output 05/20/22 05/20/22 05/21/22 06:59 18:59 06:59 Intake Total 329.647 168 Output Total 200 Balance 129.647 168 Intake: IV 20 Invasive Line 1 20 Intake, IV Titration 89.647 Amount Heparin Sod,Pork in 0.45% 89.647 NaCl 25,000 unit In 0.45 % NaCl 1 250ml.bag @ 12 UNITS/KG/HR 8.437 mls/hr IV .Q24H [facility] Rx#: [id number] Oral 240 148 Output: Urine 200 Other: Voiding Method Toilet Toilet # Voids 1 1 - Exam PHYSICAL EXAMINATION: Patient is lying in the bed comfortably, no acute distress, awake alert and oriented.. HEENT: Normocephalic. Neck is supple. Pupils reactive. Nostrils clear. Oral cavity is moist. Neck reveals no JVD, carotid bruits, or thyromegaly. CHEST EXAMINATION: Trachea is central. Symmetrical expansion. Lung pearl clear to auscultation and percussion. CARDIAC: Normal S1, S2 with no gallops. Irregularly irregular rhythm. ABDOMEN: Soft. Bowel sounds present. Nontender. No organomegaly. No abdominal bruits. Extremities: Bilateral lower extremity 1+ edema. No clubbing or cyanosis Neurologically awake, alert, oriented x3 with well-coordinated movements. No focal deficits noted Skin: No rash or skin lesions. Psychiatric: Coperative. Nonsuicidal, Musculoskeletal: No joint swelling or deformity. Normal range of motion. - Labs CBC & Chem 7: 05/20/22 10:11 05/20/22 10:11 Labs: Abnormal Lab Results - Last 24 Hours (Table) 05/19/22 05/19/22 05/20/22 Range/Units 20:44 20:48 10:11 RBC 3.20 L (3.80-5.40) m/uL Hgb 7.6 L (11.4-16.0) gm/dL Hct 26.8 L (34.0-46.0) % MCH 23.6 L (25.0-35.0) pg MCHC 28.2 L (31.0-37.0) g/dL RDW 17.8 H (11.5-15.5) % Lymphocytes # 0.9 L (1.0-4.8) k/uL APTT 58.5 H (22.0-30.0) sec Chloride (98-107) mmol/L BUN (7-17) mg/dL Creatinine (0.52-1.04) mg/dL Calcium (8.4-10.2) mg/dL Iron (50-170) ug/dL TIBC (228-460) ug/dL % Saturation (12.00-45.00) Total Bilirubin (0.2-1.3) mg/dL Total Protein (6.3-8.2) g/dL Albumin (3.5-5.0) g/dL Urine Appearance Cloudy H (Clear) Urine Protein 1+ H (Negative) Urine Bacteria Rare H (None) /hpf Hyaline Casts 55 H (0-2) /lpf Urine Mucus Occasional H (None) /hpf 05/20/22 05/20/22 Range/Units 10:11 10:11 RBC (3.80-5.40) m/uL Hgb (11.4-16.0) gm/dL Hct (34.0-46.0) % MCH (25.0-35.0) pg MCHC (31.0-37.0) g/dL RDW (11.5-15.5) % Lymphocytes # (1.0-4.8) k/uL APTT 47.4 H (22.0-30.0) sec Chloride 108 H (98-107) mmol/L BUN 29 H (7-17) mg/dL Creatinine 1.76 H (0.52-1.04) mg/dL Calcium 8.2 L (8.4-10.2) mg/dL Iron 12 L (50-170) ug/dL TIBC 482 H (228-460) ug/dL % Saturation 2.55 L (12.00-45.00) Total Bilirubin 1.6 H (0.2-1.3) mg/dL Total Protein 5.6 L (6.3-8.2) g/dL Albumin 3.3 L (3.5-5.0) g/dL Urine Appearance (Clear) Urine Protein (Negative) Urine Bacteria (None) /hpf Hyaline Casts (0-2) /lpf Urine Mucus (None) /hpf Assessment and Plan Assessment: Atrial fibrillation with rapid regular rate. Chronic atrial fibrillation on anticoagulation with Eliquis. Cardiomyopathy with ejection fraction 30 to 35%. Patient wishes to be continued on medical therapy. Dyspnea and elevated troponin level possible NSTEMI. Acute kidney injury likely prerenal. Coronary physical history of stent placement Hypertension History of [place] and cardiac arrest in September 2019 History of TR and right ventricular dilation. Normocytic anemia. Hemoglobin 8.3 Iron deficiency anemia and low normal B12 deficiency Prior history of smoking DVT prophylaxis plan: Patient is reclined on telemetry monitoring. Heparin drip has been discontinued and patient was started back on Eliquis. Continue with metoprolol dose increased to 37.5 mg daily. ANDRES inhibitor on hold due to acute kidney injury. Patient will be given iron supplementation and B12 supplementation. Monitor H&H. Cardiology is on board. Follow-up closely. Patient does not wish any procedures measures at this time. Time with Patient: Greater than 30
[2022-05-21 08:34] LABS: Anisocytosis Slight; Basophils % (A) 0 %; Eosinophils % (A) 0 %; HCT 30.7 % (34.0-46.0); HGB 8.7 gm/dL (11.4-16.0); Hypochromasia Marked; Lymphocytes % (A) 11 %; MCH 23.6 pg (25.0-35.0); MCHC 28.2 g/dL (31.0-37.0); MCV 83.7 fL (80.0-100.0); Mean Platelet Volume 8.6; Monocytes # (A) 0.5 k/uL (0-1.0); Monocytes % (A) 5 %; Neutrophils # (A) 7.4 k/uL (1.3-7.7); Neutrophils % (A) 82 %; Platelet Count 225 k/uL (150-450); Poikilocytosis Slight; RBC 3.67 m/uL (3.80-5.40); RDW 17.8 % (11.5-15.5)
[2022-05-21 08:41] LABS: Calcium 8.8 mg/dL (8.4-10.2); Potassium 4.8 mmol/L (3.5-5.1)
[2022-05-21] MEDS ORDERED: SODIUM FERRIC GLUCONAT-SUCROSE 125 MG in SODIUM CHLORIDE 0.9% 100 ML IVPB SCH (09:00)
[2022-05-21] MEDS: FUROSEMIDE 20 MG TAB PO SCH ×2 (09:02→09:13)
[2022-05-21] MEDS: CYANOCOBALAMIN 500 MCG TAB PO SCH ×2 (09:02→09:13)
[2022-05-21] MEDS: ASPIRIN 81 MG PO SCH ×2 (09:03→09:13)
[2022-05-21] MEDS: APIXABAN 2.5 MG TABLET PO SCH (09:03)
[2022-05-21] MEDS: METOPROLOL SUCCINATE (ER) 25 MG TAB.ER.24H PO SCH (09:04)
[2022-05-21 09:15] VITALS: RESP 19
[2022-05-21] MEDS ORDERED: METOPROLOL SUCCINATE (ER) 25 MG TAB.ER.24H PO STA (10:46)
[2022-05-21 12:03] VITALS: BP 114/76; PULSE 100; TEMP 97.3
[2022-05-21] MEDS: ACETAMINOPHEN TAB 325 MG TAB PO PRN (12:05)
--- NOTE | 2022-05-21 13:40 | P.PN ---
Subjective This is a pleasant 86-year-old female past medical history significant for paroxysmal atrial fibrillation on Eliquis, coronary artery disease with PCI to the mid RCA in 2001, hypertension, dyslipidemia, prior smoker, cardiac arrest in 09/2019. She used to follow with Dr. August. We have been asked to see in consultation for atrial fibrillation with RVR, NSTEMI. Patient presents to the ER with complaints of palpitations, generalized fatigue and weakness, decreased appetite and PO intake. Over the past 2-3 days patient endorsed worsening fatigue, palpitations, states it was a "weird feeling". She states it was similar to when she has been in A fib in the past. She also has not been eating or drinking as much as usual. She also has been having symptoms of dyspnea on exertion. Troponins were abnormal concerning for NSTEMI. 05/21/2022 Patient seen and examined at bedside, she did not sleep well overnight in the hospital. She is frustrated with being in the hospital. She denies any shortness of breath. She denies any chest pain. Echocardiogram revealed EF of 3035%, inferior hypokinesis, mild pulmonary hypertension, severely increased left atrial diameter, severely increased left atrial volume, mild to moderate mitral regurgitation, severe tricuspid regurgitation. Telemetry revealed patient continues be in A. fib HR 90s-low 100s Meds: Eliquis 2.5 mg twice a day, aspirin 80 mg daily, Lasix 20 mg daily, metoprolol succinate 37.5mg daily Labs:sodium 139, potassium 4.8, BUN 34, serum creatinine 1.76 PHYSICAL EXAMINATION Vitals reviewed CONSTITUTIONAL: No apparent distress. HEENT: Head is normocephalic. Neck Supple. No JVD. CHEST EXAMINATION: Lungs are diminished in the bases to auscultation. No chest wall tenderness is noted on palpation or with deep breathing. HEART EXAMINATION: Irregular rate and rhythm. S1, S2 heard. systolic murmur at apex, no gallops or rub. ABDOMEN: Soft, nontender. Positive bowel sounds. EXTREMITIES: 2+ peripheral pulses, 1+ bilateral lower extremity edema and no calf tenderness. NEUROLOGIC EXAMINATION: Patient is awake, alert and oriented x3. ASSESSMENT Paroxysmal atrial fibrillation with RVR, on eliquis outpatient Dyspnea on exertion and elevated troponin, possible NSTEMI Cardiomyopathy with EF 30-35%, ischemic vs non-ischemic patient's wishes medical therapy at this time. Acute kidney injury Decreased PO intake Hypotension Coronary artery disease with PCI to the mid RCA in 2001 History of Hypertension Dyslipidemia History of tobacco use History of cardiac arrest in 09/2019 PLAN Increase metoprolol succinate 50mg daily Continue Eliquis Patient not on ACEI/ARB secondary to renal function Continue cardiac telemetry Patient's wishes at this time are to not have any invasive measures performed this was discussed with patient's daughter today. Patient's hospital stay, workup and diagnosis of possible NSTEMI, cardiomyopathy and A fib with RVR discussed with the daughter and she is understanding of patient's current treatment and condition at this time. At this time, patient and daughter are requesting for patient to be discharged if possible today. From a cardiology perspective, patient may be discharged today. Follow up outpatient within 1 week. Nurse practitioner note has been reviewed by physician. Signing provider agrees with the documented findings, assessment, and plan of care. Objective - Vital Signs Vital signs: Vital Signs Temp 98.0 F 05/21/22 08:59 Pulse 102 H 05/21/22 09:00 Resp 19 05/21/22 09:00 BP 115/76 05/21/22 08:59 Pulse Ox 94 L 05/21/22 08:59 FiO2 Intake & Output 05/20/22 05/21/22 05/21/22 18:59 06:59 18:59 Intake Total 168 240 118 Balance 168 240 118 Intake: IV 20 Invasive Line 1 20 Oral 148 240 118 Other: Voiding Method Toilet Toilet Toilet # Voids 1 1 - Labs CBC & Chem 7: 05/21/22 07:28 05/21/22 07:28 Labs: Abnormal Lab Results - Last 24 Hours (Table) 05/20/22 05/20/22 05/20/22 Range/Units 10:11 10:11 10:11 RBC 3.20 L (3.80-5.40) m/uL Hgb 7.6 L (11.4-16.0) gm/dL Hct 26.8 L (34.0-46.0) % MCH 23.6 L (25.0-35.0) pg MCHC 28.2 L (31.0-37.0) g/dL RDW 17.8 H (11.5-15.5) % Lymphocytes # 0.9 L (1.0-4.8) k/uL APTT 47.4 H (22.0-30.0) sec Chloride 108 H (98-107) mmol/L Carbon Dioxide (22-30) mmol/L BUN 29 H (7-17) mg/dL Creatinine 1.76 H (0.52-1.04) mg/dL Glucose (74-99) mg/dL Calcium 8.2 L (8.4-10.2) mg/dL Iron 12 L (50-170) ug/dL TIBC 482 H (228-460) ug/dL % Saturation 2.55 L (12.00-45.00) Total Bilirubin 1.6 H (0.2-1.3) mg/dL Total Protein 5.6 L (6.3-8.2) g/dL Albumin 3.3 L (3.5-5.0) g/dL 05/21/22 05/21/22 Range/Units 07:28 07:28 RBC 3.67 L (3.80-5.40) m/uL Hgb 8.7 L (11.4-16.0) gm/dL Hct 30.7 L (34.0-46.0) % MCH 23.6 L (25.0-35.0) pg MCHC 28.2 L (31.0-37.0) g/dL RDW 17.8 H (11.5-15.5) % Lymphocytes # (1.0-4.8) k/uL APTT (22.0-30.0) sec Chloride (98-107) mmol/L Carbon Dioxide 20 L (22-30) mmol/L BUN 34 H (7-17) mg/dL Creatinine 1.76 H (0.52-1.04) mg/dL Glucose 101 H (74-99) mg/dL Calcium (8.4-10.2) mg/dL Iron (50-170) ug/dL TIBC (228-460) ug/dL % Saturation (12.00-45.00) Total Bilirubin (0.2-1.3) mg/dL Total Protein (6.3-8.2) g/dL Albumin (3.5-5.0) g/dL
[2022-05-22] MEDS ORDERED: METOPROLOL SUCCINATE (ER) 50 MG TAB.ER.24H PO SCH (09:00)
--- NOTE | 2022-05-23 07:29 | CDI ---
Documentation Clarification Form Date: 05/23/2022 07:19:00 AM From: Mala Hernández Admit Date: 05/19/2022 04:55:00 AM Patient Name: Millicent Dalal Visit Number: [id number] Discharge Date: 05/21/2022 05:44:00 PM ATTENTION: The Clinical Documentation Specialists (CDI) and [facility] Coding Staff appreciate your assistance in clarifying documentation. Please respond to the clarification below the line at the bottom and electronically sign. The CDI & [facility] Coding staff will review the response and follow-up if needed. Please note: Queries are made part of the Legal Health Record. If you have any questions, please contact the author of this message via ITS. Dr. Jose Miller Conflicting documentation has been found in the medical record. As attending physician, please provide clarification. Per ED notes "Exacerbation of CHF" Per H and P, Consult 05/19 and 05/20 PN chronic diastolic CHF History/Risk Factors: Old ID, atrial fib chronic, personal history of cardiac arrest, renal failure, TR, MR. NSTEMI Clinical Indicators: CXR showing enlarged heart, pleural effusion, EF 30-35%, BNP 9970 Treatment: Lasix 20 mg PO Please clarify which diagnosis is most appropriate: [ ] Exacerbation of chronic diastolic CHF [ X ] Chronic diastolic CHF [ ] Other (please specify) [ ] Unable to determine MTDD
== END 2022-05-21 17:44 | disposition home or self-care (01) | DRG 281 ==
LOC: EC 02:26 → 3SCARD 04:55
PROVIDERS: ADMIT Hospitalist; ATTEND Hospitalist
DX: I21.4 Non-ST elevation (NSTEMI) myocardial infarction (principal); I42.9 Cardiomyopathy, unspecified; I50.32 Chronic diastolic (congestive) heart failure; N17.9 Acute kidney failure, unspecified; I27.20 Pulmonary hypertension, unspecified; I45.10 Unspecified right bundle-branch block; I48.0 Paroxysmal atrial fibrillation; D50.9 Iron deficiency anemia, unspecified; E53.8 Deficiency of other specified B group vitamins; E78.5 Hyperlipidemia, unspecified; E86.0 Dehydration; I08.1 Rheumatic disorders of both mitral and tricuspid valves; I11.0 Hypertensive heart disease with heart failure; J44.9 Chronic obstructive pulmonary disease, unspecified; Z79.01 Long term (current) use of anticoagulants; Z79.82 Long term (current) use of aspirin; Z79.899 Other long term (current) drug therapy; Z82.49 Family history of ischemic heart disease and other diseases of the circulatory system; Z86.74 Personal history of sudden cardiac arrest; Z87.891 Personal history of nicotine dependence; Z95.5 Presence of coronary angioplasty implant and graft; I25.10 Atherosclerotic heart disease of native coronary artery without angina pectoris; I25.2 Old myocardial infarction; Z88.8 Allergy status to other drugs, medicaments and biological substances
CPT/HCPCS: 36415; 71045; 80048; 80053; 81001; 82607; 82747; 83540; 83550; 83735; 83880; 84100; 84443; 84484; 85025; 85610; 85730; 93005; 93306; 94760; 96374; 96375; 99291

== ENCOUNTER 2022-05-23 09:52 | Inpatient (IN) | payer MEDICARE, BC ==
[2022-05-23] MEDS ORDERED: FUROSEMIDE 10 MG/ML 4 ML VIAL IV STA (10:31)
--- NOTE | 2022-05-23 10:35 | ED ---
General Adult HPI - General Chief complaint: Chest Pain Stated complaint: chest pain, tachycardia Time Seen by Provider: 05/23/22 10:16 Source: patient, family (daughter), RN notes reviewed, old records reviewed Mode of arrival: ambulatory Limitations: no limitations - History of Present Illness Initial comments: This is a nontoxic-appearing 86-year-old female that presents to the emergency room with her daughter complaining of shortness of and chest tightness worse with exertion and better with rest here patient was just discharged from the hospital 2 days ago with similar symptoms. Denies any nausea vomiting diarrhea or fevers. Occasional cough. She does have a history of atrial fibrillation with RVR, hypertension, [place], congestive heart failure. -: days(s) (2) Location: chest Severity scale (1-10): 2 Quality: other (heavy) Consistency: constant Improves with: rest Worsens with: other (exertion) Associated Symptoms: other (BLLE swelling) - Related Data Home Medications Medication Instructions Recorded Confirmed Apixaban [Eliquis] 2.5 mg PO BID 05/19/22 05/23/22 Furosemide [Lasix] 20 mg PO DAILY 05/19/22 05/23/22 Omeprazole 20 mg PO DAILY PRN 05/23/22 05/23/22 Previous Rx's Medication Instructions Recorded Cyanocobalamin [Vitamin B-12] 1,000 mcg PO DAILY #30 tab 05/21/22 Ferrous Sulfate [Feosol] 325 mg PO DAILY #30 tab 05/21/22 Metoprolol Succinate (ER) [Toprol 50 mg PO DAILY #30 tab 05/21/22 XL] Allergies Allergy/AdvReac Type Severity Reaction Status Date / Time amiodarone AdvReac Rapid Verified 05/23/22 12:36 Heart Rate Patient : No Review of Systems ROS Statement: Those systems with pertinent positive or pertinent negative responses have been documented in the HPI. ROS Other: All systems not noted in ROS Statement are negative. Past Medical History Past Medical History: Atrial Fibrillation, Coronary Artery Disease (CAD), Hypertension, Myocardial Infarction ([place]) Additional Past Medical History / Comment(s): CHF with diastolic dysfunction, coronary artery disease with previous insertion of coronary stent, chronic atrial fibrillation, hypertension, severe tricuspid regurgitation along with severe dilatation of the right ventricle and a PA pressure mildly elevated probably consistent with chronic lung disease/COPD. Last Myocardial Infarction Date:: 2001 History of Any Multi-Drug Resistant Organisms: None Reported Past Surgical History: Heart Catheterization With Stent Past Anesthesia/Blood Transfusion Reactions: No Reported Reaction Date of Last Stent Placement:: 2001 Past Psychological History: No Psychological Hx Reported Smoking Status: Former smoker Past Alcohol Use History: None Reported Past Drug Use History: None Reported - Past Family History Father Family Medical History: Coronary Artery Disease (CAD) Mother Family Medical History: Coronary Artery Disease (CAD) General Exam Limitations: no limitations General appearance: alert, in no apparent distress Head exam: Present: atraumatic, normocephalic, normal inspection Eye exam: Absent: scleral icterus, conjunctival injection, periorbital swelling ENT exam: Present: mucous membranes moist Neck exam: Present: normal inspection, full ROM. Absent: tenderness, meningismus Respiratory exam: Present: rales (bases), decreased breath sounds (left base). Absent: respiratory distress, wheezes, rhonchi, stridor, chest wall tenderness, accessory muscle use Cardiovascular Exam: Present: tachycardia, irregular rhythm GI/Abdominal exam: Present: soft. Absent: distended, tenderness, rigid Extremities exam: Present: normal capillary refill, pedal edema (2 + blle). Absent: tenderness, calf tenderness Back exam: Absent: tenderness, CVA tenderness (R), CVA tenderness (L) Neurological exam: Present: alert, oriented X3 Psychiatric exam: Present: normal affect, normal mood Skin exam: Present: warm, dry. Absent: cyanosis, pallor Course Vital Signs 05/23/22 05/23/22 10:00 11:07 Temperature 98.6 F Pulse Rate 111 H 96 Respiratory 22 20 Rate Blood Pressure 133/64 113/72 O2 Sat by Pulse 99 97 Oximetry EKG Findings - EKG Results: EKG shows: atrial fibrillation (Atrial fibrillation with rapid ventricular rate of 104, QRS 0.157, QTC 0.463 right axis deviation) Medical Decision Making - Medical Decision Making According to medical records patient was treated and discharged on May 21 w ith the plan to continue metoprolol increased dose of 50 mg a day. Continue eloquent's. Wishes discussed with daughter and patient declined invasive measures. Diagnosis possible and STEMI, cardiomyopathy and A. fib with RVR. Patient was discharged home to follow up in the office in 1 week. Labs today show a troponin of 0.257, down from the seventh when it was 0.910. Hemoglobin and hematocrit are stable. Creatinine 1.86 with a BUN of 40, creatinine of 1.76 on the ninth with BUN of 34. Chest x-ray shows cardiomegaly BNP 87012 patient was given 40 mg of IV Lasix will be admitted with congestive heart failure, EKG shows atrial fibrillation with an ventricular rate 104. Right bundle-branch block with T-wave abnormalities previously seen on old EKGs 05/19/2022 Patient and daughter at bedside agreeable to admission. Vital signs stable. Case discussed with Dr. [place] - Lab Data Result diagrams: 05/23/22 10:32 05/23/22 10:32 Lab Results 05/23/22 05/23/22 05/23/22 Range/Units 10:32 10:32 10:32 WBC 9.3 (3.8-10.6) k/uL RBC 3.72 L (3.80-5.40) m/uL Hgb 8.8 L (11.4-16.0) gm/dL Hct 30.3 L (34.0-46.0) % MCV 81.6 (80.0-100.0) fL MCH 23.8 L (25.0-35.0) pg MCHC 29.2 L (31.0-37.0) g/dL RDW 18.0 H (11.5-15.5) % Plt Count 233 (150-450) k/uL MPV 8.6 Neutrophils % 80 % Lymphocytes % 10 % Monocytes % 6 % Eosinophils % 0 % Basophils % 1 % Neutrophils # 7.4 (1.3-7.7) k/uL Lymphocytes # 0.9 L (1.0-4.8) k/uL Monocytes # 0.6 (0-1.0) k/uL Eosinophils # 0.0 (0-0.7) k/uL Basophils # 0.1 (0-0.2) k/uL Hypochromasia Marked Poikilocytosis Slight Anisocytosis Slight Microcytosis Slight PT 13.7 H (9.0-12.0) sec INR 1.3 H (<1.2) APTT 29.5 (22.0-30.0) sec Sodium 139 (137-145) mmol/L Potassium 4.1 (3.5-5.1) mmol/L Chloride 105 (98-107) mmol/L Carbon Dioxide 22 (22-30) mmol/L Anion Gap 12 mmol/L BUN 40 H (7-17) mg/dL Creatinine 1.86 H (0.52-1.04) mg/dL Est GFR (CKD-EPI)AfAm 28 (>60 ml/min/1.73 sqM) Est GFR (CKD-EPI)NonAf 24 (>60 ml/min/1.73 sqM) Glucose 105 H (74-99) mg/dL Calcium 8.8 (8.4-10.2) mg/dL Magnesium 2.3 (1.6-2.3) mg/dL Total Bilirubin 1.7 H (0.2-1.3) mg/dL AST 25 (14-36) U/L ALT 17 (4-34) U/L Alkaline Phosphatase 52 (38-126) U/L Troponin I (0.000-0.034) ng/mL NT-Pro-B Natriuret Pep pg/mL Total Protein 6.5 (6.3-8.2) g/dL Albumin 3.9 (3.5-5.0) g/dL 05/23/22 05/23/22 Range/Units 10:32 10:32 WBC (3.8-10.6) k/uL RBC (3.80-5.40) m/uL Hgb (11.4-16.0) gm/dL Hct (34.0-46.0) % MCV (80.0-100.0) fL MCH (25.0-35.0) pg MCHC (31.0-37.0) g/dL RDW (11.5-15.5) % Plt Count (150-450) k/uL MPV Neutrophils % % Lymphocytes % % Monocytes % % Eosinophils % % Basophils % % Neutrophils # (1.3-7.7) k/uL Lymphocytes # (1.0-4.8) k/uL Monocytes # (0-1.0) k/uL Eosinophils # (0-0.7) k/uL Basophils # (0-0.2) k/uL Hypochromasia Poikilocytosis Anisocytosis Microcytosis PT (9.0-12.0) sec INR (<1.2) APTT (22.0-30.0) sec Sodium (137-145) mmol/L Potassium (3.5-5.1) mmol/L Chloride (98-107) mmol/L Carbon Dioxide (22-30) mmol/L Anion Gap mmol/L BUN (7-17) mg/dL Creatinine (0.52-1.04) mg/dL Est GFR (CKD-EPI)AfAm (>60 ml/min/1.73 sqM) Est GFR (CKD-EPI)NonAf (>60 ml/min/1.73 sqM) Glucose (74-99) mg/dL Calcium (8.4-10.2) mg/dL Magnesium (1.6-2.3) mg/dL Total Bilirubin (0.2-1.3) mg/dL AST (14-36) U/L ALT (4-34) U/L Alkaline Phosphatase (38-126) U/L Troponin I 0.257 H* (0.000-0.034) ng/mL NT-Pro-B Natriuret Pep 99311 pg/mL Total Protein (6.3-8.2) g/dL Albumin (3.5-5.0) g/dL Disposition Clinical Impression: CHF exacerbation, Cardiomegaly, Atrial fibrillation Disposition: ADMITTED IP TO THIS HOSP Decision Date: 05/23/22 Decision Time: 11:53
--- NOTE | 2022-05-23 10:44 | XR ---
EXAMINATION TYPE: XR chest 2V DATE OF EXAM: 05/23/2022 COMPARISON: 05/19/2022 TECHNIQUE: PA and lateral views submitted. HISTORY: Shortness of breath FINDINGS: The lungs are clear and there is no pneumothorax, pleural effusion, or focal pneumonia. Hypertrophi c and degenerative changes spine. The heart is enlarged. Subsegmental changes left lung base. Diffuse osteopenia with arthropathy of the shoulders. Biapical pleural thickening. Atherosclerotic change ao rta. IMPRESSION: 1. COPD and severe cardiomegaly with no overt failure correlate clinically..
[2022-05-23 11:07] LABS: Anisocytosis Slight; Basophils # (A) 0.1 k/uL (0-0.2); Basophils % (A) 1 %; Eosinophils % (A) 0 %; HCT 30.3 % (34.0-46.0); HGB 8.8 gm/dL (11.4-16.0); Hypochromasia Marked; Lymphocytes # (A) 0.9 k/uL (1.0-4.8); Lymphocytes % (A) 10 %; MCH 23.8 pg (25.0-35.0); MCHC 29.2 g/dL (31.0-37.0); MCV 81.6 fL (80.0-100.0); Mean Platelet Volume 8.6; Microcytosis Slight; Monocytes # (A) 0.6 k/uL (0-1.0); Monocytes % (A) 6 %; Neutrophils # (A) 7.4 k/uL (1.3-7.7); Neutrophils % (A) 80 %; Platelet Count 233 k/uL (150-450); Poikilocytosis Slight; RBC 3.72 m/uL (3.80-5.40); WBC 9.3 k/uL (3.8-10.6)
[2022-05-23 11:18] LABS: Albumin 3.9 g/dL (3.5-5.0); Calcium 8.8 mg/dL (8.4-10.2); Magnesium 2.3 mg/dL (1.6-2.3); Potassium 4.1 mmol/L (3.5-5.1); Total Bilirubin 1.7 mg/dL (0.2-1.3); Total Protein 6.5 g/dL (6.3-8.2)
[2022-05-23 11:31] LABS: INR 1.3 (<1.2); Partial Thromboplastin Time 29.5 sec (22.0-30.0); Prothrombin Time 13.7 sec (9.0-12.0)
[2022-05-23] MEDS ORDERED: NALOXONE 0.4 MG/ML 1 ML VIAL IV PRN (12:15)
[2022-05-23] MEDS ORDERED: PANTOPRAZOLE 40 MG TABLET PO PRN (15:18)
[2022-05-23] MEDS: METOPROLOL SUCCINATE (ER) 50 MG TAB.ER.24H PO SCH (16:18)
[2022-05-23] MEDS: APIXABAN 2.5 MG TABLET PO SCH (22:29)
[2022-05-23] MEDS: ALPRAZolam 0.25 MG TAB PO PRN (22:31)
--- NOTE | 2022-05-23 23:44 | P.HPIM ---
History of Present Illness H&P Date: 05/23/22 Chief Complaint: Shortness of breath Patient is a 86-year-old female with a known history of coronary artery disease or stent placement, atrial fibrillation on anticoagulation with Eliquis, hypertension, history of DC and chronic diastolic CHF and prior history of smoking presents to ER With complaints of shortness of breath and chest pressure. Patient states that she has been having symptoms since yesterday. She was discharged on hospital on 05/21/2022. Complaints of shortness of breath mostly when she gets up from bed. Patient also felt dizzy. No complaints of na usea or vomiting. No cough or sputum production. Patient was recently admitted to the hospital due to A. fib with RVR. Metoprolol dose was increased with better control of the heart and was discharg ed home. Patient did not want any aggressive procedures at that time. Patient was found to have cardiomyopathy ejection fraction 30 to 35%. And also elevated troponin level. Patient is on Lasix 20 mg daily and lisinopril is on hold due to acute kidney injury recently. Chest x-ray showed COPD and severe cardiomegaly with no overt failure correlate clinically. EKG showed A. fib with RVR with heart rate 104. Bilateral differential WBC 9.3 hemoglobin 8.8 and platelets 233 INR 1.1 at 1.3, sodium 139 potassium 4.1 chloride 1.1 chloride 105 bicarb is 22 BUN 14 creatinine 1.86 and a troponin 0.[address] [place] [address]. Recent echocardiogram showed ejection fraction 30 to 35% with inferior hypokinesis mild pulmonary hypertension and severely increased left atrial diameter, severely increased left atrial volume, mild to moderate MR, severe TR.. Review of Systems Constitutional: Patient denies any fever or chills . no Generalized weakness. Abdomen: Patient denied any nausea or vomiting or abd. pain Cardiovascular: Patient does complain of chest tightness and shortness of breath. Worsening leg swelling and no palpitations. Respiratory: patient denied any cough . no sputum production. Does have shortness of breath Neurologic: Patient denied any numbness or tingling headache. Musculoskeletal: Patient denies any complaints of joint swelling or deformity. Skin: Negative Psychiatric: Negative Endocrine: No heat or cold intolerance. No recent weight gain. Genitourinary: No dysuria or hematuria. All other 14 point ROS negative except the above Past Medical History Past Medical History: Atrial Fibrillation, Coronary Artery Disease (CAD), Hypertension, Myocardial Infarction (DC) Additional Past Medical History / Comment(s): CHF with diastolic dysfunction, coronary artery disease with previous insertion of coronary stent, chronic atrial fibrillation, hypertension, severe tricuspid regurgitation along with severe dilatation of the right ventricle and a PA pressure mildly elevated probably consistent with chronic lung disease/COPD. Last Myocardial Infarction Date:: 2001 History of Any Multi-Drug Resistant Organisms: None Reported Past Surgical History: Heart Catheterization With Stent Past Anesthesia/Blood Transfusion Reactions: No Reported Reaction Date of Last Stent Placement:: 2001 Past Psychological History: No Psychological Hx Reported Smoking Status: Former smoker Past Alcohol Use History: None Reported Past Drug Use History: None Reported - Past Family History Father Family Medical History: Coronary Artery Disease (CAD) Mother Family Medical History: Coronary Artery Disease (CAD) Medications and Allergies Home Medications Medication Instructions Recorded Confirmed Type Apixaban [Eliquis] 2.5 mg PO BID 05/19/22 05/23/22 History Furosemide [Lasix] 20 mg PO DAILY 05/19/22 05/23/22 History Cyanocobalamin [Vitamin B-12] 1,000 mcg PO DAILY #30 tab 05/21/22 05/23/22 Rx Ferrous Sulfate [Feosol] 325 mg PO DAILY #30 tab 05/21/22 05/23/22 Rx Metoprolol Succinate (ER) [Toprol 50 mg PO DAILY #30 tab 05/21/22 05/23/22 Rx XL] Omeprazole 20 mg PO DAILY PRN 05/23/22 05/23/22 History Allergies Allergy/AdvReac Type Severity Reaction Status Date / Time amiodarone AdvReac Rapid Verified 05/23/22 12:36 Heart Rate Physical Exam Vitals: Vital Signs Temp Pulse Resp BP Pulse Ox 05/23/22 14:08 95 18 114/81 97 05/23/22 11:07 96 20 113/72 97 05/23/22 10:00 98.6 F 111 H 22 133/64 99 Intake and Output 05/23/22 05/23/22 05/23/22 06:59 14:59 22:59 Other: Weight 72.575 kg PHYSICAL EXAMINATION: Patient is lying in the bed comfortably, no acute distress, awake alert and oriented.. HEENT: Normocephalic. Neck is supple. Pupils reactive. Nostrils clear. Oral cavity is moist. Neck reveals no JVD, carotid bruits, or thyromegaly. CHEST EXAMINATION: Trachea is central. Symmetrical expansion. Lung pearl clear to auscultation and percussion. CARDIAC: Normal S1, S2 with no gallops. No murmurs ABDOMEN: Soft. Bowel sounds present. Nontender. No organomegaly. No abdominal bruits. Extremities: 2+ edema. No clubbing or cyanosis Neurologically awake, alert, oriented x3 with well-coordinated movements. No focal deficits noted Skin: No rash or skin lesions. Psychiatric: Coperative. Nonsuicidal, Musculoskeletal: No joint swelling or deformity. Normal range of motion. Results CBC & Chem 7: 05/23/22 10:32 05/23/22 10:32 Labs: Abnormal Lab Results - Last 24 Hours (Table) 05/23/22 05/23/22 05/23/22 Range/Units 10:32 10:32 10:32 RBC 3.72 L (3.80-5.40) m/uL Hgb 8.8 L (11.4-16.0) gm/dL Hct 30.3 L (34.0-46.0) % MCH 23.8 L (25.0-35.0) pg MCHC 29.2 L (31.0-37.0) g/dL RDW 18.0 H (11.5-15.5) % Lymphocytes # 0.9 L (1.0-4.8) k/uL PT 13.7 H (9.0-12.0) sec INR 1.3 H (<1.2) BUN 40 H (7-17) mg/dL Creatinine 1.86 H (0.52-1.04) mg/dL Glucose 105 H (74-99) mg/dL Total Bilirubin 1.7 H (0.2-1.3) mg/dL Troponin I (0.000-0.034) ng/mL 05/23/22 Range/Units 10:32 RBC (3.80-5.40) m/uL Hgb (11.4-16.0) gm/dL Hct (34.0-46.0) % MCH (25.0-35.0) pg MCHC (31.0-37.0) g/dL RDW (11.5-15.5) % Lymphocytes # (1.0-4.8) k/uL PT (9.0-12.0) sec INR (<1.2) BUN (7-17) mg/dL Creatinine (0.52-1.04) mg/dL Glucose (74-99) mg/dL Total Bilirubin (0.2-1.3) mg/dL Troponin I 0.257 H* (0.000-0.034) ng/mL Thrombosis Risk Factor Assmnt - DVT/VTE Prophylaxis DVT/VTE Prophylaxis: Pharmacologic Prophylaxis ordered Assessment and Plan Assessment: Worsening shortness of breath due to acute on chronic CHF with systolic function Atrial fibrillation with rapid ventricular rate Elevated troponin level Cardiomyopathy with ejection fraction 30 to 35%. Patient wishes to continue with medical therapy during recent admission. Acute on chronic kidney disease stage III. Creatinine 1.86 Coronary artery disease with history of stent placement Hypertension History DC and cardiac arrest in September 2019 History of TR and right ventricular dilatation. Normocytic anemia Iron deficiency anemia DVT prophylaxis patient is already on Eliquis Plan: Patient will be continued on telemetry monitoring. Was given a dose of IV Lasix 40 mg x 1 in the ER. Continue with Lasix daily. Continue with metoprolol and Eliquis and cardiology was consulted for evaluation. Monitor CBC and BMP and follow-up closely. Prognosis is guarded at this time. Time with Patient: Greater than 30
[2022-05-24 01:38] LABS: Glucose,Whole Blood 127 mg/dL (70-110)
[2022-05-24] MEDS: ACETAMINOPHEN TAB 325 MG TAB PO PRN (01:49)
[2022-05-24] MEDS: FERROUS SULFATE 325 MG TAB PO SCH (08:07)
[2022-05-24] MEDS: FUROSEMIDE 10 MG/ML 2 ML VIAL IV SCH (08:07)
[2022-05-24] MEDS: APIXABAN 2.5 MG TABLET PO SCH ×2 (08:07→20:42)
[2022-05-24] MEDS: CYANOCOBALAMIN 500 MCG TAB PO SCH (08:07)
[2022-05-24] MEDS: METOPROLOL SUCCINATE (ER) 50 MG TAB.ER.24H PO SCH (08:07)
[2022-05-24] MEDS ORDERED: FUROSEMIDE 20 MG TAB PO SCH (09:00)
[2022-05-24 09:21] LABS: Anisocytosis Slight; Basophils % (A) 0 %; Eosinophils % (A) 0 %; HCT 25.4 % (34.0-46.0); HGB 7.5 gm/dL (11.4-16.0); Hypochromasia Marked; Lymphocytes # (A) 0.6 k/uL (1.0-4.8); Lymphocytes % (A) 8 %; MCH 24.3 pg (25.0-35.0); MCHC 29.5 g/dL (31.0-37.0); MCV 82.3 fL (80.0-100.0); Mean Platelet Volume 8.2; Monocytes # (A) 0.5 k/uL (0-1.0); Monocytes % (A) 6 %; Neutrophils # (A) 6.3 k/uL (1.3-7.7); Neutrophils % (A) 83 %; Platelet Count 187 k/uL (150-450); Poikilocytosis Slight; RBC 3.09 m/uL (3.80-5.40); WBC 7.6 k/uL (3.8-10.6)
[2022-05-24 09:37] LABS: Calcium 8.3 mg/dL (8.4-10.2); Potassium 3.9 mmol/L (3.5-5.1)
[2022-05-24] MEDS: ISOSORBIDE MONONITRATE ER 30 MG TAB.ER.24H PO SCH (11:40)
--- NOTE | 2022-05-24 12:26 | P.CRDCN ---
History of Present Illness Consult date: 05/24/22 History of present illness: HISTORY OF PRESENTING ILLNESS This is a pleasant 86-year-old female past medical history significant for paroxysmal atrial fibrillation on Eliquis, coronary artery disease with PCI to the mid RCA in 2001, hypertension, dyslipidemia, prior smoker, cardiac arrest in 09/2019. She used to follow with Dr. August. We have been asked to see in [facility] for atrial fibrillation with RVR, NSTEMI. Patient presents to the ER with complaints of palpitations, generalized fatigue and weakness, decreased appetite and PO intake. Patient was hospitalized on , treated for paroxysmal atrial fibrillation, possible non-ST elevated myocardial infarction, cardiomyopathy with EF of 30-35%, acute kidney injury. Patient states that she was stable when she went home but once she was moving from a sitting to standing position she hadn't overpowering sensation although she has difficulty describing the sensation. She denies that it was shortness of breath. Daughter is at bedside and states that it was so severe that she was crying. She states it happened every time she stood. Patient denies any nausea but daughter states she had gagging episodes on a few occasions. No sweats, no fever or chills, no cough and palpitations. Otherwise, patient states that she is feeling well. Regarding atrial fibrillation, patient has had this on and off since 2019. She apparently had a cardioversion done but patient did convert back to atrial fibrillation approximately 12 hours after and patient daughter states that she coded and ended up back in the hospital. Patient is resting in a chair does not have any symptoms at rest. During last hospitalization, Toprol-XL increased to 50 mg daily. DIAGNOSTICS * EKG reveals atrial fibrillation with rapid response, heart rate 104, right bundle-branch block, ST depressions in lateral leads, V5 and V6. * Echocardiogram 05/19/2020 revealed EF 3035 percent, mild to moderate mitral regurgitation, severe tricuspid regurgitation. * Telemetry tracings indicate atrial fibrillation HR 80s. * Chest xray: COPD and severe cardiomegaly with no overt failure. * Laboratory reviewed: WBC 9.3, hemoglobin 8.8, platelet count 233. INR 1.3. Electrolytes normal. BUN 40 creatinine 1.86. Glucose 105. Troponin 0.257. ProBNP 19,200. * Current home cardiac medications include Eliquis 2.5 mg twice a day, metoprolol succinate 50 mg daily, Lasix 20 mg daily REVIEW OF SYSTEMS At the time of my exam: CONSTITUTIONAL: Denies fever or chills. Denies generalized fatigue and weakness CARDIOVASCULAR: Denies chest pain, +shortness of breath, Denies orthopnea, PND +palpitations. RESPIRATORY: Denies cough. GASTROINTESTINAL: Denies abdominal pain, diarrhea, constipation, nausea or vomiting. MUSCULOSKELETAL: Denies myalgias. NEUROLOGIC: Denies numbness, tingling, headacbe or weakness. ENDOCRINE: Denies fatigue, Denies weight change, polydipsia or polyurina. GENITOURINARY: Denies burning, hematuria or urgency with micturation. HEMATOLOGIC: +history of anemia Denies bleeding. PHYSICAL EXAMINATION Blood pressure 100/63, heart rate 87, afebrile, saturations 93% on room air CONSTITUTIONAL: No apparent distress. HEENT: Head is normocephalic. Pupils are equal, round. Sclerae anicteric. Mucous membranes of the mouth are moist. No JVD. No carotid bruit. CHEST EXAMINATION: Lungs are diminished in the bases to auscultation. No chest wall tenderness is noted on palpation or with deep breathing. HEART EXAMINATION: Irregular rate and rhythm. S1, S2 heard. No murmurs, gallops or rub. ABDOMEN: Soft, nontender. Positive bowel sounds. EXTREMITIES: 2+ peripheral pulses, trace bilateral lower extremity edema and no calf tenderness. NEUROLOGIC EXAMINATION: Patient is awake, alert and oriented x3. ASSESSMENT Paroxysmal atrial fibrillation with RVR, on eliquis outpatient Recent hospitalization for, possible NSTEMI Acute on chronic systolic heart failure Acute kidney injury Coronary artery disease with PCI to the mid RCA in 2001 History of Hypertension Dyslipidemia History of tobacco use History of cardiac arrest in 09/2019 PLAN Continue patient on eliquis 2.5 mg twice daily, Toprol-XL 50 mg daily Patient started on Lasix 20 mg IV daily Start patient on Imdur 30 mg daily Monitor renal function and electrolytes Continue cardiac telemetry Discussed next steps with the patient and her daughter. We will plan to add Imdur to her medication regime and monitor patient's symptoms that she develops when changing position closely. Suspect that her symptoms are most likely related to angina versus heart failure. Patient is undecided whether she wants to pursue cardiac catheterization. Continue to monitor patient closely. Will continue to monitor and make recommendations accordingly Nurse practitioner note has been reviewed by physician. Signing provider agrees with the documented findings, assessment, and plan of care. Past Medical History Past Medical History: Atrial Fibrillation, Coronary Artery Disease (CAD), Hypertension, Myocardial Infarction (VT) Additional Past Medical History / Comment(s): CHF with diastolic dysfunction, coronary artery disease with previous insertion of coronary stent, chronic at rial fibrillation, hypertension, severe tricuspid regurgitation along with severe dilatation of the right ventricle and a PA pressure mildly elevated probably consistent with chronic lung disease/COPD. Last Myocardial Infarction Date:: 2001 History of Any Multi-Drug Resistant Organisms: None Reported Past Surgical History: Heart Catheterization With Stent Past Anesthesia/Blood Transfusion Reactions: No Reported Reaction Date of Last Stent Placement:: 2001 Past Psychological History: No Psychological Hx Reported Smoking Status: Former smoker Past Alcohol Use History: None Reported Past Drug Use History: None Reported - Past Family History Father Family Medical History: Coronary Artery Disease (CAD) Mother Family Medical History: Coronary Artery Disease (CAD) Medications and Allergies Home Medications Medication Instructions Recorded Confirmed Type Apixaban [Eliquis] 2.5 mg PO BID 05/19/22 05/23/22 History Furosemide [Lasix] 20 mg PO DAILY 05/19/22 05/23/22 History Cyanocobalamin [Vitamin B-12] 1,000 mcg PO DAILY #30 tab 05/21/22 05/23/22 Rx Ferrous Sulfate [Feosol] 325 mg PO DAILY #30 tab 05/21/22 05/23/22 Rx Metoprolol Succinate (ER) [Toprol 50 mg PO DAILY #30 tab 05/21/22 05/23/22 Rx XL] Omeprazole 20 mg PO DAILY PRN 05/23/22 05/23/22 History Allergies Allergy/AdvReac Type Severity Reaction Status Date / Time amiodarone AdvReac Rapid Verified 05/23/22 12:36 Heart Rate Physical Exam Vitals: Vital Signs Temp Pulse Pulse Resp BP BP Pulse Ox 05/24/22 08:05 97.8 F 86 19 105/72 100 05/24/22 04:00 97.6 F 63 20 114/80 91 L 05/24/22 00:00 97.5 F L 96 16 102/68 91 L 05/23/22 19:30 97.9 F 75 18 100/55 95 05/23/22 16:00 97.7 F 91 16 106/62 96 05/23/22 14:08 95 18 114/81 97 05/23/22 14:00 18 Intake and Output 05/23/22 05/24/22 05/24/22 22:59 06:59 14:59 Intake Total 450 Output Total 2 400 Balance 448 -400 Intake: Oral 450 Output: Urine 2 400 Other: Voiding Method Toilet Toilet Toilet # Voids 1 Weight 60 kg Results 05/24/22 08:48 05/24/22 08:48 Cardiac Enzymes 05/23/22 Range/Units 10:32 Troponin I 0.257 H* (0.000-0.034) ng/mL Coagulation 05/23/22 Range/Units 10:32 PT 13.7 H (9.0-12.0) sec APTT 29.5 (22.0-30.0) sec CBC 05/24/22 Range/Units 08:48 WBC 7.6 (3.8-10.6) k/uL RBC 3.09 L (3.80-5.40) m/uL Hgb 7.5 L (11.4-16.0) gm/dL Hct 25.4 L (34.0-46.0) % Plt Count 187 (150-450) k/uL Comprehensive Metabolic Panel 05/24/22 Range/Units 08:48 Sodium 137 (137-145) mmol/L Potassium 3.9 (3.5-5.1) mmol/L Chloride 105 (98-107) mmol/L Carbon Dioxide 24 (22-30) mmol/L BUN 37 H (7-17) mg/dL Creatinine 1.76 H (0.52-1.04) mg/dL Glucose 92 (74-99) mg/dL Calcium 8.3 L (8.4-10.2) mg/dL Current Medications Generic Name Dose Route Start Last Admin Trade Name Freq PRN Reason Stop Dose Admin Acetaminophen 650 mg 05/23/22 12:15 05/24/22 01:49 Acetaminophen Tab 325 Mg Tab PO 650 mg Q6HR PRN Administration Mild Pain or Fever > 100.5 Alprazolam 0.25 mg 05/23/22 20:13 05/23/22 22:31 Alprazolam 0.25 Mg Tab PO 0.25 mg QID PRN Administration Anxiety Apixaban 2.5 mg 05/23/22 21:00 05/24/22 08:07 Apixaban 2.5 Mg Tablet PO 2.5 mg BID CANDE Administration Protocol Cyanocobalamin 1,000 mcg 05/24/22 09:00 05/24/22 08:07 Cyanocobalamin 500 Mcg Tab PO 1,000 mcg DAILY CANDE Administration Ferrous Sulfate 325 mg 05/24/22 09:00 05/24/22 08:07 Ferrous Sulfate 325 Mg Tab PO 325 mg DAILY CANDE Administration Furosemide 20 mg 05/24/22 09:00 05/24/22 08:07 Furosemide 10 Mg/Ml 2 Ml Vial IV 20 mg DAILY CANDE Administration Metoprolol Succinate 50 mg 05/23/22 15:30 05/24/22 08:07 Metoprolol Succinate (Er) 50 Mg Tab.Er.24h PO 50 mg DAILY CANDE Administration Naloxone HCl 0.2 mg 05/23/22 12:15 Naloxone 0.4 Mg/Ml 1 Ml Vial IV Q2M PRN Opioid Reversal Pantoprazole Sodium 40 mg 05/23/22 15:18 Pantoprazole 40 Mg Tablet PO DAILY PRN Heartburn Intake and Output 05/23/22 05/24/22 05/24/22 22:59 06:59 14:59 Intake Total 450 Output Total 2 400 Balance 448 -400 Intake: Oral 450 Output: Urine 2 400 Other: Voiding Method Toilet Toilet Toilet # Voids 1 Weight 60 kg 05/24/22 08:48 05/24/22 08:48
[2022-05-24] MEDS: ALPRAZolam 0.25 MG TAB PO PRN (20:42)
[2022-05-25] MEDS: ACETAMINOPHEN TAB 325 MG TAB PO PRN ×2 (06:27→22:16)
[2022-05-25] MEDS: APIXABAN 2.5 MG TABLET PO SCH ×2 (08:52→20:06)
[2022-05-25] MEDS: FERROUS SULFATE 325 MG TAB PO SCH (08:52)
[2022-05-25] MEDS: ISOSORBIDE MONONITRATE ER 30 MG TAB.ER.24H PO SCH (08:52)
[2022-05-25] MEDS: CYANOCOBALAMIN 500 MCG TAB PO SCH (08:52)
[2022-05-25] MEDS: FUROSEMIDE 10 MG/ML 2 ML VIAL IV SCH (08:52)
[2022-05-25] MEDS: METOPROLOL SUCCINATE (ER) 50 MG TAB.ER.24H PO SCH (08:52)
--- NOTE | 2022-05-25 15:04 | P.PN ---
Subjective Progress Note Date: 05/25/22 HISTORY OF PRESENTING ILLNESS This is a pleasant 86-year-old female past medical history significant for p aroxysmal atrial fibrillation on Eliquis, coronary artery disease with PCI to the mid RCA in 2001, hypertension, dyslipidemia, prior smoker, cardiac arrest in 09/2019. She used to follow with Dr. August. We have been asked to see in consultation for atrial fibrillation with RVR, NSTEMI. Patient presents to the ER with complaints of palpitations, generalized fatigue and weakness, decreased appetite and PO intake. Patient was hospitalized on , treated for paroxysmal atrial fibrillation, possible non-ST elevated myocardial infarction, cardiomyopathy with EF of 30-35%, acute kidney injury. Patient states that she was stable when she went home but once she was moving from a sitting to standing position she hadn't overpowering sensation although she has difficulty describing the sensation. She denies that it was shortness of breath. Daughter is at bedside and states that it was so severe that she was crying. She states it happened every time she stood. Patient denies any nausea but daughter states she had gagging episodes on a few occasions. No sweats, no fever or chills, no cough and palpitations. Otherwise, patient states that she is feeling well. Regarding atrial fibrillation, patient has had this on and off since 2019. She apparently had a cardioversion done but patient did convert back to atrial fibrillation approximately 12 hours after and patient daughter states that she coded and ended up back in the hospital. Patient is resting in a chair does not have any symptoms at rest. During last hospitalization, Toprol-XL increased to 50 mg daily. DIAGNOSTICS * EKG reveals atrial fibrillation with rapid response, heart rate 104, right bundle-branch block, ST depressions in lateral leads, V5 and V6. * Echocardiogram 05/19/2020 revealed EF 3035 percent, mild to moderate mitral regurgitation, severe tricuspid regurgitation. * Telemetry tracings indicate atrial fibrillation HR 80s. * Chest xray: COPD and severe cardiomegaly with no overt failure. * Laboratory reviewed: WBC 9.3, hemoglobin 8.8, platelet count 233. INR 1.3. Electrolytes normal. BUN 40 creatinine 1.86. Glucose 105. Troponin 0.257. ProBNP 19,200. * Current home cardiac medications include Eliquis 2.5 mg twice a day, metoprolol succinate 50 mg daily, Lasix 20 mg daily 05/25: Patient was started on Imdur 30 mg daily yesterday. Regarding her symptoms when she stands, she calls these symptoms an "overwhelming sensation" but seem to be a chest discomfort/shortness of breath. She states that she is still having the sensation but seems to be lasting for a shorter amount of time on each episode. She states she has been urinating well overnight and has been continued on IV Lasix 20 mg daily. There is suspicion for some coronary artery disease contributing to her symptoms and anemia contributing to her symptoms. Due to her chronic kidney disease, would prefer to hold off on cardiac catheterization in concern is that stress test will most likely be positive. Plan is to continue monitoring for another day while increase activity and continuing Imdur. Orthostatic vital signs have been negative. PHYSICAL EXAMINATION Blood pressure 102/67, heart rate 99, pulse ox 97% on 2 L. CONSTITUTIONAL: No apparent distress. HEENT: Head is normocephalic. Pupils are equal, round. Sclerae anicteric. Mucous membranes of the mouth are moist. No JVD. No carotid bruit. CHEST EXAMINATION: Lungs are diminished in the bases to auscultation. No chest wall tenderness is noted on palpation or with deep breathing. HEART EXAMINATION: Irregular rate and rhythm. S1, S2 heard. No murmurs, gallops or rub. ABDOMEN: Soft, nontender. Positive bowel sounds. EXTREMITIES: 2+ peripheral pulses, trace bilateral lower extremity edema and no calf tenderness. NEUROLOGIC EXAMINATION: Patient is awake, alert and oriented x3. ASSESSMENT Paroxysmal atrial fibrillation with RVR, on eliquis Recent hospitalization for possible NSTEMI Acute on chronic systolic heart failure Acute kidney injury Coronary artery disease with PCI to the mid RCA in 2001 History of Hypertension Dyslipidemia History of tobacco use History of cardiac arrest in 09/2019 Chronic anemia PLAN Continue patient on eliquis 2.5 mg twice daily, Toprol-XL 50 mg daily Continue patient on Lasix 20 mg IV daily for another 24 hours Continue patient on Imdur 30 mg daily Monitor renal function and electrolytes Continue cardiac telemetry Discussed next steps with the patient and her daughter. We will plan to continue Imdur increased activity and monitor symptoms closely. Will continue to monitor and make recommendations accordingly. Nurse practitioner note has been reviewed by physician. Signing provider agrees with the documented findings, assessment, and plan of care. Long discussion with patient and daughter. High risk of IMNDY with LHC however having significant symptoms with minimal exertion and recent drop in EF concerning for significant CAD. Continue to monitor response of Imdur and BBlocker for 1 more day however not able to tolerate much meds. May consider LHC and staged PCI if remains highly symptomatic still as quality of life appears significantly effected. Also discussed possible stress testing however did not like feeling of prior stress test and would like to defer at this time. Continue to attempt medical therapy and monitor response. Dr Miller Objective - Vital Signs Vital signs: Vital Signs Temp 97.7 F 05/25/22 07:57 Pulse 99 05/25/22 11:30 Resp 17 05/25/22 11:30 BP 98/59 05/25/22 11:30 Pulse Ox 97 05/25/22 11:30 FiO2 Intake & Output 05/24/22 05/25/22 05/25/22 18:59 06:59 18:59 Intake Total 120 400 238 Output Total 800 200 200 Balance -680 200 38 Weight 74.3 kg Intake: Oral 120 400 238 Output: Urine 800 200 200 Other: Voiding Method Toilet Toilet Toilet # Voids 1 # Bowel Movements 1 - Labs CBC & Chem 7: 05/24/22 08:48 05/24/22 08:48
[2022-05-25] MEDS: ALPRAZolam 0.25 MG TAB PO PRN (20:06)
--- NOTE | 2022-05-25 23:17 | P.PN ---
Subjective Progress Note Date: 05/24/22 Patient is a 86-year-old female with a known history of coronary artery disease or stent placement, atrial fibrillation on anticoagulation with Eliquis, hypertension, history of [place] and chronic diastolic CHF and prior history of smoking presents to ER With complaints of shortness of breath and chest pressu re. Patient states that she has been having symptoms since yesterday. She was discharged on hospital on 05/21/2022. Complaints of shortness of breath mostly when she gets up from bed. Patient also felt dizzy. No complaints of nausea or vomiting. No cough or sputum production. Patient was recently admitted to the hospital due to A. fib with RVR. Metoprolol dose was increased with better control of the heart and was discharged home. Patient did not want any aggressive procedures at that time. Patient was found to have cardiomyopathy ejection fraction 30 to 35%. And also elevated troponin level. Patient is on Lasix 20 mg daily and lisinopril is on hold due to acute kidney injury recently. Chest x-ray showed COPD and severe cardiomegaly with no overt failure correlate clinically. EKG showed A. fib with RVR with heart rate 104. Bilateral differential WBC 9.3 hemoglobin 8.8 and platelets 233 INR 1.1 at 1.3, sodium 139 potassium 4.1 chloride 1.1 chloride 105 bicarb is 22 BUN 14 creatinine 1.86 and a troponin 0.[place] [address]. Recent echocardiogram showed ejection fraction 30 to 35% with inferior hypokinesis mild pulmonary hypertension and severely increased left atrial diameter, severely increased left atrial volume, mild to moderate MR, severe TR.. 05/24/2022 Patient is currently lying in bed. Awake alert and oriented x3. Still complains of shortness of breath when gets up from bed. No complaints of chest pain. No nausea vomiting abdominal pain or diarrhea. Patient is being current on Lasix 20 mg IV daily. Patient was seen by cardiology and started on Imdur 30 mg daily. Highlights patient has been afebrile. No cough or sputum production. No he adache or dizziness or lightheadedness. Cardiology is on board. Laboratory test showed WBC 7.6 hemoglobin 7.5 and platelets 187 BUN 37 creatinine 1.76. Current medications reviewed. Objective - Vital Signs Vital signs: Vital Signs Temp 97.8 F 05/24/22 08:05 Pulse 90 05/24/22 14:17 Resp 17 05/24/22 11:05 BP 106/69 05/24/22 14:17 Pulse Ox 93 L 05/24/22 11:05 FiO2 Intake & Output 05/23/22 05/24/22 05/24/22 18:59 06:59 18:59 Intake Total 450 Output Total 2 800 Balance 448 -800 Weight 72.575 kg 60 kg Intake: Oral 450 Output: Urine 2 800 Other: Voiding Method Toilet Toilet # Voids 1 - Exam PHYSICAL EXAMINATION: Patient is lying in the bed comfortably, no acute distress, awake alert and oriented.. HEENT: Normocephalic. Neck is supple. Pupils reactive. Nostrils clear. Oral cavity is moist. Neck reveals no JVD, carotid bruits, or thyromegaly. CHEST EXAMINATION: Trachea is central. Symmetrical expansion. Lung pearl clear to auscultation and percussion. CARDIAC: Normal S1, S2 with no gallops. No murmurs ABDOMEN: Soft. Bowel sounds present. Nontender. No organomegaly. No abdominal bruits. Extremities: 2+ edema. No clubbing or cyanosis Neurologically awake, alert, oriented x3 with well-coordinated movements. No focal deficits noted Skin: No rash or skin lesions. Psychiatric: Coperative. Nonsuicidal, Musculoskeletal: No joint swelling or deformity. Normal range of motion. - Labs CBC & Chem 7: 05/24/22 08:48 05/24/22 08:48 Labs: Abnormal Lab Results - Last 24 Hours (Table) 05/24/22 05/24/22 05/24/22 Range/Units 01:36 08:48 08:48 RBC 3.09 L (3.80-5.40) m/uL Hgb 7.5 L (11.4-16.0) gm/dL Hct 25.4 L (34.0-46.0) % MCH 24.3 L (25.0-35.0) pg MCHC 29.5 L (31.0-37.0) g/dL RDW 18.0 H (11.5-15.5) % Lymphocytes # 0.6 L (1.0-4.8) k/uL BUN 37 H (7-17) mg/dL Creatinine 1.76 H (0.52-1.04) mg/dL POC Glucose (mg/dL) 127 H (70-110) mg/dL Calcium 8.3 L (8.4-10.2) mg/dL Assessment and Plan Assessment: Worsening shortness of breath due to acute on chronic CHF with systolic function Atrial fibrillation with rapid ventricular rate Elevated troponin level Possible NSTEMI. Cardiomyopathy with ejection fraction 30 to 35%. Patient wishes to continue with medical therapy during recent admission. Acute on chronic kidney disease stage III. Creatinine 1.86 Coronary artery disease with history of stent placement Hypertension History [place] and cardiac arrest in September 2019 History of TR and right ventricular dilatation. Normocytic anemia Iron deficiency anemia DVT prophylaxis patient is already on Eliquis Plan: Patient will be continued on telemetry monitoring. Was given a dose of IV Lasix 40 mg x 1 in the ER. Continue with Lasix 20mg IV daily. Monitor renal function. Continue with metoprolol and Eliquis and . Started on Eliquis. Cardiology on board. Monitor CBC and BMP and follow-up closely. Prognosis is guarded at this time. Time with Patient: Greater than 30
--- NOTE | 2022-05-25 23:22 | P.PN ---
Subjective Progress Note Date: 05/25/22 Patient is a 86-year-old female with a known history of coronary artery disease or stent placement, atrial fibrillation on anticoagulation with Eliquis, hypertension, history of [place] and chronic diastolic CHF and prior history of smoking presents to ER With complaints of shortness of breath and chest pressu re. Patient states that she has been having symptoms since yesterday. She was discharged on hospital on 05/21/2022. Complaints of shortness of breath mostly when she gets up from bed. Patient also felt dizzy. No complaints of nausea or vomiting. No cough or sputum production. Patient was recently admitted to the hospital due to A. fib with RVR. Metoprolol dose was increased with better control of the heart and was discharged home. Patient did not want any aggressive procedures at that time. Patient was found to have cardiomyopathy ejection fraction 30 to 35%. And also elevated troponin level. Patient is on Lasix 20 mg daily and lisinopril is on hold due to acute kidney injury recently. Chest x-ray showed COPD and severe cardiomegaly with no overt failure correlate clinically. EKG showed A. fib with RVR with heart rate 104. Bilateral differential WBC 9.3 hemoglobin 8.8 and platelets 233 INR 1.1 at 1.3, sodium 139 potassium 4.1 chloride 1.1 chloride 105 bicarb is 22 BUN 14 creatinine 1.86 and a troponin 0[place] [address]. Recent echocardiogram showed ejection fraction 30 to 35% with inferior hypokinesis mild pulmonary hypertension and severely increased left atrial diameter, severely increased left atrial volume, mild to moderate MR, severe TR.. 05/24/2022 Patient is currently lying in bed. Awake alert and oriented x3. Still complains of shortness of breath when gets up from bed. No complaints of chest pain. No nausea vomiting abdominal pain or diarrhea. Patient is being current on Lasix 20 mg IV daily. Patient was seen by cardiology and started on Imdur 30 mg daily. Highlights patient has been afebrile. No cough or sputum production. No he adache or dizziness or lightheadedness. Cardiology is on board. Laboratory test showed WBC 7.6 hemoglobin 7.5 and platelets 187 BUN 37 creatinine 1.76. 05/25/2022 Patient is currently lying in bed. Awake alert and oriented x3 on room air. No complaints of chest pain. Patient still having shortness of breath and chest discomfort when she gets up from bed. Denies any complaints while lying in the bed. Patient was started on Imdur 30 mg daily yesterday. No cough or sputum production. No nausea vomiting abdominal pain or diarrhea. Orthostatic vitals negative. Continue with iron and B12 supplementation for anemia. Laboratory data reviewed. Current medications reviewed. Objective - Vital Signs Vital signs: Vital Signs Temp 97.7 F 05/25/22 07:57 Pulse 99 05/25/22 11:30 Resp 17 05/25/22 11:30 BP 98/59 05/25/22 11:30 Pulse Ox 97 05/25/22 11:30 FiO2 Intake & Output 05/24/22 05/25/22 05/25/22 18:59 06:59 18:59 Intake Total 120 400 238 Output Total 800 200 600 Balance -680 200 -362 Weight 74.3 kg Intake: Oral 120 400 238 Output: Urine 800 200 600 Other: Voiding Method Toilet Toilet Toilet # Voids 1 # Bowel Movements 1 - Exam PHYSICAL EXAMINATION: Patient is lying in the bed comfortably, no acute distress, awake alert and oriented.. HEENT: Normocephalic. Neck is supple. Pupils reactive. Nostrils clear. Oral cavity is moist. Neck reveals no JVD, carotid bruits, or thyromegaly. CHEST EXAMINATION: Trachea is central. Symmetrical expansion. Lung pearl clear to auscultation and percussion. CARDIAC: Normal S1, S2 with no gallops. No murmurs ABDOMEN: Soft. Bowel sounds present. Nontender. No organomegaly. No abdominal bruits. Extremities: 2+ edema. No clubbing or cyanosis Neurologically awake, alert, oriented x3 with well-coordinated movements. No focal deficits noted Skin: No rash or skin lesions. Psychiatric: Coperative. Nonsuicidal, Musculoskeletal: No joint swelling or deformity. Normal range of motion. - Labs CBC & Chem 7: 05/24/22 08:48 05/24/22 08:48 Assessment and Plan Assessment: Worsening shortness of breath due to acute on chronic CHF with systolic function Atrial fibrillation with rapid ventricular rate Elevated troponin level Possible NSTEMI. Cardiomyopathy with ejection fraction 30 to 35%. Patient wishes to continue with medical therapy during recent admission. Acute on chronic kidney disease stage III. Creatinine 1.86 Coronary artery disease with history of stent placement Hypertension History [place] and cardiac arrest in September 2019 History of TR and right ventricular dilatation. Normocytic anemia Iron deficiency anemia DVT prophylaxis patient is already on Eliquis Plan: Patient will be continued on telemetry monitoring. Was given a dose of IV Lasix 40 mg x 1 in the ER. Continue with Lasix 20mg IV daily. Monitor renal function. Continue with metoprolol and Eliquis and . Started on Eliquis. Cardiology on board. Patient is having underlying coronary artery disease and anemia contributing her symptoms. Due to her renal function and chronic kidney disease cardiology recommends to continue medical management. Patient did not like the feeling of stress test previously and he is not willing to take it at this time. Continue to monitor another 24 hours. Monitor CBC and BMP and follow-up closely. Prognosis is guarded at this time. Time with Patient: Greater than 30
[2022-05-26] MEDS: ALPRAZolam 0.25 MG TAB PO PRN ×2 (02:28→22:14)
[2022-05-26] MEDS: APIXABAN 2.5 MG TABLET PO SCH ×2 (08:50→20:13)
[2022-05-26] MEDS: FUROSEMIDE 10 MG/ML 2 ML VIAL IV SCH (08:50)
[2022-05-26] MEDS: METOPROLOL SUCCINATE (ER) 50 MG TAB.ER.24H PO SCH (08:50)
[2022-05-26] MEDS: ISOSORBIDE MONONITRATE ER 30 MG TAB.ER.24H PO SCH (08:50)
[2022-05-26] MEDS: FERROUS SULFATE 325 MG TAB PO SCH (08:50)
[2022-05-26] MEDS: CYANOCOBALAMIN 500 MCG TAB PO SCH (08:50)
[2022-05-26 09:45] LABS: Calcium 8.5 mg/dL (8.4-10.2); Potassium 4.3 mmol/L (3.5-5.1)
[2022-05-26 10:06] LABS: Anisocytosis Slight; Basophils # (A) 0.1 k/uL (0-0.2); Basophils % (A) 1 %; Eosinophils % (A) 0 %; HCT 28.7 % (34.0-46.0); HGB 8.4 gm/dL (11.4-16.0); Hypochromasia Marked; Lymphocytes # (A) 0.7 k/uL (1.0-4.8); Lymphocytes % (A) 8 %; MCHC 29.2 g/dL (31.0-37.0); MCV 85.6 fL (80.0-100.0); Mean Platelet Volume 9.3; Monocytes # (A) 0.5 k/uL (0-1.0); Monocytes % (A) 6 %; Neutrophils # (A) 7.6 k/uL (1.3-7.7); Neutrophils % (A) 83 %; Platelet Count 233 k/uL (150-450); Poikilocytosis Slight; RBC 3.35 m/uL (3.80-5.40); RDW 17.8 % (11.5-15.5); WBC 9.1 k/uL (3.8-10.6)
--- NOTE | 2022-05-26 12:01 | P.PN ---
Subjective Progress Note Date: 05/26/22 HISTORY OF PRESENT ILLNESS: This is a pleasant 86-year-old female past medical history significant for paroxysmal atrial fibrillation on Eliquis, coronary artery disease with PCI to the mid RCA in 2001, hypertension, dyslipidemia, prior smoker, cardiac arrest in 09/2019. She used to follow with Dr. August. We have been asked to see in consultation for atrial fibrillation with RVR, NSTEMI. Patient presents to the ER with complaints of palpitations, generalized fatigue and weakness, decreased appetite and PO intake. Patient was hospitalized on , treated for paroxysmal atrial fibrillation, possible non-ST elevated myocardial infarction, cardiomyopathy with EF of 30-35%, acute kidney injury. Patient states that she was stable when she went home but once she was moving from a sitting to standing position she hadn't overpowering sensation although she has difficulty describing the sensation. She denies that it was shortness of breath. Daughter is at bedside and states that it was so severe that she was crying. She states it happened every time she stood. Patient denies any nausea but daughter states she had gagging episodes on a few occasions. No sweats, no fever or chills, no cough and palpitations. Otherwise, patient states that she is feeling well. Regarding atrial fibrillation, patient has had this on and off since 2019. She apparently had a cardioversion done but patient did convert back to atrial fibrillation approximately 12 hours after and patient daughter states that she coded and ended up back in the hospital. Patient is resting in a chair does not have any symptoms at rest. During last hospitalization, Toprol-XL increased to 50 mg daily. DIAGNOSTICS * EKG reveals atrial fibrillation with rapid response, heart rate 104, right bundle-branch block, ST depressions in lateral leads, V5 and V6. * Echocardiogram 05/19/2020 revealed EF 3035 percent, mild to moderate mitral regurgitation, severe tricuspid regurgitation. * Telemetry tracings indicate atrial fibrillation HR 80s. * Chest xray: COPD and severe cardiomegaly with no overt failure. * Laboratory reviewed: WBC 9.3, hemoglobin 8.8, platelet count 233. INR 1.3. Electrolytes normal. BUN 40 creatinine 1.86. Glucose 105. Troponin 0.257. ProBNP 19,200. * Current home cardiac medications include Eliquis 2.5 mg twice a day, metoprolol succinate 50 mg daily, Lasix 20 mg daily 05/25: Patient was started on Imdur 30 mg daily yesterday. Regarding her symptoms when she stands, she calls these symptoms an "overwhelming sensation" but seem to be a chest discomfort/shortness of breath. She states that she is still having the sensation but seems to be lasting for a shorter amount of time on each episode. She states she has been urinating well overnight and has been continued on IV Lasix 20 mg daily. There is suspicion for some coronary artery disease c ontributing to her symptoms and anemia contributing to her symptoms. Due to her chronic kidney disease, would prefer to hold off on cardiac catheterization in concern is that stress test will most likely be positive. Plan is to continue monitoring for another day while increase activity and continuing Imdur. Orthostatic vital signs have been negative. 05/26/2022 Patient examined this morning at the bedside. Patient denies chest pain or pressure. Denies SOB. She remains on IV lasix. Creatinine today 1.82. PHYSICAL EXAM: VITAL SIGNS: Reviewed. GENERAL: Well-developed in no acute distress. NECK: Supple. No JVD or thyromegaly LUNGS: Respirations even and unlabored. Lungs essentially clear to auscultation bilaterally, diminished. HEART: Irregular rate and rhythm. S1 and S2 heard. EXTREMITIES: Normal range of motion. No clubbing or cyanosis. Peripheral pulses intact. No lower extremity edema ASSESSMENT: Paroxysmal atrial fibrillation with RVR, on eliquis Recent hospitalization for possible NSTEMI Acute on chronic systolic heart failure Acute kidney injury Coronary artery disease with PCI to the mid RCA in 2001 History of Hypertension Dyslipidemia History of tobacco use History of cardiac arrest in 09/2019 Chronic anemia PLAN: Continue current cardiac medications Discontinue IV Lasix. Begin oral Lasix Continue with conservative management at this time Anticipate discharge home tomorrow Further recommendations pending patient's course Nurse practitioner note has been reviewed by physician. Signing provider agrees with the documented findings, assessment, and plan of care. Objective - Vital Signs Vital signs: Vital Signs Temp 97.5 F L 05/26/22 08:45 Pulse 81 05/26/22 08:45 Resp 18 05/26/22 08:45 BP 103/70 05/26/22 08:45 Pulse Ox 93 L 05/26/22 08:45 FiO2 Intake & Output 05/25/22 05/26/2205/26/22 18:59 06:59 18:59 Intake Total 238 250 Output Total 600 450 Balance -362 -200 Weight 74.1 kg Intake: Oral 238 250 Output: Urine 600 450 Other: Voiding Method Toilet Toilet Toilet # Voids 1 # Bowel Movements 1 - Labs CBC & Chem 7: 05/26/22 08:51 05/26/22 08:51 Labs: Abnormal Lab Results - Last 24 Hours (Table) 05/26/22 05/26/22 Range/Units 08:51 08:51 RBC 3.35 L (3.80-5.40) m/uL Hgb 8.4 L (11.4-16.0) gm/dL Hct 28.7 L (34.0-46.0) % MCHC 29.2 L (31.0-37.0) g/dL RDW 17.8 H (11.5-15.5) % Lymphocytes # 0.7 L (1.0-4.8) k/uL BUN 38 H (7-17) mg/dL Creatinine 1.82 H (0.52-1.04) mg/dL Glucose 115 H (74-99) mg/dL
--- NOTE | 2022-05-26 12:34 | P.PN ---
Subjective Patient is a 86-year-old female with a known history of coronary artery disease or stent placement, atrial fibrillation on anticoagulation with Eliquis, hypertension, history of [place] and chronic diastolic CHF and prior history of smoking presents to ER With complaints of shortness of breath and chest pressure. Patient states that she has been having symptoms since yesterday. She was discharged on hospital on 05/21/2022. Complaints of shortness of breath mostly when she gets up from bed. Patient also felt dizzy. No complaints of nausea or vomiting. No cough or sputum production. Patient was recently admitted to the hospital due to A. fib with RVR. Metoprolol dose was increased with better control of the heart and was discharged home. Patient did not want any aggressive procedures at that time. Patient was found to have cardiomyopathy ejection fraction 30 to 35%. And also elevated troponin level. Patient is on Lasix 20 mg daily and lisinopril is on hold due to acute kidney injury recently. Chest x-ray showed COPD and severe cardiomegaly with no overt failure correlate clinically. EKG showed A. fib with RVR with heart rate 104. Bilateral differential WBC 9.3 hemoglobin 8.8 and platelets 233 INR 1.1 at 1.3, sodium 139 potassium 4.1 chloride 1.1 chloride 105 bicarb is 22 BUN 14 creatinine 1.86 and a troponin 0.[place] [address]. Recent echocardiogram showed ejection fraction 30 to 35% with inferior hypokin esis mild pulmonary hypertension and severely increased left atrial diameter, severely increased left atrial volume, mild to moderate MR, severe TR.. 05/24/2022 Patient is currently lying in bed. Awake alert and oriented x3. Still complains of shortness of breath when gets up from bed. No complaints of chest pain. No nausea vomiting abdominal pain or diarrhea. Patient is being current on Lasix 20 mg IV daily. Patient was seen by cardiology and started on Imdur 30 mg daily. Highlights patient has been afebrile. No cough or sputum production. No headache or dizziness or lightheadedness. Cardiology is on board. Laboratory test showed WBC 7.6 hemoglobin 7.5 and platelets 187 BUN 37 creatinine 1.76. 05/25/2022 Patient is currently lying in bed. Awake alert and oriented x3 on room air. No complaints of chest pain. Patient still having shortness of breath and chest discomfort when she gets up from bed. Denies any complaints while lying in the bed. Patient was started on Imdur 30 mg daily yesterday. No cough or sputum production. No nausea vomiting abdominal pain or diarrhea. Orthostatic vitals negative. Continue with iron and B12 supplementation for anemia. Laboratory data reviewed. 05/26/2022 patient looks awake and alert but very tired, sitting in bed most of the time, she states her dyspnea is better today but still she has poor appetite and looks very tired Vitals are stable Labs reviewed Creatinine is stable at 1.8. Hemoglobin improved to 8.4 Anemia workup was requested, patient already on vitamin B12 and iron Intravenous Lasix switched to oral dose Possible discharge in 24-48 hours IV Lasix is switched Physical therapy evaluation is pending Objective - Vital Signs Vital signs: Vital Signs Temp 97.5 F L 05/26/22 08:45 Pulse 84 05/26/22 11:10 Resp 17 05/26/22 11:10 BP 105/72 05/26/22 11:10 Pulse Ox 97 05/26/22 11:10 FiO2 Intake & Output 05/25/22 05/26/22 05/26/22 18:59 06:59 18:59 Intake Total 238 250 Output Total 600 450 Balance -362 -200 Weight 74.1 kg Intake: Oral 238 250 Output: Urine 600 450 Other: Voiding Method Toilet Toilet Toilet # Voids 1 # Bowel Movements 1 - Exam -GENERAL: The patient is alert and oriented x3, not in any acute distress. Well developed, well nourished. Very tired HEENT: Pupils are round and equally reacting to light. EOMI. No scleral icterus. No conjunctival pallor. Normocephalic, atraumatic. No pharyngeal erythema. No thyromegaly. CARDIOVASCULAR: S1 and S2 present. No murmurs, rubs, or gallops. PULMONARY: Chest is clear to auscultation, no wheezing or crackles. ABDOMEN: Soft, nontender, nondistended, normoactive bowel sounds. No palpable organomegaly. MUSCULOSKELETAL: No joint swelling or deformity. EXTREMITIES: No cyanosis, clubbing, or pedal edema. NEUROLOGICAL: Gross neurological examination did not reveal any focal deficits. SKIN: No rashes. no petechiae. - Labs CBC & Chem 7: 05/26/22 08:51 05/26/22 08:51 Labs: Abnormal Lab Results - Last 24 Hours (Table) 05/26/22 05/26/22 Range/Units 08:51 08:51 RBC 3.35 L (3.80-5.40) m/uL Hgb 8.4 L (11.4-16.0) gm/dL Hct 28.7 L (34.0-46.0) % MCHC 29.2 L (31.0-37.0) g/dL RDW 17.8 H (11.5-15.5) % Lymphocytes # 0.7 L (1.0-4.8) k/uL BUN 38 H (7-17) mg/dL Creatinine 1.82 H (0.52-1.04) mg/dL Glucose 115 H (74-99) mg/dL Assessment and Plan Assessment: Worsening shortness of breath due to acute on chronic CHF with systolic function Atrial fibrillation with rapid ventricular rate, On Eliquis Elevated troponin level Possible NSTEMI. Cardiomyopathy with ejection fraction 30 to 35%. Patient wishes to continue with medical therapy during recent admission. Acute on chronic kidney disease stage III. Creatinine 1.86 Coronary artery disease with history of stent placement Hypertension History [place] and cardiac arrest in September 2019 History of TR and right ventricular dilatation. Normocytic anemia Iron deficiency anemia Plan: Plan: Patient will be continued on telemetry monitoring. Was given a continue with oral Lasix Continue with metoprolol and Eliquis and . Started on Eliquis. Cardiology on board. Patient is having underlying coronary artery disease and anemia contributing her symptoms. Due to her renal function and chronic kidney disease cardiology recommends to continue medical management. Patient did not like the feeling of stress test previously and he is not willing to take it at this time. Continue to monitor another 24 hours. Monitor creatinine Labs and medication were reviewed.. Continue same treatment. Continue with symptomatic treatment. Resume home medication. Monitor labs and vitals. DVT and GI prophylaxis. Further recommendations as per clinical course of the patient DVT prophylaxis: Eliquis GI Prophylaxis: Ppi PT/OT: Pending Prognosis is guarded
[2022-05-26 20:27] LABS: % Iron Saturation 28.17 (12.00-45.00); Ferritin 20.6 ng/mL (10.0-291.0)
[2022-05-26] MEDS: ACETAMINOPHEN TAB 325 MG TAB PO PRN (22:13)
[2022-05-27] MEDS: HYDROcodone/APAP 5-325MG 1 EACH TAB PO PRN ×3 (01:38→21:02)
[2022-05-27 07:32] LABS: Calcium 8.3 mg/dL (8.4-10.2); Potassium 4.1 mmol/L (3.5-5.1)
--- NOTE | 2022-05-27 07:48 | P.CNOR ---
History of Present Illness - [facility] Consult date: 05/27/22 History of present illness: The patient is a very pleasant 86-year-old female admitted to internal medicine. Orthopedics has been consulted for right shoulder and upper back pain. At the time of my evaluation the patient has minimal discomfort in her shoulder. When asked to localize her pain she points to the posterior aspect of her neck and trapezius region. She denies recent trauma. She denies fevers or chills. She has no other complaints. Past Medical History Past Medical History: Atrial Fibrillation, Coronary Artery Disease (CAD), Hypertension, Myocardial Infarction (DE) Additional Past Medical History / Comment(s): CHF with diastolic dysfunction, coronary artery disease with previous insertion of coronary stent, chronic atrial fibrillation, hypertension, severe tricuspid regurgitation along with severe dilatation of the right ventricle and a PA pressure mildly elevated probably consistent with chronic lung disease/COPD. Last Myocardial Infarction Date:: 2001 History of Any Multi-Drug Resistant Organisms: None Reported Past Surgical History: Heart Catheterization With Stent Past Anesthesia/Blood Transfusion Reactions: No Reported Reaction Date of Last Stent Placement:: 2001 Past Psychological History: No Psychological Hx Reported Smoking Status: Former smoker Past Alcohol Use History: None Reported Past Drug Use History: None Reported - Past Family History Father Family Medical History: Coronary Artery Disease (CAD) Mother Family Medical History: Coronary Artery Disease (CAD) Medications and Allergies Home Medications Medication Instructions Recorded Confirmed Type Apixaban [Eliquis] 2.5 mg PO BID 05/19/22 05/23/22 History Furosemide [Lasix] 20 mg PO DAILY 05/19/22 05/23/22 History Cyanocobalamin [Vitamin B-12] 1,000 mcg PO DAILY #30 tab 05/21/22 05/23/22 Rx Ferrous Sulfate [Feosol] 325 mg PO DAILY #30 tab 05/21/22 05/23/22 Rx Metoprolol Succinate (ER) [Toprol 50 mg PO DAILY #30 tab 05/21/22 05/23/22 Rx XL] Omeprazole 20 mg PO DAILY PRN 05/23/22 05/23/22 History Allergies Allergy/AdvReac Type Severity Reaction Status Date / Time amiodarone AdvReac Rapid Verified 05/23/22 12:36 Heart Rate Physical Examination On exam the patient is resting comfortably in her bed. She is alert and able to answer questions. A focused examination of the patient's right upper extremity was conducted. On inspection there is no overlying erythema, ecchymosis, or discoloration of the skin. There is no warmth over the clavicle, before meals joint, or shoulder. She has no tenderness over the clavicle, before meals joint, or shoulder. There is moderate tenderness in the paraspinal muscles in her right lateral neck region and trapezius. She has no pain with passive range of motion of the shoulder. Distally motor and sensory function are intact. Results X-rays of the shoulder show no acute fractures or sign of dislocation. There is mild arthritis of the before meals joint and diffuse osteopenia. - Labs Labs: Abnormal Lab Results - Last 24 Hours (Table) 05/26/22 05/26/22 05/26/22 Range/Units 08:51 08:51 12:41 RBC 3.35 L (3.80-5.40) m/uL Hgb 8.4 L (11.4-16.0) gm/dL Hct 28.7 L (34.0-46.0) % MCHC 29.2 L (31.0-37.0) g/dL RDW 17.8 H (11.5-15.5) % Lymphocytes # 0.7 L (1.0-4.8) k/uL BUN 38 H (7-17) mg/dL Creatinine 1.82 H (0.52-1.04) mg/dL Glucose 115 H (74-99) mg/dL Calcium (8.4-10.2) mg/dL TIBC 543 H (228-460) ug/dL Transferrin 388.0 H (204.0-354.0) mg/dL Vitamin B12 1040.0 H (200.0-944.0) pg/mL 05/27/22 Range/Units 06:50 RBC (3.80-5.40) m/uL Hgb (11.4-16.0) gm/dL Hct (34.0-46.0) % MCHC (31.0-37.0) g/dL RDW (11.5-15.5) % Lymphocytes # (1.0-4.8) k/uL BUN 40 H (7-17) mg/dL Creatinine 2.09 H (0.52-1.04) mg/dL Glucose 156 H (74-99) mg/dL Calcium 8.3 L (8.4-10.2) mg/dL TIBC (228-460) ug/dL Transferrin (204.0-354.0) mg/dL Vitamin B12 (200.0-944.0) pg/mL H & H 05/23/22 05/24/22 05/26/22 Range/Units 10:32 08:48 08:51 Hgb 8.8 L 7.5 L 8.4 L (11.4-16.0) gm/dL Hct 30.3 L 25.4 L 28.7 L (34.0-46.0) % Coagulation 05/23/22 Range/Units 10:32 INR 1.3 H (<1.2) Result Diagrams: 05/26/22 08:51 05/27/22 06:50 Assessment and Plan Assessment: Right-sided paraspinal muscle strain Mild AC joint arthritis Diffuse osteopenia Plan: On my evaluation this morning the patient has no tenderness in the shoulder region or pain with passive range of motion of the right shoulder. Most of her tenderness is in the paraspinal muscles of her neck. I've no plans for operative intervention or restrictions at this time. I recommend physical therapy for gentle mobilization of the shoulder and modalities to the neck including heating pads. We'll defer pain management to the primary service. If the patient continues to have problems she can follow-up in our office as an outpatient. Thank you for the consultation, please call with any questions if her condition worsens.
--- NOTE | 2022-05-27 08:59 | XR ---
EXAMINATION TYPE: XR shoulder complete RT DATE OF EXAM: 05/27/2022 COMPARISON: NONE HISTORY: Pain TECHNIQUE: Three views are submitted. FINDINGS: The osseous structures are intact. There is no acute fracture or dislocation. Diffuse osteopenia and there is arthropathy of the AC joint. IMPRESSION: 1. Diffuse osteopenia and AC joint arthropathy. If concern for rotator cuff disease correlate with MR I.
[2022-05-27] MEDS ORDERED: FUROSEMIDE 20 MG TAB PO SCH (09:00)
[2022-05-27] MEDS: CYANOCOBALAMIN 500 MCG TAB PO SCH (09:04)
[2022-05-27] MEDS: ISOSORBIDE MONONITRATE ER 30 MG TAB.ER.24H PO SCH (09:04)
[2022-05-27] MEDS: APIXABAN 2.5 MG TABLET PO SCH ×2 (09:04→20:15)
[2022-05-27] MEDS: METOPROLOL SUCCINATE (ER) 50 MG TAB.ER.24H PO SCH (09:04)
[2022-05-27] MEDS: FERROUS SULFATE 325 MG TAB PO SCH (09:05)
--- NOTE | 2022-05-27 10:09 | P.PN ---
Subjective Progress Note Date: 05/27/22 HISTORY OF PRESENT ILLNESS: This is a pleasant 86-year-old female past medical history significant for paroxysmal atrial fibrillation on Eliquis, coronary artery disease with PCI to the mid RCA in 2001, hypertension, dyslipidemia, prior smoker, cardiac arrest in 09/2019. She used to follow with Dr. August. We have been asked to see in consultation for atrial fibrillation with RVR, NSTEMI. Patient presents to the ER with complaints of palpitations, generalized fatigue and weakness, decreased appetite and PO intake. Patient was hospitalized on , treated for paroxysmal atrial fibrillation, possible non-ST elevated myocardial infarction, cardiomyopathy with EF of 30-35%, acute kidney injury. Patient states that she was stable when she went home but once she was moving from a sitting to standing position she hadn't overpowering sensation although she has difficulty describing the sensation. She denies that it was shortness of breath. Daughter is at bedside and states that it was so severe that she was crying. She states it happened every time she stood. Patient denies any nausea but daughter states she had gagging episodes on a few occasions. No sweats, no fever or chills, no cough and palpitations. Otherwise, patient states that she is feeling well. Regarding atrial fibrillation, patient has had this on and off since 2019. She apparently had a cardioversion done but patient did convert back to atrial fibrillation approximately 12 hours after and patient daughter states that she coded and ended up back in the hospital. Patient is resting in a chair does not have any symptoms at rest. During last hospitalization, Toprol-XL increased to 50 mg daily. DIAGNOSTICS * EKG reveals atrial fibrillation with rapid response, heart rate 104, right bundle-branch block, ST depressions in lateral leads, V5 and V6. * Echocardiogram 05/19/2020 revealed EF 3035 percent, mild to moderate mitral regurgitation, severe tricuspid regurgitation. * Telemetry tracings indicate atrial fibrillation HR 80s. * Chest xray: COPD and severe cardiomegaly with no overt failure. * Laboratory reviewed: WBC 9.3, hemoglobin 8.8, platelet count 233. INR 1.3. Electrolytes normal. BUN 40 creatinine 1.86. Glucose 105. Troponin 0.257. ProBNP 19,200. * Current home cardiac medications include Eliquis 2.5 mg twice a day, metoprolol succinate 50 mg daily, Lasix 20 mg daily 05/25: Patient was started on Imdur 30 mg daily yesterday. Regarding her symptoms when she stands, she calls these symptoms an "overwhelming sensation" but seem to be a chest discomfort/shortness of breath. She states that she is still having the sensation but seems to be lasting for a shorter amount of time on each episode. She states she has been urinating well overnight and has been continued on IV Lasix 20 mg daily. There is suspicion for some coronary artery disease c ontributing to her symptoms and anemia contributing to her symptoms. Due to her chronic kidney disease, would prefer to hold off on cardiac catheterization in concern is that stress test will most likely be positive. Plan is to continue monitoring for another day while increase activity and continuing Imdur. Orthostatic vital signs have been negative. 05/26/2022 Patient examined this morning at the bedside. Patient denies chest pain or pressure. Denies SOB. She remains on IV lasix. Creatinine today 1.82. 05/27/2022 Patient examined this morning at the bedside. Patient denies chest pain or pressure. Patient denies shortness of breath. Telemetry reveals atrial fib rillation with controlled ventricular rates. She is maintained on oral Lasix. Patient's daughter at the bedside and concern the patient has not been up ambulating very much. PHYSICAL EXAM: VITAL SIGNS: Reviewed. GENERAL: Well-developed in no acute distress. NECK: Supple. No JVD or thyromegaly LUNGS: Respirations even and unlabored. Lungs essentially clear to auscultation bilaterally, diminished. HEART: Irregular rate and rhythm. S1 and S2 heard. EXTREMITIES: Normal range of motion. No clubbing or cyanosis. Peripheral pulses intact. No lower extremity edema ASSESSMENT: Paroxysmal atrial fibrillation with RVR, on eliquis Recent hospitalization for possible NSTEMI Acute on chronic systolic heart failure Acute kidney injury Coronary artery disease with PCI to the mid RCA in 2001 History of Hypertension Dyslipidemia History of tobacco use History of cardiac arrest in 09/2019 Chronic anemia PLAN: Continue current cardiac medications Increase ambulation as tolerated Patient is stable for discharge home today from a cardiac standpoint with outpatient follow-up with Dr. Miller Nurse practitioner note has been reviewed by physician. Signing provider agrees with the documented findings, assessment, and plan of care. Objective - Vital Signs Vital signs: Vital Signs Temp 98.0 F 05/27/22 04:00 Pulse 85 05/27/22 04:00 Resp 22 05/27/22 04:00 BP 94/60 05/27/22 04:00 Pulse Ox 92 L 05/27/22 04:00 FiO2 Intake & Output 05/26/22 05/27/22 05/27/22 18:59 06:59 18:59 Intake Total 118 120 Output Total 1050 Balance 118 -1050 120 Intake: Oral 118 120 Output: Urine 1050 Other: Voiding Method Toilet Toilet Bedside Commode # Voids 1 2 - Labs CBC & Chem 7: 05/26/22 08:51 05/27/22 06:50 Labs: Abnormal Lab Results - Last 24 Hours (Table) 05/26/22 05/26/22 05/27/22 Range/Units 08:51 12:41 06:50 RBC 3.35 L (3.80-5.40) m/uL Hgb 8.4 L (11.4-16.0) gm/dL Hct 28.7 L (34.0-46.0) % MCHC 29.2 L (31.0-37.0) g/dL RDW 17.8 H (11.5-15.5) % Lymphocytes # 0.7 L (1.0-4.8) k/uL BUN 40 H (7-17) mg/dL Creatinine 2.09 H (0.52-1.04) mg/dL Glucose 156 H (74-99) mg/dL Calcium 8.3 L (8.4-10.2) mg/dL TIBC 543 H (228-460) ug/dL Transferrin 388.0 H (204.0-354.0) mg/dL Vitamin B12 1040.0 H (200.0-944.0) pg/mL
--- NOTE | 2022-05-27 10:14 | XR ---
EXAMINATION TYPE: XR chest 1V portable DATE OF EXAM: 05/27/2022 COMPARISON: 05/23/2022 HISTORY: tachypenia TECHNIQUE: Single frontal view of the chest is obtained. FINDINGS: There is no pneumothorax seen. Bilateral subsegmental consolidation with small effusion. The cardiac silhouette size is enlarged correlate for cardiomyopathy or pericardial effusion.. The osseous structures are intact. Atherosclerotic change aorta. Diffuse osteopenia with arthropathy of t he shoulder. Hyperinflation suggests COPD. IMPRESSION: 1. Cardiomegaly with bilateral infiltrates or atelectasis and small effusions greater on the left. No overt failure. 2. Correlate for COPD.
[2022-05-27] MEDS: SODIUM CHLORIDE 0.9% 250 ML IV SCH ×2 (18:18→18:19)
[2022-05-27 20:14] VITALS: RESP 18
[2022-05-27] MEDS ORDERED: FUROSEMIDE 10 MG/ML 2 ML VIAL IV ONE (21:36)
--- NOTE | 2022-05-27 21:38 | P.PN ---
Subjective Patient is a 86-year-old female with a known history of coronary artery disease or stent placement, atrial fibrillation on anticoagulation with Eliquis, hypertension, history of CO and chronic diastolic CHF and prior history of smoking presents to ER With complaints of shortness of breath and chest pressure. Patient states that she has been having symptoms since yesterday. She was discharged on hospital on 05/21/2022. Complaints of shortness of breath mostly when she gets up from bed. Patient also felt dizzy. No complaints of nausea or vomiting. No cough or sputum production. Patient was recently admitted to the hospital due to A. fib with RVR. Metoprolol dose was increased with better control of the heart and was discharged home. Patient did not want any aggressive procedures at that time. Patient was found to have cardiomyopathy ejection fraction 30 to 35%. And also elevated troponin level. Patient is on Lasix 20 mg daily and lisinopril is on hold due to acute kidney injury recently. Chest x-ray showed COPD and severe cardiomegaly with no overt failure correlate clinically. EKG showed A. fib with RVR with heart rate 104. Bilateral differential WBC 9.3 hemoglobin 8.8 and platelets 233 INR 1.1 at 1.3, sodium 139 potassium 4.1 chloride 1.1 chloride 105 bicarb is 22 BUN 14 creatinine 1.86 and a troponin 0.[place] [address]. Recent echocardiogram showed ejection fraction 30 to 35% with inferior hypokin esis mild pulmonary hypertension and severely increased left atrial diameter, severely increased left atrial volume, mild to moderate MR, severe TR.. 05/24/2022 Patient is currently lying in bed. Awake alert and oriented x3. Still complains of shortness of breath when gets up from bed. No complaints of chest pain. No nausea vomiting abdominal pain or diarrhea. Patient is being current on Lasix 20 mg IV daily. Patient was seen by cardiology and started on Imdur 30 mg daily. Highlights patient has been afebrile. No cough or sputum production. No headache or dizziness or lightheadedness. Cardiology is on board. Laboratory test showed WBC 7.6 hemoglobin 7.5 and platelets 187 BUN 37 creatinine 1.76. 05/25/2022 Patient is currently lying in bed. Awake alert and oriented x3 on room air. No complaints of chest pain. Patient still having shortness of breath and chest discomfort when she gets up from bed. Denies any complaints while lying in the bed. Patient was started on Imdur 30 mg daily yesterday. No cough or sputum production. No nausea vomiting abdominal pain or diarrhea. Orthostatic vitals negative. Continue with iron and B12 supplementation for anemia. Laboratory data reviewed. 05/26/2022 patient looks awake and alert but very tired, sitting in bed most of the time, she states her dyspnea is better today but still she has poor appetite and looks very tired Vitals are stable Labs reviewed Creatinine is stable at 1.8. Hemoglobin improved to 8.4 Anemia workup was requested, patient already on vitamin B12 and iron Intravenous Lasix switched to oral dose Possible discharge in 24-48 hours IV Lasix is switched Physical therapy evaluation is pending 05/27/2022 Patient has been followed by consulting property manager for her CHF and A. fib, heart rate is controlled and she is currently on oral Lasix and consulting property manager and cleared her for discharge. Patient states that her breathing is better she has some exertional dyspnea. Her appetite is better and strength is better today. However she has bilateral leg edema. Creatinine trending up We will give one extra dose of IV Lasix 20 tonight and repeat creatinine tomorrow. Urinalysis requested and cutter apprentice hand consulted Anemia workup is negative, hemoglobin stable. Objective - Vital Signs Vital signs: Vital Signs Temp 96.8 F L 05/27/22 11:45 Pulse 76 05/27/22 11:45 Resp 20 05/27/22 11:45 BP 113/57 05/27/22 11:45 Pulse Ox 98 05/27/22 11:45 FiO2 Intake & Output 05/26/22 05/27/22 05/27/22 18:59 06:59 18:59 Intake Total 118 240 Output Total 1050 Balance 118 -1050 240 Intake: Oral 118 240 Output: Urine 1050 Other: Voiding Method Toilet Toilet Bedside Commode # Voids 1 2 # Bowel Movements 0 - Exam -GENERAL: The patient is alert and oriented x3, not in any acute distress. Well developed, well nourished. Very tired HEENT: Pupils are round and equally reacting to light. EOMI. No scleral icterus. No conjunctival pallor. Normocephalic, atraumatic. No pharyngeal erythema. No thyromegaly. CARDIOVASCULAR: S1 and S2 present. No murmurs, rubs, or gallops. PULMONARY: Chest is clear to auscultation, no wheezing or crackles. ABDOMEN: Soft, nontender, nondistended, normoactive bowel sounds. No palpable organomegaly. MUSCULOSKELETAL: No joint swelling or deformity. EXTREMITIES: No cyanosis, clubbing, or pedal edema. NEUROLOGICAL: Gross neurological examination did not reveal any focal deficits. SKIN: No rashes. no petechiae. - Labs CBC & Chem 7: 05/26/22 08:51 05/27/22 06:50 Labs: Abnormal Lab Results - Last 24 Hours (Table) 05/26/22 05/27/22 Range/Units 12:41 06:50 BUN 40 H (7-17) mg/dL Creatinine 2.09 H (0.52-1.04) mg/dL Glucose 156 H (74-99) mg/dL Calcium 8.3 L (8.4-10.2) mg/dL TIBC 543 H (228-460) ug/dL Transferrin 388.0 H (204.0-354.0) mg/dL Vitamin B12 1040.0 H (200.0-944.0) pg/mL Assessment and Plan Assessment: Worsening shortness of breath due to acute on chronic CHF with systolic function Atrial fibrillation with rapid ventricular rate, On Eliquis Elevated troponin level Possible NSTEMI. Cardiomyopathy with ejection fraction 30 to 35%. Patient wishes to continue with medical therapy during recent admission. Acute on chronic kidney disease stage III. Coronary artery disease with history of stent placement Hypertension History CO and cardiac arrest in September 2019 History of TR and right ventricular dilatation. Normocytic anemia Iron deficiency anemia Plan: Plan: Patient will be continued on telemetry monitoring. Was given a continue with oral Lasix. We'll give extra dose of IV Lasix. Monitor creatinine Continue with metoprolol and Eliquis and . Cardiology on board and they cleared the patient for discharge Labs and medication were reviewed.. Continue same treatment. Continue with symptomatic treatment. Resume home medication. Monitor labs and vitals. DVT and GI prophylaxis. Further recommendations as per clinical course of the patient DVT prophylaxis: Eliquis GI Prophylaxis: Ppi PT/OT: Pending Prognosis is guarded
[2022-05-28 00:46] VITALS: BP 115/67; TEMP 98
[2022-05-28 02:41] LABS: Glucose,Whole Blood 132 mg/dL (70-110)
[2022-05-28 03:18] VITALS: PULSE 95
--- NOTE | 2022-05-28 06:24 | P.DS ---
Providers Date of admission: 05/23/22 12:14 Attending physician: Natasha Mcnulty Consults: 05/23/22 12:15 Consult Physician Routine Consulting Provider: Cali Davis Consult Reason/Comments: CHF exacerbation Do you want consulting provider notified?: Yes, Notify in am Consult to Palliative Care Routine Consulting Provider: Muna Rodriguez Consult Reason/Comments: Goals of Care Do you want consulting provider notified?: Yes 05/27/22 01:22 Consult Physician Routine Consulting Provider: Rm Fernandez Consult Reason/Comments: PAIN RIGHT SHOULDER Do you want consulting provider notified?: Yes, Notify in am 05/27/22 15:09 Consult Physician Urgent Consulting Provider: Anna Rose Consult Reason/Comments: trending up creatinine Do you want consulting provider notified?: Yes Primary care physician: [facility] Course: Diagnoses: Worsening shortness of breath due to acute on chronic CHF with systolic function Atrial fibrillation with rapid ventricular rate, On Eliquis Elevated troponin level Possible NSTEMI. Cardiomyopathy with ejection fraction 30 to 35%. Patient wishes to continue with medical therapy during recent admission. Acute on chronic kidney disease stage III. Coronary artery disease with history of stent placement Hypertension History [place] and cardiac arrest in September 2019 History of TR and right ventricular dilatation. Normocytic anemia History of Iron deficiency anemia Hospital course: Patient presents with respiratory difficulty and chest pain secondary to acute CHF exacerbation and A. fib and RVR, patient was on a blood thinner and treated with beta gus and manager medicare was on the case, her breathing improved. Her creatinine was trending up, arson and bomb investigator consulted. Echocardiogram showed cardiomyopathy 30-35%, chronic anemia with workup was unremarkable for Mild drop in hemoglobin. Also orthopedic physician evaluated patient for right neck muscular strain in the right shoulder.Patient remains with no fever or leukocytosis. Last night her breathing status attending worse and her oxygen requirement went up to 10 L/m . Eventually patient was and pronounced at 02:42 , Her prognosis was guarded from the beginning Plan - Discharge Summary New Discharge Prescriptions: New Isosorbide Mononitrate ER [Imdur] 30 mg PO DAILY #90 tab Continue Metoprolol Succinate (ER) [Toprol XL] 50 mg PO DAILY #30 tab Furosemide [Lasix] 20 mg PO DAILY Apixaban [Eliquis] 2.5 mg PO BID No Action Ferrous Sulfate [Feosol] 325 mg PO DAILY #30 tab Cyanocobalamin [Vitamin B-12] 1,000 mcg PO DAILY #30 tab Omeprazole 20 mg PO DAILY PRN PRN Reason: Heartburn Discharge Medication List Apixaban [Eliquis] 2.5 mg PO BID 05/19/22 [History] Furosemide [Lasix] 20 mg PO DAILY 05/19/22 [History] Cyanocobalamin [Vitamin B-12] 1,000 mcg PO DAILY #30 tab 05/21/22 [Rx] Ferrous Sulfate [Feosol] 325 mg PO DAILY #30 tab 05/21/22 [Rx] Metoprolol Succinate (ER) [Toprol XL] 50 mg PO DAILY #30 tab 05/21/22 [Rx] Omeprazole 20 mg PO DAILY PRN 05/23/22 [History] Isosorbide Mononitrate ER [Imdur] 30 mg PO DAILY #90 tab 05/27/22 [Rx] Follow up Appointment(s)/Referral(s): Jose Miller DO [STAFF PHYSICIAN] - 1 Week Theron Rocha MD [Primary Care Provider] - 1-2 days Jorge Hernandez MD [Medical Doctor] - 06/09/22 1:45 pm Discharge Disposition: - Preliminary Cause of Preliminary Cause of : heart failure
--- NOTE | 2022-05-30 11:21 | CDI ---
Documentation Clarification Form Date: 05/30/2022 10:40:56 AM From: Bobbi Mcdermott RN CCDS Admit Date: 05/23/2022 12:14:00 PM Patient Name: Millicent Dalal Visit Number: [id number] Discharge Date: 05/28/2022 04:17:00 AM ATTENTION: The Clinical Documentation Specialists (CDI) and [facility] Coding Staff appreciate your assistance in clarifying documentation. Please respond to the clarification below the line at the bottom and electronically sign. The CDI & [facility] Coding staff will review the response and follow-up if needed. Please note: Queries are made part of the Legal Health Record. If you have any questions, please contact the author of this message via ITS. Dr. Dumont E Sheet Documented in Respiratory Therapy note, 05/27 placed patient on High flow nasal cannula @ 10 l/m. Based on this information and the findings below, is there an additional diagnosis that is clinically appropriate for this patient? History/Risk Factors: 86-year-old female presents to the ED with shortness of breath and chest pressure. Medical History: CHF, Atrial fibrillation, OR and COPD. H&P, 05/23. Tobacco use: History of Clinical Indicators: VSS: 05/27: 11:45 B/P 113/57; HR 76; Temp 96.8 F Oral; RR 20; SpO2 98% 3L nasal cannula 05/27: 18:48 10L High flow 05/27: 20:11 B/P 99/57; HR 95; Temp 97.8 F Oral; RR 18; SpO2 97% 10L High Flow Oxygen. Lung/Breathing assessment:05/27, Medicine Note; Chest is clear to auscultation, no wheezing or crackles. Respiratory Therapy note, 05/27 placed patient on High flow nasal cannula @ 10 l/m to get sat of 92% . 05/28: A team response Treatment: O2: 10L High flow nasal cannula Is there an additional diagnosis that is clinically appropriate for this patient? [ ] Acute Hypoxic Respiratory Failure (pO2 <60 mm Hg or SpO2 <91% on room air) [ ] Other Diagnosis, please specify [ ] Unable to determine (Template Last Revised: September 2020) Acute Hypoxic Respiratory Failure MTDD
== END 2022-05-28 04:17 | disposition expired ==
LOC: EC 09:52 → 3SCARD 12:14
PROVIDERS: ADMIT Hospitalist; ATTEND Hospitalist
PROC: 5A0935A Assistance with Respiratory Ventilation, Less than 24 Consecutive Hours, High Flow/Velocity Cannula (ICD-10-PCS; principal; 2022-05-27)
DX: I13.0 Hypertensive heart and chronic kidney disease with heart failure and stage 1 through stage 4 chronic kidney disease, or unspecified chronic kidney disease (principal); I21.4 Non-ST elevation (NSTEMI) myocardial infarction; I50.43 Acute on chronic combined systolic (congestive) and diastolic (congestive) heart failure; J96.01 Acute respiratory failure with hypoxia; N17.9 Acute kidney failure, unspecified; I48.20 Chronic atrial fibrillation, unspecified; I27.20 Pulmonary hypertension, unspecified; D63.1 Anemia in chronic kidney disease; N18.30 Chronic kidney disease, stage 3 unspecified; D50.9 Iron deficiency anemia, unspecified; J44.9 Chronic obstructive pulmonary disease, unspecified; I08.1 Rheumatic disorders of both mitral and tricuspid valves; I42.9 Cardiomyopathy, unspecified; I48.0 Paroxysmal atrial fibrillation; I25.10 Atherosclerotic heart disease of native coronary artery without angina pectoris; S46.811A Strain of other muscles, fascia and tendons at shoulder and upper arm level, right arm, initial encounter; E78.5 Hyperlipidemia, unspecified; M19.011 Primary osteoarthritis, right shoulder; M85.811 Other specified disorders of bone density and structure, right shoulder; I45.10 Unspecified right bundle-branch block; R63.0 Anorexia; Z66 Do not resuscitate; Z86.74 Personal history of sudden cardiac arrest; Z79.01 Long term (current) use of anticoagulants; Z95.5 Presence of coronary angioplasty implant and graft; I25.2 Old myocardial infarction; Z87.891 Personal history of nicotine dependence; Z82.49 Family history of ischemic heart disease and other diseases of the circulatory system; Z79.899 Other long term (current) drug therapy; Z88.8 Allergy status to other drugs, medicaments and biological substances; Z68.27 Body mass index [BMI] 27.0-27.9, adult
CPT/HCPCS: 36415; 71045; 71046; 80048; 80053; 82607; 82728; 82746; 83540; 83550; 83735; 83880; 84484; 85025; 85610; 85730; 93005; 94760; 96374; 99285